=== PATIENT | male | born 1955 | race Caucasian/White ===

== ENCOUNTER 2024-02-22 09:54 | Outpatient (CLI) | payer OTHER, SELFPAY ==
--- OUTSIDE RECORDS SUMMARY | 2024-02-22 09:59 | XMS_ITS | Clinical Summary ---
Author Organization [facility] Address [place], [place] [address] Care Team Providers Care Tester [employer] Name Role Phone Jr Capellan MD Primary Care Provider [phone] Allergies No known active allergies Medications Medication Sig Dispensed Refills Start Date End Date Status apixaban (ELIQUIS) 5 mg tablet Take 5 mg by mouth two times daily. 01/05/2023 Active aspirin (ECOTRIN) 81 mg enteric coated tablet Take 81 mg by mouth once daily with a meal. Active gabapentin (NEURONTIN) 300 mg capsule Take 300 mg by mouth 4 times daily if needed. Active levothyroxine (SYNTHROID) 150 mcg tablet Take 150 mcg by mouth before breakfast. Active metoprolol succinate (TOPROL XL) 50 mg sustained-release tablet Take 75 mg by mouth once daily. 02/03/2023 Active omeprazole (PRILOSEC) 20 mg Delayed-Release capsule Take 20 mg by mouth once daily before a meal. Active metFORMIN (GLUCOPHAGE XR) 500 mg Extended-Release tablet Take 500 mg by mouth two times daily with meals. Active minocycline (MINOCIN) 100 mg capsule Take 100 mg by mouth once daily. Active QUEtiapine 150 mg tab Take 1 Tablet by mouth at bedtime. Active sertraline (ZOLOFT) 100 mg tablet Take 200 mg by mouth once daily. Active axitinib 5 mg tab Take 1 Tablet by mouth once daily. Active tamsulosin (FLOMAX) 0.4 mg capsule Take 0.4 mg by mouth two times daily. Active Active Problems Problem Noted Date Diagnosed Date HFrEF (heart failure with reduced ejection fract ion) 02/16/2023 COVID-19 02/16/2023 Encephalopathy 02/16/2023 Autoimmune disorder 10/29/2022 Stage 3 chronic kidney disease 09/13/2019 Malignant neoplasm of kidney excluding renal pel vis, right 06/30/2018 Social History Tobacco Use Types Packs/Day Years Used Date Smoking Tobacco: Never Assessed Social Connections Answer Date Recorded Frequency of Communication with Friends and Fami ly Not on file 02/17/2023 Sex and Gender Information Value Date Recorded Sex Assigned at Not on file Gender Identity Not on file Sexual Orientation Not on file Obstetrics History Last Filed Vital Signs Vital Sign Reading Time Taken Comments Blood Pressure 167/101 02/19/2023 6:29 AM CDT Pulse 64 02/19/2023 6:29 AM CDT Temperature 36.9 ??C (98.4 ??F) 02/19/2023 6:29 AM CD T Respiratory Rate 16 02/19/2023 6:29 AM CDT Oxygen Saturation 96% 02/19/2023 6:29 AM CDT Inhaled Oxygen Concentration - - Weight 128.9 kg (284 lb 2.8 oz) 02/19/2023 7:00 AM CDT Height 177.8 cm (5' 10) 02/16/2023 11: 19 AM CDT Body Mass Index 40.77 02/16/2023 11:19 AM CDT Plan of Treatment Upcoming Encounters Date Type Department Care Team (Late st Contact Info) Description 02/22/2024 10:00 AM CDT Ancillary Procedure [facility] & [address] [address] Health Maintenance Due Date Last Done Comments Tdap 1965 Depression screening for age 12+ 1966 BMI (ht and wt on same day) for age 18+ 1972 Hepatitis C screening for age 18-79 1972 Tetanus booster 1974 Colonoscopy through age 75 1999 Lipids for age 45-75 1999 Zoster (shingles) series for age 50+ (1 of 2) 2004 Medicare Wellness for age 65+ 2019 Pneumococcal series for age 65+ (1 of 1 - PCV) 2019 COVID-19 vaccine series ( season) 2024 04/01/2021, 08/04/2020, 07/06/2020 Influenza for age 65+ 01/01/2024 Advance Directives * Full Code (Latest Code Status on File) Date Activated Date Inactivated Comments 02/16/2023 7:34 PM 02/19/2023 1:50 PM Question Answer Comments Code Status Discussion: Reviewed Preferences Care Teams T[employer] Relationship Specialty Start Date End Date Jr Capellan MD [address] [place] [address] PCP - General Oncology 02/15/23
--- OUTSIDE RECORDS SUMMARY | 2024-02-22 10:00 | XMS_ITS | Clinical Summary ---
Author Organization [facility] Address [address] [place] [address]. [place] [address] Care Team Providers Care Direct Support Professional Caregiver Name Role Phone Pollo Medrano MD Unavailable [phone] GadielJulio C muhammad MD Unavailable [phone] Acosta Cristobal MD Primary Care Provider + Acosta Cristobal MD Unavailable [phone] Hanna Simental MD Unavailable [phone] Simona Bolden [facility] Unavailable Allergies Active Allergy Reactions Criticality Noted Date Comments Bupropion Rash Low 03/05/2019 Medications sildenafil (VIAGRA) 100 MG tabletIndication s:Erectile dysfunction due to diseases classified elsewhere Take 1 tablet (100 mg) by mouth daily as needed at least 30 minutes before intercourse. 100 tablet 08/08/19 21 Active hydrOXYzine (VISTARIL) 25 MG capsuleIndicatio ns:Moderate episode of recurrent major depressive disorder (H) Take 1-2 capsules (25-50 mg) by mouth nightly as needed (sleep) 180 capsule 1 02/06/20 22 Active Additional Information Patient not taking.Informant: Self, Spouse/Significant Other, Reported on 12/19/2023 INLYTA 5 MG tablet 5 mg daily 07/08/19 23 Active triamcinolone (KENALOG) 0.1 % external cream 1 APPLICATION TOPICALLY 2 TIMES PER DAY. APPLY TO POSTERIOR NECK/SCALP TWICE DAILY 12/09/19 22 Active urea (GORMEL) 20 % external creamIndications :Type 2 diabetes mellitus with stage 3b chronic kidney disease, without long-term current use of insulin (H) Apply topically as needed 480 g 1 08/10/19 23 Active Additional Information Patient not taking.Informant: Self, Spouse/Significant Other, Reported on 12/19/2023 minocycline (MINOCIN) 100 MG capsule Take 100 mg by mouth daily Active tamsulosin (FLOMAX) 0.4 MG capsuleIndicatio ns:Urinary hesitancy Take 1 capsule (0.4 mg) by mouth 2 times daily 180 capsule 3 10/30/19 23 Active aspirin 81 MG EC tablet Take 81 mg by mouth daily Active ENTRESTO 24-26 MG per tablet TAKE 1 TABLET BY MOUTH 2 (TWO) TIMES A DAY. THIS REPLACES LOSARTAN Active zolpidem (AMBIEN) 10 MG tabletIndication s:Insomnia, unspecified TAKE 1 TABLET (10 MG) BY MOUTH NIGHTLY NEEDED FOR SLEEP 30 tablet 01/18/20 23 Active sertraline (ZOLOFT) 100 MG tabletIndication s:Moderate episode of recurrent major depressive disorder (H) TAKE 2 TABLETS BY MOUTH EVERY DAY 180 tablet 3 04/01/20 23 Active docusate sodium (COLACE) 100 MG capsule Take 1 capsule (100 mg) by mouth 2 times daily 20 capsule 04/12/20 23 Active Additional Information Patient not taking.Reported on 12/19/2023 oxyCODONE (ROXICODONE) 5 MG tabletIndication s:Closed unstable burst fracture of thoracic vertebra with routine healing, unspecified thoracic vertebral level, subsequent encounter Take 1 tablet (5 mg) by mouth 3 times daily as needed for severe pain 30 tablet 05/03/19 24 Active Additional Information Patient not taking.Reported on 12/19/2023 tadalafil (CIALIS) 20 MG tabletIndication s:Vasculogenic erectile dysfunction, unspecified vasculogenic erectile dysfunction type Take 1 tablet (20 mg) by mouth once as needed 12 tablet 12 07/21/19 24 Active metFORMIN (GLUCOPHAGE XR) 500 MG 24 hr tabletIndication s:Type 2 diabetes mellitus with stage 3b chronic kidney disease, without long-term current use of insulin (H) Take 2 tablets (1,000 mg) by mouth 2 times daily (with meals) 360 tablet 1 09/15/19 24 Active gabapentin (NEURONTIN) 300 MG capsuleIndicatio ns:Chronic bilateral low back pain without sciatica TAKE 1 CAPSULE BY MOUTH FOUR TIMES A DAY 360 capsule 3 10/04/19 24 Active hydrochlorothiaz mary (HYDRODIURIL) 25 MG tabletIndication s:Essential hypertension, benign TAKE 1 TABLET BY MOUTH EVERY DAY 90 tablet 10/19/19 24 Active Additional Information Patient not taking.Reported on 12/19/2023 LORazepam (ATIVAN) 0.5 MG tabletIndication s:Agitation TAKE 1 TABLET BY MOUTH EVERY 6 HOURS NEEDED FOR ANXIETY. 20 tablet 11/01/19 24 Active Additional Information Patient not taking.Reported on 12/19/2023 apixaban ANTICOAGULANT (ELIQUIS) 5 MG tablet Take 5 mg by mouth 01/06/20 23 Active empagliflozin (JARDIANCE) 10 MG TABS tablet Take 10 mg by mouth 06/22/19 24 025 Active metoprolol succinate ER (TOPROL XL) 200 MG 24 hr tablet TAKE 1 TABLET (200 MG TOTAL) BY MOUTH DAILY. DO NOT CRUSH OR CHEW. Active mycophenolate (GENERIC EQUIVALENT) 500 MG tablet 500mg twice daily x 2 week; 1000mg in AM & 500mg in PM x 2 weeks; then 1000mg twice daily 03/02/20 23 Active zolpidem (AMBIEN) 10 MG tabletIndication s:Persistent insomnia Take 1 tablet (10 mg) by mouth nightly as needed for sleep 30 tablet 2 12/19/19 24 Active Semaglutide, 1 MG/DOSE, (OZEMPIC) 4 MG/3ML penIndications:T ype 2 diabetes mellitus with stage 3b chronic kidney disease, without long-term current use of insulin (H),Morbid obesity (H) Inject 1 mg subcutaneously every 7 days 9 mL 1 12/19/19 24 Active LORazepam (ATIVAN) 1 MG tabletIndication s:Autoimmune encephalitis TAKE 1 TABLET (1 MG) BY MOUTH 2 TIMES DAILY NEEDED FOR ANXIETY OR SLEEP 20 tablet 3 12/22/19 24 Active levothyroxine (SYNTHROID/LEVOT HROID) 150 MCG tabletIndication s:Hypothyroidism due to medication TAKE 1 TABLET BY MOUTH EVERY DAY 90 tablet 01/10/20 24 Active QUEtiapine Fumarate 150 MG TABSIndications: 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 Paroxysmal atrial fibrillation 09/30/2022 Peripheral edema 09/30/2022 Pain of right lower extremity 09/30/2022 Pain of left lower extremity 09/30/2022 Hypothyroidism due to medication 02/05/2022 Nodule of upper lobe of left lung 06/26/2021 Type 2 diabetes mellitus wit h stage 3b chronic kidney disease, without long-term current use of insulin 09/13/2019 Rectus diastasis 09/13/2019 Stage 3b chronic kidney disease 09/13/2019 Abnormal LFTs 07/23/2019 Moderate episode of recurrent major depressive d isorder 01/23/2019 Dysthymia 01/05/2019 NSVT (nonsustained ventricular tachycardia) 10/31 Malignant neoplasm of kidney excluding renal pel vis, right 06/30/2018 S/P total knee arthroplasty 05/29/2018 Primary osteoarthritis of left knee 05/22/2018 Morbid obesity 04/19/2018 Hyperlipidemia LDL goal <100 04/20/2017 Vitamin D deficiency 10/19/2016 Shift work sleep disorder 06/14/2016 Sinus bradycardia 06/14/2016 Essential hypertension, benign 11/27/2015 Persistent insomnia 03/13/2015 Skull lesion 02/10/2015 Polyp of colon 01/16/2009 Erectile dysfunction 06/26/2008 Dyspnea and respiratory abnormality 08/06/2002 Overview (01/30/2015): Problem list name updated by automated process. Provider to review Resolved Problems Problem Noted Date Diagnosed Date Resolved Date Personal history of renal cancer 04/19/2018 04/19/2018 CRF (chronic renal failure), stage 3 (moderate) 04/20/2017 08/09/2022 Prediabetes 10/19/2016 04/01/2020 Renal mass 02/11/2015 04/20/2017 History of renal cell cancer 01/24/2015 11/16/2022 Cancer Staging:Clinical: T3a - Unsigned Pathologic:Stage III(T3a, N0, cM0) - Signed by Julio C Ramesh MD on 03/04/2015 Overview (12/22/2015): Status post right nephrectomy for clear cell renal carcinoma January 2015. CARDIOVASCULAR SCREENING; LD L GOAL LESS THAN 130 03/01/2010 04/20/2017 Encounters Date Type Department Care Team Description 02/21/2024 Telephone [facility] [address] [place] [address] Acosta Cristobal MD Call Back 02/20/2024 [facility] [address] [place] [address] Acosta Cristobal MD 02/20/2024 [facility] Refill [facility] [address] [place] [address] Acosta Cristobal MD Refill Request 02/17/2024 [facility] Medical [facility] [address] [place] [address] Willie Lawson MA 02/17/2024 Telephone [facility] [address] [facility] [place] [phone] Acosta Cristobal MD Panel Management 02/15/2024 Telephone [facility] [address] [place] [phone] Acosta Cristobal MD Medication Question 01/28/2024 Refill [facility] [address] [place] [phone] Acosta Cristobal MD Medication Refill 01/10/2024 Refill [facility] [address] [place] [address] Acosta Cristobal MD Medication Refill 12/20/2023 Refill [facility] [address] [place] [address] Acosta Cristobal MD Medication Refill 12/19/2023 3:30 PM CDT Virtual Visit [facility] [address] [place] [address] Acosta Cristobal MD Type 2 diabetes mellitus with stage 3b chronic kidney disease, without long-term current use of insulin (H) (Primary Dx); Agitation; Persistent insomnia; Morbid obesity (H) 12/03/2023 Refill [facility] [address] [place] [phone] Acosta Cristobal MD Medication Refill 12/01/2023 Telephone [facility] [address] [place] [phone] Acosta Cristobal MD Forms 11/29/2023 Refill [facility] [address] [place] [phone] Acosta Cristobal MD Medication Refill from Last 3 Months Immunizations Name Administration Dates Next Due Flu, Unspecified 01/17/2020 Pneumococcal 20 valent Conjugate (Prevnar 20) Pneumococcal 23 valent 12/11/2020 TDAP Vaccine (Adacel) 01/05/2019,06/25/2008 Yellow Fever 05/30/2009 Zoster recombinant adjuvanted (SHINGRIX) 023,09/05/2022 Family History Medical History Relation Comments Alcohol/Drug Brother 3 Cancer Brother 4 Cancer Father lung- smoking Heart Disease Father Cancer - colorectal Maternal Grandfather Alzheimer Disease Maternal Grandmother Arthritis Maternal Grandmother Hypertension Mother Lipids Mother Thyroid Disease Mother Cerebrovascular Disease Paternal Grandfather Relation Status Comments Brother 1 (Age 40) Brother 2 Alive Brother 3 Brother 4 Father Maternal Grandfather Maternal Grandmother (Age 86) Mother Paternal Grandfather Social History Tobacco Use Types Packs/Day Years Used Date Smoking Tobacco: Never Smokeless Tobacco: Never Alcohol Use Standard Drinks/Week Comments Yes 3 (1 standard drink = 0.6 oz pur e alcohol) 2 weekly Social Connection and Isolation Panel [NHANES] A nswer Date Recorded Frequency of Communication with Friends and Fami ly Not on file 09/15/2023 How often do you get together with friends or re latives? Once a week 09/15/2023 Attends Tenriism Services Not on file 09/14 Active Member of Clubs or Organizations Not on f ile 09/15/2023 Attends Club or Organization Meetings Not on mary ann e 09/15/2023 Marital Status Not on file 09/15/2023 AUDIT-C Answer Date Recorded Q1: How often do you have a drink containing alc ohol? 2-3 times a week 05/27/2021 Q2: How many drinks containi ng alcohol do you have on a typical day when you are drinking? 3 or 4 05/27/2021 Q3: How often do you have si x or more drinks on one occasion? Never 05/27/2021 PHQ-2 Answer Date Recorded PHQ-2 Score 1 04/27/2023 [facility] [place] [facility] Occup[facility] ional [facility] - Occupational Stress Questionnaire Answer Date Recorded Do you feel stress - tense, restless, nervous, or anxious, or unable to sleep at night because your mind is troubled all the time - these days? To some extent 09/15/2023 Exercise Vital Sign Answer Date Recorde d On average, how many days pe r week do you engage in moderate to strenuous exercise (like a brisk walk)? 0 days 09/15/2023 On average, how many minutes do you engage in exercise at this level? 0 min 09/15/2023 Adolescent Education Answer Date Record ed Getting School Help Needed Not on file 01/28 Food Insecurity Answer Date Recorded Within the past 12 months, d id you worry that your food would run out before you got money to buy more? No 09/15/2023 Within the past 12 months, d id the food you bought just not last and you didn? t have money to get more? No 09/15/2023 Housing Stability Answer Date Recorded Do you have housing? (Cristhian g is defined as stable permanent housing and does not include staying ouside in a car, in a tent, in an abandoned building, in an overnight halfway, or couch-surfing.) Yes 09/15/2023 Are you worried about losing your housing? No 09/15/2023 Financial Resource Strain Answer Date R ecorded Within the past 12 months, h ave you or your family members you live with been unable to get utilities (heat, electricity) when it was really needed? No 09/15/2023 Transportation Needs Answer Date Record ed Within the past 12 months, h as lack of transportation kept you from medical appointments, getting your medicines, non-medical meetings or appointments, work, or from getting things that you need? No 09/15/2023 Interpersonal Safety Answer Date Record ed Do you feel physically and e motionally safe where you currently live? Yes 04/27/2023 Within the past 12 months, h ave you been hit, slapped, kicked or otherwise physically hurt by someone? No 04/27/2023 Within the past 12 months, h ave you been humiliated or emotionally abused in other ways by your partner or ex-partner? No 04/27/2023 Sex and Gender Information Value Date Recorded Sex Assigned at Male 02/06/2021 10:36 AM CDT Legal Sex Male 3:26 AM POULTRY SEXER Gender Identity Male 02/06/2021 10:36 AM CDT Sexual Orientation Straight 02/06/2021 10 :36 AM CDT Last Filed Vital Signs Vital Sign Reading Time Taken Comments Blood Pressure 109/73 09/15/2023 2:56 PM CDT Pulse 98 09/15/2023 2:56 PM CDT Temperature 36.8 ??C (98.3 ??F) 09/15/2023 2:56 PM CD T Respiratory Rate 16 09/15/2023 2:56 PM CDT Oxygen Saturation 97% 09/15/2023 2:56 PM CDT Inhaled Oxygen Concentration - - Weight 133.4 kg (294 lb) 09/15/2023 2:56 PM CDT Height 177.8 cm (5' 10) 09/15/2023 2:56 PM CDT Body Mass Index 42.18 09/15/2023 2:56 PM CDT Plan of Treatment Upcoming Encounters Date Type Department Care Team (Late st Contact Info) Description 03/23/2024 1:00 PM P[employer]LTRY S[employer]ER Office Visit [facility] [address] [place] [address] [place] [address] [place] [address] Health Maintenance Due Date Last Done Comments CT COLONOGRAPHY 1954 FIT 1954 FLEX SIG 1954 sDNA (Cologuard) 1954 RSV VACCINE (1 - Risk 60-74 years 1-dose series) 2014 DIABETIC FOOT EXAM 08/10/2023 08/09/2022, 12/11/2020 MEDICARE ANNUAL WELLNESS VISIT 08/10/2023 08/09/2022, 08/09/2022, 12/11/2020, Additional history exists PHQ-9 10/27/2023 04/27/2023, 03/02, 12/29/2022, Additional history exists A1C 12/16/2023 09/15/2023, 03/02, 11/16/2022, Additional history exists COVID-19 Vaccine ( season) 2024 04/01/2021, 08/04/2020, 07/06/2020 INFLUENZA VACCINE (#1) 2024 , 01/05/2019 (Declined), 01/06/2018 (Declined) ANNUAL REVIEW OF HM ORDERS 02/23/202402/22, 02/05/2022, 08/04/2020 EYE EXAM 03/07/2024 03/07/2023, 040 05/2021, 12/09/2019 LIPID 03/17/2024 03/17/2023, 100 10/2021, 12/02/2020, Additional history exists MICROALBUMIN 03/18/2024 09/16/2023, 03/02, 08/09/2022, Additional history exists BMP 04/27/2024 04/27/2023, 04/01, 10/01/2022, Additional history exists HEMOGLOBIN 04/27/2024 04/27/2023, 04/01, 10/01/2022, Additional history exists FALL RISK ASSESSMENT 09/14/2024 09/15/2023, 08/09/2022, 02/05/2022, Additional history exists TSH W/FREE T4 REFLEX 09/14/2024 09/15/2023, 03/03/2022, 02/05/2022, Additional history exists COLONOSCOPY 02/19/2026 02/19/2021, 01/31, 04/02/2020, Additional history exists COLORECTAL CANCER SCREENING 02/19/2026 ADVANCE CARE PLANNING 08/11/2027 08/10/2022 , 12/11/2019, 06/01/2018, Additional history exists DTAP/TDAP/TD IMMUNIZATION (3 - Td or Tdap) 01/05/2029 01/05/2019, 06/25/2008 HEPATITIS C SCREENING Addressed 04/20/2017 (Decline d) Overridden with the intention of not completing the topic PARATHYROID Completed 08/02/2018, 04/08/2016 DEPRESSION ACTION PLAN Completed 01/23/2019 PHOSPHORUS Completed 10/28/2021, 0 06/2018, 04/08/2016, Additional history exists Pneumococcal Vaccine: 65+ Years Completed 02/05/2022, 12/11/2020 URINALYSIS Completed 07/05/2022, 10/01, 08/02/2018, Additional history exists ZOSTER IMMUNIZATION Completed 12/11/2022, 3 ALK PHOS Completed 04/12/2023, 0606/2022, 09/30/2022, Additional history exists HPV IMMUNIZATION Aged Out No longer e ligible based on patient's age to complete this topic MENINGITIS IMMUNIZATION Aged Out No l onger eligible based on patient's age to complete this topic RSV MONOCLONAL ANTIBODY Aged Out No l onger eligible based on patient's age to complete this topic Goals Goal Patient Goal Type Associated Problems Recent Progress Patient-Stated? Author Explore cancer support resources Care Plan Mental Health Symptoms Need Improvement 100%(10/07/19 9:29 AM CDT) No Paula Humphrey, DAIRY NUTRITION CONSULTANT Note: Barriers: Not sure what is available Strengths: Family support Patient expressed understanding of goal: Yes Action steps to achieve this goal: 1. I will consider participating in a cancer support group. [employer] will send me cancer support resources. 2. I will continue to work with a therapist. 3. I will let [employer] know if I need additional resources. Medical Devices Implanted Type Area License And Permit Specialist Device Identifier Shelf Expiration Date Model / Serial / Lot Bone Cement Simplex W/Tobramycin [id number] Implanted:Qty: 1 on 05/29/2018 by Fabrizio Parr MD at [facility] Cement, Bone Left: Knee [employer] 10/30/2019 [id number] 1 / / [id number] Comp Tka Ibalance Mod Tibial Tray Sz 7 Ar-513-T7 Implanted:Qty: 1 on 05/29/2018 by Fabrizio Parr MD at [facility] Total Joint Component /Insert Left: Knee [employer] 06/29/2022 AR-513-T7 / / [id number] Ibalance Patelle Implant, Dome, Vit E, 40 X 10mm Implanted:Qty: 1 on 05/29/2018 by Fabrizio Parr MD at [facility] Total Joint Component /Insert Left: Knee [employer] 06/01/2022 AR-524-PS E0 / / [id number] Imp Comp Tka Ibalance Fem Ps Bladimir Sz 8 Lt Ar-516-8l Implanted:Qty: 1 on 05/29/2018 by Fabrizio Parr MD at [facility] Total Joint Component /Insert Left: Knee ARTHREX 01/29/2019 AR-516-8L / / [id number] Ibalance Tka, Tibial Bearing Implant, Ps, Vit E, Size 7 (8mm Thickness) Implanted:Qty: 1 on 05/29/2018 by Fabrizio Parr MD at [facility] Total Joint Component /Insert Left: Knee ARTHREX 03/31/2020 AR-523-B7 08 / / [id number] Imp Mesh Syn Malleable [id number] Low Blast Furnace Keeper Ti Implanted:Qty: 1 on 02/13/2015 by Niraj Smith MD at [facility] Right: Skull SYNTHES-STRATEC 421.531 / / Imp Scr Syn Matrix Low Pro 1.5x04mm Self Drill [id number] Implanted:Qty: 7 on 02/13/2015 by Niraj Smith MD at [facility] Right: Skull SYNTHES-STRATEC [id number] 4.01 / / Procedures Procedure Name Priority Date/Time Associated Diagnosis Comments ALBUMIN RANDOM URINE QUANTITATIVE Routine 09/16/2023 3:22 PM CDT Type 2 diabetes mellitus with stage 3b chronic kidney disease, without long-term current use of insulin (H) TSH WITH FREE T4 REFLEX Routine 09/15/2023 3:28 PM CDT Type 2 diabetes mellitus with stage 3b chronic kidney disease, without long-term current use of insulin (H) HEMOGLOBIN A1C Routine 09/15/2023 3:28 PM CDT Type 2 diabetes mellitus with stage 3b chronic kidney disease, without long-term current use of insulin (H) CBC WITH PLATELETS Routine 04/27/2023 11 :10 AM P[employer]LTRY SEXER Type 2 diabetes mellitus with stage 3b chronic kidney disease, without long-term current use of insulin (H) BASIC METABOLIC PANEL Routine 04/27/2023 11:10 AM P[employer]LTRY S[employer]ER Type 2 diabetes mellitus with stage 3b chronic kidney disease, without long-term current use of insulin (H) COMPREHENSIVE METABOLIC PANEL STAT 04/12/2023 3:58 PM [employer]LTRY S[employer]ER LIPID REFLEX TO DIRECT LDL PANEL Routine 03/17/2023 11:42 AM P[employer]LTRY S[employer]ER Type 2 diabetes mellitus with stage 3b chronic kidney disease, without long-term current use of insulin (H) EYE EXAM - HIM SCAN Routine 03/07/2023 URINALYSIS MACROSCOPIC Routine 3:51 PM P[employer]LTRY S[employer]ER Urinary hesitancy PHOSPHORUS STAT 10/28/2021 10:26 AM CDT COLONOSCOPY Routine 02/19/2021 8:44 AM CDT PARATHYROID HORMONE INTACT Routine 08/02/2018 12:18 PM CDT CRF (chronic renal failure), stage 3 (moderate) (H) from Last 3 Months or Most Recently Relevant to Health Maintenance Results * Albumin Random Urine Quantitative with Creat Ratio (09/16/2023 3:22 PM CDT) Creatinine Urine mg/dL 100.0 mg/dL 09/17/2023 9:59 PM CDT [facility] Comment:The reference ranges have not been established in urine creatinine. The results should be integrated into the clinical context for interpretation. Albumin Urine mg/L 15.8 mg/L 2023 9:59 PM CDT [facility] Comment:The reference ranges have not been established in urine albumin. The results should be integrated into the clinical context for interpretation. Albumin Urine mg/g Cr 15.80 0.00 - 17.00 mg/g Cr 09/17/2023 9:59 PM CDT [facility] Comment: Microalbuminuria is defined as an albumin:creatinine ratio of 17 to 299 for males and 25 to 299 for females. A ratio of albumin:creatinine of 300 or higher is indicative of overt proteinuria. Due to biologic variability, positive results should be confirmed by a second, first-morning random or 24-hour timed urine specimen. If there is discrepancy, a third specimen is recommended. When 2 out of 3 results are in the microalbuminuria range, this is evidence for incipient nephropathy and warrants increased efforts at glucose control, blood pressure control, and institution of therapy with an iwuwiknalnl-ossxxlbmly-rykeqs (PONCHO) inhibitor (if the patient can tolerate it). ?? Urine URINE SPECIMEN / Unknown Non-blood Collection / Unknown 09/16/2023 3:22 PM CDT 09/16/2023 3:22 PM CDT Acosta Cristobal MD LAB - URINE ORDERABLES F inal Result Performing Organization Address City/[facility]/ZIP Co de Phone Number [facility] [address] [facility], [address] * TSH with free T4 reflex (09/15/2023 3:28 PM CDT) TSH 2.99 0.30 - 4.20 uIU/mL 09/16/2023 5:12 PM CDT [facility] Blood BLOOD SPECIMEN / Unknown Venipuncture / Unknown 09/15/2023 3:28 PM CDT 09/15/2023 3:28 PM CDT Acosta Cristobal MD LAB - BLOOD ORDERABLES F inal Result Performing Organization Address City/[facility] Co de Phone Number LABORATORY [facility] [address] [facility], [address] * (ABNORMAL) Hemoglobin A1c (09/15/2023 3:28 PM CDT) Hemoglobin A1C 7.2(H) 0.0 - 5.6 % 09/15/2023 3:33 PM CDT LABORATORY Comment: Normal <5.7% Prediabetes 5.7-6.4% ?? Diabetes 6.5% or higher Note: Adopted from ADA consensus guidelines. Blood BLOOD SPECIMEN / Unknown Venipuncture / Unknown 09/15/2023 3:28 PM CDT 09/15/2023 3:28 PM CDT us Acosta Cristobal MD LAB - BLOOD ORDERABLES F inal Result LABORATORY [facility] [address] [facility] (no room number, 1st floor of clinic) [place] [address], [facility] * (ABNORMAL) Basic metabolic panel (Ca, Cl, CO2, Creat, Gluc, K, Na, BUN) (04/27/2023 11:10 AM POULTRY SEXER) Sodium 133(L) 135 - 145 mmol/L 04/27/2023 8:03 PM POULTRY SEXER [facility] Comment:Reference intervals for this test were updated on 01/25/2023 to more accurately reflect our healthy population. There may be differences in the flagging of prior results with similar values performed with this method. Interpretation of those prior results can be made in the context of the updated reference intervals. Potassium 5.1 3.4 - 5.3 mmol/L 04/27/2023 8:03 PM [facility] Chloride 98 98 - 107 mmol/L 04/27/2023 8:03 PM [facility] Carbon Dioxide (CO2) 23 22 - 29 mmol/L 04/27/2023 8:03 PM [facility] Anion Gap 12 7 - 15 mmol/L 04/27/2023 8:03 PM [facility] Urea Nitrogen 29.4(H) 8.0 - 23.0 mg/dL 04/27/2023 8:03 PM [facility] Creatinine 1.59(H) 0.67 - 1.17 mg/dL 04/27/2023 8:03 PM [facility] GFR Estimate 47(L) >60 mL/min/1. 73m2 04/27/2023 8:03 PM [facility] Calcium 9.6 8.8 - 10.2 mg/dL 04/27/2023 8:03 PM [facility] Glucose 271(H) 70 - 99 mg/dL 04/27/2023 8:03 PM [facility] Blood BLOOD SPECIMEN / Unknown Venipuncture / Unknown 04/27/2023 11:10 AM [facility] 04/27/2023 11:10 AM [facility] us Jenn Fishman MD LAB - BLOOD ORDERABLES Final Res ult [facility] [address] [facility], [address] [place] [address], [place] [phone] * CBC with platelets (04/27/2023 11:10 AM [facility]) [facility] WBC Count 9.2 4.0 - 11.0 10e3/uL 04/27/2023 11:13 AM [facility] RBC Count 4.82 4.40 - 5.90 10e6/uL 04/27/2023 11:13 AM [facility] Hemoglobin 13.7 13.3 - 17.7 g/dL 04/27/2023 11:13 AM [facility] Hematocrit 41.2 40.0 - 53.0 % 04/27/2023 11:13 AM [facility] MCV 86 78 - 100 fL 04/27/2023 11:13 AM [facility] MCH 28.4 26.5 - 33.0 pg 04/27/2023 11:13 AM [facility] MCHC 33.3 31.5 - 36.5 g/dL 04/27/2023 11:13 AM [facility] RDW 14.9 10.0 - 15.0 % 04/27/2023 11:13 AM [facility] Platelet Count 202 150 - 450 10e3/uL 04/27/2023 11:13 AM [facility] Blood BLOOD SPECIMEN / Unknown Venipuncture / Unknown 04/27/2023 11:10 AM [facility] 04/27/2023 11:10 AM [facility] us Jenn Fishman MD LAB - BLOOD ORDERABLES Final Res ult [facility] [place] [facility] [address] [facility] Lab (no room number, 1st floor of clinic) [place] [address], [place] [phone] * (ABNORMAL) Comprehensive metabolic panel (04/12/2023 3:58 PM [facility]) [facility] Sodium 137 135 - 145 mmol/L 04/12/2023 7:05 PM [facility] Comment:Reference intervals for this test were updated on 01/25/2023 to more accurately reflect our healthy population. There may be differences in the flagging of prior results with similar values performed with this method. Interpretation of those prior results can be made in the context of the updated reference intervals. Potassium 5.1 3.4 - 5.3 mmol/L 04/12/2023 7:05 PM [facility] Carbon Dioxide (CO2) 24 22 - 29 mmol/L 04/12/2023 7:05 PM [facility] Anion Gap 13 7 - 15 mmol/L 04/12/2023 7:05 PM [facility] Urea Nitrogen 27.7(H) 8.0 - 23.0 mg/dL 04/12/2023 7:05 PM [facility] Creatinine 1.62(H) 0.67 - 1.17 mg/dL 04/12/2023 7:05 PM [facility] GFR Estimate 46(L) >60 mL/min/1. 73m2 04/12/2023 7:05 PM [facility] Calcium 9.4 8.8 - 10.2 mg/dL 04/12/2023 7:05 PM [facility] Chloride 100 98 - 107 mmol/L 04/12/2023 7:05 PM [facility] Glucose 103(H) 70 - 99 mg/dL 04/12/2023 7:05 PM [facility] Alkaline Phosphatase 53 40 - 150 U/L 04/12/2023 7:05 PM [facility] Comment:Reference intervals for this test were updated on 03/15/2023 to more accurately reflect our healthy population. There may be differences in the flagging of prior results with similar values performed with this method. Interpretation of those prior results can be made in the context of the updated reference intervals. AST 28 0 - 45 U/L 04/12/2023 7:05 PM [facility] Comment:Reference intervals for this test were updated on 10/11/2022 to more accurately reflect our healthy population. There may be differences in the flagging of prior results with similar values performed with this method. Interpretation of those prior results can be made in the context of the updated reference intervals. ALT 26 0 - 70 U/L 04/12/2023 7:05 PM [facility] Comment:Reference intervals for this test were updated on 10/11/2022 to more accurately reflect our healthy population. There may be differences in the flagging of prior results with similar values performed with this method. Interpretation of those prior results can be made in the context of the updated reference intervals. Protein Total 6.9 6.4 - 8.3 g/dL 04/12/2023 7:05 PM [facility] Albumin 4.6 3.5 - 5.2 g/dL 04/12/2023 7:05 PM [facility] Bilirubin Total 0.6 <=1.2 mg/dL 04/12/2023 7:05 PM [facility] Blood VENOUS LINE / Unknown Venipuncture / Unknown 04/12/2023 3:58 PM [facility] 04/12/2023 4:06 PM [facility] us Benny Albrecht MD LAB - BLOOD ORDERABLES Final Result [facility] [address] Lab (1st floor, no room number) [place] [address], [facility] [phone] * (ABNORMAL) Lipid panel reflex to direct LDL Non-fasting (03/17/2023 11:42 AM [facility]) Cholesterol 237(H) <200 mg/dL 03/17/2023 10:42 PM [facility] Triglycerides 306(H) <150 mg/dL 03/17/2023 10:42 PM [facility] Direct Measure HDL 41 >=40 mg/dL 03/17/2023 10:42 PM [facility] LDL Cholesterol Calculated 135(H) <=100 mg/dL 03/17/2023 10:42 PM [facility] Non HDL Cholesterol 196(H) <130 mg/dL 03/17/2023 10:42 PM [facility] Blood BLOOD SPECIMEN / Unknown Venipuncture / Unknown 03/17/2023 11:42 AM [facility] 03/17/2023 11:42 AM [facility] Narrative [facility] - 03/17/2023 10:42 PM [facility] Cholesterol Desirable: ??<200 mg/dL Triglycerides Normal: ??Less than 150 mg/dL Borderline High: ??150-199 mg/dL High: ??200-499 mg/dL Very High: ??Greater than or equal to 500 mg/dL Direct Measure HDL Female: ??Greater than or equal to 50 mg/dL Male: ??Greater than or equal to 40 mg/dL LDL Cholesterol Desirable: ??<100mg/dL Above Desirable: ??100-129 mg/dL Borderline High: ??130-159 mg/dL High: ??160-189 mg/dL Very High: ??>= 190 mg/dL Non HDL Cholesterol Desirable: ??130 mg/dL Above Desirable: ??130-159 mg/dL Borderline High: ??160-189 mg/dL High: ??190-219 mg/dL Very High: ??Greater than or equal to 220 mg/dL Acosta Cristobal MD LAB - BLOOD ORDERABLES F inal Result [facility] [address], [address] [address], [facility] [phone] * Eye Exam - HIM Scan (03/07/2023) RETINOPATHY UNKNOWN Narrative Maile Villafana - 03/07/2023 SEE ENCOUNTER DATED 05/26/23 us Patient Reported OTHER Final Result * UA without Microscopic [[id number]] (07/05/2022 3:51 PM [facility]) Color Urine Yellow Colorless, Straw, Light Yellow, Yellow 07/05/2022 3:58 PM [facility] Appearance Urine Clear Clear 07/06/19 3:58 PM [facility] Glucose Urine Negative Negative mg/dL 07/05/2022 3:58 PM [facility] Bilirubin Urine Negative Negative 3:58 PM [facility] Ketones Urine Negative Negative mg/dL 07/05/2022 3:58 PM [facility] Specific Mathis Urine 1.015 1.003 - 1.035 07/05/2022 3:58 PM [facility] Blood Urine Negative Negative 07/05/2022 3:58 PM [facility] pH Urine 7.0 5.0 - 7.0 07/05/2022 3:58 PM [facility] Protein Albumin Urine Negative Negative mg/dL 07/05/2022 3:58 PM [facility] Urobilinogen Urine 0.2 0.2, 1.0 E.U./dL 07/05/2022 3:58 PM [facility] Nitrite Urine Negative Negative 07/05/2022 3:58 PM [facility] Leukocyte Esterase Urine Negative Negative 07/05/2022 3:58 PM [facility] Urine MID-STREAM URINE SPECIMEN / Unknown Non-blood Collection / Unknown 07/05/2022 3:51 PM [facility] 07/05/2022 3:51 PM [facility] Ramsey Loza MD LAB - URINE ORDERABLES Final Result [facility] [address] , [address] [place] [address], [facility] [phone] * Phosphorus (10/28/2021 10:26 AM CDT) Pathologist [facility] Phosphorus 2.9 2.5 - 4.5 mg/dL 10/28/2021 12:08 PM CDT LABORATORY Blood STRUCTURE OF RIGHT UPPER LIMB / Unknown Venipuncture / Unknown 10/28/2021 10:26 AM CDT 10/28/2021 10:41 AM CDT Thanh Johnson MD LAB - BLOOD ORDERABLES F inal Result LABORATORY [facility] [address] Lab (1st floor, no room number) [place] [address], [facility] [phone] * COLONOSCOPY (02/19/2021 8:44 AM CDT) COLONOSCOPY [facility] Patient Name: Hans Gu ? Procedure Date: 02/19/2021 8:44 AM ? Date of : 1955 ? Admit Type: Outpatient Age: 65 ? Gender: Male Attending MD: Pollo Beasley MD ?? Total Sedation Time: 14_minutes continuous bedside 1:1 Instrument Name: 221 - Adult Colonoscope Procedure: ?Colonoscopy Indications: ?High risk colon cancer surveillance: Personal ?history of colonic polyps Providers: ?Pollo Beasley MD (Doctor) Referring MD: ? Medicines: ?Midazolam 2 mg IV, Fentanyl 100 micrograms IV Complications: ?No immediate complications. Procedure: ?Pre-Anesthesia Assessment: ?- Prior to the procedure, a History and Physical ?was performed, and patient medications and ?allergies were reviewed. The patient is competent. ?The risks and benefits of the procedure and the ?sedation options and risks were discussed with the ?patient. All questions were answered and informed ?consent was obtained. Patient identification and ?proposed procedure were verified by the physician ?in the procedure room. Mental Status Examination: ?alert and oriented. Airway Examination: normal ?oropharyngeal airway and neck mobility. Respiratory ?Examination: clear to auscultation. CV Examination: ?normal. Prophylactic Antibiotics: The patient does ?not require prophylactic antibiotics. Prior ?Anticoagulants: The patient has taken no previous ?anticoagulant or antiplatelet agents. ASA Grade ?Assessment: II - A patient with mild systemic ?disease. After reviewing the risks and benefits, ?the patient was deemed in satisfactory condition to ?undergo the procedure. The anesthesia plan was to ?use moderate sedation / analgesia (conscious ?sedation). Immediately prior to administration of ?medications, the patient was re-assessed for ?adequacy to receive sedatives. The heart rate, ?respiratory rate, oxygen saturations, blood ?pressure, adequacy of pulmonary ventilation, and ?response to care were monitored throughout the ?procedure. The physical status of the patient was ?re-assessed after the procedure. ?After obtaining informed consent, the colonoscope ?was passed under direct vision. Throughout the ?procedure, the patient's blood pressure, pulse, and ?oxygen saturations were monitored continuously. The ?Olympus Adult Colonoscope, Model # CF-H190L, [place] ?# 221, SN # [id number] was introduced through the anus ?and advanced to the cecum, identified by ?appendiceal orifice and ileocecal valve. The ?colonoscopy was performed without difficulty. The ?patient tolerated the procedure well. The quality ?of the bowel preparation was good. ? Findings: ? The perianal and digital rectal examinations were normal. ? A 3 mm polyp was found in the distal transverse colon. The polyp was ? sessile. The polyp was removed with a cold snare. Resection and ? retrieval were complete. Verification of patient identification for the ? specimen was done. Estimated blood loss was minimal. ? Multiple small and large-mouthed diverticula were found in the entire ? colon. ? The exam was otherwise without abnormality on direct and retroflexion ? views. ? Impression: ? - One 3 mm polyp in the distal transverse colon, ?removed with a cold snare. Resected and retrieved. ?- Diverticulosis in the entire examined colon. ?- The examination was otherwise normal on direct ?and retroflexion views. Recommendation: ? - Await pathology results. ?- Repeat colonoscopy in 5 years for surveillance. ? Procedure Code(s): ? --- Professional --- ? 44153, Colonoscopy, flexible; with removal of tumor(s), polyp(s), or ? other lesion(s) by snare technique Diagnosis Code(s): ? --- Professional --- ? K63.5, Polyp of colon CPT copyright 2019 [employer]. All rights reserved. The codes documented in this report are preliminary and upon warehouse order picker review may be revised to meet current compliance requirements. Electronically signed by Pollo Beasley MD __ Pollo Beasley MD 02/19/2021 9:40:17 AM I was physically present for the entire viewing portion of the exam. Pollo Beasley MD Number of Addenda: 0 Note Initiated On: 02/19/2021 8:44 AM MRN: ?[id number] Procedure Date: ? 02/19/2021 8:44:57 AM Scope Withdrawal Time: 0 hours 8 minutes 16 seconds Total Procedure Duration: 0 hours 12 minutes 55 seconds Estimated Blood Loss: ? Scope In: 9:16:44 AM Scope Out: 9:29:39 AM RADIOLOGY RESULTS 02/19/2021 8:44 AM CDT us Pollo Beasley MD PROCEDURES Final Result RADIOLOGY RESULTS * Parathyroid Hormone Intact (08/02/2018 12:18 PM CDT) Parathyroid Hormone Intact 62 18 - 80 pg/mL 08/02/2018 6:01 PM CDT [facility] Blood specimen (specimen) 08/02/2018 12:18 PM CDT 08/02/2018 12:20 PM CDT Ramakrishna Jurado MD LAB - BLOOD ORDERABLES Malia fuentes Result [facility] [address] [place] [address] from Last 3 Months or Most Recently Relevant to Health Maintenance Additional Health Concerns Active Problems Noted Date Diagnosed Date Mental Health Symptoms Need Improvement 08/24/19 Insurance [place]ICARE [place]IC MEDICARE SUPPLEMENT PLAN MEDICARE [facility] MEDICARE SUPPLEMENT PLAN MEDICARE Advance Directives For more information, please contact: [phone] Documents on File Type Date Recorded Patient Fashion Intern Expl anation Advance Directives and Living Will 06/01/2018 12:11 PM Health Care Directiv e 05/22/2018 * No CPR- Do NOT Intubate (Latest Code Status on File) Date Activated Date Inactivated Comments 09/30/2022 6:53 PM 10/01/2022 7:05 PM NO basic or ad vanced life-sustaining interventions are performed Question Answer Comments Code status determined by: Discussion with patie nt/ legal decision maker * Full Code Date Activated Date Inactivated Comments 06/26/2021 5:58 PM 06/27/2021 4:11 PM All basic an d advanced life-sustaining interventions are performed as appropriate Question Answer Comments Code status determined by: Discussion with patie nt/ legal decision maker * Full Code Date Activated Date Inactivated Comments 05/29/2018 11:53 AM 05/30/2018 6:08 PM Question Answer Comments Code status determined by: Discussion with patie nt/legal decision maker * Full Code Date Activated Date Inactivated Comments 02/11/2015 3:53 PM 02/15/2015 10:30 AM Healthcare Agents on File Name Relationship Healthcare Agent Relationship Communication Maribeth Gu Spouse Health Care Agent [email or web address] Rylee (sister in law) Oni Relative First Alternate Health Care Agent Care Teams Direct Support Professional Caregiver Relationship Specialty [place] [address] [place] [address] PCP - General Family Practice 09/03/16 Pollo Medrano MD [address] [place] [address] Urology 01/24/15 Julio C Ramesh MD [address] [id number] Hematology 01/31/15 [place] [address] [place] [address] Assigned PCP 06/15/20 [place] [address] Endocrinology, Diabetes, and Metabolism 12/10/21 Simona Bolden MSW [address] [address] Assigned Behavioral Health Provider 08/21/22
--- OUTSIDE RECORDS SUMMARY | 2024-02-22 10:01 | XMS_ITS | Referral Summary ---
Author Organization [facility] Address [address] [place] [address]. [place] [address] Care Team Providers Care Handle Attacher Name Role Phone Pollo Medrano MD Unavailable [phone] GadielJulio C muhammad MD Unavailable [phone] Acosta Cristobal MD Primary Care Provider + Acosta Cristobal MD Unavailable [phone] Hanna Simental MD Unavailable [phone] Simona Bolden [facility] Unavailable Encounters Date Type Department Care Team Description 02/21/2024 Telephone [facility] [address] [place] [address] Acosta Cristobal MD Call Back 02/20/2024 MyC Medical Advice [facility] [address] [place] [address] Acosta Cristobal MD 02/20/2024 MyC Refill [facility] [address] [place] [address] Acosta Cristobal MD Refill Request 02/17/2024 [facility] [address] [place] [phone] Willie Lawson MA 02/17/2024 [facility]phone [facility] [address] [place] [phone] Acosta Cristobal MD Panel Management 02/15/[address] [facility] [address] [place] [phone] Acosta Cristobal MD Medication Question 01/28/[address] [facility] [address] [place] [phone] Acosta Cristobal MD Medication Refill 01/10/[address] [facility] [address] [place] [phone] Acosta Cristobal MD Medication Refill 12/20/[address] [facility] [address] [place] [address] Acosta Cristobal MD Medication Refill 12/19/2023 3:[address] [facility] [address] [place] [address] Acosta Cristobal MD Type 2 diabetes mellitus with stage 3b chronic kidney disease, without long-term current use of insulin (H) (Primary Dx); Agitation; Persistent insomnia; Morbid obesity (H) 12/03/2023 [facility] [address] [place] [address] Acosta Cristobal MD Medication Refill 12/01/[address] [facility] [address] [place] [address] Acosta Cristobal MD Forms 11/29/[address] [facility] [address] [place] [phone] Acosta Cristobal MD Medication Refill from Last 3 Months Allergies Active Allergy Reactions Criticality Noted Date [...] L GOAL LESS THAN 130 03/01/2010 04/20/2017 Immunizations Name Administration Dates Next Due Flu, Unspecified 01/17/2020 Pneumococcal 20 valent Conjugate (Prevnar 20) Pneumococcal 23 valent 12/11/2020 TDAP Vaccine (Adacel) 01/05/2019,06/25/2008 Yellow Fever 05/30/2009 Zoster recombinant adjuvanted (SHINGRIX) 023,09/05/2022 Social History Tobacco Use Types Packs/Day Years [...] re latives? Once a week 09/15/2023 Attends Judaism Services Not on file 09/14 Active Member [...] Answer Date Recorded PHQ-2 Score 1 04/27/2023 [facility] - Occupational Stress Questionnaire Answer Date Recorded [...] Date Recorded Do you have housing? (Cristhian grayson is defined as stable permanent housing and does not include staying ouside in a car, in a tent, in an abandoned building, in an overnight senior living, or couch-surfing.) Yes 09/15/2023 Are you worried [...] AM CDT Legal Sex Male 3:26 AM LIFE SKILLS CONSULTANT Gender Identity Male 02/06/2021 10:36 AM CDT [...] st Contact Info) Description 03/23/2024 1:00 PM LIFE SKILLS CONSULTANT Office [facility] [address] [place] [address] [place] [address] [place], [place] [phone] Goals Goal Patient Goal Type Associated Problems Recent Progress Patient-Stated? Author Explore cancer support resources Care Plan Mental Health Symptoms Need Improvement 100%(10/07/19 9:29 AM CDT) No Paula Humphrey, SERVICE AGENT Note: Barriers: Not sure what is available Strengths: Family support Patient expressed understanding of goal: Yes Action steps to achieve this goal: 1. I will consider participating in a cancer support group. Marine Geologist will send me cancer support resources. 2. I will continue to work with a therapist. 3. I will let Marine Geologist know if I need additional resources. Medical Devices Implanted Type Area Flexible Nanny Device Identifier Shelf Expiration Date Model / Serial / Lot Bone Cement Simplex W/Tobramycin [id number] Implanted:Qty: 1 on 05/29/2018 by Fabrizio Parr MD at [facility] Cement, Bone Left: Knee [employer] 10/30/2019 [id number] 1 / / [id number] Imp Comp Tka Ibalance Mod Tibial Tray Sz 7 Ar-513-T7 Implanted:Qty: 1 on 05/29/2018 by Fabrizio Parr MD at [facility] Total Joint Component /Insert Left: Knee [employer] 06/29/2022 AR-513-T7 / / [id number] Ibalance Patelle Implant, Dome, Vit E, 40 X 10mm Implanted:Qty: 1 on 05/29/2018 by Fabrizio Parr MD at [facility] Total Joint Component /Insert Left: Knee [employer] 06/01/2022 AR-524-PS E0 / / [id number] Imp Comp Tka Ibalance Fem Ps Bladimir Sz 8 Lt Ar-516-8l Implanted:Qty: 1 on 05/29/2018 by Fabrizio Parr MD at [facility] Total Joint Component /Insert Left: Knee ARTHREX 01/29/2019 AR-516-8L / / [id number] Ibalance Tka, Tibial Bearing Implant, Ps, Vit E, Size 7 (8mm Thickness) Implanted:Qty: 1 on 05/29/2018 by Fabrizio Parr MD at [facility] Total Joint Component /Insert Left: Knee AR[employer]REX 03/31/2020 AR-523-B7 08 / / [id number] Imp Mesh Syn Malleable [id number] Low Marine Electrician Ti Implanted:Qty: 1 on 02/13/2015 by Niraj Smith MD at [facility] Right: Skull SYNTHES-STRATEC 421.531 / / Imp Scr Syn Matrix Low Pro 1.5x04mm Self Drill [id number] Implanted:Qty: 7 on 02/13/2015 by Niraj Smith MD at [facility] Right: Skull [employer] [id number] 4.01 / [...] WITH PLATELETS Routine 04/27/2023 11 :10 AM LIFE SKILLS CONSULTANT Type 2 diabetes mellitus with stage 3b chronic kidney disease, without long-term current use of insulin (H) BASIC METABOLIC PANEL Routine 04/27/2023 11:10 AM LIFE SKILLS CONSULTANT Type 2 diabetes mellitus with stage 3b chronic kidney disease, without long-term current use of insulin (H) COMPREHENSIVE METABOLIC PANEL STAT 04/12/2023 3:58 PM LIFE SKILLS CONSULTANT LIPID REFLEX TO DIRECT LDL PANEL Routine 03/17/2023 11:42 AM LIFE SKILLS CONSULTANT Type 2 diabetes mellitus with stage 3b chronic kidney disease, without long-term current use of insulin (H) EYE EXAM - HIM SCAN Routine 03/07/2023 URINALYSIS MACROSCOPIC Routine 3:51 PM LIFE SKILLS CONSULTANT Urinary hesitancy PHOSPHORUS STAT 10/28/2021 10:26 AM CDT COLONOSCOPY Routine 02/19/2021 8:44 AM CDT PARATHYROID HORMONE INTACT Routine 08/02/2018 12:18 PM CDT CRF (chronic renal failure), stage 3 (moderate) (H) from Last 3 Months or Most Recently Relevant to Health Maintenance Results * Albumin Random Urine Quantitative with Creat Ratio (09/16/2023 3:22 PM CDT) Pathologist [facility] Creatinine Urine mg/dL 100.0 mg/dL 09/17/2023 9:59 [...] control, and institution of therapy with an yaaaavuicas-nfxkgqwpok-isoqeo (PONCHO) inhibitor (if the patient can tolerate it). ?? Urine URINE SPECIMEN / Unknown Non-blood Collection / Unknown 09/16/2023 3:22 PM CDT 09/16/2023 3:22 PM CDT Acosta Cristobal MD LAB - URINE ORDERABLES F inal Result Performing Organization Address City/[facility]/ZIP Co de Phone Number LABORATORY [facility] [place] [facility] [address] [facility], [address] * TSH with free T4 reflex (09/15/2023 3:28 PM CDT) Pathologist [facility] TSH 2.99 0.30 - 4.20 uIU/mL 09/16/2023 5:12 PM CDT LABORATORY Blood BLOOD SPECIMEN / Unknown Venipuncture / Unknown 09/15/2023 3:28 PM CDT 09/15/2023 3:28 PM CDT Acosta Cristobal MD LAB - BLOOD ORDERABLES F inal Result Performing Organization Address City/[facility]/ZIP Co de Phone Number LABORATORY [facility] [place] [facility] [address] [facility], [address] * (ABNORMAL) Hemoglobin A1c (09/15/2023 3:28 [...] - BLOOD ORDERABLES F inal Result LABORATORY [facility] [place] [facility] [address] [facility] (no room number, 1st floor of clinic) [place] [address], [facility] * (ABNORMAL) Basic metabolic panel (Ca, Cl, CO2, Creat, Gluc, K, Na, BUN) (04/27/2023 11:10 AM LIFE SKILLS CONSULTANT) Sodium 133(L) 135 - 145 mmol/L 04/27/2023 8:03 PM LIFE SKILLS CONSULTANT [facility] Comment:Reference intervals for this test were updated on 01/25/2023 to more accurately reflect our healthy population. There may be differences in the flagging of prior results with similar values performed with this method. Interpretation of those prior results can be made in the context of the updated reference intervals. Potassium 5.1 3.4 - 5.3 mmol/L 04/27/2023 8:03 PM LIFE SKILLS CONSULTANT [facility] Chloride 98 98 - 107 mmol/L 04/27/2023 8:03 PM LIFE SKILLS CONSULTANT [facility] Carbon Dioxide (CO2) 23 22 - 29 mmol/L 04/27/2023 8:03 PM LIFE SKILLS CONSULTANT [facility] Anion Gap 12 7 - 15 mmol/L 04/27/2023 8:03 PM LIFE SKILLS CONSULTANT [facility] Urea Nitrogen 29.4(H) 8.0 - 23.0 mg/dL 04/27/2023 8:03 PM LIFE SKILLS CONSULTANT [facility] Creatinine 1.59(H) 0.67 - 1.17 mg/dL 04/27/2023 8:03 PM LIFE SKILLS CONSULTANT [facility] GFR Estimate 47(L) >60 mL/min/1. 73m2 04/27/2023 8:03 PM LIFE SKILLS CONSULTANT [facility] Calcium 9.6 8.8 - 10.2 mg/dL 04/27/2023 8:03 PM LIFE SKILLS CONSULTANT [facility] Glucose 271(H) 70 - 99 mg/dL 04/27/2023 8:03 PM LIFE SKILLS CONSULTANT [facility] Blood BLOOD SPECIMEN / Unknown Venipuncture / Unknown 04/27/2023 11:10 AM LIFE SKILLS CONSULTANT 04/27/2023 11:10 AM LIFE SKILLS CONSULTANT us Jenn Fishman MD LAB - BLOOD ORDERABLES Final Res ult [facility]AT[facility] [place] [facility] [address] [facility], [address] [place] [address], [facility] [phone] * CBC with platelets (04/27/2023 11:10 AM LIFE SKILLS CONSULTANT) WBC Count 9.2 4.0 - 11.0 10e3/uL 04/27/2023 11:13 AM LIFE SKILLS CONSULTANT LABORATORY RBC Count 4.82 4.40 - 5.90 10e6/uL 04/27/2023 11:13 AM LIFE SKILLS CONSULTANT LABORATORY Hemoglobin 13.7 13.3 - 17.7 g/dL 04/27/2023 11:13 AM LIFE SKILLS CONSULTANT LABORATORY Hematocrit 41.2 40.0 - 53.0 % 04/27/2023 11:13 AM LIFE SKILLS CONSULTANT LABORATORY MCV 86 78 - 100 fL 04/27/2023 11:13 AM LIFE SKILLS CONSULTANT LABORATORY MCH 28.4 26.5 - 33.0 pg 04/27/2023 11:13 AM LIFE SKILLS CONSULTANT LABORATORY MCHC 33.3 31.5 - 36.5 g/dL 04/27/2023 11:13 AM [facility] LABORATORY RDW 14.9 10.0 - 15.0 % 04/27/2023 11:13 AM LIFE SKILLS CONSULTANT LABORATORY Platelet Count 202 150 - 450 10e3/uL 04/27/2023 11:13 AM LIFE SKILLS CONSULTANT LABORATORY Blood BLOOD SPECIMEN / Unknown Venipuncture / Unknown 04/27/2023 11:10 AM LIFE SKILLS CONSULTANT 04/27/2023 11:10 AM LIFE SKILLS CONSULTANT us Jenn Fishman MD LAB - BLOOD ORDERABLES Final Res ult LABORATORY [facility] [place] [facility] [address] [facility] (no room number, 1st floor of clinic) [place], [place] [address], [facility] [phone] * (ABNORMAL) Comprehensive metabolic panel (04/12/2023 3:58 PM LIFE SKILLS CONSULTANT) [facility] Sodium 137 135 - 145 mmol/L 04/12/2023 7:05 PM LIFE SKILLS CONSULTANT LABORATORY Comment:Reference intervals for this test were updated on 01/25/2023 to more accurately reflect our healthy population. There may be differences in the flagging of prior results with similar values performed with this method. Interpretation of those prior results can be made in the context of the updated reference intervals. Potassium 5.1 3.4 - 5.3 mmol/L 04/12/2023 7:05 PM [facility] LABORATORY Carbon Dioxide (CO2) 24 22 - 29 mmol/L 04/12/2023 7:05 PM [facility] Anion Gap 13 7 - 15 mmol/L 04/12/2023 7:05 PM [facility] Urea Nitrogen 27.7(H) 8.0 - 23.0 mg/dL 04/12/2023 7:05 PM [facility] Creatinine 1.62(H) 0.67 - 1.17 mg/dL 04/12/2023 7:05 PM [facility] GFR Estimate 46(L) >60 mL/min/1. 73m2 04/12/2023 7:05 PM [facility] Calcium 9.4 8.8 - 10.2 mg/dL 04/12/2023 7:05 PM [facility] Chloride 100 98 - 107 mmol/L 04/12/2023 7:05 PM [facility] Glucose 103(H) 70 - 99 mg/dL 04/12/2023 7:05 PM [facility] Alkaline Phosphatase 53 40 - 150 U/L 04/12/2023 7:05 PM [facility] Comment:Reference intervals for this test were updated on 03/15/2023 to more accurately reflect our healthy population. There may be differences in the flagging of prior results with similar values performed with this method. Interpretation of those prior results can be made in the context of the updated reference intervals. AST 28 0 - 45 U/L 04/12/2023 7:05 PM LIFE SKILLS CONSULTANT [facility] Comment:Reference intervals for this test were updated on 10/11/2022 to more accurately reflect our healthy population. There may be differences in the flagging of prior results with similar values performed with this method. Interpretation of those prior results can be made in the context of the updated reference intervals. ALT 26 0 - 70 U/L 04/12/2023 7:05 PM LIFE SKILLS CONSULTANT [facility] Comment:Reference intervals for this test were updated on 10/11/2022 to more accurately reflect our healthy population. There may be differences in the flagging of prior results with similar values performed with this method. Interpretation of those prior results can be made in the context of the updated reference intervals. Protein Total 6.9 6.4 - 8.3 g/dL 04/12/2023 7:05 PM LIFE SKILLS CONSULTANT [facility] Albumin 4.6 3.5 - 5.2 g/dL 04/12/2023 7:05 PM LIFE SKILLS CONSULTANT [facility] Bilirubin Total 0.6 <=1.2 mg/dL 04/12/2023 7:05 PM LIFE SKILLS CONSULTANT [facility] Blood VENOUS LINE / Unknown Venipuncture / Unknown 04/12/2023 3:58 PM LIFE SKILLS CONSULTANT 04/12/2023 4:06 PM LIFE SKILLS CONSULTANT us Benny Albrecht MD LAB - BLOOD ORDERABLES Final Result [facility] LABORATORY [facility] [address] [facility] Lab (1st floor, no room number) [place] [address], [facility] [phone] * (ABNORMAL) Lipid panel reflex to direct LDL Non-fasting (03/17/2023 11:42 AM LIFE SKILLS CONSULTANT) Cholesterol 237(H) <200 mg/dL 03/17/2023 10:42 PM LIFE SKILLS CONSULTANT [facility] Triglycerides 306(H) <150 mg/dL 03/17/2023 10:42 PM LIFE SKILLS CONSULTANT [facility] Direct Measure HDL 41 >=40 mg/dL 03/17/2023 10:42 PM LIFE SKILLS CONSULTANT [facility] LDL Cholesterol Calculated 135(H) <=100 mg/dL 03/17/2023 10:42 PM LIFE SKILLS CONSULTANT [facility] Non HDL Cholesterol 196(H) <130 mg/dL 03/17/2023 10:42 PM LIFE SKILLS CONSULTANT [facility] Blood BLOOD SPECIMEN / Unknown Venipuncture / Unknown 03/17/2023 11:42 AM LIFE SKILLS CONSULTANT 03/17/2023 11:42 AM LIFE SKILLS CONSULTANT Narrative [facility] - 03/17/2023 10:42 PM LIFE SKILLS CONSULTANT Cholesterol Desirable: ??<200 mg/dL Triglycerides Normal: ??Less [...] ORDERABLES F inal Result Performing Organization Address City/State/[facility] Co de Phone Number [facility] LABORAT[facility] [place] [facility] [address] [facility], [address] [place], [place] [phone], [facility] [phone] * Eye Exam - HIM Scan (03/07/2023) RETINOPATHY UNKNOWN Maile Mcclendon - 03/07/2023 SEE ENCOUNTER DATED 05/26/23 us Patient Reported OTHER Final Result * UA without Microscopic [[id number]] (07/05/2022 3:51 PM LIFE SKILLS CONSULTANT) Color Urine Yellow Colorless, Straw, Light Yellow, Yellow 07/05/2022 3:58 PM LIFE SKILLS CONSULTANT [facility] Appearance Urine Clear Clear 07/06/19 3:58 PM LIFE SKILLS CONSULTANT [facility] Glucose Urine Negative Negative mg/dL 07/05/2022 3:58 PM LIFE SKILLS CONSULTANT [facility] Bilirubin Urine Negative Negative 3:58 PM LIFE SKILLS CONSULTANT [facility] Ketones Urine Negative Negative mg/dL 07/05/2022 3:58 PM LIFE SKILLS CONSULTANT [facility] Specific [place] Urine 1.015 1.003 - 1.035 07/05/2022 3:58 PM LIFE SKILLS CONSULTANT [facility] Blood Urine Negative Negative 07/05/2022 3:58 PM LIFE SKILLS CONSULTANT [facility] pH Urine 7.0 5.0 - 7.0 07/05/2022 3:58 PM LIFE SKILLS CONSULTANT [facility] Protein Albumin Urine Negative Negative mg/dL 07/05/2022 3:58 PM LIFE SKILLS CONSULTANT [facility] Urobilinogen Urine 0.2 0.2, 1.0 E.U./dL 07/05/2022 3:58 PM LIFE SKILLS CONSULTANT [facility] Nitrite Urine Negative Negative 07/05/2022 3:58 PM LIFE SKILLS CONSULTANT [facility] Leukocyte Esterase Urine Negative Negative 07/05/2022 3:58 PM LIFE SKILLS CONSULTANT [facility] Urine MID-STREAM URINE SPECIMEN / Unknown Non-blood Collection / Unknown 07/05/2022 3:51 PM LIFE SKILLS CONSULTANT 07/05/2022 3:51 PM LIFE SKILLS CONSULTANT us Ramsey Loza MD LAB - URINE ORDERABLES Final Result [facility] [address], [address] [place] [address], [facility] [phone] * Phosphorus (10/28/2021 10:26 AM CDT) Phosphorus 2.9 2.5 - 4.5 mg/dL 10/28/2021 12:08 PM CDT LABORATORY Blood STRUCTURE OF RIGHT UPPER LIMB / Unknown Venipuncture / Unknown 10/28/2021 10:26 AM CDT 10/28/2021 10:41 AM CDT us Thanh Johnson MD LAB - BLOOD ORDERABLES F inal Result [facility] LABORATORY [facility] [address] [facility] (1st floor, no room number) [place] [address], [facility] [phone] * COLONOSCOPY (02/19/2021 8:44 AM CDT) [facility] COLONOSCOPY [facility] Patient Name: Hans MahnazSammy Gu ? Procedure Date: 02/19/2021 8:44 AM [...] # [id number], [place] ?# 221, SN # [id number] was introduced through the anus ?and advanced [...] Procedure Code(s): ? --- Professional --- ? 14361, Colonoscopy, flexible; with removal of tumor(s), polyp(s), or ? other lesion(s) by snare technique Diagnosis Code(s): ? --- Professional --- ? K63.5, Polyp of colon CPT copyright 2019 [employer]. All rights reserved. The codes documented in this report are preliminary and upon lineworker review may be revised to meet current compliance requirements. Electronically signed by Pollo Beasley MD __ Pollo Beasley MD 02/19/2021 9:40:17 AM I was physically present for the entire viewing portion of the exam. Pollo Beasley MD Number of Addenda: 0 Note Initiated On: 02/19/2021 8:44 AM MRN: ?[id number] Procedure Date: ? 02/19/2021 8:44:57 AM Scope [...] - 80 pg/mL 08/02/2018 6:01 PM CDT [facility] Blood specimen (specimen) 08/02/2018 12:18 PM CDT 08/02/2018 12:20 PM CDT Ramakrishna Jurado MD LAB - BLOOD ORDERABLES Malia fuentes Result [facility] [address] [place] [address] from Last 3 Months or Most Recently Relevant to Health Maintenance Additional Health Concerns Active Problems Noted Date Diagnosed Date Mental Health Symptoms Need Improvement 08/24/19 Insurance [place]ARE [place] MED[place] SUPPLEMENT PLAN MEDICARE [facility] MEDICARE SUPPLEMENT PLAN MEDICARE Advance Directives For more information, please contact: [phone] Documents on File Type Date Recorded Patient Control Area Operator Expl anation Advance Directives and Living Will [...] Communication Maribeth Gu Spouse Health Care Agent [email or web address] Rylee (sister in law) Oni Relative First Alternate Health Care Agent Care Teams Handle Attacher Relationship Specialty [place] [address] [place] [address] PCP - General Family Practice 09/03/16 Pollo Medrano MD [address] [place] [address] Urology 01/24/15 Julio C Ramesh MD [address] [facility] [address] [place] [address] Hematology 01/31/15 [place] [address] [place] [address] Assigned PCP 06/15/20 [place] [address] Endocrinology, Diabetes, and Metabolism 12/10/21 Simona Bolden, SUPERVISOR MACHINE WORKERS [address] [address] Assigned Behavioral Health Provider 08/21/22
--- OUTSIDE RECORDS SUMMARY | 2024-02-22 10:01 | XMS_ITS | Encounter Summary ---
Author Organization [place] Address [address] [facility] [place] [address] Care Team Providers Care Contracting Executive Name Role Phone Pollo Medrano MD Unavailable [phone] GadielJulio C muhammad MD Unavailable [phone] Acosta Cristobal MD Primary Care Provider + Acosta Cristobal MD Unavailable [phone] Hanna Simental MD Unavailable [phone] Ramsey Loza MD Unavailable [phone] [facility] Unavailable [phone] Reason for Visit * Reason Comments Medication Refill Encounter Details Date Type Department Care Team (Late st Contact Info) Description 12/20/2023 Refill [facility] [address] [place] [address] [place] [address] [place] [address] Medication Refill Social History Tobacco Use Types Packs/Day Years [...] re latives? Once a week 09/15/2023 Attends Confucianism Services Not on file 09/14 Active Member [...] Answer Date Recorded PHQ-2 Score 1 04/27/2023 [facility] - Occupational Stress Questionnaire Answer Date [...] Answer Date Recorded Do you have housing? (Housin g is defined as stable permanent housing and does not include staying ouside in a car, in a tent, in an abandoned building, in an overnight usp, or couch-surfing.) Yes 09/15/2023 Are you worried [...] AM CDT Legal Sex Male 3:26 AM FINANCE CONTROLLER Gender Identity Male 02/06/2021 10:36 AM CDT Sexual Orientation Straight 02/06/2021 10 :36 AM CDT documented as of this encounter Plan of Treatment Upcoming Encounters Date Type Department Care Team (Late st Contact Info) Description 03/23/2024 1:00 PM FINANCE CONTROLLER Office Visit [facility] [address] [place] [address] [place] [address] [place] [address] documented as of this encounter Goals Goal Patient Goal Type Associated Problems Recent Progress Patient-Stated? Author Explore cancer support resources Care Plan Mental Health Symptoms Need Improvement 100%(10/07/19 23 9:29 AM CDT) No Paula Humphrey LSW Note: Barriers: Not sure what is available Strengths: Family support Patient expressed understanding of goal: Yes Action steps to achieve this goal: 1. I will consider participating in a cancer support group. Specimen Technician will send me cancer support resources. 2. I will continue to work with a therapist. 3. I will let Specimen Technician know if I need additional resources. 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 Additional Health Concerns Active Problems Noted Date Diagnosed Date Mental Health Symptoms Need Improvement 08/24/19 Assessment Noted Time PHQ-9 Depression Total Score: 3 04/27/20 10:07 AM FINANCE CONTROLLER documented as of this encounter Care Teams Contracting Executive Relationship Specialty [place] [address] [place] [address] PCP - General Family Practice 09/03/16 Pollo Medrano MD [address] [place] [address] Urology 01/24/15 Julio C Ramesh MD [address] [place] [address] Hematology 01/31/15 [place] [address] [place] [address] Assigned PCP 06/15/20 Hanna Simental MD [facility] [place] [address] Endocrinology, Diabetes, and Metabolism 12/10/21 Ramsey Loza MD [address] [place] [address] Assigned Surgical Provider 07/17/22 01/22/24 Simona Bolden MSW [address] [address] Assigned Behavioral Health Provider 08/21/22 documented as of this encounter
--- OUTSIDE RECORDS SUMMARY | 2024-02-22 10:01 | XMS_ITS | Encounter Summary ---
Author Organization [facility] Address [address] [facility] [place] [address] Care Team Providers Care Offal Worker Name Role Phone Pollo Medrano MD Unavailable [phone] GadielJulio C muhammad MD Unavailable [phone] Acosta Cristobal MD Primary Care Provider + Acosta Cristobal MD Unavailable [phone] Hanna Simental MD Unavailable [phone] [facility] Unavailable + [phone] Encounter Details Date Type Department Care Team (Late st Contact Info) Description 02/20/2024 [facility] Medical Advice [facility] [address] [place] [address] [place] [address] [place] [address] Social History Tobacco Use Types Packs/Day Years [...] re latives? Once a week 09/15/2023 Attends Yarsanism Services Not on file 09/14 Active Member [...] Answer Date Recorded PHQ-2 Score 1 04/27/2023 [facility] of Occupat ional Health - Occupational Stress [...] in an abandoned building, in an overnight chcf, or couch-surfing.) Yes 09/15/2023 Are you worried [...] AM CDT Legal Sex Male 3:26 AM ART TEACHER Gender Identity Male 02/06/2021 10:36 AM CDT Sexual Orientation Straight 02/06/2021 10 :36 AM CDT documented as of this encounter Miscellaneous Notes * Telephone Encounter - Dianne Kline RN - 02/20/2024 2:16 PM CDT Please see MC and advise. Dianne Kline RN, BSN [facility] documented in this encounter Plan of Treatment Upcoming Encounters Date Type Department Care Team (Late st Contact Info) Description 03/23/2024 1:00 PM ART TEACHER Office Visit [facility] [address] [place] [phone] [place] [address] [place] [address] documented as of this encounter Goals Goal Patient Goal Type Associated Problems Recent Progress Patient-Stated? Author Explore cancer support resources Care Plan Mental Health Symptoms Need Improvement 100%(10/07/19 9:29 AM CDT) No Paula Humphrey LSW Note: Barriers: Not sure what is available Strengths: Family support Patient expressed understanding of goal: Yes Action steps to achieve this goal: 1. I will consider participating in a cancer support group. Integration Architect will send me cancer support resources. 2. I will continue to work with a therapist. 3. I will let Integration Architect know if I need additional resources. documented as of this encounter Visit Diagnoses Not on filedocumented in this encounter Additional Health Concerns Active Problems Noted Date Diagnosed Date Mental Health Symptoms Need Improvement 08/24/19 Assessment Noted Time PHQ-9 Depression Total Score: 3 04/27/20 10:07 AM ART TEACHER documented as of this encounter Care Teams Offal Worker Relationship Specialty [place] [address] [place] [address] PCP - General Family Practice 09/03/16 Pollo Medrano MD [address] [place] [address] Urology 01/24/15 Julio C Ramesh MD [address] [place] [address] [address] [place], [place] [address] Hematology 01/31/15 [place] [address] [place] [address] Assigned PCP 06/15/20 [place] [address] Endocrinology, Diabetes, and Metabolism 12/10/21 Simona Bolden, ELLY [address] [address] Assigned Behavioral Health Provider 08/21/22 documented as of this encounter
--- OUTSIDE RECORDS SUMMARY | 2024-02-22 10:01 | XMS_ITS | Encounter Summary ---
Author Organization [place] Address [address] [place] [address]. [place] [address] Care Team Providers Care Interventional Nurse Name Role Phone Pollo Medrano MD Unavailable [phone] GadielJulio C muhammad MD Unavailable [phone] Acosta Cristobal MD Primary Care Provider + Acosta Cristobal MD Unavailable [phone] Hanna Simental MD Unavailable [phone] Ramsey Loza MD Unavailable [phone] Simona Bolden Jo [facility] Unavailable + [phone] Reason for Referral * Medication Prior Authorization - Closed Specialty Diagnoses / Procedures Referred By Yasmin jo Referred To Contact Diagnoses Type 2 diabetes mellitus with stage 3b chronic kidney disease, without long-term current use of insulin (H) Morbid obesity (H) [place] [address] [place] [address] Phone: tel: fax: Referral ID Status Reason Start Date Expiration Date Visits Re quested Visits Authorized [id number] Closed 1 1 * Medication Prior Authorization - Closed Specialty Diagnoses / Procedures Referred By Yasmin jo Referred To Contact Diagnoses Type 2 diabetes mellitus with stage 3b chronic kidney disease, without long-term current use of insulin (H) Morbid obesity ([place] [address] [place] [address] Phone: tel: fax: Referral ID Status Reason Start Date Expiration Date Visits Re quested Visits Authorized [id number] Closed 1 1 * Medication Prior Authorization - Closed Specialty Diagnoses / Procedures Referred By Yasmin jo Referred To Contact Diagnoses [place] [address] [place] [address] Phone: tel: fax: Referral ID Status Reason Start Date Expiration Date Visits Re quested Visits Authorized [id number] Closed 1 1 Reason for Visit * Reason Comments Recheck Medication Encounter Details Date Type Department Care Team (Late st Contact Info) Description 12/19/2023 3:30 PM CDT Virtual Visit [facility] [address] [place] [address] [place] [address] [address] [facility] [place], [place] [address] Type 2 diabetes mellitus with stage 3b chronic kidney disease, without long-term current use of insulin (H) (Primary Dx); Agitation; Persistent insomnia; Morbid obesity (H) Social History Tobacco Use Types Packs/Day Years [...] re latives? Once a week 09/15/2023 Attends [employer] Not on file 09/14 Active Member [...] Answer Date Recorded PHQ-2 Score 1 04/27/2023 [facility] of Occupat ional Health - Occupational Stress [...] in an abandoned building, in an overnight fdc, or couch-surfing.) Yes 09/15/2023 Are you worried [...] AM CDT Legal Sex Male 3:26 AM FREEDOM OF INFORMATION OFFICER Gender Identity Male 02/06/2021 10:36 AM CDT Sexual Orientation Straight 02/06/2021 10 :36 AM CDT documented as of this encounter Progress Notes * Acosta Cristobal MD - 12/19/2023 3:30 PM CDT Shin is a 68 year old who is being evaluated via a billable video visit. How would you like to obtain your AVS? MyChart If the video visit is dropped, the invitation should be resent by: Text to cell phone: [phone] Will anyone else be joining your video visit? No Assessment and Plan (E11.22, N18.32) Type 2 diabetes mellitus with stage 3b chronic kidney disease, without long-term current use of insulin (H) (primary encounter diagnosis) Comment: weight is significant health factor, so despite cancer prognosis, I think there's benefit to treatment Plan: semaglutide (OZEMPIC) 2 MG/3ML pen, Semaglutide, 1 MG/DOSE, (OZEMPIC) 4 MG/3ML pen (R45.1) Agitation Comment: no longer using PRN seroquel Plan: (G47.00) Persistent insomnia Comment: Maribeth not certain that 150mg seroquel nightly is beneficial, may try without, but Shin haslong used ambien for sleep. Discussed polypharmacy and risk of sedation, Maribeth is aware and watching out for it Plan: zolpidem (AMBIEN) 10 MG tablet (E66.01) Morbid obesity (H) Comment: Plan: semaglutide (OZEMPIC) 2 MG/3ML pen, Semaglutide, 1 MG/DOSE, (OZEMPIC) 4 MG/3ML pen RTC in Acosta Cristobal MD Jerome Melissa is a 68 year old, presenting for the following health issues: Recheck Medication 12/19/2023 3:11 PM Additional Questions Roomed by KATHIA GONZALEZ Accompanied by SELF 12/19/2023 3:11 PM Patient Reported Additional Medications Patient reports taking the following new medications NA Video Start Time: 3:37 PM HPI Talking about ambient, ativan and seroquel. Maribeth feels that things have really been going well over all, but hasn't been getting Ambien and not sleeping well. Uses 1/2 of 1 mg ativan twice daily, typically. Also uses 150mg serquel nightly. Has been seen by psych and Maribeth wasn't super happy with the last visit, although they did recommend stopping daily am dose of seroquel. No recent falls, no recent pain medication. Wondering about ozempic for weight and some of the health issues related to it. Back pain. Objective Vitals: No vitals were obtained today due to virtual visit. Physical Exam GENERAL: alert and no distress EYES: Eyes grossly normal to inspection. No discharge or erythema, or obvious scleral/conjunctival abnormalities. RESP: No audible wheeze, cough, or visible cyanosis. SKIN: Visible skin clear. No significant rash, abnormal pigmentation or lesions. NEURO: Cranial nerves grossly intact. Mentation and speech appropriate for age. PSYCH: Appropriate affect, tone, and pace of words Video-Visit Details Type of service: Video Visit Video End Time:3:53 PM Originating Location (pt. Location): Home Distant Location (provider location): Off-site Platform used for Video Visit: Zeina Signed Electronically by: Acosta Cristobal MD documented in this encounter Plan of Treatment Upcoming Encounters Date Type Department Care Team (Late st Contact Info) Description 03/23/2024 1:00 PM FREEDOM OF INFORMATION OFFICER Office Visit [place] [phone] [place] [address] [address] [place] [address] documented as of this encounter Goals Goal [...] consider participating in a cancer support group. Closing Machine Operator will send me cancer support resources. 2. I will continue to work with a therapist. 3. I will let Closing Machine Operator know if I need additional resources. documented as of this encounter Visit Diagnoses Diagnosis Type 2 diabetes mellitus with stage 3b chronic kidney disease, without long-term current use of insulin (H)- Primary Agitation Other and unspecified special symptom or syndrome, not elsewhere classified Persistent insomnia Persistent disorder of initiating or maintaining sleep Morbid obesity (H) Morbid obesity documented in this encounter Additional Health Concerns Active Problems Noted Date Diagnosed Date Mental Health Symptoms Need Improvement 08/24/19 23 Assessment Noted Time PHQ-9 Depression Total Score: 3 04/27/20 23 10:07 AM FREEDOM OF INFORMATION OFFICER documented as of this encounter Care Teams Interventional Nurse Relationship Specialty [place] [address] [place] [address] PCP - General Family Practice 09/03/16 Pollo Medrano MD [address] [place], [place] [address] Urology 01/24/15 Julio C Ramesh MD [address] [facility] [address] [place], [place] [address] Hematology 01/31/15 [place] [address] [place] [address] Assigned PCP 06/15/20 [place] [address] Endocrinology, Diabetes, and Metabolism 12/10/21 Ramsey Loza MD [address] [place] [address] Assigned Surgical Provider 07/17/22 01/22/24 Simona Bolden MSW [address] [place] [address] Assigned Behavioral Health Provider 08/21/22 documented as of this encounter
--- OUTSIDE RECORDS SUMMARY | 2024-02-22 10:01 | XMS_ITS | Encounter Summary ---
Author Organization [place] Address [address] [facility] [place] [address] Care Team Providers Care Rabbler Name Role Phone Pollo Medrano MD Unavailable [phone] GadielJulio C muhammad MD Unavailable [phone] Acosta Cristobal MD Primary Care Provider + Acosta Cristobal MD Unavailable [phone] Hanna Simental MD Unavailable [phone] Ramsey Loza MD Unavailable [phone] Simona Bolden Jo [facility] Unavailable [phone] Reason for Visit * Reason Comments Medication Refill Encounter Details Date Type Department Care Team (Late st Contact Info) Description 01/10/2024 Refill [facility] [address] [place] [address] [place] [address] [place] [address] Medication Refill Social History Tobacco [...] re latives? Once a week 09/15/2023 Attends [employer]oroast[employer] Services Not on file 09/14 Active Member [...] Answer Date Recorded PHQ-2 Score 1 04/27/2023 [facility] - Occupational Stress Questionnaire Answer Date Recorded [...] in an abandoned building, in an overnight detention, or couch-surfing.) Yes 09/15/2023 Are you worried [...] AM CDT Legal Sex Male 3:26 AM RADIAGRAPH OPERATOR Gender Identity Male 02/06/2021 10:36 AM CDT Sexual Orientation Straight 02/06/2021 10 :36 AM CDT documented as of this encounter Plan of Treatment Upcoming Encounters Date Type Department Care Team (Late st Contact Info) Description 03/23/2024 1:00 PM RADIAGRAPH OPERATOR Office Visit [facility] [address] [place] [address] [place] [address] [place] [address] documented as of this encounter [...] consider participating in a cancer support group. Hand Nailer will send me cancer support resources. 2. I will continue to work with a therapist. 3. I will let Hand Nailer know if I need additional resources. documented as of this encounter Visit Diagnoses Diagnosis Hypothyroidism due to medication documented in this encounter Additional Health Concerns Active Problems Noted Date Diagnosed Date Mental Health Symptoms Need Improvement 08/24/19 Assessment Noted Time PHQ-9 Depression Total Score: 3 04/27/20 10:07 AM RADIAGRAPH OPERATOR documented as of this encounter Care Teams Rabbler Relationship Specialty [place] [address] [address] [address] PCP - General Family Practice 09/03/16 Pollo Medrano MD [address] [place] [address] Urology 01/24/15 Julio C Ramesh MD [address] [place] [address] Hematology 01/31/15 [place] [address] [address] [address] Assigned PCP 06/15/20 Hanna [place] [address] Endocrinology, Diabetes, and Metabolism 12/10/21 Ramsey Loza MD [address] [place] [address] Assigned Surgical Provider 07/17/22 01/22/24 Simona Bolden MSW [address] [address] Assigned Behavioral Health Provider 08/21/22 documented as of this encounter
--- OUTSIDE RECORDS SUMMARY | 2024-02-22 10:01 | XMS_ITS | Encounter Summary ---
Author Organization [facility] Address [address] [facility] [place] [address] Care Team Providers Care Software Engineer Web Services Name Role Phone Pollo Medrano MD Unavailable [phone] GadielJulio C muhammad MD Unavailable [phone] Acosta Cristobal MD Primary Care Provider + Acosta Cristobal MD Unavailable [phone] Hanna Simental MD Unavailable [phone] Ramsey Loza MD Unavailable [phone] [facility] Unavailable [phone] Reason for Visit * Reason Comments Medication Refill Encounter Details Date Type Department Care Team (Late st Contact Info) Description 11/29/[address] [facility] [address] [place] [address] [place] [address] [place] [address] Medication Refill Social History Tobacco [...] re latives? Once a week 09/15/2023 Attends [employer] Services Not on file 09/14 Active Member [...] Answer Date Recorded PHQ-2 Score 1 04/27/2023 [facility] - Occupational Stress Questionnaire Answer Date [...] AM CDT Legal Sex Male 3:26 AM HOUSEKEEPING AIDE Gender Identity Male 02/06/2021 10:36 AM CDT Sexual Orientation Straight 02/06/2021 10 :36 AM CDT documented as of this encounter Plan of Treatment Upcoming Encounters Date Type Department Care Team (Late st Contact Info) Description 03/23/2024 1:00 PM HOUSEKEEPING AIDE Office Visit [facility] [address] [place] [address] [place] [address] [place] [address] documented as of this encounter [...] consider participating in a cancer support group. Supplier Quality will send me cancer support resources. 2. I will continue to work with a therapist. 3. I will let Supplier Quality know if I need additional resources. 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 Additional Health Concerns Active Problems Noted Date Diagnosed Date Mental Health Symptoms Need Improvement 08/24/19 Assessment Noted Time PHQ-9 Depression Total Score: 3 04/27/20 10:07 AM HOUSEKEEPING AIDE documented as of this encounter Care Teams Software Engineer Web Services Relationship Specialty [place] [address] [address] [address] PCP - General Family Practice 09/03/16 Pollo Medrano MD [address] [place] [address] Urology 01/24/15 Julio C Ramesh MD [address] [place] [address] Hematology 01/31/15 [place] [address] [address] [address] Assigned PCP 06/15/20 Hanna Simental MD [place] [address] Endocrinology, Diabetes, and Metabolism 12/10/21 Ramsey Loza MD [address] [place] [address] Assigned Surgical Provider 07/17/22 01/22/24 Simona Bolden MSW [address] [address] Assigned Behavioral Health Provider 08/21/22 documented as of this encounter
--- OUTSIDE RECORDS SUMMARY | 2024-02-22 10:01 | XMS_ITS | Encounter Summary ---
Author Organization [facility] Address [address] [place] [address]. [place] [address] Care Team Providers Care Double Cutter Name Role Phone Pollo Medrano MD Unavailable [phone] GadielJulio C muhammad MD Unavailable [phone] Acosta Cristobal MD Primary Care Provider + Acosta Cristobal MD Unavailable [phone] Hanna Simental MD Unavailable [phone] Simona Bloden [facility] Unavailable + [phone] Encounter Details Date Type Department Care Team (Late st Contact Info) Description 02/17/2024 [facility] Medical Advice [address] [address] Willie Lawson MA Social History Tobacco Use Types Packs/Day Years [...] re latives? Once a week 09/15/2023 Attends [employer] Not on file 09/14 Active Member [...] Date Recorded PHQ-2 Score 1 04/27/2023 [facility] of Occupat ional Health - Occupational Stress [...] in an abandoned building, in an overnight custodial, or couch-surfing.) Yes 09/15/2023 Are you worried [...] AM CDT Legal Sex Male 3:26 AM DIRECTOR OF MANAGED SERVICES Gender Identity Male 02/06/2021 10:36 AM CDT Sexual Orientation Straight 02/06/2021 10 :36 AM CDT documented as of this encounter Plan of Treatment Upcoming Encounters Date Type Department Care Team (Late st Contact Info) Description 03/23/2024 1:00 PM DIRECTOR OF MANAGED SERVICES Office Visit [facility] [address] [place] [address] [place] [address] [place] [address] documented as of this encounter [...] consider participating in a cancer support group. Motor Builder Assembler will send me cancer support resources. 2. I will continue to work with a therapist. 3. I will let Motor Builder Assembler know if I need additional resources. documented as of this encounter Visit Diagnoses Not on filedocumented in this encounter Additional Health Concerns Active Problems Noted Date Diagnosed Date Mental Health Symptoms Need Improvement 08/24/19 Assessment Noted Time PHQ-9 Depression Total Score: 3 04/27/20 10:07 AM DIRECTOR OF MANAGED SERVICES documented as of this encounter Care Teams Double Cutter Relationship Specialty Start [place] [address] [address] [address] PCP - General Family Practice 09/03/16 Pollo Medrano MD [address] [place] [address] Urology 01/24/15 Julio C Ramesh MD [address] [facility] [address] [place], [place] [address] Hematology 01/31/15 [place] [address] [place] [address] Assigned PCP 06/15/20 [place] [address] Endocrinology, Diabetes, and Metabolism 12/10/21 Simona Bolden, ELLY [address] [address] Assigned Behavioral Health Provider 08/21/22 documented as of this encounter
--- OUTSIDE RECORDS SUMMARY | 2024-02-22 10:01 | XMS_ITS | Encounter Summary ---
Author Organization [place] Address [address] [place] [address]. [place] [address] Care Team Providers Care Board Saw Runner Name Role Phone Pollo Medrano MD Unavailable [phone] GadielJulio C muhammad MD Unavailable [phone] Acosta Cristobal MD Primary Care Provider + Acosta Cristobal MD Unavailable [phone] Hanna Simental MD Unavailable [phone] Simona Bolden [facility] [place] [place] Unavailable [phone] Reason for Visit * Reason Onset Date Comments Call Back 02/21/2024 Encounter Details Date Type Department Care Team (Late st Contact Info) Description 02/21/2024 Telephone [facility] [address] [place] [address] [place] [address] [place] [address] Call Back Social History Tobacco Use Types Packs/Day Years [...] re latives? Once a week 09/15/2023 Attends Anabaptist Services Not on file 09/14 Active Member [...] Answer Date Recorded PHQ-2 Score 1 04/27/2023 [facility] of Occupat ional Health - Occupational [...] in an abandoned building, in an overnight prison, or couch-surfing.) Yes 09/15/2023 Are you worried [...] AM CDT Legal Sex Male 3:26 AM ONCOLOGY NURSE Gender Identity Male 02/06/2021 10:36 AM CDT Sexual Orientation Straight 02/06/2021 10 :36 AM CDT documented as of this encounter Miscellaneous Notes * Telephone Encounter - Lor Hobson RN - 02/21/2024 1:34 PM CDT Looks like the pt is seeing sleep medicine in [place]. See ov of 06/15/23. Pt was to follow up with sleep in 6 months. Will advise they contact sleep provider. Called , Maribeth to advise. Advised to let us know if any problems. * Telephone Encounter - Rani Calderón - 02/21/2024 10:31 AM CDT Order/Referral Request Who is requesting: [facility] Orders being requested: CPAP Reason service is needed/diagnosis: Patient needs a new CPAP mask. She tried to get a new mask at [facility] and was told she needs a doctors order. When are orders needed by: CIERRA Has this been discussed with Provider: No Does patient have a preference on a Group/Provider/Facility? Provider Does patient have an appointment scheduled?: No Where to send orders: Supercharge Repair Supervisor [facility] or would you prefer to receive a phone call?: Patient would prefer a phone call Okay to leave a detailed message?: Yes at Cell number on file: Telephone Information: documented in this encounter Plan of Treatment Upcoming Encounters Date Type Department Care Team (Late st Contact Info) Description 03/23/2024 1:00 PM ONCOLOGY NURSE Office Visit [facility] [address] [place] [address] [place] [address] [place], [place] [address] documented as of this encounter Goals Goal [...] consider participating in a cancer support group. Engineer Soils will send me cancer support resources. 2. I will continue to work with a therapist. 3. I will let Engineer Soils know if I need additional resources. documented as of this encounter Visit Diagnoses Not on filedocumented in this encounter Additional Health Concerns Active Problems Noted Date Diagnosed Date Mental Health Symptoms Need Improvement 08/24/19 Assessment Noted Time PHQ-9 Depression Total Score: 3 04/27/20 23 10:07 AM ONCOLOGY NURSE documented as of this encounter Care Teams Board Saw Runner Relationship Specialty [place] [address] [place], [place] [address] PCP - General Family Practice 09/03/16 Pollo Medrano MD [address] [place] [address] Urology 01/24/15 Julio C Ramesh MD [address] [facility] [address] [place] [address] Hematology 01/31/15 [place] [address] [place] [address] Assigned PCP 06/15/20 Hanna Simental MD [place], [place] [address] Endocrinology, Diabetes, and Metabolism 12/10/21 Simona Bolden, FAX MACHINE OPERATOR [address] [address] Assigned Behavioral Health Provider 08/21/22 documented as of this encounter
--- OUTSIDE RECORDS SUMMARY | 2024-02-22 10:01 | XMS_ITS | Encounter Summary ---
Author Organization [facility] Address [address] [place] [address]. [place] [address] Care Team Providers Care National Secretary Name Role Phone Pollo Medrano MD Unavailable [phone] GadielJulio C muhammad MD Unavailable [phone] Acosta Cristobal MD Primary Care Provider + Acosta Cristobal MD Unavailable [phone] Hanna Simental MD Unavailable [phone] Simona Bolden [facility] Unavailable [phone] Reason for Visit * Reason Onset Date Comments Refill Request 02/20/2024 Encounter Details Date Type Department Care Team (Late st Contact Info) Description 02/20/2024 MyC Refill [facility] [address] [place] [address] [place] [address] [place] [address] Refill Request Social History Tobacco Use Types Packs/Day Years [...] re latives? Once a week 09/15/2023 Attends Sikh Services Not on file 09/14 Active Member [...] Answer Date Recorded PHQ-2 Score 1 04/27/2023 [facility] of Occupat ional Health - Occupational Stress [...] Answer Date Recorded Do you have housing? (Rayrayin g is defined as stable permanent housing and does not include staying ouside in a car, in a tent, in an abandoned building, in an overnight assisted, or couch-surfing.) Yes 09/15/2023 Are you worried [...] AM CDT Legal Sex Male 3:26 AM LUMPIA WRAPPER MAKER Gender Identity Male 02/06/2021 10:36 AM CDT Sexual Orientation Straight 02/06/2021 10 :36 AM CDT documented as of this encounter Miscellaneous Notes * Telephone Encounter - Hali Worrell RN - 02/20/2024 3:38 PM CDT Routing to PCP. Hali Worrell RN on 02/20/2024 at 3:38 PM * Telephone Encounter - Ivy Quintanilla RN - 02/20/2024 12:19 PM CDT Clinic RN: Please investigate patient's chart or contact patient if the information cannot be foundregarding reported symptoms. Document findings and route to provider to either approve or deny refill. Ivy Cadena RN [facility] documented in this encounter Plan of Treatment Upcoming Encounters Date Type Department Care Team (Late st Contact Info) Description 03/23/2024 1:00 PM LUMPIA WRAPPER MAKER Office Visit [facility] [address] [place] [address] [place] [address] [place] [address] documented as of this encounter Goals Goal [...] consider participating in a cancer support group. Angiography Nurse will send me cancer support resources. 2. I will continue to work with a therapist. 3. I will let Angiography Nurse know if I need additional resources. 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) documented in this encounter Additional Health Concerns Active Problems Noted Date Diagnosed Date Mental Health Symptoms Need Improvement 08/24/19 23 Assessment Noted Time PHQ-9 Depression Total Score: 3 04/27/20 23 10:07 AM LUMPIA WRAPPER MAKER documented as of this encounter Care Teams National Secretary Relationship Specialty [place] [address] [place] [address] PCP - General Family Practice 09/03/16 Pollo Medrano MD [address] [place] [address] Urology 01/24/15 Julio C Ramesh MD [address] [place] [address] [address] [place] [address] Hematology 01/31/15 [place] [address] [facility] [place] [address] Assigned PCP 06/15/20 [place] [address] Endocrinology, Diabetes, and Metabolism 12/10/21 Simona Bolden MSW [address] [address] Assigned Behavioral Health Provider 08/21/22 documented as of this encounter
--- OUTSIDE RECORDS SUMMARY | 2024-02-22 10:01 | XMS_ITS | Encounter Summary ---
Author Organization [facility] Address [address] [place] [address]. [place] [address] Care Team Providers Care Top Stop Attacher Name Role Phone Pollo Medrano MD Unavailable [phone] GadielJulio C muhammad MD Unavailable [phone] Acosta Cristobal MD Primary Care Provider + Acosta Cristobal MD Unavailable [phone] Hanna Simental MD Unavailable [phone] Simona Bolden [facility] Unavailable [phone] Reason for Visit * Reason Onset Date Comments Medication Question 02/15/2024 Encounter Details Date Type Department Care Team (Late st Contact Info) Description 02/15/2024 Telephone [facility] [address] [place] [address] [place] [address] [place] [address] Medication Question Social History Tobacco Use Types Packs/Day Years [...] re latives? Once a week 09/15/2023 Attends Gnosticist Services Not on file 09/14 Active Member [...] Answer Date Recorded PHQ-2 Score 1 04/27/2023 [facility] of Occupat ional Health - Occupational Stress [...] in an abandoned building, in an overnight long-term, or couch-surfing.) Yes 09/15/2023 Are you worried [...] AM CDT Legal Sex Male 3:26 AM GLASS BREAKER Gender Identity Male 02/06/2021 10:36 AM CDT Sexual Orientation Straight 02/06/2021 10 :36 AM CDT documented as of this encounter Miscellaneous Notes * Telephone Encounter - Aide Harvey RN - 02/15/2024 10:32 AM CDT calling, CTC on file. States quetiapine keeps getting refused. Discussed we have not denied. Discussed RX sent for #90 12/05/23. Feels the pharmacy may be contacting [place]. Advised to check bottle and see if Dr. Cristobal's name on the bottle and if filled 12/05/23 or after. Discussed speaking to pharmacist to clarify as she is just going on pharmacy shraddha and showing as denied. agrees with plan.Aide Harvey RN documented in this encounter Plan of Treatment Upcoming Encounters Date Type Department Care Team (Late st Contact Info) Description 03/23/2024 1:00 PM GLASS BREAKER Office Visit [facility] [address] [place] [address] [place] [address] [place] [address] documented as of this encounter Goals Goal Patient Goal Type Associated Problems Recent Progress Patient-Stated? Author Explore cancer support resources Care Plan Mental Health Symptoms Need Improvement 100%(10/07/19 9:29 AM CDT) Paula Hurt, GUN FERTILIZER Note: Barriers: Not sure what is available Strengths: Family support Patient expressed understanding of goal: Yes Action steps to achieve this goal: 1. I will consider participating in a cancer support group. Sheet Rocker will send me cancer support resources. 2. I will continue to work with a therapist. 3. I will let Sheet Rocker know if I need additional resources. documented as of this encounter Visit Diagnoses Not on filedocumented in this encounter Additional Health Concerns Active Problems Noted Date Diagnosed Date Mental Health Symptoms Need Improvement 08/24/19 Assessment Noted Time PHQ-9 Depression Total Score: 3 04/27/20 10:07 AM GLASS BREAKER documented as of this encounter Care Teams Top Stop Attacher Relationship Specialty [place] [address] [place] [address] PCP - General Family Practice 09/03/16 Pollo Medrano MD [address] [place] [address] Urology 01/24/15 Julio C Ramesh MD [address] [place] [address] [address] [place] [address] Hematology 01/31/15 [place] [address] [place] [address] Assigned PCP 06/15/20 [place] [address] Endocrinology, Diabetes, and Metabolism 12/10/21 Simona Bolden MSW [address] [address] Assigned Behavioral Health Provider 08/21/22 documented as of this encounter
--- OUTSIDE RECORDS SUMMARY | 2024-02-22 10:01 | XMS_ITS | Encounter Summary ---
Author Organization [facility] Address [address] [place] [address]. [place] [address] Care Team Providers Care Storeroom Supervisor Name Role Phone Pollo Medrano MD Unavailable [phone] GadielJulio C muhammad MD Unavailable [phone] Acosta Cristobal MD Primary Care Provider + Acosta Cristobal MD Unavailable [phone] Hanna Simental MD Unavailable [phone] Simona Bolden [facility] Unavailable [phone] Reason for Visit * Reason Onset Date Comments Panel Management 02/17/2024 Encounter Details Date Type Department Care Team (Late st Contact Info) Description 02/17/2024 Telephone [facility] [address] [place] [address] [place] [address] [place] [address] Panel Management Social History Tobacco Use Types Packs/Day Years [...] re latives? Once a week 09/15/2023 Attends Scientologist Services Not on file 09/14 Active Member [...] Answer Date Recorded PHQ-2 Score 1 04/27/2023 [facility] Occupat ional Health - Occupational Stress [...] AM CDT Legal Sex Male 3:26 AM RN PATIENT CARE Gender Identity Male 02/06/2021 10:36 AM CDT Sexual Orientation Straight 02/06/2021 10 :36 AM CDT documented as of this encounter Plan of Treatment Upcoming Encounters Date Type Department Care Team (Late st Contact Info) Description 03/23/2024 1:00 PM RN PATIENT CARE Office Visit [facility] [address] [place] [address] [place] [address] [place] [address] documented as of this encounter [...] consider participating in a cancer support group. Crm Coordinator will send me cancer support resources. 2. I will continue to work with a therapist. 3. I will let Crm Coordinator know if I need additional resources. documented as of this encounter Visit Diagnoses Not on filedocumented in this encounter Additional Health Concerns Active Problems Noted Date Diagnosed Date Mental Health Symptoms Need Improvement 08/24/19 Assessment Noted Time PHQ-9 Depression Total Score: 3 04/27/20 10:07 AM RN PATIENT CARE documented as of this encounter Care Teams Storeroom Supervisor Relationship Specialty [place] [address] [address] [address] PCP - General Family Practice 09/03/16 Pollo Medrano MD [address] [place] [address] Urology 01/24/15 Julio C Ramesh MD [address] [facility] [address] [place] [address] MD Hematology 01/31/15 [place] [address] [address] [address] Assigned PCP 06/15/20 [place] [address] Endocrinology, Diabetes, and Metabolism 12/10/21 Simona Bolden, ELLY [address] [place] [address] Assigned Behavioral Health Provider 08/21/22 documented as of this encounter
--- OUTSIDE RECORDS SUMMARY | 2024-02-22 10:01 | XMS_ITS | Encounter Summary ---
Author Organization [facility] Address [address] [place] [address]. [place] [address] Care Team Providers Care Ball Holder Name Role Phone Pollo Medrano MD Unavailable [phone] GadielJulio C muhammad MD Unavailable [phone] Acosta Cristobal MD Primary Care Provider + Acosta Cristobal MD Unavailable [phone] Hanna Simental MD Unavailable [phone] Ramsey Loza MD Unavailable [phone] Simona Bolden [facility] Unavailable [phone] Reason for Visit * Reason Onset Date Comments Forms 12/01/2023 Encounter Details Date Type Department Care Team (Late st Contact Info) Description 12/01/2023 Telephone [facility] [address] [place] [address] [place] [address] [place] [address] Forms Social History Tobacco Use Types Packs/Day Years [...] re latives? 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 Shared that letter was faxed to . Amy Quinn Lead Transplanter [facility] * Telephone Encounter - Acosta Cristobal MD - 01/03/2024 11:22 AM CDT Letter printed and signed. Please also send delivery route driver gallo [facility] my [facility]. Acosta Cristoabl MD * Telephone Encounter - Amy Quinn - 12/30/2023 10:29 AM CDT Placed forms in provider's basket for review and completion. Amy Quinn Lead Transplanter [facility] * Telephone Encounter - Hiwot Coburn LPN - 12/29/2023 11:21 AM CDT I was unable to find the information from Sister Johnathon in the patients chart. Contacted Sister Johnathon and spoke with the Drivers Assessment division. They are going to send a copy of the assessment to the clinic. This assessment was done on 06/20/2023. We need to complete a drivers form that needs to be sent to the [facility] [place] Drivers divisionbased on the information in that assessment. The provider needs to complete and sign the form and fax it to the state. I contacted Pt's Maribeth and advised her of what I have found out and what needs to be done. Sheis aware that Dr. Cristobal is out of the office until Tuesday. * Telephone Encounter - Dianne Kline RN - 12/29/2023 9:40 AM CDT Pt's , Maribeth requesting update on status of driving assessment. Maribeth reports the form from Brooke Mendoza needs to be sent to the Dept of Public Safety and the [facility] can then revoke pt's driving license and notify pt. Huddled with nurse Hiwot Coburn, she will look into this and call Maribeth with update. Dianne Kline RN, BSN [facility] * Telephone Encounter - Acosta Cristobal MD - 12/15/2023 9:59 AM CDT There was not form to be completed, per se. It was a copy of the driving assessment, which I reviewed and then sent in to be scanned into his chart. I do agree with the assessment that he should not be driving. Acosta Cristobal MD * Telephone Encounter - Yesica Andrew - 12/14/2023 10:25 AM CDT Pt's has called in, in regards to the form that was submitted to the provider around 11/30-.Pt's would like the provider to do what is needed on the form and send it in. Pt has recently got his driving licence renewed and his and the [place] provider both agree that he need to not have the licence. [facility] has wrote a letter saying he support pt not driving and needs the provider to agree w/ the pt not driving. Sending to the provider to re-review the form and address the concerns as it applies based on the form. Yesica Jay Transplanter [facility] * Telephone Encounter - Acosta Cristobal MD - 12/02/2023 10:54 AM CDT Reviewed. Please forward to abstracting. Acosta Cristobal MD * Telephone Encounter - Amy Quinn - 12/01/2023 4:31 PM CDT Placed form in provider's basket for review. Paperwork is asking if provider agrees with driving determination. Amy Quinn Lead Transplanter [facility] * Telephone Encounter - Camelia Liriano - 12/01/2023 3:25 PM CDT Forms/Letter Request Type of form/letter: OTHER: [place] DPS Do we have the form/letter: Yes: Who is the form from? Patient Where did/will the form come from? Patient or family brought in When is form/letter needed by: [facility]ER[facility] How would you like the form/letter returned: Patient Notified form requests are processed in 5-7 business days:Yes Could we send this information to you in MyChart or would you prefer to receive a phone call?: Patient would prefer a phone call Okay to leave a detailed message?: Yes at Cell number on file: Telephone Information: Camelia Liriano Patient Prototype Machinist documented in this encounter Plan of Treatment Upcoming Encounters Date Type Department Care Team (Late st Contact Info) Description 03/23/2024 1:00 PM ENVIRONMENTAL ENGINEERING PROFESSOR Office Visit [facility] [address] [place] [address] [place] [address] [place] [address] documented as of this encounter [...] consider participating in a cancer support group. Manager Multicultural will send me cancer support resources. 2. I will continue to work with a therapist. 3. I will let Manager Multicultural know if I need additional resources. documented as of this encounter Visit Diagnoses Not on filedocumented in this encounter Additional Health Concerns Active Problems Noted Date Diagnosed Date Mental Health Symptoms Need Improvement 08/24/19 Assessment Noted Time PHQ-9 Depression Total Score: 3 04/27/20 10:07 AM ENVIRONMENTAL ENGINEERING PROFESSOR documented as of this encounter Care Teams Ball Holder Relationship Specialty [place] [address] [place] [address] PCP - General Family Practice 09/03/16 Pollo Medrano MD [address] [place] [address] Urology 01/24/15 Julio C Ramesh MD [address] [facility] [address] [place] [address] Hematology 01/31/15 [place] [address] [place] [address] Assigned PCP 06/15/20 [place] [address] Endocrinology, Diabetes, and Metabolism 12/10/21 Ramsey Loza MD [address] [place] [address] Assigned Surgical Provider 07/17/22 01/22/24 Simona Bolden MSW [address] [address] Assigned Behavioral Health Provider 08/21/22 documented as of this encounter
--- OUTSIDE RECORDS SUMMARY | 2024-02-22 10:01 | XMS_ITS | Encounter Summary ---
Author Organization Lane Address [address] [facility] [place] [address] Care Team Providers Care Turkey Picker Name Role Phone Pollo Medrano MD Unavailable [phone] GadielJulio C muhammad MD Unavailable [phone] Acosta Cristobal MD Primary Care Provider + Acosta Cristobal MD Unavailable [phone] Hanna Simental MD Unavailable [phone] Ramsey Loza MD Unavailable [phone] [facility] Unavailable [phone] Reason for Visit * Reason Comments Medication Refill Encounter Details Date Type Department Care Team (Late st Contact Info) Description 12/03/2023 Refill [facility] [address] [place] [address] [place] [address] [place] [address] Medication Refill Social History Tobacco [...] Answer Date Recorded PHQ-2 Score 1 04/27/2023 [facility] Questionnaire Answer [...] in an abandoned building, in an overnight jail, or couch-surfing.) Yes 09/15/2023 Are you worried [...] AM CDT Legal Sex Male 3:26 AM WORK ADJUSTMENT INSTRUCTOR Gender Identity Male 02/06/2021 10:36 AM CDT Sexual Orientation Straight 02/06/2021 10 :36 AM CDT documented as of this encounter Miscellaneous Notes * Telephone Encounter - Yesica Andrew - 12/14/2023 10:23 AM CDT Pt has been scheduled for a VV to discuss medication. Yesica Jay Credentialing Assistant [facility] * Telephone Encounter - Acosta Cristobal MD - 12/13/2023 5:44 PM CDT I think we need to touch base on medications patient is using. He is on a lot of arias sedating medications. We can arrange for a video appt to review plan. Acosta Cristobal MD * Telephone Encounter - Tory Alexander RN - 12/12/2023 10:15 AM CDT Incoming call from patient's Maribeth, CTC on file. Looking for clarification on why the zolpidemwas not able to be refilled? Was it switched to ativan? I can't tell per chart review. Tory Alexander, RN documented in this encounter Plan of Treatment Upcoming Encounters Date Type Department Care Team (Late st Contact Info) Description 03/23/2024 1:00 PM WORK ADJUSTMENT INSTRUCTOR Office Visit [facility] [address] [place] [address] [place] [address] [place], [place] [address] documented as of this encounter Goals Goal Patient Goal Type Associated Problems Recent Progress Patient-Stated? Author Explore cancer support resources Care Plan Mental Health Symptoms Need Improvement 100%(10/07/19 9:29 AM CDT) No Paula Humphrey, LAMBERTO Note: Barriers: Not sure what is available Strengths: Family support Patient expressed understanding of goal: Yes Action steps to achieve this goal: 1. I will consider participating in a cancer support group. Consumer Advocate will send me cancer support resources. 2. I will continue to work with a therapist. 3. I will let Consumer Advocate know if I need additional resources. 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) documented in this encounter Additional Health Concerns Active Problems Noted Date Diagnosed Date Mental Health Symptoms Need Improvement 08/24/19 Assessment Noted Time PHQ-9 Depression Total Score: 3 04/27/20 10:07 AM WORK ADJUSTMENT INSTRUCTOR documented as of this encounter Care Teams Turkey Picker Relationship Specialty [place] [address] [facility] [place] [address] PCP - General Family Practice 09/03/16 Pollo Medrano MD [address] [place] [address] Urology 01/24/15 Julio C Ramesh MD [address] [place] [address] [address] [place], [place] [address] Hematology 01/31/15 [place] [address] [place] [address] Assigned PCP 06/15/20 [place] [address] Endocrinology, Diabetes, and Metabolism 12/10/21 Ramsey Loza MD [address] [place], [place] [address] Assigned Surgical Provider 07/17/22 01/22/24 Simona Bolden MSW [address] [address] Assigned Behavioral Health Provider 08/21/22 documented as of this encounter
--- OUTSIDE RECORDS SUMMARY | 2024-02-22 10:01 | XMS_ITS | Encounter Summary ---
Author Organization [place] Address [address] [facility] [place] [address] Care Team Providers Care Lead Press Operator Name Role Phone Pollo Medrano MD Unavailable [phone] GadielJulio C muhammad MD Unavailable [phone] Acosta Cristobal MD Primary Care Provider + Acosta Cristobal MD Unavailable [phone] Hanna Simental MD Unavailable [phone] Simona Bolden [facility] Unavailable [phone] Reason for Visit * Reason Comments Medication Refill Encounter Details Date Type Department Care Team (Late st Contact Info) Description 01/28/2024 Refill [facility] [address] [place] [address] [place] [address] [place] [address] Medication Refill Social History Tobacco [...] re latives? Once a week 09/15/2023 Attends [employer] Services Not on file 09/14 Active Member [...] Answer Date Recorded PHQ-2 Score 1 04/27/2023 [facility] of Occupat ional Health - Occupational [...] AM CDT Legal Sex Male 3:26 AM ACID SPLICER Gender Identity Male 02/06/2021 10:36 AM CDT Sexual Orientation Straight 02/06/2021 10 :36 AM CDT documented as of this encounter Miscellaneous Notes * Telephone Encounter - Rylee Membreno RN - 01/30/2024 9:52 AM CDT Pharmacy requested refills that are already active on file. Refused request to pharmacy. documented in this encounter Plan of Treatment Upcoming Encounters Date Type Department Care Team (Late st Contact Info) Description 03/23/2024 1:00 PM ACID SPLICER Office Visit [facility] [address] [place] [address] [place] [address] [place] [address] documented as of this encounter [...] consider participating in a cancer support group. District Manager Major Accounts Sales will send me cancer support resources. 2. I will continue to work with a therapist. 3. I will let District Manager Major Accounts Sales know if I need additional resources. documented as of this encounter Visit Diagnoses Diagnosis Type 2 diabetes mellitus with stage 3b chronic kidney disease, without long-term current use of insulin (H) Morbid obesity (H) Morbid obesity documented in this encounter Additional Health Concerns Active Problems Noted Date Diagnosed Date Mental Health Symptoms Need Improvement 08/24/19 Assessment Noted Time PHQ-9 Depression Total Score: 3 04/27/20 10:07 AM ACID SPLICER documented as of this encounter Care Teams Lead Press Operator Relationship Specialty [place] [address] [address] [address] PCP - General Family Practice 09/03/16 Pollo Medrano MD [address] [place] [address] Urology 01/24/15 Julio C Ramesh MD [address] [facility] [address] [place] [address] Hematology 01/31/15 [place] [address] [address] [address] Assigned PCP 06/15/20 [place] [address] Endocrinology, Diabetes, and Metabolism 12/10/21 Simona Bolden, ELLY [address] [address] Assigned Behavioral Health Provider 08/21/22 documented as of this encounter
--- OUTSIDE RECORDS SUMMARY | 2024-02-22 10:02 | XMS_ITS | Encounter Summary ---
Author Organization [place] Address [address] [place] [address]. [place] [address] Care Team Providers Care Lath Hand Name Role Phone Pollo Medrano MD Unavailable [phone] Dafne Henriquez RN Unavailable [phone] Julio C Ramesh MD Unavailable [phone] Acosta Cristobal MD Primary Care Provider + Acosta Cristobal MD Unavailable [phone] Hanna Simental MD Unavailable [phone] Ramsey Loza MD Unavailable [phone] Paula Humphrey MEDIA DEVELOPER Unavailable [phone] Simona Bolden CLASSIFICATION ANALYST Unavailable Acosta Cristobal MD Unavailable [phone] Yesica Rodriguez RN Unavailable [phone] Reason for Visit * Reason Comments Medication Refill Encounter Details Date Type Department Care Team (Late st Contact Info) Description 11/28/2020 Refill [facility] [address] [place] [address] [place] [address] [place] [address] Medication Refill Social History Tobacco Use Types Packs/Day Years Used Date Smoking Tobacco: Never Smokeless Tobacco: Never Alcohol Use Standard Drinks/Week Comments Yes 3 (1 standard drink = 0.6 oz pur e alcohol) 4 beers per week PHQ-2 Answer Date Recorded PHQ-2 Score 1 08/04/2020 Sex and Gender Information Value Date Recorded Sex Assigned at Male 02/06/2021 10:36 AM CDT Legal Sex Male 3:26 AM EMPLOYMENT AND CLAIMS AIDE Gender Identity Male 02/06/2021 10:36 AM CDT Sexual Orientation Straight 02/06/2021 10 :36 AM CDT documented as of this encounter Plan of Treatment Upcoming Encounters Date Type Department Care Team (Late st Contact Info) Description 03/23/2024 1:00 PM EMPLOYMENT AND CLAIMS AIDE Office Visit [facility] [address] [place] [address] [place] [address] [place] [address] documented as of this encounter Visit Diagnoses Diagnosis Moderate episode of recurrent major depressive disorder (H) documented in this encounter Additional Health Concerns Assessment Noted Time PHQ-9 Depression Total Score: 1 08/05/19 21 8:27 AM CDT documented as of this encounter Care Teams Lath Hand Relationship Specialty [place] [address] [place] [address] PCP - General Family Practice 09/03/16 Pollo Medrano MD [address] [place] [address] Urology 01/24/15 Dafne Henriquez, MAGDALENO Registered Nurse Urology 01/24/15 11/16/22 Julio C Ramesh MD [address] [place] [address] [address] [place] [address] Hematology 01/31/15 [place] [address] [place] [address] Assigned PCP 06/15/20 [place] [address] Endocrinology, Diabetes, and Metabolism 12/10/21 Ramsey Loza MD [address] [place] [address] Assigned Surgical Provider 07/17/22 01/22/24 Paula Humphrey LSW Lead Fitness Supervisor Primary Care - CC 08/16/22 Simona Bolden, CLASSIFICATION ANALYST [address] [address] Assigned Behavioral Health Provider 08/21/22 [place] [address] [place] [address] Assigned Pain Medication Provider 04/23/23 11/21/23 Yesica Rodriguez, RN Clinic Fitness Supervisor 05/23/2305/26 documented as of this encounter
--- OUTSIDE RECORDS SUMMARY | 2024-02-22 10:02 | XMS_ITS | Encounter Summary ---
Author Organization [place] Address [address] [place] [address]. [place] [address] Care Team Providers Care Machine Sweeper Brush Maker Name Role Phone Pollo Medrano MD Unavailable [phone] GadielJulio C muhammad MD Unavailable [phone] Acosta Cristobal MD Primary Care Provider + Acosta Cristobal MD Unavailable [phone] Hanna Simental MD Unavailable [phone] Ramsey Loza MD Unavailable [phone] Simona Bolden [facility] Unavailable + [phone] Acosta Cristobal MD Unavailable [phone] Encounter Details Date Type Department Care Team (Late st Contact Info) Description 09/27/2023 [facility] Medical Advice [address] [place] [address] Rod Hutchins Social History Tobacco Use Types Packs/Day Years [...] re latives? Once a week 09/15/2023 Attends [employer] Services Not on file 09/14 Active Member [...] Answer Date Recorded PHQ-2 Score 1 04/27/2023 [facility] [place] of Occupat ional Health - Occupational Stress [...] AM CDT Legal Sex Male 3:26 AM INKER AND OPAQUER Gender Identity Male 02/06/2021 10:36 AM CDT Sexual Orientation Straight 02/06/2021 10 :36 AM CDT documented as of this encounter Plan of Treatment Upcoming Encounters Date Type Department Care Team (Late st Contact Info) Description 03/23/2024 1:00 PM INKER AND OPAQUER Office Visit [facility] [address] [place] [address] [place] [address] [place] [address] documented as of this encounter [...] consider participating in a cancer support group. Machine Splitter will send me cancer support resources. 2. I will continue to work with a therapist. 3. I will let Machine Splitter know if I need additional resources. documented as of this encounter Visit Diagnoses Not on filedocumented in this encounter Additional Health Concerns Active Problems Noted Date Diagnosed Date Mental Health Symptoms Need Improvement 08/24/19 Assessment Noted Time PHQ-9 Depression Total Score: 3 04/27/20 10:07 AM INKER AND OPAQUER documented as of this encounter Care Teams Machine Sweeper Brush Maker Relationship Specialty [place] [address] [place] [address] PCP - General Family Practice 09/03/16 Pollo Medrano MD [address] [place] [address] Urology 01/24/15 Julio C Ramesh MD [address] [place] [address] 480 [place] [address] MD Hematology 01/31/15 [place] [address] [place] [address] Assigned PCP 06/15/20 Hanna Simental MD [place] [address] Endocrinology, Diabetes, and Metabolism 12/10/21 Ramsey Loza MD [address] [place] [address] Assigned Surgical Provider 07/17/22 01/22/24 Simona Bolden, ELLY [address] [place] [address] Assigned Behavioral Health Provider 08/21/22 [place] [address] [place] [address] Assigned Pain Medication Provider 04/23/23 11/21/23 documented as of this encounter
--- OUTSIDE RECORDS SUMMARY | 2024-02-22 10:02 | XMS_ITS | Encounter Summary ---
Author Organization [place] Address [address] [place] [address]. [place] [address] Care Team Providers Care Plate Keeper Name Role Phone Pollo Medrano MD Unavailable [phone] Dafne Henriquez RN Unavailable [phone] Julio C Ramesh MD Unavailable [phone] Acosta Cristobal MD Primary Care Provider + Acosta Cristobal MD Unavailable [phone] Hanna Simental MD Unavailable [phone] Ramsey Loza MD Unavailable [phone] Paula Humphrey STATIONARY STEAM ENGINEER Unavailable [phone] Simona Bloden DIVING SUPERVISOR Unavailable Acosta Cristobal MD Unavailable [phone] Yesica Rodriguez RN Unavailable [phone] Reason for Visit * Reason Comments Medication Refill Encounter Details Date Type Department Care Team (Late st Contact Info) Description 12/23/2021 Refill [facility] [address] [place] [address] [place] [address] [place] [address] Medication Refill Social History Tobacco Use Types Packs/Day Years Used Date Smoking Tobacco: Never Smokeless Tobacco: Never Alcohol Use Standard Drinks/Week Comments Yes 3 (1 standard drink = 0.6 oz pur e alcohol) 2 weekly Social Connection and Isolat ion Panel [NHANES] Answer Date Recorded In a typical week, how many times do you talk on the phone with family, friends, or neighbors? Patient declined 05/27/2021 How often do you get togethe r with friends or relatives? Patient declined 05/27/2021 How often do you attend [facility] or gnosticism services? More than 4 times per year 05/27/2021 Do you belong to any clubs o r organizations such as jewish groups, unions, fraternal or athletic groups, or school groups? No 05/27/2021 Attends Club or Organization Meetings Not on mary ann e 05/27/2021 Are you , , di vorced, , never , or living with a partner? 05/27/2021 AUDIT-C Answer Date Recorded Q1: How often do you have a drink containing alc ohol? 2-3 times a week 05/27/2021 Q2: How many drinks containi ng alcohol do you have on a typical day when you are drinking? 3 or 4 05/27/2021 Q3: How often do you have si x or more drinks on one occasion? Never 05/27/2021 Overall Financial Resource Strain (CARDIA) Answe r Date Recorded How hard is it for you to pa y for the very basics like food, housing, medical care, and heating? Not hard at all 05/27/2021 PHQ-2 Answer Date Recorded PHQ-2 Score 0 06/23/2021 [facility] of Occupat ional Health - Occupational Stress Questionnaire Answer Date Recorded Do you feel stress - tense, restless, nervous, or anxious, or unable to sleep at night because your mind is troubled all the time - these days? Not at all 05/27/2021 Exercise Vital Sign Answer Date Recorde d On average, how many days pe r week do you engage in moderate to strenuous exercise (like a brisk walk)? 3 days 05/27/2021 On average, how many minutes do you engage in exercise at this level? 40 min 05/27/2021 Hunger Vital Sign Answer Date Recorded Within the past 12 months, y ou worried that your food would run out before you got the money to buy more. Never true 05/27/19 22 Within the past 12 months, t he food you bought just didn't last and you didn't have money to get more. Never true 05/27/2021 PRAPARE - Transportation Answer Date Re corded In the past 12 months, has l ack of transportation kept you from medical appointments or from getting medications? No 05/03 In the past 12 months, has l ack of transportation kept you from meetings, work, or from getting things needed for daily living? No 05/27/2021 Housing Stability Vital Sign Answer Ajay e Recorded In the last 12 months, was t here a time when you were not able to pay the mortgage or rent on time? No 05/27/2021 In the last 12 months, how many places have you lived? 1 05/27/2021 In the last 12 months, was t here a time when you did not have a steady place to sleep or slept in a mcc (including now)? No 05/27/2021 Sex and Gender Information Value Date Recorded Sex Assigned at Male 02/06/2021 10:36 AM CDT Legal Sex Male 3:26 AM DIRECTOR OF GRADUATE ADMISSIONS Gender Identity Male 02/06/2021 10:36 AM CDT Sexual Orientation Straight 02/06/2021 10 :36 AM CDT COVID-19 Exposure Response Date Recorded In the last 10 days, have yo u been in contact with someone who was confirmed or suspected to have Coronavirus/COVID-19? No / Unsure 12/23/2021 3:17 PM CDT documented as of this encounter Plan of Treatment Upcoming Encounters Date Type Department Care Team (Late st Contact Info) Description 03/23/2024 1:00 PM DIRECTOR OF GRADUATE ADMISSIONS Office Visit [facility] [address] [place] [address] [place] [address] [place] [address] documented as of this encounter Visit Diagnoses Diagnosis Persistent insomnia Persistent disorder of initiating or maintaining sleep documented in this encounter Additional Health Concerns Assessment Noted Time PHQ-9 Depression Total Score: 4 06/23/19 22 11:52 AM DIRECTOR OF GRADUATE ADMISSIONS documented as of this encounter Care Teams Plate Keeper Relationship Specialty [place] [address] [place] [address] PCP - General Family Practice 09/03/16 Pollo Medrano MD [address] [place] [address] Urology 01/24/15 Dafne Henriquez, RN Registered Nurse Urology 01/24/15 11/16/22 Julio C Ramesh MD [address] [place] [address] [address] [place] [address] MD Hematology 01/31/15 [place] [address] [place] [address] Assigned PCP 06/15/20 Hanna Simental MD [facility] [place] [address] Endocrinology, Diabetes, and Metabolism 12/10/21 Ramsey Loza MD [address] [place] [address] Assigned Surgical Provider 07/17/22 01/22/24 Paula Humphrey, STATIONARY STEAM ENGINEER Lead Controller Operations And Hr Manager Primary Care - CC 08/16/22 Simona Bolden, ELLY [address] [place] [address] Assigned Behavioral Health Provider 08/21/22 [place] [address] [place] [address] Assigned Pain Medication Provider 04/23/23 11/21/23 Yesica Rodriguez, RN Clinic Controller Operations And Hr Manager 05/23/2305/26 documented as of this encounter
--- OUTSIDE RECORDS SUMMARY | 2024-02-22 10:02 | XMS_ITS | Encounter Summary ---
Author Organization [place] Address [address] [place] [address]. [place] [address] Care Team Providers Care Pricing Analyst Name Role Phone Pollo Medrano MD Unavailable [phone] GadielJulio C muhammad MD Unavailable [phone] Acosta Cristobal MD Primary Care Provider + Acosta Cristobal MD Unavailable [phone] Hanna Simental MD Unavailable [phone] Ramsey Loza MD Unavailable [phone] Simona Bolden Jo [facility] Unavailable [phone] Acosta Cristobal MD Unavailable [phone] Reason for Visit * Reason Onset Date Comments Forms 11/09/2023 [facility] - Cancer Genomic Test Encounter Details Date Type Department Care Team (Late st Contact Info) Description 11/09/2023 [facility] [address] [place] [address] [place] [address] [place] [address] Forms ([facility] - Cancer Genomic Test) Social History Tobacco Use Types Packs/Day Years [...] re latives? Once a week 09/15/2023 Attends [employer]astaf[employer] Services Not on file 09/14 Active Member [...] Answer Date Recorded PHQ-2 Score 1 04/27/2023 [facility] Occupational Stress Questionnaire Answer Date [...] CDT Legal Sex Male 3:26 AM RN CLINICAL TRIALS Gender Identity Male 02/06/2021 10:36 AM CDT Sexual Orientation Straight 02/06/2021 10 :36 AM CDT documented as of this encounter Miscellaneous Notes * Telephone Encounter - Pamela Johnson RN - 11/15/2023 4:33 PM CDT [facility] asking if form was received. Advised that it will not be completed per info received from - scam. * Telephone Encounter - Acosta Cristobal MD - 11/10/2023 8:33 AM CDT Per this is a scam, discarded. Acosta Cristobal MD * Telephone Encounter - Yesica Andrew - 11/09/2023 5:22 PM CDT Forms Type of form/letter: OTHER: Do we have the form/letter: Yes: Cancer Genomic Test Who is the form from? [facility] Where did/will the form come from? form was faxed in When is form/letter needed by: corwin How would you like the form/letter returned: Patient Notified form requests are processed in 5-7 business days:Yes Could we send this information to you in [employer] or would you prefer to receive a phone call?: No preference Okay to leave a detailed message?: Yes at Other phone number: [phone] documented in this encounter Plan of Treatment Upcoming Encounters Date Type Department Care Team (Late st Contact Info) Description 03/23/2024 1:00 PM RN CLINICAL TRIALS Office Visit [facility] [address] [place] [address] [place] [address] [place], [place] [address] documented as of this encounter Goals Goal [...] consider participating in a cancer support group. Truck Supervisor will send me cancer support resources. 2. I will continue to work with a therapist. 3. I will let Truck Supervisor know if I need additional resources. documented as of this encounter Visit Diagnoses Not on filedocumented in this encounter Additional Health Concerns Active Problems Noted Date Diagnosed Date Mental Health Symptoms Need Improvement 08/24/19 Assessment Noted Time PHQ-9 Depression Total Score: 3 04/27/20 10:07 AM RN CLINICAL TRIALS documented as of this encounter Care Teams Pricing Analyst Relationship Specialty [place] [address] [address] [address] PCP - General Family Practice 09/03/16 Pollo Medrano MD [address] [place] [address] Urology 01/24/15 Julio C Ramesh MD [address] [place] [address] [address] [place] [address] Hematology 01/31/15 [place] [address] [address] [address] Assigned PCP 06/15/20 [place] [address] Endocrinology, Diabetes, and Metabolism 12/10/21 Ramsey Loza MD [address] [place] [address] Assigned Surgical Provider 07/17/22 01/22/24 Simona Bolden MSW [address] [address] Assigned Behavioral Health Provider 08/21/22 [place] [address] [place] [address] Assigned Pain Medication Provider 04/23/23 11/21/23 documented as of this encounter
--- OUTSIDE RECORDS SUMMARY | 2024-02-22 10:02 | XMS_ITS | Encounter Summary ---
Author Organization [place] Address [address] [place] [address]. [place] [address] Care Team Providers Care Tank Filler Name Role Phone Pollo Medrano MD Unavailable [phone] GadielJulio C muhammad MD Unavailable [phone] Acosta Cristobal MD Primary Care Provider + Acosta Cristobal MD Unavailable [phone] Hanna Simental MD Unavailable [phone] Ramsey Loza MD Unavailable [phone] Simona Bolden [facility] Unavailable + [phone] Acosta Cristobal MD Unavailable [phone] Encounter Details Date Type Department Care Team (Late st Contact Info) Description 10/20/2023 MyC Medical Advice [facility] [address] [place] [address] Yas Barnes Social History Tobacco Use Types Packs/Day Years [...] re latives? Once a week 09/15/2023 Attends [employer] Services Not on file 09/14 Active Member [...] Answer Date Recorded PHQ-2 Score 1 04/27/2023 [facility] of Occupat ional Health - Occupational Stress [...] in an abandoned building, in an overnight nursing home, or couch-surfing.) Yes 09/15/2023 Are you worried [...] Legal Sex Male 3:26 AM DIRECTOR OF SURGERY Gender Identity Male 02/06/2021 10:36 AM CDT Sexual Orientation Straight 02/06/2021 10 :36 AM CDT documented as of this encounter Plan of Treatment Upcoming Encounters Date Type Department Care Team (Late st Contact Info) Description 03/23/2024 1:00 PM DIRECTOR OF SURGERY Office Visit [facility] [address] [place] [address] [place] [address] [place] [address] documented as of this encounter [...] consider participating in a cancer support group. Plater Helper will send me cancer support resources. 2. I will continue to work with a therapist. 3. I will let Plater Helper know if I need additional resources. documented as of this encounter Visit Diagnoses Not on filedocumented in this encounter Additional Health Concerns Active Problems Noted Date Diagnosed Date Mental Health Symptoms Need Improvement 08/24/19 Assessment Noted Time PHQ-9 Depression Total Score: 3 04/27/20 10:07 AM DIRECTOR OF SURGERY documented as of this encounter Care Teams Tank Filler Relationship Specialty Start [place] [address] [place] [address] PCP - General Family Practice 09/03/16 Pollo Medrano MD [address] [place] [address] Urology 01/24/15 Julio C Ramesh MD [address] [facility] [address] [place], [place] [address] Hematology 01/31/15 [place] [address] [place] [address] Assigned PCP 06/15/20 [place] [address] Endocrinology, Diabetes, and Metabolism 12/10/21 Ramsey Loza MD [address] [place] [address] Assigned Surgical Provider 07/17/22 01/22/24 Simona Bolden MSW [address] [address] Assigned Behavioral Health Provider 08/21/22 [place] [address] [place] [address] Assigned Pain Medication Provider 04/23/23 11/21/23 documented as of this encounter
--- OUTSIDE RECORDS SUMMARY | 2024-02-22 10:02 | XMS_ITS | Encounter Summary ---
Author Organization [facility] Address [address] [place] [address]. [place] [address] Care Team Providers Care Exceptional Student Education Teacher Name Role Phone Pollo Medrano MD Unavailable [phone] GadielJulio C muhammad MD Unavailable [phone] Acosta Cristobal MD Primary Care Provider + Acosta Cristobal MD Unavailable [phone] Hanna Simental MD Unavailable [phone] Ramsey Loza MD Unavailable [phone] Simona Bolden Jo [facility] [place]available [phone] Acosta Cristobal MD Unavailable [phone] Reason for Visit * Reason Comments Medication Refill Encounter Details Date Type Department Care Team (Late st Contact Info) Description 05/29/2023 Refill [facility] [address] [place] [address] [place] [address] [place] [address] Medication Refill Social History Tobacco [...] declined 05/27/2021 How often do you attend chur or hoahaoism services? More than 4 times per year 05/27/2021 Do you belong to any clubs o r organizations such as advent groups, unions, fraternal or athletic groups, or [...] Answer Date Recorded PHQ-2 Score 1 04/27/2023 [facility] Occupational Stress Questionnaire Answer [...] exercise at this level? 40 min 05/27/2021 Adolescent Education Answer Date Record ed Getting School Help Needed Not on file 01/28 Food Insecurity Answer Date Recorded Within the past 12 months, d id you worry that your food would run out before you got money to buy more? No 04/27/2023 Within the past 12 months, d id the food you bought just not last and you didn? t have money to get more? No 04/27/2023 Housing Stability Answer Date Recorded Do you have housing? (Cristhian g is defined as stable permanent housing and does not include staying ouside in a car, in a tent, in an abandoned building, in an overnight care home, or couch-surfing.) Yes 04/27/2023 Are you worried about losing your housing? No 04/27/2023 Financial Resource Strain Answer Date R ecorded Within the past 12 months, h ave you or your family members you live with been unable to get utilities (heat, electricity) when it was really needed? No 04/27/2023 Transportation Needs Answer Date Record ed Within the past 12 months, h as lack of transportation kept you from medical appointments, getting your medicines, non-medical meetings or appointments, work, or from getting things that you need? No 04/27/2023 Interpersonal Safety Answer Date Record ed Do [...] AM CDT Legal Sex Male 3:26 AM RADIO MACHINIST Gender Identity Male 02/06/2021 10:36 AM CDT Sexual Orientation Straight 02/06/2021 10 :36 AM CDT documented as of this encounter Miscellaneous Notes * Telephone Encounter - John Truong PA-C - 05/31/2023 3:08 PM RADIO MACHINIST Ok will send in 3 months. FYI to pcp O MACHINIST * Telephone Encounter - Lor Hobson RN - 05/31/2023 1:36 PM RADIO MACHINIST Called and spoke to pts , Maribeth. Maribeth advised - he has been getting seroquel (quetiapine) 150 mg at bedtime. Because of his agitation, Dr. Cristobal said to give him 25-50 mg when he gets agitated during the day. 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 She says he gets very agitated. She says he is getting very confused. Her kids told her he needs to get out more. She took him to [facility] yesterday and then she needed help with him in the hot tub. She said there were about 8 [facility] staff trying tohelp. She said it is getting too hard to take him out. She took him [place] in April and broke his back. She said they can't travel anymore. Will forward to Hilario Truong for the refill. O MACHINIST * Telephone Encounter - John Truong PA-C - 05/31/2023 12:19 PM RADIO MACHINIST Please call patient/patient's spouse to confirm dosing - are they taking both 150mg and additional 25-50 at bedtime? O MACHINIST documented in this encounter Plan of Treatment Upcoming Encounters Date Type Department Care Team (Late st Contact Info) Description 03/23/2024 1:00 PM RADIO MACHINIST Office Visit [facility] [address] [place] [address] [place] [address] [place] [address] documented as of this encounter [...] consider participating in a cancer support group. Certified Surgical Tech/First Assistant will send me cancer support resources. 2. I will continue to work with a therapist. 3. I will let Certified Surgical Tech/First Assistant know if I need additional resources. 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) documented in this encounter Additional Health Concerns Active Problems Noted Date Diagnosed Date Mental Health Symptoms Need Improvement 08/24/19 Assessment Noted Time PHQ-9 Depression Total Score: 3 04/27/20 10:07 AM RADIO MACHINIST documented as of this encounter Care Teams Exceptional Student Education Teacher Relationship Specialty [place] [address] [address] [address] PCP - General Family Practice 09/03/16 Pollo Medrano MD [address] [place] [address] Urology 01/24/15 Julio C Ramesh MD [address] [place] [address] MD Hematology 01/31/15 [place] [address] [place] [address] Assigned PCP 06/15/20 Hanna Simental MD [place] [address] Endocrinology, Diabetes, and Metabolism 12/10/21 Ramsey Loza MD [address] [place] [address] Assigned Surgical Provider 07/17/22 01/22/24 Simona Bolden MSW [address] [address] Assigned Behavioral Health Provider 08/21/22 [place] [address] [place] [address] Assigned Pain Medication Provider 04/23/23 11/21/23 documented as of this encounter
--- OUTSIDE RECORDS SUMMARY | 2024-02-22 10:02 | XMS_ITS | Encounter Summary ---
Author Organization [facility] Address [address] [place] [address]. [place] [address] Care Team Providers Care Reworker Name Role Phone Pollo Medrano MD Unavailable [phone] GadielJulio C muhammad MD Unavailable [phone] Acosta Cristobal MD Primary Care Provider + Acosta Cristobal MD Unavailable [phone] Hanna Simental MD Unavailable [phone] Ramsey Loza MD Unavailable [phone] LalobessieSimona Jo DIGITAL AD TRAFFICKER Unavailable + [phone] Acosta Cristobal MD Unavailable [phone] Reason for Visit * Reason Onset Date Comments Same Day Appointment 09/16/2023 Pt's spouse calling back in regards to TE from 09/16/2023 around 10am. She is going to bring pt to get labs pulled and will not leave until blood is drawn. Encounter Details Date Type Department Care Team (Late st Contact Info) Description 09/16/2023 Telephone [facility] [address] [place] [address] [place] [address] [place] [address] Same Day Appointment (Pt's spouse calling back in regards to TE from 09/16/2023 around 10am. She is going to bring pt to get labs pulled and will not leave until blood is drawn.) Social History Tobacco Use Types Packs/Day Years [...] Answer Date Recorded PHQ-2 Score 1 04/27/2023 [facility] - Occupational [...] in an abandoned building, in an overnight mcfp, or couch-surfing.) Yes 09/15/2023 Are you worried [...] AM CDT Legal Sex Male 3:26 AM HOISTMAN Gender Identity Male 02/06/2021 10:36 AM CDT Sexual Orientation Straight 02/06/2021 10 :36 AM CDT documented as of this encounter Miscellaneous Notes * Telephone Encounter - Stephanie Mendenhall Y - 09/16/2023 2:55 PM CDT General Call Contacts Type Contact Phone/Fax 09/16/2023 02:55 PM CDT Phone (Incoming) Maribeth Gu (Emergency Contact) [phone] (M) Pt's spouse calling back in regards to TE from 09/16/2023 around 10am. She is going to bring pt to get labs pulled and will not leave until blood is drawn. Reason for Call: Pt's spouse called to inform that they are going to come into labs to have blood drawn. They have been waiting for blood results for the GFR & other kidney function labs until 3pm. Since they do not see results, they are going to come in and get them re-drawn and tested. Pt's spouse is frustrated and states the lab technicians had forgotten to draw for it when it should've been done. They know it only take 15mins for the lab test to run Pt's spouse was informed that it looks like those orders are showing status of pending, but pt's states they will not trust that since there has been no changes since their conversation from themorning. What are your questions or concerns: N/A - not open to suggestions or other resolution Could we send this information to you in [employer] or would you prefer to receive a phone call?: No documented in this encounter Plan of Treatment Upcoming Encounters Date Type Department Care Team (Late st Contact Info) Description 03/23/2024 1:00 PM HOISTMAN Office Visit [facility] [address] [place] [address] [place] [address] [place] [address] documented as of this encounter [...] consider participating in a cancer support group. [employer] will send me cancer support resources. 2. I will continue to work with a therapist. 3. I will let Engineering [employer] know if I need additional resources. documented as of this encounter Visit Diagnoses Not on filedocumented in this encounter Additional Health Concerns Active Problems Noted Date Diagnosed Date Mental Health Symptoms Need Improvement 08/24/19 23 Assessment Noted Time PHQ-9 Depression Total Score: 3 04/27/20 10:07 AM HOISTMAN documented as of this encounter Care Teams Reworker Relationship Specialty Start [place] [address] [place] [address] PCP - General Family Practice 09/03/16 Pollo Medrano MD [address] [place] [address] Urology 01/24/15 Julio C Ramesh MD [address] [place] [address] [address] [place] [address] [facility] 01/31/15 [place] [address] [place] [address] Assigned PCP 06/15/20 [place] [address] Endocrinology, Diabetes, and Metabolism 12/10/21 Ramsey Loza MD [address] [place] [address] Assigned Surgical Provider 07/17/22 01/22/24 Simona Bolden MSW [address] [place] [address] Assigned Behavioral Health Provider 08/21/22 [place] [address] [place] [address] Assigned Pain Medication Provider 04/23/23 11/21/23 documented as of this encounter
--- OUTSIDE RECORDS SUMMARY | 2024-02-22 10:02 | XMS_ITS | Encounter Summary ---
Author Organization [facility] Address [address] [place] [address]. [place] [address] Care Team Providers Care Rip Saw Operator Name Role Phone Pollo Medrano MD Unavailable [phone] Dafne Henriquez RN Unavailable [phone] Julio C Ramesh MD Unavailable [phone] Acosta Cristobal MD Primary Care Provider + Acosta Cristobal MD Unavailable [phone] Hanna Simental MD Unavailable [phone] Ramsey Loza MD Unavailable [phone] Paula Humphrey CLOTH OPENER HAND Unavailable [phone] Simona Bolden [employer] Unavailable Acosta Cristobal MD Unavailable [phone] Yesica Rodriguez RN Unavailable [phone] Reason for Visit * Reason Comments Medication Refill Encounter Details Date Type Department Care Team (Late st Contact Info) Description 12/24/[address] [facility] [address] [place] [address] [place] [address] [place] [address] Medication Refill Social History Tobacco Use Types Packs/Day Years Used Date Smoking Tobacco: Never Smokeless Tobacco: Never Alcohol Use Standard Drinks/Week Comments Yes 3 (1 standard drink = 0.6 oz pur e alcohol) 4 beers per week PHQ-2 Answer Date Recorded PHQ-2 Score 3 12/11/2020 Sex and Gender Information Value Date Recorded Sex Assigned at Male 02/06/2021 10:36 AM CDT Legal Sex Male 3:26 AM CAISSON WORKER Gender Identity Male 02/06/2021 10:36 AM CDT Sexual Orientation Straight 02/06/2021 10 :36 AM CDT COVID-19 Exposure Response Date Recorded In the last month, have you been in contact with someone who was confirmed or suspected to have Coronavirus / COVID-19? No / Unsure 12/11/2020 8:40 AM CDT documented as of this encounter Miscellaneous Notes * Telephone Encounter - Denise Benson RN - 12/25/2020 10:59 AM CDT Prescription approved per [facility] protocol. Denise Benson RN on 12/25/2020 at 10:59 AM documented in this encounter Plan of Treatment Upcoming Encounters Date Type Department Care Team (Late st Contact Info) Description 03/23/2024 1:00 PM CAISSON WORKER Office Visit [facility] [address] [place] [address] [place] [address] [address] [place] [address] documented as of this encounter Visit Diagnoses Diagnosis Moderate episode of recurrent major depressive disorder (H) documented in this encounter Additional Health Concerns Assessment Noted Time PHQ-9 Depression Total Score: 3 12/13/19 21 7:03 AM CDT documented as of this encounter Care Teams Rip Saw Operator Relationship Specialty [place] [address] [place] [address] PCP - General Family Practice 09/03/16 Pollo Medrano MD [address] [place] [address] Urology 01/24/15 Dafne Henriquez, RN Registered Nurse Urology 01/24/15 11/16/22 Julio C Ramesh MD [address] [facility] [address] [place] [address] Hematology 01/31/15 [place] [address] [place] [address] Assigned PCP 06/15/20 Hanna Simental MD [place] [address] Endocrinology, Diabetes, and Metabolism 12/10/21 Ramsey Loza MD [address] [place] [address] Assigned Surgical Provider 07/17/22 01/22/24 Paula Humphrey, CLOTH OPENER HAND Lead Capital Campaign Fundraiser Primary Care - CC 08/16/22 Simona Bolden, ELLY [address] [facility] [address] Assigned Behavioral Health Provider 08/21/22 [place] [address] [place] [address] Assigned Pain Medication Provider 04/23/23 11/21/23 Yesica Rodriguez, RN Clinic Capital Campaign Fundraiser 05/23/2305/26 documented as of this encounter
--- OUTSIDE RECORDS SUMMARY | 2024-02-22 10:02 | XMS_ITS | Encounter Summary ---
Author Organization [facility] Address [address] [place] [address]. [place] [address] Care Team Providers Care Belt Buckle Maker Name Role Phone Pollo Medrano MD Unavailable [phone] GadielJulio C muhammad MD Unavailable [phone] Acosta Cristobal MD Primary Care Provider + Acosta Cristobal MD Unavailable [phone] Hanna Simental MD Unavailable [phone] Ramsey Loza MD Unavailable [phone] Simona Bolden [facility] [place]available [phone] Acosta Cristobal MD Unavailable [phone] Yesica Rodriguez RN Unavailable [phone] Encounter Details Date Type Department Care Team (Late st Contact Info) Description 03/08/2023 [facility] [address] [address] Amy Quinn Social History Tobacco Use Types Packs/Day Years [...] How often do you attend chur or worship services? More than 4 times per year 05/27/2021 Do you belong to any clubs o r organizations such as uatsdin groups, unions, fraternal or athletic groups, or [...] care, and heating? Not hard at all 08/23/2022 PHQ-2 Answer Date Recorded PHQ-2 Score 2 12/29/2022 [facility] - [...] the money to buy more. Never true 08/24/19 23 Within the past 12 months, t he food you bought just didn't last and you didn't have money to get more. Never true 08/23/2022 PRAPARE - Transportation Answer Date Re corded In the past 12 months, has l ack of transportation kept you from medical appointments or from getting medications? No 08/01 In the past 12 months, has l ack of transportation kept you from meetings, work, or from getting things needed for daily living? No 08/23/2022 Housing Stability Vital Sign Answer Ajay e Recorded In the last 12 months, was t here a time when you were not able to pay the mortgage or rent on time? No 08/23/2022 In the last 12 months, how many places have you lived? 1 08/23/2022 In the last 12 months, was t here a time when you did not have a steady place to sleep or slept in a alf (including now)? No 08/23/2022 Adolescent Education Answer Date Record ed Getting School Help Needed Not on file 01/28 Sex and Gender Information Value Date Recorded Sex Assigned at Male 02/06/2021 10:36 AM CDT Legal Sex Male 3:26 AM FOOT MITER OPERATOR Gender Identity Male 02/06/2021 10:36 AM CDT Sexual Orientation Straight 02/06/2021 10 :36 AM CDT documented as of this encounter Plan of Treatment Upcoming Encounters Date Type Department Care Team (Late st Contact Info) Description 03/23/2024 1:00 PM FOOT MITER OPERATOR Office Visit [facility] [id number] [place] [id number] [place] [address] [place] [address] documented as of this encounter [...] consider participating in a cancer support group. Thread [employer]aster will send me cancer support resources. 2. I will continue to work with a therapist. 3. I will let Thread Laster know if I need additional resources. documented as of this encounter Visit Diagnoses Not on filedocumented in this encounter Additional Health Concerns Active Problems Noted Date Diagnosed Date Mental Health Symptoms Need Improvement 08/24/19 Assessment Noted Time PHQ-9 Depression Total Score: 9 12/30/19 9:59 AM CDT documented as of this encounter Care Teams Belt Buckle Maker Relationship Specialty [place] [address] [address] [address] PCP - General Family Practice 09/03/16 Pollo Medrano MD [address] [place] [address] Urology 01/24/15 Julio C Ramesh MD [address] [place] [address] MD Hematology 01/31/15 [place] [address] [address] [address] Assigned PCP 06/15/20 Hanna Simental MD [place] [address] Endocrinology, Diabetes, and Metabolism 12/10/21 Ramsey Loza MD [address] [place] [address] Assigned Surgical Provider 07/17/22 01/22/24 Simona Bolden MSW [address] [address] Assigned Behavioral Health Provider 08/21/22 [place] [address] [address] [place] [address] Assigned Pain Medication Provider 04/23/23 11/21/23 Yesica Rodriguez, RN Clinic Thread Laster 05/23/2305/26 documented as of this encounter
--- OUTSIDE RECORDS SUMMARY | 2024-02-22 10:02 | XMS_ITS | Encounter Summary ---
Author Organization [facility] Address [address] [place] [address]. [place] [address] Care Team Providers Care Clinic Office Assistant Name Role Phone Pollo Medrano MD Unavailable [phone] Dafne Henriquez RN Unavailable [phone] Julio C Ramesh MD Unavailable [phone] Acosta Cristobal MD Primary Care Provider + Acosta Cristobal MD Unavailable [phone] Hanna Simental MD Unavailable [phone] Ramsey Loza MD Unavailable [phone] Paula Humphrey ASPHALT WORKER Unavailable [phone] Simona Bolden MIXED CROP AND LIVESTOCK FARM WORKER Unavailable [phone] Acosta Cristobal MD Unavailable [phone] Yesica Rodriguez RN Unavailable [phone] Reason for Visit * Reason Comments Medication Refill Encounter Details Date Type Department Care Team (Late st Contact Info) Description 11/10/2021 Refill [facility] [address] [place] [address] [place] [address] [place] [address] Medication Refill Social History Tobacco Use Types [...] declined 05/27/2021 How often do you attend [facility] or christian services? More than 4 times per year 05/27/2021 Do you belong to any clubs o r organizations such as oriental orthodox groups, unions, fraternal or athletic groups, or [...] Answer Date Recorded PHQ-2 Score 0 06/23/2021 [facility] - [...] place to sleep or slept in a fci (including now)? No 05/27/2021 Sex and Gender Information Value Date Recorded Sex Assigned at Male 02/06/2021 10:36 AM CDT Legal Sex Male 3:26 AM CARTON FORMING MACHINE HELPER Gender Identity Male 02/06/2021 10:36 AM CDT Sexual Orientation Straight 02/06/2021 10 :36 AM CDT COVID-19 Exposure Response Date Recorded In the last 10 days, have yo u been in contact with someone who was confirmed or suspected to have Coronavirus/COVID-19? No / Unsure 10/28/2021 9:41 AM CDT documented as of this encounter Miscellaneous Notes * Telephone Encounter - Isabel Roper RN - 11/12/2021 10:51 AM CDT Routing refill request to provider for review/approval because: Labs out of range: creatinine Creatinine Date Value Ref Range Status 10/28/2021 1.79 (H) 0.66 - 1.25 mg/dL Final 10/28/2021 1.79 (H) 0.66 - 1.25 mg/dL Final 07/18/2019 1.50 (H) 0.66 - 1.25 mg/dL Final Isabel Roper RN documented in this encounter Plan of Treatment Upcoming Encounters Date Type Department Care Team (Late st Contact Info) Description 03/23/2024 1:00 PM CARTON FORMING MACHINE HELPER Office Visit [facility] [address] [place] [address] [place] [address] [place] [id number] documented as of this encounter Visit Diagnoses Diagnosis Essential hypertension, benign documented in this encounter Additional Health Concerns Assessment Noted Time PHQ-9 Depression Total Score: 4 06/23/19 22 11:52 AM CARTON FORMING MACHINE HELPER documented as of this encounter Care Teams Clinic Office Assistant Relationship Specialty [place] [address] [address] [place] [address] PCP - General Family Practice 09/03/16 Pollo Medrano MD [address] [place] [address] Urology 01/24/15 Dafne Henriquez, RN Registered Nurse Urology 01/24/15 11/16/22 Julio C Ramesh MD [address] [place] [address] [address] [place], [place] [address] Hematology 01/31/15 [place] [address] [place] [address] Assigned PCP 06/15/20 [place] [address] Endocrinology, Diabetes, and Metabolism 12/10/21 Ramsey Loza MD [address] [place] [address] Assigned Surgical Provider 07/17/22 01/22/24 Paula Humphrey, ASPHALT WORKER Lead Search Analyst Primary Care - CC 08/16/22 Simona Bolden MSW [address] [address] Assigned Behavioral Health Provider 08/21/22 [place] [address] [place] [address] Assigned Pain Medication Provider 04/23/23 11/21/23 Yesica Rodriguez, RN Clinic Search Analyst 05/23/2305/26 documented as of this encounter
--- OUTSIDE RECORDS SUMMARY | 2024-02-22 10:02 | XMS_ITS | Encounter Summary ---
Author Organization [facility] Address [address] [place] [address]. [place] [address] Care Team Providers Care Funeral Workers Name Role Phone Pollo Medrano MD Unavailable [phone] Dafne Henriquez RN Unavailable [phone] Julio C Ramesh MD Unavailable [phone] Acosta Cristobal MD Primary Care Provider + Acosta Cristobal MD Unavailable [phone] Hanna Simental MD Unavailable [phone] Ramsey Loza MD Unavailable [phone] Paula Humphrey PRODUCT MANAGER E [employer] Unavailable [phone] Simona Bolden MAKE UP ARRANGER Unavailable Acosta Cristobal MD Unavailable [phone] Yesica Rodriguez RN Unavailable [phone] Reason for Visit * Reason Comments Medication Refill Encounter Details Date Type Department Care Team (Late st Contact Info) Description 12/25/2020 Refill [facility] [address] [place] [address] [place] [address] [place] [address] Medication Refill Social History Tobacco Use Types [...] AM CDT Legal Sex Male 3:26 AM DYED YARN OPERATOR Gender Identity Male 02/06/2021 10:36 AM [...] st Contact Info) Description 03/23/2024 1:00 PM DYED YARN OPERATOR Office Visit [facility] [address] [place] [address] [place] [address] [place], [place] [address] documented as of this encounter Visit Diagnoses Diagnosis Moderate episode of recurrent major depressive disorder (H) documented in this encounter Additional Health Concerns Assessment Noted Time PHQ-9 Depression Total Score: 3 12/13/19 21 7:03 AM CDT documented as of this encounter Care Teams Funeral Workers Relationship Specialty [place] [address] [place] [address] PCP - General Family Practice 09/03/16 Pollo Medrano MD [address] [place] [address] Urology 01/24/15 Dafne Henriquez, RN Registered Nurse Urology 01/24/15 11/16/22 Julio C Ramesh MD 420 [facility] 480 [place] [address] Hematology 01/31/15 [place] [address] [place] [address] Assigned PCP 06/15/20 [place] [address] Endocrinology, Diabetes, and Metabolism 12/10/21 Ramsey Loza MD [address] [place] [address] Assigned Surgical Provider 07/17/22 01/22/24 Paula Humphrey, PRODUCT MANAGER E [employer] Lead Per Diem Registered Nurse Primary Care - CC 08/16/22 Simona Bolden, ELLY [address] [address] Assigned Behavioral Health Provider 08/21/22 [place] [address] [address] [address] Assigned Pain Medication Provider 04/23/23 11/21/23 Yesica Rodriguez, RN Clinic Per Diem Registered Nurse 05/23/2305/26 documented as of this encounter
--- OUTSIDE RECORDS SUMMARY | 2024-02-22 10:02 | XMS_ITS | Encounter Summary ---
Author Organization [facility] Address [address] [place] [address]. [place] [address] Care Team Providers Care Cut Off Tender Glass Name Role Phone Pollo Medrano MD Unavailable [phone] Dafne Henriquez RN Unavailable [phone] Julio C Ramesh MD Unavailable [phone] Acosta Cristobal MD Primary Care Provider + Acosta Cristobal MD Unavailable [phone] Hanna Simental MD Unavailable [phone] Ramsey Loza MD Unavailable [phone] Paula Humphrey INFORMATION TECHNOLOGY SPECIALIST Unavailable [phone] Simona Bolden INSTRUCTOR PHYSICAL EDUCATION Unavailable Acosta Cristobal MD Unavailable [phone] Yesica Rodriguez RN Unavailable [phone] Encounter Details Date Type Department Care Team (Late st Contact Info) Description 08/17/2022 MyC Medical Advice [address] [address] Simona Bolden, ELLY [address] [place] [address] Social History Tobacco Use Types Packs/Day Years [...] How often do you attend chur or zoroastrian services? More than 4 times per year 05/27/2021 Do you belong to any clubs o r organizations such as worship groups, unions, fraUSA Discounters or athletic groups, or school groups? No [...] 05/27/2021 PHQ-2 Answer Date Recorded PHQ-2 Score 2 08/12/2022 [facility] - Occupational [...] money to buy more. Never true 05/27/19 Within the past 12 months, t he [...] place to sleep or slept in a long term (including now)? No 05/27/2021 Sex and Gender Information Value Date Recorded Sex Assigned at Male 02/06/2021 10:36 AM CDT Legal Sex Male 3:26 AM SANITATION WORKER HOSING MACHINERY Gender Identity Male 02/06/2021 10:36 AM CDT Sexual Orientation Straight 02/06/2021 10 :36 AM CDT COVID-19 Exposure Response Date Recorded In the last 10 days, have yo u been in contact with someone who was confirmed or suspected to have Coronavirus/COVID-19? No / Unsure 08/09/2022 10:17 AM CDT documented as of this encounter Plan of Treatment Upcoming Encounters Date Type Department Care Team (Late st Contact Info) Description 03/23/2024 1:00 PM SANITATION WORKER HOSING MACHINERY Office Visit [facility] [address] [facility] [place] [address] [place] [address] [facility] [place] [address] documented as of this encounter Visit Diagnoses Not on filedocumented in this encounter Additional Health Concerns Assessment Noted Time PHQ-9 Depression Total Score: 13 023 12:04 PM CDT documented as of this encounter Care Teams Cut Off Tender Glass Relationship Specialty [place] [address] [place] [address] PCP - General Family Practice 09/03/16 Pollo Medrano MD [address] [place] [address] Urology 01/24/15 Dafne Henriquez, MAGDALENO Registered Nurse Urology 01/24/15 11/16/22 Julio C Ramesh MD 420 [facility] 480 [place], [place] [address] MD Hematology 01/31/15 [place] [address] [place] [address] Assigned PCP 06/15/20 Hanna [place] [address] Endocrinology, Diabetes, and Metabolism 12/10/21 Ramsey Loza MD [address] [place] [address] Assigned Surgical Provider 07/17/22 01/22/24 Paula Humphrey, INFORMATION TECHNOLOGY SPECIALIST Lead Computer Mechanic Primary Care - CC 08/16/22 Simona Bolden, ELLY [address] [address] Assigned Behavioral Health Provider 08/21/22 [place] [address] [place] [address] Assigned Pain Medication Provider 04/23/23 11/21/23 Yesica Rodriguez RN Clinic Computer Mechanic 05/23/2305/26 documented as of this encounter
--- OUTSIDE RECORDS SUMMARY | 2024-02-22 10:02 | XMS_ITS | Encounter Summary ---
Author Organization [facility] Address [address] [place] [address]. [place] [address] Care Team Providers Care Production Supply Equipment Tender Name Role Phone Pollo Medrano MD Unavailable [phone] GadielJulio C muhammad MD Unavailable [phone] Acosta Cristobal MD Primary Care Provider + Acosta Cristobal MD Unavailable [phone] Hanna Simental MD Unavailable [phone] Ramsey Loza MD Unavailable [phone] Simona Bolden Jo [facility] Unavailable [phone] Acosta Cristobal MD Unavailable [phone] Reason for Visit * Reason Comments Medication Refill Encounter Details Date Type Department Care Team (Late st Contact Info) Description 10/19/2023 Refill [facility] [address] [place] [address] [place] [address] [place] [address] Medication Refill Social History Tobacco [...] re latives? Once a week 09/15/2023 Attends [employer] Not on file 09/14 Active Member [...] Answer Date Recorded PHQ-2 Score 1 04/27/2023 [facility] - Occupational [...] AM CDT Legal Sex Male 3:26 AM HOSPITAL AIDES AND ASSISTANTS TEACHER Gender Identity Male 02/06/2021 10:36 AM CDT Sexual Orientation Straight 02/06/2021 10 :36 AM CDT documented as of this encounter Miscellaneous Notes * Telephone Encounter - John Turong PA-C - 10/20/2023 5:28 PM CDT Definite increase compared with PCP note in August. Will fill small amount in PCP's stead; then can work with him to decide on going management. Leaving for PCP review. * Telephone Encounter - Aide Harvey RN - 10/20/2023 9:09 AM CDT calling back, CTC on file. states he takes lorazepam 1 mg in am and 1 mg in pm every day.States has enough til tomorrow pm. Aide Harvey RN * Telephone Encounter - Dianne Kline RN - 10/20/2023 8:47 AM CDT Called pt's , ANALIA. Called pt. Pt unsure of how many he using per day and how many left. See tele encounter 10/20/23, pt complaining of pain from broken ribs. Pt has history of falls. POD, [facility] not refilling lorazepam. Dianne Kline RN, BSN [facility] * Telephone Encounter - Chandler Koch MD - 10/19/2023 6:16 PM CDT Brief chart review. Reviewed recent BMP trend. Looks like per outside records, did have bump in creatinine 2/2 addition of MRA and slowly improving since cessation. Will refill hydrochlorothiazide suly has been stable on this for many years. Looks like lorazepam usage is increasing per PDMP. Last filled 30 tabs of 1mg dose on 10/04/23. Last note on 09/15/23 is unclear, just states PRN use. Please ask patient's how much she is using daily of this medication and how much she has left. Thanks, Chandler Koch MD [facility] 10/19/2023 documented in this encounter Plan of Treatment Upcoming Encounters Date Type Department Care Team (Late st Contact Info) Description 03/23/2024 1:00 PM HOSPITAL AIDES AND ASSISTANTS TEACHER [facility] [address] [place] [address] [place] [address] [place] [address] documented as of this encounter Goals Goal Patient Goal Type Associated Problems Recent Progress Patient-Stated? Author Explore cancer support resources Care Plan Mental Health Symptoms Need Improvement 100%(10/07/19 9:29 AM CDT) No Paula Humphrey, DENTAL OFFICE RECEPTIONIST Note: Barriers: Not sure what is available Strengths: Family support Patient expressed understanding of goal: Yes Action steps to achieve this goal: 1. I will consider participating in a cancer support group. Athlete Marketing Agent will send me cancer support resources. 2. I will continue to work with a therapist. 3. I will let Athlete Marketing Agent know if I need additional resources. documented as of this encounter Visit Diagnoses Diagnosis Autoimmune encephalitis Essential hypertension, benign documented in this encounter Additional Health Concerns Active Problems Noted Date Diagnosed Date Mental Health Symptoms Need Improvement 08/24/19 Assessment Noted Time PHQ-9 Depression Total Score: 3 04/27/20 10:07 AM HOSPITAL AIDES AND ASSISTANTS TEACHER documented as of this encounter Care Teams Production Supply Equipment Tender Relationship Specialty [place] [address] [address] [address] PCP - General Family Practice 09/03/16 Pollo Medrano MD [address] [place] [address] Urology 01/24/15 Julio C Ramesh MD [address] [place] [address] 480 [place] [address] Hematology 01/31/15 [place] [address] [address] [address] Assigned PCP 06/15/20 [place] [address] Endocrinology, Diabetes, and Metabolism 12/10/21 Ramsey Loza MD [address] [place] [address] Assigned Surgical Provider 07/17/22 01/22/24 Simona Bolden MSW [address] [place] [address] Assigned Behavioral Health Provider 08/21/22 [place] [address] [place] [address] Assigned Pain Medication Provider 04/23/23 11/21/23 documented as of this encounter
--- OUTSIDE RECORDS SUMMARY | 2024-02-22 10:02 | XMS_ITS | Encounter Summary ---
Author Organization [facility] Address [address] [place] [address]. [place] [address] Care Team Providers Care Floor Assembler Name Role Phone Pollo Medrano MD Unavailable [phone] Dafne Henriquez RN Unavailable [phone] Julio C Ramesh MD Unavailable [phone] Acosta Cristobal MD Primary Care Provider + Acosta Cristobal MD Unavailable [phone] Hanna Simental MD Unavailable [phone] Ramsey Loza MD Unavailable [phone] Paula Humphrey INSTRUMENT TECHNICIAN HELPER Unavailable [phone] Simona Bolden TRAINING DEVELOPMENT SPECIALIST Unavailable Acosta Cristobal MD Unavailable [phone] Yesica Rodriguez RN Unavailable [phone] Encounter Details Date Type Department Care Team (Late st Contact Info) Description 02/13/2021 [facility] [address] [place] [address] [place] [address] [place] [address] Social History Tobacco Use Types [...] AM CDT 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 No / Unsure 02/16/2021 1:59 PM CDT documented as of this encounter Plan of Treatment Upcoming Encounters Date Type Department Care Team (Late st Contact Info) Description 03/23/2024 1:00 PM MOTOR TEACHER Office Visit [facility] [address] [place] [address] [place] [address] [place], [place] [address] documented as of this encounter Visit Diagnoses Not on filedocumented in this encounter Additional Health Concerns Assessment Noted Time PHQ-9 Depression Total Score: 3 12/13/19 21 7:03 AM CDT documented as of this encounter Care Teams Floor Assembler Relationship Specialty Start [place] [address] [place] [address] PCP - General Family Practice 09/03/16 Pollo Medrano MD [address] [place] [address] Urology 01/24/15 Dafne Henriquez, RN Registered Nurse Urology 01/24/15 11/16/22 Julio C Ramesh MD [address] [facility] [address] [facility] [address] [place] [address] MD Killian 01/31/15 [place] [address] [place] [address] Assigned PCP 06/15/20 [place] [address] Endocrinology, Diabetes, and Metabolism 12/10/21 Ramsey Loza MD [address] [place] [address] Assigned Surgical Provider 07/17/22 01/22/24 Paula Humphrey, INSTRUMENT TECHNICIAN HELPER Lead Telephone Cleaner Primary Care - CC 08/16/22 Simona Bolden, TRAINING DEVELOPMENT SPECIALIST [address] [address] Assigned Behavioral Health Provider 08/21/22 [place] [address] [address] [address] Assigned Pain Medication Provider 04/23/23 11/21/23 Yesica Rodriguez, RN Clinic Telephone Cleaner 05/23/2305/26 documented as of this encounter
--- OUTSIDE RECORDS SUMMARY | 2024-02-22 10:02 | XMS_ITS | Encounter Summary ---
Author Organization [facility] Address [address] [place] [address]. [place] [address] Care Team Providers Care House Wirer Name Role Phone Pollo Medrano MD Unavailable [phone] GadielJulio C muhammad MD Unavailable [phone] Acosta Cristobal MD Primary Care Provider + Acosta Cristobal MD Unavailable [phone] Hanna Simental MD Unavailable [phone] Ramsey Loza MD Unavailable [phone] Simona Bolden YARD OPERATOR Unavailable + [phone] Acosta Cristobal MD Unavailable [phone] Yesica Rodriguez RN Unavailable [phone] Encounter Details Date Type Department Care Team (Late st Contact Info) Description 12/07/2022 [facility] [address] [address] Willie Lawson MA Social History [...] How often do you attend chur or cheondoism services? More than 4 times per year 05/27/2021 Do you belong to any clubs o r organizations such as taoism groups, unions, fraternal or athletic groups, or [...] Answer Date Recorded PHQ-2 Score 2 08/12/2022 [facility] - Occupational Stress Questionnaire Answer Date [...] in a long term (including now)? No 08/23/2022 Sex and Gender Information Value Date Recorded Sex Assigned at Male 02/06/2021 10:36 AM CDT Legal Sex Male 3:26 AM PRIVACY DIRECTOR Gender Identity Male 02/06/2021 10:36 AM CDT Sexual Orientation Straight 02/06/2021 10 :36 AM CDT COVID-19 Exposure Response Date Recorded In the last 10 days, have yo u been in contact with someone who was confirmed or suspected to have Coronavirus/COVID-19? No / Unsure 11/16/2022 3:29 PM CDT documented as of this encounter Plan of Treatment Upcoming Encounters Date Type Department Care Team (Late st Contact Info) Description 03/23/2024 1:00 PM PRIVACY DIRECTOR Office Visit [facility] [address] [place] [address] [place] [address] [place] [address] documented as of this encounter [...] consider participating in a cancer support group. Oxygen Tank Filler will send me cancer support resources. 2. I will continue to work with a therapist. 3. I will let Oxygen Tank Filler know if I need additional resources. documented as of this encounter Visit Diagnoses Not on filedocumented in this encounter Additional Health Concerns Active Problems Noted Date Diagnosed Date Mental Health Symptoms Need Improvement 08/24/19 Assessment Noted Time PHQ-9 Depression Total Score: 13 023 12:04 PM CDT documented as of this encounter Care Teams House Wirer Relationship Specialty Start [place] [address] [place] [address] PCP - General Family Practice 09/03/16 Pollo Medrano MD [address] [place], [place] [address] Urology 01/24/15 Julio C Ramesh MD [address] [place] [address] 480 [place], [place] [address] Hematology 01/31/15 [place] [address] [place] [address] Assigned PCP 06/15/20 [place] [address] Endocrinology, Diabetes, and Metabolism 12/10/21 Ramsey Loza MD [address] [place] [address] Assigned Surgical Provider 07/17/22 01/22/24 Simona Bolden MSW [address] [place] [address] Assigned Behavioral Health Provider 08/21/22 [place] [address] [place] [address] Assigned Pain Medication Provider 04/23/23 11/21/23 Yesica Rodriguez, RN Clinic Oxygen Tank Filler 05/23/2305/26 documented as of this encounter
--- OUTSIDE RECORDS SUMMARY | 2024-02-22 10:02 | XMS_ITS | Encounter Summary ---
Author Organization [facility] Address [address] [place] [address]. [place] [address] Care Team Providers Care Oil Well Fishing Tool Technician Name Role Phone Pollo Medrano MD Unavailable [phone] GadielJuloi C muhammad MD Unavailable [phone] Acosta Cristobal MD Primary Care Provider + Acosta Cristobal MD Unavailable [phone] Hanna Simental MD Unavailable [phone] Ramsey Loza MD Unavailable [phone] Simona Bolden [facility] Unavailable [phone] Acosta Cristobal MD Unavailable [phone] Yesica Rodriguez RN Unavailable [phone] Encounter Details Date Type Department Care Team (Late st Contact Info) Description 05/17/2023 My[facility] Medical Advice [address] [address] Priti Gould Social History Tobacco Use Types Packs/Day Years [...] How often do you attend chur or christian services? More than 4 times per year 05/27/2021 Do you belong to any clubs o r organizations such as nondenominational groups, unions, fraternal or athletic groups, or [...] Answer Date Recorded PHQ-2 Score 1 04/27/2023 [facility] - Occupational [...] in an abandoned building, in an overnight mcc, or couch-surfing.) Yes 04/27/2023 Are you worried [...] AM CDT Legal Sex Male 3:26 AM HOMICIDE SQUAD LIEUTENANT Gender Identity Male 02/06/2021 10:36 AM CDT Sexual Orientation Straight 02/06/2021 10 :36 AM CDT documented as of this encounter Plan of Treatment Upcoming Encounters Date Type Department Care Team (Late st Contact Info) Description 03/23/2024 1:00 PM HOMICIDE SQUAD LIEUTENANT Office Visit [facility] [address] [place] [address] [place] [address] [place] [address] documented as of this encounter [...] consider participating in a cancer support group. Associate Product Manager will send me cancer support resources. 2. I will continue to work with a therapist. 3. I will let Associate Product Manager know if I need additional resources. documented as of this encounter Visit Diagnoses Not on filedocumented in this encounter Additional Health Concerns Active Problems Noted Date Diagnosed Date Mental Health Symptoms Need Improvement 08/24/19 Assessment Noted Time PHQ-9 Depression Total Score: 3 04/27/20 10:07 AM HOMICIDE SQUAD LIEUTENANT documented as of this encounter Care Teams Oil Well Fishing Tool Technician Relationship Specialty [place] [address] [address] [address] PCP - General Family Practice 09/03/16 Pollo Medrano MD 909 [place] [address] Urology 01/24/15 Julio C Ramesh MD [address] [facility] 480 [place], [place] [address] Hematology 01/31/15 [place] [address] [address] [address] Assigned PCP 06/15/20 Hanna Simental MD [facility] [place] [address] Endocrinology, Diabetes, and Metabolism 12/10/21 Ramsey Loza MD [address] [place] [address] Assigned Surgical Provider 07/17/22 01/22/24 Simona Bolden, DOCTORATE OF CHIROPRACTIC [address] [address] Assigned Behavioral Health Provider 08/21/22 [place] [address] [place] [address] Assigned Pain Medication Provider 04/23/23 11/21/23 Yesica Rodriguez, RN Clinic Associate Product Manager 05/23/2305/26 documented as of this encounter
--- OUTSIDE RECORDS SUMMARY | 2024-02-22 10:02 | XMS_ITS | Encounter Summary ---
Author Organization [facility] Address [address] [place] [address]. [place] [address] Care Team Providers Care Stitch Bonder Machine Operator Helper Name Role Phone Pollo Medrano MD Unavailable [phone] GadielJulio C muhammad MD Unavailable [phone] Acosta Cristobal MD Primary Care Provider + Acosta Cristobal MD Unavailable [phone] Hanna Simental MD Unavailable [phone] Ramsey Loza MD Unavailable [phone] Simona Bolden [facility] Unavailable [phone] Aocsta Cristobal MD Unavailable [phone] Reason for Visit * Reason Comments Medication Refill Encounter Details Date Type Department Care Team (Late st Contact Info) Description 11/21/[address] [facility] [address] [place] [address] [place] [address] [place] [address] Medication Refill Social History Tobacco [...] re latives? Once a week 09/15/2023 Attends [employer] Services Not on file 09/14 Active Member [...] Answer Date Recorded PHQ-2 Score 1 04/27/2023 [facility]at ional [facility] - [...] AM CDT Legal Sex Male 3:26 AM BULK PLANT OPERATOR Gender Identity Male 02/06/2021 10:36 AM CDT Sexual Orientation Straight 02/06/2021 10 :36 AM CDT documented as of this encounter Plan of Treatment Upcoming Encounters Date Type Department Care Team (Late st Contact Info) Description 03/23/2024 1:00 PM BULK PLANT OPERATOR Office Visit [facility] [address] [place] [address] [place] [address] [place] [address] documented as of this encounter Goals Goal [...] consider participating in a cancer support group. Wall Attendant will send me cancer support resources. 2. I will continue to work with a therapist. 3. I will let Wall Attendant know if I need additional resources. documented as of this encounter Visit Diagnoses Diagnosis Autoimmune encephalitis Persistent insomnia Persistent disorder of initiating or maintaining sleep documented in this encounter Additional Health Concerns Active Problems Noted Date Diagnosed Date Mental Health Symptoms Need Improvement 08/24/19 Assessment Noted Time PHQ-9 Depression Total Score: 3 04/27/20 10:07 AM BULK PLANT OPERATOR documented as of this encounter Care Teams Stitch Bonder Machine Operator Helper Relationship Specialty Start [place] [address] [place] [address] PCP - General Family Practice 09/03/16 Pollo Medrano MD [address] [place] [address] Urology 01/24/15 Julio C Ramesh MD [address] [place] [address] [address] [place] [address] Hematology 01/31/15 [place] [address] [place] [address] Assigned PCP 06/15/20 Hanna Simental [place] [address] Endocrinology, Diabetes, and Metabolism 12/10/21 Ramsey Loza MD [address] [place] [address] Assigned Surgical Provider 07/17/22 01/22/24 Simona Bolden MSW [address] [address] Assigned Behavioral Health Provider 08/21/22 [place] [address] [place] [address] Assigned Pain Medication Provider 04/23/23 11/21/23 documented as of this encounter
--- OUTSIDE RECORDS SUMMARY | 2024-02-22 10:02 | XMS_ITS | Encounter Summary ---
Author Organization [facility] Address [address] [place] [address]. [place] [address] Care Team Providers Care Event Planner Name Role Phone Pollo Medrano MD Unavailable [phone] Dafne Henriquez RN Unavailable [phone] Julio C Ramesh MD Unavailable [phone] Acosta Cristobal MD Primary Care Provider + Acosta Cristobal MD Unavailable [phone] Hanna Simental MD Unavailable [phone] Ramsey Loza MD Unavailable [phone] Paula Humphrey GLASS BEVELER Unavailable [phone] Simona Bolden DISASTER RECOVERY COORDINATOR Unavailable Acosta Cristobal MD Unavailable [phone] Yesica Rodriguez RN Unavailable [phone] Reason for Visit * Reason Comments Medication Refill Encounter Details Date Type Department Care Team (Late st Contact Info) Description 08/01/2021 Refill [facility] [address] [place] [address] [place] [address] [place] [address] Medication Refill Social History Tobacco Use Types [...] declined 05/27/2021 How often do you attend [facility] or alevism services? More than 4 times per year 05/27/2021 Do you belong to any clubs o r organizations such as yarsani groups, unions, fraternal or athletic groups, or [...] Answer Date Recorded PHQ-2 Score 0 06/23/2021 [facility] of Occupat ional Health - Occupational [...] place to sleep or slept in a penitentiary (including now)? No 05/27/2021 Sex and Gender Information Value Date Recorded Sex Assigned at Male 02/06/2021 10:36 AM CDT Legal Sex Male 3:26 AM PIPE STEM REPAIRER Gender Identity Male 02/06/2021 10:36 AM CDT Sexual Orientation Straight 02/06/2021 10 :36 AM CDT documented as of this encounter Miscellaneous Notes * Telephone Encounter - Tj Keith RN - 08/03/2021 12:17 PM CDT Routing refill request to provider for review/approval because: Labs out of range: creatinine Creatinine Date Value Ref Range Status 06/27/2021 1.39 (H) 0.66 - 1.25 mg/dL Final 07/18/2019 1.50 (H) 0.66 - 1.25 mg/dL Final Tj Couch RN documented in this encounter Plan of Treatment Upcoming Encounters Date Type Department Care Team (Late st Contact Info) Description 03/23/2024 1:00 PM PIPE STEM REPAIRER [facility] [address] [place] [phone] [place] [address] [place] [address] documented as of this encounter Visit Diagnoses Diagnosis Secondary hypertension Other secondary hypertension, unspecified documented in this encounter Additional Health Concerns Assessment Noted Time PHQ-9 Depression Total Score: 4 06/23/19 11:52 AM PIPE STEM REPAIRER documented as of this encounter Care Teams Event Planner Relationship Specialty [place] [address] [place] [address] PCP - General Family Practice 09/03/16 Pollo Medrano MD [address] [place] [address] Urology 01/24/15 Dafne Henriquez, RN Registered Nurse Urology 01/24/15 11/16/22 Julio C Ramesh MD [address] [place] [address] [address] [place] [address] Hematology 01/31/15 [place] [address] [address] [place] [address] Assigned PCP 06/15/20 Hanna Simental MD [facility] [place] [address] Endocrinology, Diabetes, and Metabolism 12/10/21 Ramsey Loza MD [address] [place] [address] Assigned Surgical Provider 07/17/22 01/22/24 Paula Humphrey LSW Lead Senior Technical Writer Primary Care - CC 08/16/22 Simona Bolden, DISASTER RECOVERY COORDINATOR [address] [facility] [place] [address] Assigned Behavioral Health Provider 08/21/22 [place] [address] [place] [address] Assigned Pain Medication Provider 04/23/23 11/21/23 Yesica Rodriguez RN Clinic Senior Technical Writer 05/23/2305/26 documented as of this encounter
--- OUTSIDE RECORDS SUMMARY | 2024-02-22 10:02 | XMS_ITS | Encounter Summary ---
Author Organization [facility] Address [address] [place] [address]. [place] [address] Care Team Providers Care Tablet Technician Name Role Phone Pollo Medrano MD Unavailable [phone] Dafne Henriquez RN Unavailable [phone] Julio C Ramesh MD Unavailable [phone] Acosta Cristobal MD Primary Care Provider + Acosta Cristobal MD Unavailable [phone] Hanna Simental MD Unavailable [phone] Ramsey Loza MD Unavailable [phone] Paula Humphrey LAMP SHADE SEWER Unavailable [phone] Simona Bolden LIVESTOCK AUCTIONEER Unavailable Acosta Cristobal MD Unavailable [phone] Yesica Rodriguez RN Unavailable [phone] Encounter Details Date Type Department Care Team (Late st Contact Info) Description 02/11/2021 [facility] [address] [place] [address] [place] [address] [place] [address] Social History Tobacco Use Types [...] AM CDT Legal Sex Male 3:26 AM INVESTIGATION MANAGER Gender Identity Male 02/06/2021 10:36 AM CDT Sexual Orientation Straight 02/06/2021 10 :36 AM CDT documented as of this encounter Plan of Treatment Upcoming Encounters Date Type Department Care Team (Late st Contact Info) Description 03/23/2024 1:00 PM INVESTIGATION MANAGER Office Visit [facility] [address] [place] [address] [place] [address] [place], [place] [address] documented as of this encounter Visit Diagnoses Not on filedocumented in this encounter Additional Health Concerns Assessment Noted Time PHQ-9 Depression Total Score: 3 12/13/19 21 7:03 AM CDT documented as of this encounter Care Teams Tablet Technician Relationship Specialty Start [place] [address] [place], [place] [id number] PCP - General Family Practice 09/03/16 Pollo Medrano MD [address] [place] [address] 952225 Urology 01/24/15 Dafne Henriquez, RN Registered Nurse Urology 01/24/15 11/16/22 Julio C Ramesh MD [address] [place] [address] Hematology 01/31/15 [place] [address] [place] [address] Assigned PCP 06/15/20 [place] [address] Endocrinology, Diabetes, and Metabolism 12/10/21 Ramsey Loza MD [address] [place] [address] Assigned Surgical Provider 07/17/22 01/22/24 Paula Humphrey LSW Lead Mycologist Primary Care - CC 08/16/22 Simona Bolden, ELLY [address] [place] [place] [address] Assigned Behavioral Health Provider 08/21/22 [place] [address] [place] [address] Assigned Pain Medication Provider 04/23/23 11/21/23 Yesica Rodriguez, RN Clinic Mycologist 05/23/2305/26 documented as of this encounter
--- OUTSIDE RECORDS SUMMARY | 2024-02-22 10:02 | XMS_ITS | Encounter Summary ---
Author Organization [facility] Address [address] [place] [address]. [place] [address] Care Team Providers Care Vb Net Programmer Name Role Phone Pollo Medrano MD Unavailable [phone] Dafne Henriquez RN Unavailable [phone] Julio C Ramesh MD Unavailable [phone] Acosta Cristobal MD Primary Care Provider + Acosta Cristobal MD Unavailable [phone] Hanna Simental MD Unavailable [phone] Ramsey Loza MD Unavailable [phone] Paula Humphrey SUPERVISOR BLEACH PLANT Unavailable [phone] Simona Bolden FLOW COORDINATOR Unavailable Acosta Cristobal MD Unavailable [phone] Yesica Rodriguez RN Unavailable [phone] Reason for Visit * Reason Onset Date Comments Appoinment/Retention 06/30/2022 Encounter Details Date Type Department Care Team (Late st Contact Info) Description 06/30/2022 Telephone [facility] [address] [place] [address] Xena Valentine PA-C [address] [facility] [address] [place] [address] Appoinment/Retention Social History Tobacco Use Types Packs/Day Years [...] declined 05/27/2021 How often do you attend [facility] or pentecostal services? More than 4 times per year 05/27/2021 Do you belong to any clubs o r organizations such as scientology groups, unions, fraternal or athletic groups, or [...] PHQ-2 Answer Date Recorded PHQ-2 Score 2 02/05/2022 [facility] of Occupat ional Health - Occupational Stress [...] place to sleep or slept in a halfway (including now)? No 05/27/2021 Sex and Gender Information Value Date Recorded Sex Assigned at Male 02/06/2021 10:36 AM CDT Legal Sex Male 3:26 AM LARRY CAR OPERATOR Gender Identity Male 02/06/2021 10:36 AM CDT Sexual Orientation Straight 02/06/2021 10 :36 AM CDT COVID-19 Exposure Response Date Recorded In the last 10 days, have yo u been in contact with someone who was confirmed or suspected to have Coronavirus/COVID-19? No / Unsure 07/01/2022 1:50 PM LARRY CAR OPERATOR documented as of this encounter Miscellaneous Notes * Telephone Encounter - Mark Nguyen - 06/30/2022 9:59 AM CST [facility] Phone Message May a detailed message be left on voicemail: yes Reason for Call: Other: Patient's spouse Maribeth calling stating that patient has had some Retention for about 3 weeks. Patient is a past patient of Dr. Medrano. States she doesn't know what else to do and Oncology referred her to schedule with Urology. Please contact patient's spouse Maribeth in regards to this message. Thank you Action Taken: Other: Urology Travel Screening: Not Applicable Y CAR OPERATOR documented in this encounter Plan of Treatment Upcoming Encounters Date Type Department Care Team (Late st Contact Info) Description 03/23/2024 1:00 PM LARRY CAR OPERATOR Office Visit [facility] [address] [place] [address] [place] [address] [place], [place] [address] documented as of this encounter Visit Diagnoses Not on filedocumented in this encounter Additional Health Concerns Assessment Noted Time PHQ-9 Depression Total Score: 7 02/06/20 22 9:52 AM CDT documented as of this encounter Care Teams Vb Net Programmer Relationship Specialty [place] [address] [place] [id number] PCP - General Family Practice 09/03/16 Pollo Medrano MD [address] [place] [address] Urology 01/24/15 Dafne Henriquez, RN Registered Nurse Urology 01/24/15 11/16/22 Julio C Ramesh MD [address] [place] [address] Hematology 01/31/15 [place] [address] [facility] [address] Assigned PCP 06/15/20 Hanna Simental MD [place] [address] Endocrinology, Diabetes, and Metabolism 12/10/21 Ramsey Loza MD [address] [place] [address] Assigned Surgical Provider 07/17/22 01/22/24 Paula Humphrey, SUPERVISOR BLEACH PLANT Lead Monument Carver Primary Care - CC 08/16/22 Simona Bolden, FLOW COORDINATOR [address] [address] Assigned Behavioral Health Provider 08/21/22 [place] [address] [place] [address] Assigned Pain Medication Provider 04/23/23 11/21/23 Yesica Rodriguez, RN Clinic Monument Carver 05/23/2305/26 documented as of this encounter
--- OUTSIDE RECORDS SUMMARY | 2024-02-22 10:03 | XMS_ITS | Encounter Summary ---
Author Organization [facility] Address [address] [place] [address]. [place] [address] Care Team Providers Care Bag Loader Name Role Phone Pollo Medrano MD Unavailable [phone] Dafne Henriquez RN Unavailable [phone] Julio C Ramesh MD Unavailable [phone] Acosta Cristobal MD Primary Care Provider + Acosta Cristobal MD Unavailable [phone] Herb Colvin MD Unavailable + Acosta Cristobal MD Unavailable [phone] Hanna Simental MD Unavailable [phone] Ramsey Loza MD Unavailable [phone] Paula Humphrey MINGLE OPERATOR Unavailable [phone] Simona Bolden WOODWORKING BELT SANDER Unavailable + [phone] Acosta Cristobal MD Unavailable [phone] Yesica Rodriguez RN Unavailable [phone] Encounter Details Date Type Department Care Team (Late st Contact Info) Description 01/19/2020 [facility] [address] [address] [place] [address] [place] [address] Social History Tobacco Use Types Packs/Day Years Used Date Smoking Tobacco: Never Smokeless Tobacco: Never Alcohol Use Standard Drinks/Week Comments Yes 3 (1 standard drink = 0.6 oz pur e alcohol) 4 beers per week PHQ-2 Answer Date Recorded PHQ-2 Score 0 12/10/2019 Sex and Gender Information Value Date Recorded Sex Assigned at Male 02/06/2021 10:36 AM CDT Legal Sex Male 3:26 AM DINKING MACHINE OPERATOR Gender Identity Male 02/06/2021 10:36 AM CDT Sexual Orientation Straight 02/06/2021 10 :36 AM CDT COVID-19 Exposure Response Date Recorded In the last month, have you been in contact with someone who was confirmed or suspected to have Coronavirus / COVID-19? No / Unsure 01/16/2020 2:29 PM CDT documented as of this encounter Plan of Treatment Upcoming Encounters Date Type Department Care Team (Late st Contact Info) Description 03/23/2024 1:00 PM DINKING MACHINE OPERATOR Office [facility] [address] [place] [address] [place] [address] [address] [place] [address] documented as of this encounter Visit Diagnoses Not on filedocumented in this encounter Additional Health Concerns Assessment Noted Time PHQ-9 Depression Total Score: 0 12/28/19 20 7:16 AM CDT documented as of this encounter Care Teams Bag Loader Relationship Specialty Start [place] [address] [address] [place] [id number] PCP - General Family Practice 09/03/16 Pollo Medrano MD [address] [place] [address] Urology 01/24/15 Dafne Henriquez, RN Registered Nurse Urology 01/24/15 11/16/22 Julio C Ramesh MD [address] [facility] [address] [place] [address] MD Hematology 01/31/15 [place] [address] [place] [address] Assigned PCP 06/15/20 Herb Colvin MD [address] [place] [address] Assigned Heart and Vascular Provider 02/22/20 04/05/20 [place] [address] [place] [address] Assigned PCP 06/27/16 06/14/20 Hanna Simental MD [place] [address] Endocrinology, Diabetes, and Metabolism 12/10/21 Ramsey Loza MD [address] [place] [address] Assigned Surgical Provider 07/17/22 01/22/24 Paula Humphrey, MINGLE OPERATOR Lead Mgmt Analyst Primary Care - CC 08/16/22 Simona Bolden, WOODWORKING BELT SANDER [address] [place] [address] Assigned Behavioral Health Provider 08/21/22 [place] [address] [address] [place] [address] Assigned Pain Medication Provider 04/23/23 11/21/23 Yesica Rodriguez, RN Clinic Mgmt Analyst 05/23/2305/26 documented as of this encounter
--- OUTSIDE RECORDS SUMMARY | 2024-02-22 10:03 | XMS_ITS | Encounter Summary ---
Author Organization [facility] Address [address] [place] [address]. [place] [address] Care Team Providers Care Collar Setter Overlock Name Role Phone Pollo Medrano MD Unavailable [phone] Dafne Henriquez RN Unavailable [phone] Julio C Ramesh MD Unavailable [phone] Acosta Cristobal MD Primary Care Provider + Acosta Cristobal MD Unavailable +[phone] Herb Colvin MD Unavailable + Acosta Cristobal MD Unavailable [phone] Hanna Simental MD Unavailable [phone] Ramsey Loza MD Unavailable [phone] Paula Humphrey BOBBIN PRESSER Unavailable [phone] Simona Bolden OVERCOIL STEPPER Unavailable + [phone] Acosta Cristobal MD Unavailable [phone] Yesica Rodriguez RN Unavailable [phone] Encounter Details Date Type Department Care Team (Late st Contact Info) Description 09/13/2019 [facility] [address] [address] Larissa Gupta RN Social History Tobacco Use Types Packs/Day Years Used Date Smoking Tobacco: Never Smokeless Tobacco: Never Alcohol Use Standard Drinks/Week Comments Yes 3 (1 standard drink = 0.6 oz pur e alcohol) 4 beers per week PHQ-2 Answer Date Recorded PHQ-2 Score 0 09/17/2019 Sex and Gender Information Value Date Recorded Sex Assigned at Male 02/06/2021 10:36 AM CDT Legal Sex Male 3:26 AM DERRICK WORKER WELL SERVICE Gender Identity Male 02/06/2021 10:36 AM CDT Sexual Orientation Straight 02/06/2021 10 :36 AM CDT documented as of this encounter Plan of Treatment Upcoming Encounters Date Type Department Care Team (Late st Contact Info) Description 03/23/2024 1:00 PM DERRICK WORKER WELL SERVICE Office Visit [facility] [address] [place] [address] [place] [address] [place], [place] [address] documented as of this encounter Visit Diagnoses Not on filedocumented in this encounter Additional Health Concerns Assessment Noted Time PHQ-9 Depression Total Score: 3 06/13/19 20 7:03 AM DERRICK WORKER WELL SERVICE documented as of this encounter Care Teams Collar Setter Overlock Relationship Specialty Start [place] [address] [place], [place] 1548[address] PCP - General Family Practice 09/03/16 Pollo Medrano MD [address] [place] [address] Urology 01/24/15 Dafne Henriquez, MAGDALENO Registered Nurse Urology 01/24/15 11/16/22 Julio C Ramesh MD [address] [place] [id number] Hematology 01/31/15 [place] [address] [address] [place] [address] Assigned PCP 06/15/20 Herb Colvin MD [address] [place] [address] Assigned Heart and Vascular Provider 02/22/20 04/05/20 [place] [address] [address] [place] [address] Assigned PCP 06/27/16 06/14/20 [place] [address] Endocrinology, Diabetes, and Metabolism 12/10/21 Ramsey Loza MD [address] [place] [address] Assigned Surgical Provider 07/17/22 01/22/24 Paula Humphrey, [facility] Lead Healthcare Risk Control Consultant Primary Care - CC 08/16/22 Simona Bolden, OVERCOIL STEPPER [address] [place] [address] Assigned Behavioral Health Provider 08/21/22 [place] [address] [place] [address] Assigned Pain Medication Provider 04/23/23 11/21/23 Yesica Rodriguez, RN Clinic Healthcare Risk Control Consultant 05/23/2305/26 documented as of this encounter
--- OUTSIDE RECORDS SUMMARY | 2024-02-22 10:03 | XMS_ITS | Encounter Summary ---
Author Organization [facility] Address [address] [place] [address]. [place] [address] Care Team Providers Care Inner Tube Cutter Name Role Phone Pollo Medrano MD Unavailable [phone] Dafne Henriquez RN Unavailable [phone] Julio C Ramesh MD Unavailable [phone] Acosta Cristobal MD Primary Care Provider + Acosta Cristobal MD Unavailable +[phone] Hanna Simental MD Unavailable [phone] Ramsey Loza MD Unavailable [phone] Paula Humphrey TRAVEL CLERK Unavailable +[phone] Simona Bolden MULTI OPERATION MACHINE OPERATOR Unavailable Acosta Cristobal MD Unavailable +[phone] Yesica Rodriguez RN Unavailable +[phone] Reason for Visit * Reason Comments Medication Refill Encounter Details Date Type Department Care Team (Late st Contact Info) Description 08/16/[address] [facility] [address] [facility], [address] [place] [address] [place] [address] [place] [address] Medication Refill Social History Tobacco Use Types [...] AM CDT Legal Sex Male 3:26 AM CRUSHER AND BLENDER OPERATOR Gender Identity Male 02/06/2021 10:36 AM CDT Sexual Orientation Straight 02/06/2021 10 :36 AM CDT documented as of this encounter Plan of Treatment Upcoming Encounters Date Type Department Care Team (Late st Contact Info) Description 03/23/2024 1:00 PM CRUSHER AND BLENDER OPERATOR Office Visit [facility] [address] [place] [address] [place] [address] [place] [address] documented as of this encounter Visit Diagnoses Diagnosis Type 2 diabetes mellitus without complication, without long-term current use of insulin (H) documented in this encounter Additional Health Concerns Assessment Noted Time PHQ-9 Depression Total Score: 1 08/05/19 21 8:27 AM CDT documented as of this encounter Care Teams Inner Tube Cutter Relationship Specialty [place] [address] [place] [address] PCP - General Family Practice 09/03/16 Pollo Medrano MD [address] [place] [address] Urology 01/24/15 Dafne Henriquez, MAGDALENO Registered Nurse Urology 01/24/15 11/16/22 Julio C Ramesh MD [address] [facility] [address] [place] [address] [facility] 01/31/15 [place] [address] [place] [address] Assigned PCP 06/15/20 [place] [address] Endocrinology, Diabetes, and Metabolism 12/10/21 Ramsey Loza MD [address] [place] [address] Assigned Surgical Provider 07/17/22 01/22/24 Paula Humphrey, TRAVEL CLERK Lead Brush And Broom Clipper Primary Care - CC 08/16/22 Simona Bolden, MULTI OPERATION MACHINE OPERATOR [address] [address] Assigned Behavioral Health Provider 08/21/22 [place] [address] [place] [address] Assigned Pain Medication Provider 04/23/23 11/21/23 Yesica Rodriguez, RN Clinic Brush And Broom Clipper 05/23/2305/26 documented as of this encounter
--- OUTSIDE RECORDS SUMMARY | 2024-02-22 10:03 | XMS_ITS | Encounter Summary ---
Author Organization [facility] Address [address] [place] [address]. [place] [address] Care Team Providers Care Medical Program Specialist Name Role Phone Pollo Medrano MD Unavailable +[phone] Dafne Henriquez RN Unavailable [phone] Julio C Ramesh MD Unavailable [phone] Acosta Cristobal MD Primary Care Provider + Acosta Cristobal MD Unavailable +[phone] Hanna Simental MD Unavailable [phone] Ramsey Loza MD Unavailable [phone] Paula Humphrey X RAY ELECTRONICS WIRING TECHNICIAN Unavailable [phone] Simona Bolden PROP MAKER Unavailable Acosta Cristobal MD Unavailable +[phone] Yesica Rodriguez RN Unavailable +[phone] Reason for Visit * Reason Comments Medication Refill Encounter Details Date Type Department Care Team (Late st Contact Info) Description 09/14/2020 Refill [facility] [address] [facility], [address] [place] [address] [place] [address] [place] [address] Medication Refill Social History Tobacco Use Types [...] AM CDT Legal Sex Male 3:26 AM UNIVERSAL GRINDER SET UP OPERATOR Gender Identity Male 02/06/2021 10:36 AM CDT Sexual Orientation Straight 02/06/2021 10 :36 AM CDT documented as of this encounter Miscellaneous Notes * Telephone Encounter - Denise Benson RN - 09/15/2020 3:07 PM CDT metFORMIN (GLUCOPHAGE-XR) 500 MG 24 hr tablet Last Written Prescription Date: 07/25/20 Last Fill Quantity: 360, # refills: 0 Last Office Visit: 08/04/20 Future Office visit: Next 5 appointments (look out 90 days) Dec 11, 2020 8:40 AM Office Visit with Acosta Cristobal MD [facility] ([facility] [address] [place] [address] Routing refill request to provider for review/approval because: Patient's CR is NOT>1.4 OR Patient's EGFR is NOT<45 within past 12 mos. Denise Benson RN on 09/15/2020 at 3:08 PM documented in this encounter Plan of Treatment Upcoming Encounters Date Type Department Care Team (Late st Contact Info) Description 03/23/2024 1:00 PM UNIVERSAL GRINDER SET UP OPERATOR Office Visit [facility] [address] [place] [address] [place] [address] [place] [id number] documented as of this encounter Visit Diagnoses Diagnosis Type 2 diabetes mellitus without complication, without long-term current use of insulin (H) documented in this encounter Additional Health Concerns Assessment Noted Time PHQ-9 Depression Total Score: 1 08/05/19 21 8:27 AM CDT documented as of this encounter Care Teams Medical Program Specialist Relationship Specialty Start [place] [address] [place] [address] PCP - General Family Practice 09/03/16 Pollo Medrano MD [address] [place] [address] Urology 01/24/15 Dafne Henriquez, RN Registered Nurse Urology 01/24/15 11/16/22 Julio C Ramesh MD [address] [place] [address] [address] [place] [address] Hematology 01/31/15 [place] [address] [address] [address] Assigned PCP 06/15/20 Hanna Simental MD [facility] [address] Endocrinology, Diabetes, and Metabolism 12/10/21 Ramsey Loza MD [address] [place] [address] Assigned Surgical Provider 07/17/22 01/22/24 Paula Humphrey, X RAY ELECTRONICS WIRING TECHNICIAN Lead Nurse Receptionist Primary Care - CC 08/16/22 Simona Bolden, ELLY [address] [place] [address] Assigned Behavioral Health Provider 08/21/22 [place] [address] [place] [address] Assigned Pain Medication Provider 04/23/23 11/21/23 Yesica Rodriguez, RN Clinic Nurse Receptionist 05/23/2305/26 documented as of this encounter
--- OUTSIDE RECORDS SUMMARY | 2024-02-22 10:03 | XMS_ITS | Encounter Summary ---
Author Organization [facility] Address [address] [place] [address] Care Team Providers Care Clerical Dentist Assistant Name Role Phone Danny Perales MD Unavailable Pollo Medrano MD Unavailable [phone] Danny Perales MD Unavailable Dafne Henriquez RN Unavailable [phone] Julio C Ramesh MD Unavailable +[phone] Ashley Anthony RN Unavailable [phone] Acosta Cristobal MD Primary Care Provider + Acosta Cristobal MD Unavailable [phone] Acosta Cristobal MD Unavailable [phone] Herb Colvin MD Unavailable + Acosta Cristobal MD Unavailable [phone] Hanna Simental MD Unavailable [phone] Ramsey Loza MD Unavailable [phone] Paula Humphrey FAMILY AND CONSUMER EDUCATION TEACHER Unavailable [phone] Simona Bolden STEVEDORE HOLD Unavailable Acosta Cristobal MD Unavailable [phone] Yesica Rodriguez RN Unavailable Encounter Details Date Type Department Care Team (Late st Contact Info) Description 10/20/2016 MyC Medical Advice [facility] [address] [place] [address] Izzy Gant, MAGDALENO Social History Tobacco Use Types Packs/Day Years Used Date Smoking Tobacco: Never Smokeless Tobacco: Never Alcohol Use Standard Drinks/Week Comments Yes 3 (1 standard drink = 0.6 oz pur e alcohol) 4 beers per week Sex and Gender Information Value Date Recorded Sex Assigned at Male 02/06/2021 10:36 AM CDT Legal Sex Male 3:26 AM FLAME ANNEALING MACHINE SETTER Gender Identity Male 02/06/2021 10:36 AM CDT Sexual Orientation Straight 02/06/2021 10 :36 AM CDT documented as of this encounter Plan of Treatment Upcoming Encounters Date Type Department Care Team (Late st Contact Info) Description 03/23/2024 1:00 PM FLAME ANNEALING MACHINE SETTER Office Visit [facility] [address] [place] [address] [place] [address] [place], [place] [address] documented as of this encounter Visit Diagnoses Not on filedocumented in this encounter Additional Health Concerns Assessment Noted Time PHQ-9 Depression Total Score: 6 05/13/19 16 8:05 AM FLAME ANNEALING MACHINE SETTER documented as of this encounter Care Teams Clerical Dentist Assistant Relationship Specialty [place] [address] [place] [address] PCP - General Family Practice 09/03/16 [place] [address] [facility] [place], [place] [address] PCP - Assigned PCP 06/27/16 07/04/18 Danny Perales MD Referring Physician Internal Medicine 01/24/15 06/09/17 Pollo Mderano MD [address] [place], [place] [address] MD Urology 01/24/15 Danny Perales MD PCP Internal Medicine 01/24/15 06/09/17 Dafne Henriquez, RN Registered Nurse Urology 01/24/15 11/16/22 Julio C Ramesh MD [address] [place] [address] [address] [place], [place] 48[address] MD Hematology 01/31/15 Ashley Anthony, RN Registered Nurse 12/03/15 05/29/18 [place] [address] [place] [address] Assigned PCP 06/15/20 Herb Colvin MD [address] [facility] [address] [place], [place] [address] Assigned Heart and Vascular Provider 02/22/20 04/05/20 [place] [address] [place] [address] Assigned PCP 06/27/16 06/14/20 Hanna Simental MD [place], [place] [address] Endocrinology, Diabetes, and Metabolism 12/10/21 Ramsey Loza MD [address] [address] Assigned Surgical Provider 07/17/22 01/22/24 Paula Humphrey, FAMILY AND CONSUMER EDUCATION TEACHER Lead Manager Of Data Primary Care - CC 08/16/22 Simona Bolden, STEVEDORE HOLD [address] [place] [address] Assigned Behavioral Health Provider 08/21/22 [place] [address] [place] [address] Assigned Pain Medication Provider 04/23/23 11/21/23 Yesica Rodriguez, RN Clinic Manager Of Data 05/23/2305/26 documented as of this encounter
--- OUTSIDE RECORDS SUMMARY | 2024-02-22 10:03 | XMS_ITS | Encounter Summary ---
Author Organization [facility] Address [address] [place] [address] Care Team Providers Care Magnetic Tape Typewriter Operator Name Role Phone Pollo Medrano MD Unavailable [phone] Dafne Henriquez RN Unavailable [phone] Julio C Ramesh MD Unavailable [phone] Ashley Anthony RN Unavailable [phone] Acosta Cristobal MD Primary Care Provider + Acosta Cristobal MD Unavailable [phone] Acosta Cristobal MD Unavailable [phone] Herb Colvin MD Unavailable + Acosta Cristobal MD Unavailable [phone] Hanna Simental MD Unavailable [phone] Ramsey Loza MD Unavailable [phone] Paula Humphrey OYSTER PICKER Unavailable [phone] Simona Bolden BELT BUILDER Unavailable [phone] Acosta Cristobal MD Unavailable [phone] Yesica Rodriguez RN Unavailable [phone] Reason for Visit * Reason Onset Date Comments Medication Refill 11/25/2017 losartan-hydro chlorothiazide (HYZAAR) 100-12.5 MG per tablet Encounter Details Date Type Department Care Team (Late st Contact Info) Description 11/25/[address], [address] [place] [address] [place] [address] [place] [address] Medication Refill (losartan-hydrochloroth iazide (HYZAAR) 100-12.5 MG per tablet) Social History Tobacco Use Types Packs/Day Years Used Date Smoking Tobacco: Never Smokeless Tobacco: Never Alcohol Use Standard Drinks/Week Comments Yes 3 (1 standard drink = 0.6 oz pur e alcohol) 4 beers per week Sex and Gender Information Value Date Recorded Sex Assigned at Male 02/06/2021 10:36 AM CDT Legal Sex Male 3:26 AM FOUNDRY OPERATOR Gender Identity Male 02/06/2021 10:36 AM CDT Sexual Orientation Straight 02/06/2021 10 :36 AM CDT documented as of this encounter Miscellaneous Notes * Telephone Encounter - Jina Pearce RN - 11/25/2017 4:46 PM CDT Routing refill request to provider for review/approval because: Labs not current: [facility] Jina Pearce RN, BSN * Telephone Encounter - Alyssa Reveles - 11/25/2017 8:58 AM CDT Requested Prescriptions Pending Prescriptions Disp Refills ??? losartan-hydrochlorothiazide (HYZAAR) 100-12.5 MG per tablet [Pharmacy Med Name: LOSARTAN POT-HCTZ 100-12.5 TABS] 90 tablet 1 Last Written Prescription Date: 06/04/17 Last Fill Quantity: 90, # refills: 1 Last Office Visit: 04/20/2017 Future Office Visit: Sig: TAKE ONE TABLET BY MOUTH EVERY DAY Angiotensin-II Receptors Failed 11/25/2017 8:40 AM Failed - Normal serum creatinine on file in past 12 months Recent Labs Lab Test 10/18/16 1056 CR 1.49* Failed - Normal serum potassium on file in past 12 months Recent Labs Lab Test 10/18/16 1056 POTASSIUM 4.4 Passed - Blood pressure under 140/90 in past 12 months BP Readings from Last 3 Encounters: 04/20/17 122/64 10/18/16 112/76 06/14/16 130/70 Passed - Recent (12 mo) or future (30 days) visit within the authorizing provider's specialty Patient had office visit in the last 12 months or has a visit in the next 30 days with authorizing provider or within the authorizing provider's specialty. See Patient Info tab in inbasket, or Choose Columns in Meds & Orders section of the refill encounter. Passed - Patient is age 18 or older documented in this encounter Plan of Treatment Upcoming Encounters Date Type Department Care Team (Late st Contact Info) Description 03/23/2024 1:00 PM FOUNDRY OPERATOR Office Visit [facility] [address] [place] [address] [place] [address] [place] [address] documented as of this encounter Visit Diagnoses Diagnosis Essential hypertension, benign documented in this encounter Additional Health Concerns Assessment Noted Time PHQ-9 Depression Total Score: 6 05/13/19 16 8:05 AM FOUNDRY OPERATOR documented as of this encounter Care Teams Magnetic Tape Typewriter Operator Relationship Specialty Start [place] [address] [address] [address] PCP - General Family Practice 09/03/16 [place] [address] [address] [address] PCP - Assigned PCP 06/27/16 07/04/18 Pollo Medrano MD [address] [facility] [place] [address] Urology 01/24/15 Dafne Henriquez, RN Registered Nurse Urology 01/24/15 11/16/22 Julio C Ramesh MD [address] [facility] [address] [place] [address] MD Hematology 01/31/15 Ashley Anthony, RN Registered Nurse 12/03/15 05/29/18 [place] [address] [place] [address] Assigned PCP 06/15/20 Herb Colvin MD [address] [place] [address] Assigned Heart and Vascular Provider 02/22/20 04/05/20 [place] [address] [address] [place] [address] Assigned PCP 06/27/16 06/14/20 Hanna Simental MD [facility] [address] Endocrinology, Diabetes, and Metabolism 12/10/21 Ramsey Loza MD [address] [place] [address] Assigned Surgical Provider 07/17/22 01/22/24 Paula Humphrey, OYSTER PICKER Lead Forestry Worker Primary Care - CC 08/16/22 Simona Bolden MSW [address] [place] [address] Assigned Behavioral Health Provider 08/21/22 [place] [address] [place] [address] Assigned Pain Medication Provider 04/23/23 11/21/23 Yesica Rodriguez, RN Clinic Forestry Worker 05/23/2305/26 documented as of this encounter
--- OUTSIDE RECORDS SUMMARY | 2024-02-22 10:03 | XMS_ITS | Encounter Summary ---
Author Organization [facility] Address [address] [place] [address]. [place] [address] Care Team Providers Care Crab Catcher Name Role Phone Pollo Medrano MD Unavailable [phone] Dafne Henriquez RN Unavailable [phone] Julio C Ramesh MD Unavailable [phone] Acosta Cristobal MD Primary Care Provider + Acosta Cristobal MD Unavailable [phone] Herb Colvin MD Unavailable + Acosta Cristobal MD Unavailable [phone] Hanna Simental MD Unavailable [phone] Ramsey Loza MD Unavailable [phone] Paula Humphrey JOINT CLEANING MACHINE OPERATOR Unavailable [phone] Simona Bolden BIOFUELS PRODUCTION ASSOCIATE Unavailable + [phone] Acosta Cristobal MD Unavailable [phone] Yesica Rodriguez RN Unavailable [phone] Encounter Details Date Type Department Care Team (Late st Contact Info) Description 12/28/2019 [facility] [address] [address] Marlena Love, INSIDE UPHOLSTERER Social History Tobacco Use Types Packs/Day Years Used Date Smoking Tobacco: Never Smokeless Tobacco: Never Alcohol Use Standard Drinks/Week Comments Yes 3 (1 standard drink = 0.6 oz pur e alcohol) 4 beers per week PHQ-2 Answer Date Recorded PHQ-2 Score 0 12/10/2019 Sex and Gender Information Value Date Recorded Sex Assigned at Male 02/06/2021 10:36 AM CDT Legal Sex Male 3:26 AM DIE DEVELOPER Gender Identity Male 02/06/2021 10:36 AM CDT Sexual Orientation Straight 02/06/2021 10 :36 AM CDT COVID-19 Exposure Response Date Recorded In the last month, have you been in contact with someone who was confirmed or suspected to have Coronavirus / COVID-19? No / Unsure 12/27/2019 10:22 AM CDT documented as of this encounter Plan of Treatment Upcoming Encounters Date Type Department Care Team (Late st Contact Info) Description 03/23/2024 1:00 PM DIE DEVELOPER Office Visit [facility] [address] [place] [address] [place] [address] [place], [place] [address] documented as of this encounter Visit Diagnoses Not on filedocumented in this encounter Additional Health Concerns Assessment Noted Time PHQ-9 Depression Total Score: 0 12/28/19 20 7:16 AM CDT documented as of this encounter Care Teams Crab Catcher Relationship Specialty Start [place] [address] [place] [address] PCP - General Family Practice 09/03/16 Pollo Medrano MD [address] [place] [address] Urology 01/24/15 Dafne Henriquez, MAGDALENO Registered Nurse Urology 01/24/15 11/16/22 Julio C Ramesh MD [address] [facility] [address] [place] [address] MD Killian 01/31/15 [place] [address] [place] [address] Assigned PCP 06/15/20 Herb Colvin MD [address] [place] [address] Assigned Heart and Vascular Provider 02/22/20 04/05/20 [place] [address] [place] [address] Assigned PCP 06/27/16 06/14/20 Hanna Simental MD [facility] [place] [address] Endocrinology, Diabetes, and Metabolism 12/10/21 Ramsey Loza MD [address] [place] [address] Assigned Surgical Provider 07/17/22 01/22/24 Paula Humphrey, JOINT CLEANING MACHINE OPERATOR Lead Gluing Machine Operator Primary Care - CC 08/16/22 Simona Bolden, BIOFUELS PRODUCTION ASSOCIATE [address] [place] [address] Assigned Behavioral Health Provider 08/21/22 [place] [address] [address] [address] Assigned Pain Medication Provider 04/23/23 11/21/23 Yesica Rodriguez, RN Clinic Gluing Machine Operator 05/23/2305/26 documented as of this encounter
--- OUTSIDE RECORDS SUMMARY | 2024-02-22 10:03 | XMS_ITS | Encounter Summary ---
Author Organization [facility] Address [address] [place] [address]. [place] [address] Care Team Providers Care Fitness Director Name Role Phone Pollo Medrano MD Unavailable [phone] Dafne Henriquez RN Unavailable [phone] Julio C Ramesh MD Unavailable +[phone] Acosta Cristobal MD Primary Care Provider + Acosta Cristobal MD Unavailable +[phone] Herb Colvin MD Unavailable + Acosta Cristobal MD Unavailable [phone] Hanna Simental MD Unavailable [phone] Ramsey Loza MD Unavailable [phone] Paula Humphrey BUYER LIAISON Unavailable [phone] Simona Bolden FORENSIC AUDIT EXPERT Unavailable + [phone] Acosta Cristobal MD Unavailable [phone] Yesica Rodriguez RN Unavailable [phone] Encounter Details Date Type Department Care Team (Late st Contact Info) Description 05/14/2019 [facility], [address] [place] [address] Janay Zavalain Social History Tobacco Use Types Packs/Day Years Used Date Smoking Tobacco: Never Smokeless Tobacco: Never Alcohol Use Standard Drinks/Week Comments Yes 3 (1 standard drink = 0.6 oz pur e alcohol) 4 beers per week PHQ-2 Answer Date Recorded PHQ-2 Score 0 04/24/2019 Sex and Gender Information Value Date Recorded Sex Assigned at Male 02/06/2021 10:36 AM CDT Legal Sex Male 3:26 AM TRACK REPAIRER HELPER Gender Identity Male 02/06/2021 10:36 AM CDT Sexual Orientation Straight 02/06/2021 10 :36 AM CDT documented as of this encounter Plan of Treatment Upcoming Encounters Date Type Department Care Team (Late st Contact Info) Description 03/23/2024 1:00 PM TRACK REPAIRER HELPER Office Visit [facility] [address] [place] [address] [place] [address] [place] [address] documented as of this encounter Visit Diagnoses Not on filedocumented in this encounter Additional Health Concerns Assessment Noted Time PHQ-9 Depression Total Score: 19 019 7:03 AM TRACK REPAIRER HELPER documented as of this encounter Care Teams Fitness Director Relationship Specialty Start [place] [address] [place] [address] PCP - General Family Practice 09/03/16 Pollo Medrano MD [address] [place] [address]32[address] Urology 01/24/15 Dafne Henriquez, RN Registered Nurse Urology 01/24/15 11/16/22 Julio C Ramesh MD [address] [place] [address] MD Killian 01/31/15 [place] [address] [address] [address] Assigned PCP 06/15/20 Herb Colvin MD [address] [place] [address] Assigned Heart and Vascular Provider 02/22/20 04/05/20 [place] [address] [address] [address] Assigned PCP 06/27/16 06/14/20 Hanna [place]imental [place] [address] Endocrinology, Diabetes, and Metabolism 12/10/21 Ramsey Loza MD [address] [place] [place] [address] Assigned Surgical Provider 07/17/22 01/22/24 Paula Humphrey, [facility] Lead Document Image Technician Primary Care - CC 08/16/22 Simona Bolden, FORENSIC AUDIT EXPERT [address] [place] [address] Assigned Behavioral Health Provider 08/21/22 [place] [address] [address] [address] Assigned Pain Medication Provider 04/23/23 11/21/23 Yesica Rodriguez, RN Clinic Document Image Technician 05/23/2305/26 documented as of this encounter
--- OUTSIDE RECORDS SUMMARY | 2024-02-22 10:03 | XMS_ITS | Encounter Summary ---
Author Organization [facility] Address [address] [place] [address]. [place] [address] Care Team Providers Care Medical Sales Name Role Phone Pollo Medrano MD Unavailable [phone] Dafne Henriquez RN Unavailable [phone] Julio C Ramesh MD Unavailable [phone] Acosta Cristobal MD Primary Care Provider + Acosta Cristobal MD Unavailable +[phone] Hanna Simental MD Unavailable [phone] Ramsey Loza MD Unavailable +[phone] Paula Humphrey PRODUCT MANAGEMENT CONSULTANT Unavailable +[phone] Simona Bolden SCIENCE CONSULTANT Unavailable Acosta Cristobal MD Unavailable +[phone] Yesica Rodriguez RN Unavailable +[phone] Reason for Visit * Reason Onset Date Comments Refill Request 08/07/2020 Encounter Details Date Type Department Care Team (Late st Contact Info) Description 08/07/2020 Nataly Fishman [facility] [address] [facility], [address] [place] [address] [place] [address] [place] [address] Refill Request Social History Tobacco Use Types [...] AM CDT Legal Sex Male 3:26 AM TECHNICAL PUBLICATIONS WRITER Gender Identity Male 02/06/2021 10:36 AM CDT Sexual Orientation Straight 02/06/2021 10 :36 AM CDT documented as of this encounter Plan of Treatment Upcoming Encounters Date Type Department Care Team (Late st Contact Info) Description 03/23/2024 1:00 PM TECHNICAL PUBLICATIONS WRITER Office Visit [facility] [address] [facility] [place] [address] [place] [address] [address] [place] [address] documented as of this encounter Visit Diagnoses Diagnosis Moderate episode of recurrent major depressive disorder (H) documented in this encounter Additional Health Concerns Assessment Noted Time PHQ-9 Depression Total Score: 1 08/05/19 21 8:27 AM CDT documented as of this encounter Care Teams Medical Sales Relationship Specialty [place] [address] [place] [address] PCP - General Family Practice 09/03/16 Pollo Medrano MD [address] [place] [address] Urology 01/24/15 Dafne Henriquez, RN Registered Nurse Urology 01/24/15 11/16/22 Julio C Ramesh MD [address] [facility] [address] MD Killian 01/31/15 [place] [address] [place] [address] Assigned PCP 06/15/20 [place] [address] Endocrinology, Diabetes, and Metabolism 12/10/21 Ramsey Loza MD [address] [place] [address] Assigned Surgical Provider 07/17/22 01/22/24 Paula Humphrey, PRODUCT MANAGEMENT CONSULTANT Lead Wad Compressor Operator Adjuster Primary Care - CC 08/16/22 Simona Bolden, SCIENCE CONSULTANT [address] [address] Assigned Behavioral Health Provider 08/21/22 [place] [address] [place] [address] Assigned Pain Medication Provider 04/23/23 11/21/23 Yesica Rodriguez, RN Clinic Wad Compressor Operator Adjuster 05/23/2305/26 documented as of this encounter
--- OUTSIDE RECORDS SUMMARY | 2024-02-22 10:03 | XMS_ITS | Encounter Summary ---
Author Organization [place] Address [address] [place] [address]. [place] [address] Care Team Providers Care Automotive Technician Name Role Phone Pollo Medrano MD Unavailable [phone] Dafne Henriquez RN Unavailable [phone] Julio C Ramesh MD Unavailable +[phone] Acosta Cristobal MD Primary Care Provider + Acosta Cristobal MD Unavailable +[phone] Herb Colvin MD Unavailable + Acosta Cristobal MD Unavailable +[phone] Hanna Simental MD Unavailable [phone] Ramsey Loza MD Unavailable +[phone] Paula Humphrey TRAFFIC OPERATIONS ENGINEER Unavailable +[phone] Simona Bolden DIRECTOR CARDIOVASCULAR Unavailable + [phone] Acosta Cristobal MD Unavailable +[phone] Yesica Rodriguez RN Unavailable [phone] Reason for Visit * Reason Comments Medication Refill Encounter Details Date Type Department Care Team (Late st Contact Info) Description [facility] [address] [facility], [address] [place] [address] [place] [address] [place] [address] Medication Refill Social History Tobacco [...] AM CDT Legal Sex Male 3:26 AM MANAGEMENT ENGINEER Gender Identity Male 02/06/2021 10:36 AM CDT Sexual Orientation Straight 02/06/2021 10 :36 AM CDT COVID-19 Exposure Response Date Recorded In the last month, have you been in contact with someone who was confirmed or suspected to have Coronavirus / COVID-19? No / Unsure 12/05/2019 10:16 AM CDT documented as of this encounter Miscellaneous Notes * Telephone Encounter - Alecia Suárez RN - 12/06/2019 8:51 AM CDT 3 month bi refill approved. Alecia Suárez RN on 12/06/2019 at 8:51 AM documented in this encounter Plan of Treatment Upcoming Encounters Date Type Department Care Team (Late st Contact Info) Description 03/23/2024 1:00 PM MANAGEMENT ENGINEER Office Visit [facility] [address] [place] [address] [place] [address] [facility] [place] [address] documented as of this encounter Visit Diagnoses Diagnosis Moderate episode of recurrent major depressive disorder (H) documented in this encounter Additional Health Concerns Assessment Noted Time PHQ-9 Depression Total Score: 3 06/13/19 20 7:03 AM MANAGEMENT ENGINEER documented as of this encounter Care Teams Automotive Technician Relationship Specialty [place] [address] [place] [address] PCP - General Family Practice 09/03/16 Pollo Medrano MD [address]09 [place] [address] Urology 01/24/15 Dafne Henriquez, RN Registered Nurse Urology 01/24/15 11/16/22 Julio C Ramesh MD [address] [facility] [address] [place] [address] MD Hematology 01/31/15 [place] [address] [place] [address] Assigned PCP 06/15/20 Herb Colvin MD [address] [place] 867645 Assigned Heart and Vascular Provider 02/22/20 04/05/20 [place] [address] [place] [address] Assigned PCP 06/27/16 06/14/20 Hanna [place]imental [place] [address] Endocrinology, Diabetes, and Metabolism 12/10/21 Ramsey Loza MD [address] [address] Assigned Surgical Provider 07/17/22 01/22/24 Paula Humphrey LSW Lead Electrotyper Apprentice Primary Care - CC 08/16/22 Simona Bolden, DIRECTOR CARDIOVASCULAR [address] [address] Assigned Behavioral Health Provider 08/21/22 [place] [address] [place] [address] Assigned Pain Medication Provider 04/23/23 11/21/23 Yesica Rodriguez, RN Clinic Electrotyper Apprentice 05/23/2305/26 documented as of this encounter
--- OUTSIDE RECORDS SUMMARY | 2024-02-22 10:03 | XMS_ITS | Encounter Summary ---
Author Organization [facility] Address [address] [place] [address] Care Team Providers Care Landscape Manager Name Role Phone Danny Perales MD Primary Care Provider [phone] Danny Perales MD Unavailable Pollo Medrano MD Unavailable [phone] Danny Perales MD Unavailable Dafne Henriquez RN Unavailable [phone] Julio C Ramesh MD Unavailable +[phone] Nandini Hall RN Unavailable Unavailable Ashley Anthony RN Unavailable +[phone] Acosta Cristobal MD Primary Care Provider + Acosta Cristobal MD Unavailable + [address] Acosta Cristobal MD Unavailable [phone] Herb Colvin MD Unavailable + Acosta Cristobal MD Unavailable [phone] Hanna Simental MD Unavailable [phone] Ramsey Loza MD Unavailable [phone] Paula Humphrey LINER CHECKER Unavailable [phone] Simona Bolden MACHINIST MATE Unavailable [phone] Acosta Cristobal MD Unavailable Yesica Rodriguez RN Unavailable [phone] Encounter Details Date Type Department Care Team (Late st Contact Info) Description 05/12/2015 MyC Medical Advice [facility] [address] [place] [address] Larissa Rutledge MD [address] [place], [place] [address] Social History Tobacco Use Types Packs/Day Years Used Date Smoking Tobacco: Never Smokeless Tobacco: Never Alcohol Use Standard Drinks/Week Comments Yes 3 (1 standard drink = 0.6 oz pur e alcohol) 4 beers per week Sex and Gender Information Value Date Recorded Sex Assigned at Male 02/06/2021 10:36 AM CDT Legal Sex Male 3:26 AM LIME PLANT OPERATOR Gender Identity Male 02/06/2021 10:36 AM CDT Sexual Orientation Straight 02/06/2021 10 :36 AM CDT documented as of this encounter Plan of Treatment Upcoming Encounters Date Type Department Care Team (Late st Contact Info) Description 03/23/2024 1:00 PM LIME PLANT OPERATOR Office Visit [facility] [id number] [place] [address] [place] [address] [place] [address] documented as of this encounter Visit Diagnoses Not on filedocumented in this encounter Additional Health Concerns Assessment Noted Time PHQ-9 Depression Total Score: 6 05/13/19 16 8:05 AM LIME PLANT OPERATOR documented as of this encounter Care Teams Landscape Manager Relationship Specialty Start Date End Date Danny Perales MD XXX RESIGNED XXX [address] [place] [phone] PCP - General 06/16/01 09/02/16 [place] [address] [place] [address] PCP - General Family Practice 09/03/16 [place] [address] [address] [address] PCP - Assigned PCP 06/27/16 07/04/18 Danny Perales MD XXX RESIGNED XXX [address] [place] [phone] Referring Physician Internal Medicine 01/24/15 06/09/17 Pollo Medrano MD [address] [place] [address] MD Urology 01/24/15 Danny Perales MD XXX RESIGNED XXX [address] [place] [phone] PCP Internal Medicine 01/24/15 06/09/17 Dafne Henriquez, MAGDALENO Registered Nurse Urology 01/24/15 11/16/22 Julio C Ramesh MD [address] [place] [address] 3901[address] Hematology 01/31/15 Nandini Hall, RN Continuity Mass Communications Professor 01/31/15 12/02/15 Ashley Anthony, MAGDALENO Registered Nurse 12/03/15 05/29/18 [place] [address] [address] [address] Assigned PCP 06/15/20 Herb Colvin MD [address] [place] [address] Assigned Heart and Vascular Provider 02/22/20 04/05/20 [place] [address] [place] [address] Assigned PCP 06/27/16 06/14/20 Hanna Simental MD [place] [address] Endocrinology, Diabetes, and Metabolism 12/10/21 Ramsey Loza MD [address] [place] [address] Assigned Surgical Provider 07/17/22 01/22/24 Paula Humphrey, LINER CHECKER Lead Mass Communications Professor Primary Care - CC 08/16/22 Simona Bolden, MACHINIST MATE [address] [place] [address] Assigned Behavioral Health Provider 08/21/22 [place] [address] [address] [address] Assigned Pain Medication Provider 04/23/23 11/21/23 Yesica Rodriguez, RN Clinic Mass Communications Professor 05/23/2305/26 documented as of this encounter
--- OUTSIDE RECORDS SUMMARY | 2024-02-22 10:03 | XMS_ITS | Encounter Summary ---
Author Organization [facility] Address [address] [place] [address] Care Team Providers Care Purse Seiner Name Role Phone Pollo Medrano MD Unavailable [phone] Dafne Henriquez RN Unavailable [phone] Julio C Ramesh MD Unavailable +[phone] Ashley Anthony RN Unavailable [phone] Acosta Cristobal MD Primary Care Provider + Acosta Cristobal MD Unavailable [phone] Acosta Cristobal MD Unavailable [phone] Herb Colvin MD Unavailable + Acosta Cristobal MD Unavailable [phone] Hanna Simental MD Unavailable [phone] Ramsey Loza MD Unavailable [phone] Paula Humphrey INDUSTRIAL ELECTRICAL TECHNICIAN Unavailable +[phone] Simona Bolden PUBLIC HEALTH DIETITIAN Unavailable [phone] Acosta Cristobal MD Unavailable [phone] Yesica Rodriguez RN Unavailable +[phone] Encounter Details Date Type Department Care Team (Late st Contact Info) Description 05/10/2018 Orders Only [facility] [address] [place] [address] Fabrizio Parr MD [facility] [address] [place] [address] Pre-operative laboratory examination (Primary Dx) Social History Tobacco Use Types Packs/Day Years Used Date Smoking Tobacco: Never Smokeless Tobacco: Never Alcohol Use Standard Drinks/Week Comments Yes 3 (1 standard drink = 0.6 oz pur e alcohol) 4 beers per week PHQ-2 Answer Date Recorded PHQ-2 Score 0 05/09/2018 Sex and Gender Information Value Date Recorded Sex Assigned at Male 02/06/2021 10:36 AM CDT Legal Sex Male 3:26 AM STOCK WORKER Gender Identity Male 02/06/2021 10:36 AM CDT Sexual Orientation Straight 02/06/2021 10 :36 AM CDT documented as of this encounter Plan of Treatment Upcoming Encounters Date Type Department Care Team (Late Contact Info) Description 03/23/2024 1:00 PM STOCK WORKER Office Visit [facility] [address] [place] [address] [place] [address] [address], [place] [address] documented as of this encounter Results * Methicillin Resistant Staph Aureus PCR (05/22/2018 3:49 PM STOCK WORKER) Specimen Description Nares 05/22/2018 3:50 PM STOCK WORKER [facility] Methicillin Resist/Sens S. aureus PCR Negative NEG^Negat bakari 05/23/2018 8:11 PM STOCK WORKER [facility] Comment: MRSA Negative: SA Negative ??MRSA and Staphylococcus aureus target DNA not detected, presumed negative for MRSA and SA colonization or the number of bacteria present may be below the limit of detection for the assay. FDA approved assay performed using [employer] GeneXpert(R) real-time PCR. Nasal structure (body structure) 05/22/2018 3:49 PM STOCK WORKER 05/22/2018 3:50 PM STOCK WORKER us Fabrizio Parr MD LAB - MICRO GENERAL O RDERABLES Final Result [address] [address] documented in this encounter Visit Diagnoses Diagnosis Pre-operative laboratory examination- Primary Pre-procedural laboratory examination documented in this encounter Additional Health Concerns Assessment Noted Time PHQ-9 Depression Total Score: 6 05/13/19 16 8:05 AM STOCK WORKER documented as of this encounter Care Teams Purse Seiner Relationship Specialty [place] [address] [address] [place] [address] PCP - General Family Practice 09/03/16 [place] [address] [place] [address] PCP - Assigned PCP 06/27/16 07/04/18 Pollo Medrano MD [address] [place] [address] 786535 Urology 01/24/15 Dafne Henriquez, RN Registered Nurse Urology 01/24/15 11/16/22 Julio C Ramesh MD [address] [place] [address] [id number] Hematology 01/31/15 Ashley Anthony, RN Registered Nurse 12/03/15 05/29/18 [place] [address] [place] [address] Assigned PCP 06/15/20 Herb Colvin MD [address] [place] [address] Assigned Heart and Vascular Provider 02/22/20 04/05/20 [place] [address] [place] [address] Assigned PCP 06/27/16 06/14/20 [place] [address] Endocrinology, Diabetes, and Metabolism 12/10/21 Ramsey Loza MD [address] [place] [address] Assigned Surgical Provider 07/17/22 01/22/24 Paula Humphrey, INDUSTRIAL ELECTRICAL TECHNICIAN Lead Collection Officer Primary Care - CC 08/16/22 Simona Bolden, ELLY [address] [place] [address] Assigned Behavioral Health Provider 08/21/22 [place] [address] [address] [place] [address] Assigned Pain Medication Provider 04/23/23 11/21/23 Yesica Rodriguez, RN Clinic Collection Officer 05/23/2305/26 documented as of this encounter
--- OUTSIDE RECORDS SUMMARY | 2024-02-22 10:03 | XMS_ITS | Encounter Summary ---
Author Organization [place] [facility] Address [address] [place] [address]. [place] [address] Care Team Providers Care Clerical Aide Name Role Phone Pollo Medrano MD Unavailable [phone] Dafne Henriquez RN Unavailable [phone] Julio C Ramesh MD Unavailable +[phone] Acosta Cristobal MD Primary Care Provider + Acosta Cristobal MD Unavailable +[phone] Herb Colvin MD Unavailable + Acosta Cristobal MD Unavailable +[phone] Hanna Simental MD Unavailable [phone] Ramsey Loza MD Unavailable [phone] Paula Humphrey PHOTOGRAPHER MOTION PICTURE Unavailable +[phone] Simona Bolden SALESPERSON MEN'S FURNISHINGS Unavailable + [phone] Acosta Cristobal MD Unavailable +[phone] Yesica Rodriguez RN Unavailable [phone] Reason for Visit * Reason Onset Date Comments Call Back 08/11/2018 results Encounter Details Date Type Department Care Team (Late st Contact Info) Description 08/11/2018 Telephone [facility] Nephrology [facility] [address] [facility] [place] [phone] Ramakrishna Jurado MD [address] [facility] [address] [place] [address] Call Back (results) Social History Tobacco Use Types Packs/Day Years Used Date Smoking Tobacco: Never Smokeless Tobacco: Never Alcohol Use Standard Drinks/Week Comments Yes 3 (1 standard drink = 0.6 oz pur e alcohol) 4 beers per week PHQ-2 Answer Date Recorded PHQ-2 Score 0 05/09/2018 Sex and Gender Information Value Date Recorded Sex Assigned at Male 02/06/2021 10:36 AM CDT Legal Sex Male 3:26 AM REAGENT TENDER HELPER Gender Identity Male 02/06/2021 10:36 AM CDT Sexual Orientation Straight 02/06/2021 10 :36 AM CDT documented as of this encounter Miscellaneous Notes * Telephone Encounter - Ramakrishna Jurado MD - 08/15/2018 8:47 AM CDT Spoke with patient. Discussed results! Thanks! Ramakrishna * Telephone Encounter - Karly Goodrich - 08/11/2018 1:32 PM CDT [facility] Center Phone Message May a detailed message be left on voicemail: yes Reason for Call: Other: pt would like a call to go over pt recent Kidney Ultrasound . Please call . Action Taken: Message routed to: [facility] Neph documented in this encounter Plan of Treatment Upcoming Encounters Date Type Department Care Team (Late st Contact Info) Description 03/23/2024 1:00 PM REAGENT TENDER HELPER Office Visit [facility] [address] [place] [address] [place] [address] [place] [address] documented as of this encounter Visit Diagnoses Not on filedocumented in this encounter Additional Health Concerns Assessment Noted Time PHQ-9 Depression Total Score: 6 05/13/19 16 8:05 AM REAGENT TENDER HELPER documented as of this encounter Care Teams Clerical Aide Relationship Specialty [place] [address] [address] [address] PCP - General Family Practice 09/03/16 Pollo Medrano MD [address]09 [place] [address] Urology 01/24/15 Dafne Henriquez, RN Registered Nurse Urology 01/24/15 11/16/22 Julio C Ramesh MD [address] [facility] [address] [place] [address] MD Hematology 01/31/15 [place] [address] [address] [address] Assigned PCP 06/15/20 Herb Colvin MD [address] [facility] [address] [place] [address] Assigned Heart and Vascular Provider 02/22/20 04/05/20 [place] [address] [address] [address] Assigned PCP 06/27/16 06/14/20 Hanna Simental [place] [address] Endocrinology, Diabetes, and Metabolism 12/10/21 Ramsey Loza MD [address] [address] Assigned Surgical Provider 07/17/22 01/22/24 Paula Humphrey, PHOTOGRAPHER MOTION PICTURE Lead Head Scorer Primary Care - CC 08/16/22 Simona Bolden MSW [address] [address] Assigned Behavioral Health Provider 08/21/22 [place] [address] [address] [address] Assigned Pain Medication Provider 04/23/23 11/21/23 Yesica Rodriguez, RN Clinic Head Scorer 05/23/2305/26 documented as of this encounter
--- OUTSIDE RECORDS SUMMARY | 2024-02-22 10:03 | XMS_ITS | Encounter Summary ---
Author Organization [facility] Address [address] [place] [address]. [place] [address] Care Team Providers Care Network Operations Manager Name Role Phone Pollo Medrano MD Unavailable [phone] Dafne Henriquez RN Unavailable [phone] Julio C Ramesh MD Unavailable +[phone] Acosta Cristobal MD Primary Care Provider + Acosta Cristobal MD Unavailable +[phone] Herb Colvin MD Unavailable + Acosta Cristobal MD Unavailable +[phone] Hanna Simental MD Unavailable [phone] Ramsey Loza MD Unavailable [phone] Paula Humphrey CRISIS INTERVENTION COUNSELOR Unavailable +[phone] Simona Bolden UROLOGIST PHYSICIAN Unavailable + [phone] Acosta Cristobal MD Unavailable +[phone] Yesica Rodriguez RN Unavailable +[phone] Encounter Details Date Type Department Care Team (Late st Contact Info) Description 05/15/2019 [facility], [address] [place] [address] Dafne Lan CMA Social History Tobacco Use Types Packs/Day Years Used Date Smoking Tobacco: Never Smokeless Tobacco: Never Alcohol Use Standard Drinks/Week Comments Yes 3 (1 standard drink = 0.6 oz pur e alcohol) 4 beers per week PHQ-2 Answer Date Recorded PHQ-2 Score 0 04/24/2019 Sex and Gender Information Value Date Recorded Sex Assigned at Male 02/06/2021 10:36 AM CDT Legal Sex Male 3:26 AM GREY ROLL WORKER Gender Identity Male 02/06/2021 10:36 AM CDT Sexual Orientation Straight 02/06/2021 10 :36 AM CDT documented as of this encounter Plan of Treatment Upcoming Encounters Date Type Department Care Team (Late st Contact Info) Description 03/23/2024 1:00 PM GREY ROLL WORKER Office Visit [facility] [address] [place] [address] [place] [address] [place] [address] documented as of this encounter Visit Diagnoses Not on filedocumented in this encounter Additional Health Concerns Assessment Noted Time PHQ-9 Depression Total Score: 19 019 7:03 AM GREY ROLL WORKER documented as of this encounter Care Teams Network Operations Manager Relationship Specialty Start [place] [address] [place] [address] PCP - General Family Practice 09/03/16 Pollo Medrano MD [address] [place] [address]38[address] Urology 01/24/15 Dafne Henriquez, RN Registered Nurse Urology 01/24/15 11/16/22 Julio C Ramesh MD [address] [place] [address] MD Killian 01/31/15 [place] [address] [address] [address] Assigned PCP 06/15/20 Herb Colvin MD [address] [place] [address] Assigned Heart and Vascular Provider 02/22/20 04/05/20 [place] [address] [address] [address] Assigned PCP 06/27/16 06/14/20 Hanna Simental MD [facility] [address] Endocrinology, Diabetes, and Metabolism 12/10/21 Ramsey Loza MD [address] [place] [address] Assigned Surgical Provider 07/17/22 01/22/24 Paula Humphrey, CRISIS INTERVENTION COUNSELOR Lead Primary Montessori Teacher Primary Care - CC 08/16/22 Simona Bolden, UROLOGIST PHYSICIAN [address] [place] [address] Assigned Behavioral Health Provider 08/21/22 [place] [address] [address] [address] Assigned Pain Medication Provider 04/23/23 11/21/23 Yesica Rodriguez, RN Clinic Primary Montessori Teacher 05/23/2305/26 documented as of this encounter
--- OUTSIDE RECORDS SUMMARY | 2024-02-22 10:03 | XMS_ITS | Encounter Summary ---
Author Organization [facility] Address [address] [place] [address]. [place] [address] Care Team Providers Care Mask Inspector Name Role Phone Pollo Medrano MD Unavailable [phone] Dafne Henriquez RN Unavailable [phone] Julio C Ramesh MD Unavailable [phone] Acosta Cristobal MD Primary Care Provider + Acosta Cristobal MD Unavailable [phone] Hanna Simental MD Unavailable [phone] Ramsey Loza MD Unavailable [phone] Paula Humphrey CHILI PEPPER GRINDER Unavailable [phone] Simona Bolden YOUTH SUPPORT WORKER Unavailable Acosta Cristobal MD Unavailable [phone] Yesica Rodriguez RN Unavailable [phone] Encounter Details Date Type Department Care Team (Late st Contact Info) Description 07/30/2020 [facility] [address] [place] [address] [place] [address] [place] [address] Social History Tobacco Use Types [...] AM CDT Legal Sex Male 3:26 AM REELING OPERATOR Gender Identity Male 02/06/2021 10:36 AM CDT Sexual Orientation Straight 02/06/2021 10 :36 AM CDT COVID-19 Exposure Response Date Recorded In the last month, have you been in contact with someone who was confirmed or suspected to have Coronavirus / COVID-19? No / Unsure 07/07/2020 2:00 PM REELING OPERATOR documented as of this encounter Plan of Treatment Upcoming Encounters Date Type Department Care Team (Late st Contact Info) Description 03/23/2024 1:00 PM REELING OPERATOR Office Visit [facility] [address] [place] [address] [place] [address] [place], [place] [phone] documented as of this encounter Visit Diagnoses Not on filedocumented in this encounter Additional Health Concerns Assessment Noted Time PHQ-9 Depression Total Score: 0 12/28/19 20 7:16 AM CDT documented as of this encounter Care Teams Mask Inspector Relationship Specialty Start [place] [address] [place], [place] [id number] PCP - General Family Practice 09/03/16 Pollo Medrano MD [address] [place] [address] Urology 01/24/15 Dafne Henriquez, RN Registered Nurse Urology 01/24/15 11/16/22 Julio C Ramesh MD [address] [facility] [address] [place] [address] MD Killian 01/31/15 [place] [address] [place] [address] Assigned PCP 06/15/20 [place] [address] Endocrinology, Diabetes, and Metabolism 12/10/21 Ramsey Loza MD [address] [place] [address] Assigned Surgical Provider 07/17/22 01/22/24 Paula Humphrey, CHILI PEPPER GRINDER Lead Senior It Recruiter Primary Care - CC 08/16/22 Simona Bolden, YOUTH SUPPORT WORKER [address] [address] Assigned Behavioral Health Provider 08/21/22 [place] [address] [place] [address] Assigned Pain Medication Provider 04/23/23 11/21/23 Yesica Rodriguez, RN Clinic Senior It Recruiter 05/23/2305/26 documented as of this encounter
--- OUTSIDE RECORDS SUMMARY | 2024-02-22 10:03 | XMS_ITS | Encounter Summary ---
Author Organization [facility] Address [address] [place] [address]. [place] [address] Care Team Providers Care Supervisor Lens Generating Name Role Phone Pollo Medrano MD Unavailable [phone] Dafne Henriquez RN Unavailable [phone] Julio C Ramesh MD Unavailable [phone] Acosta Cristobal MD Primary Care Provider + Acosta Cristobal MD Unavailable [phone] Hanna Simental MD Unavailable [phone] Ramsey Loza MD Unavailable [phone] Paula Humphrey FIRE EQUIPMENT INSPECTOR Unavailable [phone] Simona Bolden CORPORATE EXECUTIVE CHEF Unavailable [phone] Acosta Cristobal MD Unavailable [phone] Yesica Rodriguez RN Unavailable [phone] Encounter Details Date Type Department Care Team (Late st Contact Info) Description 06/20/2020 [facility] [address] [place] [address] [place] [address] [place] [address] Social History Tobacco Use Types [...] AM CDT Legal Sex Male 3:26 AM CHICKEN BONER Gender Identity Male 02/06/2021 10:36 AM CDT Sexual Orientation Straight 02/06/2021 10 :36 AM CDT documented as of this encounter Plan of Treatment Upcoming Encounters Date Type Department Care Team (Late st Contact Info) Description 03/23/2024 1:00 PM CHICKEN BONER Office Visit [facility] [address] [place] [address] [place] [address] [place], [place] [id number] documented as of this encounter Visit Diagnoses Not on filedocumented in this encounter Additional Health Concerns Assessment Noted Time PHQ-9 Depression Total Score: 0 12/28/19 20 7:16 AM CDT documented as of this encounter Care Teams Supervisor Lens Generating Relationship Specialty Start [place] [address] [place], [place] [phone] PCP - General Family Practice 09/03/16 Pollo Medrano MD [address] [place] [address] Urology 01/24/15 Dafne Henriquez, RN Registered Nurse Urology 01/24/15 11/16/22 Julio C Ramesh MD [address] [place] [address] Hematology 01/31/15 [place] [address] [place] [address] Assigned PCP 06/15/20 [place] [address] Endocrinology, Diabetes, and Metabolism 12/10/21 Ramsey Loza MD [address] [place] [address] Assigned Surgical Provider 07/17/22 01/22/24 Paula Humphrey FIRE EQUIPMENT INSPECTOR Lead Yarn Handler Primary Care - CC 08/16/22 Simona Bolden, ELLY [address] [address] Assigned Behavioral Health Provider 08/21/22 [place] [address] [place] [address] Assigned Pain Medication Provider 04/23/23 11/21/23 Yesica Rodriguez, RN Clinic Yarn Handler 05/23/2305/26 documented as of this encounter
--- OUTSIDE RECORDS SUMMARY | 2024-02-22 10:03 | XMS_ITS | Encounter Summary ---
Author Organization [facility] Address [address] [place] [address] Care Team Providers Care Security Systems Specialist Name Role Phone Danny Perales MD Unavailable Pollo Medrano MD Unavailable [phone] Danny Perales MD Unavailable Dafne Henriquez RN Unavailable [phone] Julio C Ramesh MD Unavailable [phone] Ashley Anthony RN Unavailable [phone] Acosta Cristobal MD Primary Care Provider + Acosta Cristobal MD Unavailable [phone] Acosta Cristobal MD Unavailable [phone] Herb Colvin MD Unavailable + Acosta Cristobal MD Unavailable [phone] Hanna Simental MD Unavailable [phone] Ramsey Loza MD Unavailable [phone] Paula Humphrey GUT PULLER Unavailable [phone] Simona Bolden CLEAN ROOM ASSEMBLER Unavailable [phone] Acosta Cristobal MD Unavailable [phone] Yesica Rodriguez RN Unavailable Reason for Visit * Reason Onset Date Comments Diabetes Education 10/22/2016 Encounter Details Date Type Department Care Team (Late st Contact Info) Description 10/22/[address], [address] [place] [phone] Tone Tipton PA-C [address] [place] [address] Diabetes Education Social History Tobacco Use Types Packs/Day Years Used Date Smoking Tobacco: Never Smokeless Tobacco: Never Alcohol Use Standard Drinks/Week Comments Yes 3 (1 standard drink = 0.6 oz pur e alcohol) 4 beers per week Sex and Gender Information Value Date Recorded Sex Assigned at Male 02/06/2021 10:36 AM CDT Legal Sex Male 3:26 AM MANAGER BUSINESS BANKING Gender Identity Male 02/06/2021 10:36 AM CDT Sexual Orientation Straight 02/06/2021 10 :36 AM CDT documented as of this encounter Miscellaneous Notes * Telephone Encounter - Olga [place] - 11/01/2016 1:25 PM CDT Diabetes Education Scheduling Outreach #2: Call to patient to schedule. Left message with phone number to call to schedule. [facility] Diabetes and Nutrition Scheduling * Telephone Encounter - Olga [place] - 10/22/2016 9:10 AM CDT Diabetes Education Scheduling Outreach #1: Call to patient to schedule. Left message with phone number to call to schedule. Plan for 2nd outreach attempt within 1 week. Olga Velasco [facility] Diabetes and Nutrition Scheduling documented in this encounter Plan of Treatment Upcoming Encounters Date Type Department Care Team (Late st Contact Info) Description 03/23/2024 1:00 PM MANAGER BUSINESS BANKING Office Visit [facility] [address] [place] [address] [place] [address] [place] [address] documented as of this encounter Visit Diagnoses Not on filedocumented in this encounter Additional Health Concerns Assessment Noted Time PHQ-9 Depression Total Score: 6 05/13/19 16 8:05 AM MANAGER BUSINESS BANKING documented as of this encounter Care Teams Security Systems Specialist Relationship Specialty Start [place] [address] [place] [address] PCP - General Family Practice 09/03/16 [place] [address] [place] [address] PCP - Assigned PCP 06/27/16 07/04/18 Danny Perales MD Referring Physician Internal Medicine 01/24/15 06/09/17 Pollo Medrano MD [address] [place] [address] 017725 Urology 01/24/15 Danny Perales MD PCP Internal Medicine 01/24/15 06/09/17 Dafne Henriquez RN Registered Nurse Urology 01/24/15 11/16/22 Julio C Ramesh MD [address] [place] [address] 734835 Hematology 01/31/15 Ashley Anthony, RN Registered Nurse 12/03/15 05/29/18 [place] [address] [address] [place] [address] Assigned PCP 06/15/20 Herb Colvin MD [address] [place] [address] Assigned Heart and Vascular Provider 02/22/20 04/05/20 [place] [address] [address] [place] [address] Assigned PCP 06/27/16 06/14/20 [place] [address] Endocrinology, Diabetes, and Metabolism 12/10/21 Ramsey Loza MD [address] [place] [address] Assigned Surgical Provider 07/17/22 01/22/24 Paula Humphrey, GUT PULLER Lead Constitutional Law Professor Primary Care - CC 08/16/22 Simona Bolden, CLEAN ROOM ASSEMBLER [address] [place] [address] Assigned Behavioral Health Provider 08/21/22 [place] [address] [address] [place] [address] Assigned Pain Medication Provider 04/23/23 11/21/23 Yesica Rodriguez, RN Clinic Constitutional Law Professor 05/23/2305/26 documented as of this encounter
--- OUTSIDE RECORDS SUMMARY | 2024-02-22 10:03 | XMS_ITS | Encounter Summary ---
Author Organization [facility] Address [address] [place] [address]. [place] [address] Care Team Providers Care County Engineer Name Role Phone Pollo Medrano MD Unavailable [phone] Dafne Henriquez RN Unavailable [phone] Julio C Ramesh MD Unavailable [phone] Acosta Cristobal MD Primary Care Provider + Acosta Cristobal MD Unavailable [phone] Herb Colvin MD Unavailable + Acosta Cristobal MD Unavailable [phone] Hanna Simental MD Unavailable [phone] Ramsey Loza MD Unavailable [phone] Paula Humphrey DIE PRESSER Unavailable [phone] Simona Bolden EDITOR HOUSE ORGAN Unavailable + [phone] Acosta Cristobal MD Unavailable [phone] Yesica Rodriguez RN Unavailable [phone] Reason for Visit * Reason Comments Medication Refill Encounter Details Date Type Department Care Team (Late st Contact Info) Description 11/14/2019 Refill [facility] [address] [facility], [address] [place] [phone] [place] [address] [place] [address] Medication Refill Social History Tobacco Use Types Packs/Day Years Used Date Smoking Tobacco: Never Smokeless Tobacco: Never Alcohol Use Standard Drinks/Week Comments Yes 3 (1 standard drink = 0.6 oz pur e alcohol) 4 beers per week PHQ-2 Answer Date Recorded PHQ-2 Score 0 11/18/2019 Sex and Gender Information Value Date Recorded Sex Assigned at Male 02/06/2021 10:36 AM CDT Legal Sex Male 3:26 AM SMOKE CONTROL SUPERVISOR Gender Identity Male 02/06/2021 10:36 AM CDT Sexual Orientation Straight 02/06/2021 10 :36 AM CDT documented as of this encounter Miscellaneous Notes * Telephone Encounter - Lori Noel RN - 11/14/2019 11:39 AM CDT Prescription approved per [facility], [facility] or [facility] refill protocol. Lori Rogers - Registered Nurse [facility] documented in this encounter Plan of Treatment Upcoming Encounters Date Type Department Care Team (Late st Contact Info) Description 03/23/2024 1:00 PM SMOKE CONTROL SUPERVISOR Office Visit [facility] [address] [place] [phone] [place] [address] [place] [address] documented as of this encounter Visit Diagnoses Diagnosis Moderate episode of recurrent major depressive disorder (H) documented in this encounter Additional Health Concerns Assessment Noted Time PHQ-9 Depression Total Score: 3 06/13/19 20 7:03 AM SMOKE CONTROL SUPERVISOR documented as of this encounter Care Teams County Engineer Relationship Specialty Start [place] [address] [place] [address] PCP - General Family Practice 09/03/16 Pollo Medrano MD [address] [place] [address] Urology 01/24/15 Dafne Henriquez, RN Registered Nurse Urology 01/24/15 11/16/22 Julio C Ramesh MD [address] [facility] [address] [place] [address] Hematology 01/31/15 [place] [address] [place] [address] Assigned PCP 06/15/20 Herb Colvin MD [address] [place] [address] Assigned Heart and Vascular Provider 02/22/20 04/05/20 [place] [address] [place] [address] Assigned PCP 06/27/16 06/14/20 Hanna Simental MD [place] [address] Endocrinology, Diabetes, and Metabolism 12/10/21 Ramsey Loza MD [address] [place] [address] Assigned Surgical Provider 07/17/22 01/22/24 Paula Humphrey LSW Lead Cash Grain Farmer Primary Care - CC 08/16/22 Simona Bolden MSW [address] [address] Assigned Behavioral Health Provider 08/21/22 [place] [address] [place] [address] Assigned Pain Medication Provider 04/23/23 11/21/23 Yesica Rodriguez, RN Clinic Cash Grain Farmer 05/23/2305/26 documented as of this encounter
--- OUTSIDE RECORDS SUMMARY | 2024-02-22 10:04 | XMS_ITS | Encounter Summary ---
Author Organization [facility] Address [address] [place] [address] Care Team Providers Care Title Examiner Name Role Phone Elsewhere, Pcp Primary Care Provider Unavailabl e Encounter Details Date Type Department Care Team (Latest Contact Info) Description 02/07/2024 3:12 PM CDT - 02/07/2024 11:59 PM CDT Hospital Encounter Department of Laboratory Medicine in [address] [phone] Maryan Merritt, BAYLEE, C.N.P., D.N.P. [address] [place] [phone] Medication Therapy Alf Not Anticoagulant Discharge Disposition: Home or Self Care Social History Tobacco Use Types Packs/Day Years Used Date Smoking Tobacco: Never Passive Smoke Exposure: Past Smokeless Tobacco: Never Alcohol Use Standard Drinks/Week Comments Yes 14 (1 standard drink = 0.6 oz pu re alcohol) [facility] Utilities Answer Date Recorded In the past 12 months has e electric, gas, oil, or water company threatened to shut off services in your home? No 04/26/2023 Humiliation, Afraid, Rape, and Kick questionnair e Answer Date Recorded Within the last year, have y ou been afraid of your partner or ex-partner? No 09/29/2022 Within the last year, have y ou been humiliated or emotionally abused in other ways by your partner or ex-partner? No Within the last year, have y ou been kicked, hit, slapped, or otherwise physically hurt by your partner or ex-partner? No 09/29/2022 Within the last year, have y ou been raped or forced to have any kind of sexual activity by your partner or ex-partner? No 09/29/2022 Social Connection and Isolat ion Panel [NHANES] Answer Date Recorded In a typical week, how many times do you talk on the phone with family, friends, or neighbors? More than three times a week 04/13/2022 Frequency of Social Gatherin gs with Friends and Family Not on file 04/13/2022 How often do you attend chur or latter day services? More than 4 times per year 04/13/2022 Do you belong to any clubs o r organizations such as baptism groups, unions, fraternal or athletic groups, or school groups? No 04/13/2022 Attends Club or Organization Meetings Not on mary ann e 04/13/2022 Marital Status Not on file 04/13/2022 AUDIT-C Answer Date Recorded Q1: How often do you have a drink containing alc ohol? Patient declined 04/13/2022 Average Number of Drinks Not on file 022 Frequency of Binge Drinking Not on file 04/01 Overall Financial Resource Strain (CARDIA) Answe r Date Recorded How hard is it for you to pa y for the very basics like food, housing, medical care, and heating? Not hard at all 09/29/2022 PHQ-2 Answer Date Recorded PHQ-2 Score 6 10/28/2023 [facility] - Occupational Stress Questionnaire Answer Date Recorded Do you feel stress - tense, restless, nervous, or anxious, or unable to sleep at night because your mind is troubled all the time - these days? To some extent 04/13/2022 Exercise Vital Sign Answer Date Recorde d On average, how many days pe r week do you engage in moderate to strenuous exercise (like a brisk walk)? 0 days 04/26/2023 On average, how many minutes do you engage in exercise at this level? 0 min 04/26/2023 Hunger Vital Sign Answer Date Recorded Within the past 12 months, y ou worried that your food would run out before you got the money to buy more. Never true 04/26/20 Within the past 12 months, t he food you bought just didn't last and you didn't have money to get more. Never true 04/26/2023 PRAPARE - Transportation Answer Date Re corded In the past 12 months, has l ack of transportation kept you from medical appointments or from getting medications? No 04/02 In the past 12 months, has l ack of transportation kept you from meetings, work, or from getting things needed for daily living? No 04/26/2023 Depression Answer Date Recor ded PHQ-9 Total Score (max 27) 22 10/27 Nutrition Answer Date Recorded On average, how many serving s of fruits and vegetables do you eat per day (serving size is equal to 1 cup or approximately the size of a tennis ball)? 0-2 04/26/2023 Dental Answer Date Recorded Dental: Regular Dentist Yes 04/26/20 Employment Answer Date Recorded Employment status Retired 04/26/2023 Housing Stability Answer Date Recorded What is your living situation today? I have a [facility] place to live 04/26/2023 Education Answer Date Recorded What is the highest level of school you have completed or the highest degree you have received? Bachelor's degree (e.g., BA, AB, BS) 11/19/2018 Sex and Gender Information Value Date Recorded Sex Assigned at Male 04/13/2022 12:32 PM CORE MANAGER Legal Sex Male 9:12 PM CORE MANAGER Gender Identity Male 04/13/2022 12:32 PM CORE MANAGER Sexual Orientation Straight 04/13/2022 12 :32 PM CORE MANAGER documented as of this encounter Medications at Time of Discharge apixaban (ELIQUIS) 5 mg tablet Take 1 tablet (5 mg total) by mouth 2 (two) times a day. 60 tablet 11 07/06/2023 cyanocobalamin (vitamin B-12) 1,000 mcg tablet Take 2 tablets daily for 2 weeks followed by 1 tablet daily 60 tablet 02/09/2024 empagliflozin (JARDIANCE) 10 mg tablet Take 1 tablet (10 mg total) by mouth every morning before breakfast. 30 tablet 11 06/22/2023 5 EPINEPHrine (EPIPEN) 0.3 mg/0.3 mL injection syringe INJECT 0.3ML INTO THE MUSCLE NEEDED FOR ANAPHYLAXIS 0 03/05/2019 gabapentin (NEURONTIN) 300 mg capsule Take 300 mg by mouth as needed. 12/11/2020 levothyroxine (SYNTHROID, LEVOTHROID) 150 mcg tablet 1 TABLET ORALLY EVERY DAY. TAKE IN THE MORNING 30 MINUTES PRIOR TO FOOD AND OTHER MEDICATIONS 02/03/2022 lidocaine (LIDODERM) 5 % adhesive patch,medicated Place 1 patch on the skin See Admin Instructions. See attached for detailed directions. 02/07/2023 LORazepam (Ativan) 1 mg tablet daily. Varies from 1/2 tablet to 2 tablets 12/01/2023 metFORMIN XR (GLUCOPHAGE-XR) 500 mg 24 hr tablet Take 500 mg by mouth 2 (two) times a day with meals. metoprolol succinate (TOPROL-XL) 200 mg 24 hr tablet Take 1 tablet (200 mg total) by mouth daily. Do not crush or chew. 90 tablet 3 06/09/2023 minocycline (MINOCIN,DYNACIN) 100 mg capsule TAKE 1 CAPSULE BY MOUTH DAILY FOR NECK RASH 09/21/2022 mycophenolate (CELLCEPT) 500 mg tabletIndications :Sarcoid Myocarditis (HCC) 500mg twice daily x 2 week; 1000mg in AM & 500mg in PM x 2 weeks; then 1000mg twice daily 360 tablet 3 03/02/2023 QUEtiapine 150 mg tablet Take 150 mg by mouth at bedtime. 09/16/2022 sacubitriL-valsar major (ENTRESTO) 49-51 mg per tablet Take 1 tablet by mouth 2 (two) times a day. 60 tablet 11 07/06/2023 sertraline (ZOLOFT) 100 mg tablet Take 200 mg by mouth daily. 05/07/2019 sildenafiL (VIAGRA) 100 mg tablet Take 100 mg by mouth as needed. 04/19/2018 tadalafiL (CIALIS) 20 mg tablet Take 20 mg by mouth. 07/21/2023 tamsulosin (FLOMAX) 0.4 mg 24 hr capsule Take 0.4 mg by mouth 2 (two) times a day. 07/04/2022 zolpidem (AMBIEN) 10 mg tablet Take 10 mg by mouth at bedtime as needed for sleep. 08/17/2018 documented as of this encounter Plan of Treatment Upcoming Encounters Date Type Department Care Team (Late st Contact Info) Description 04/09/2024 1:30 PM CORE MANAGER Appointment Department of Laboratory Medicine and Pathology, [facility], in [place], [place] [address] [place] [phone] Maryan Merritt APRN, C.N.P., D.N.P. [address] [place] [phone] 04/09/2024 2:00 PM CORE MANAGER Office Visit Division of Rheumatology in [place], [place] [address] [place] [phone] Maryan Merritt APRN, Kari.N.P., D.N.P. [address] [place] [phone] documented as of this encounter Procedures Procedure Name Priority Date/Time Associated Diagnosis Comments CBC WITH DIFFERENTIAL, B Routine 02/07/2024 3:20 PM CDT Medication Therapy Alf Not Anticoagulant documented in this encounter Results * (ABNORMAL) CBC with Differential, Blood (02/07/2024 3:20 PM CDT) Hemoglobin 14.5 13.2 - 16.6 g/dL 02/07/2024 3:31 PM CDT CNFL Hematocrit 44.7 38.3 - 48.6 % 02/07/2024 3:31 PM CDT CNFL Erythrocytes 5.43 4.35 - 5.65 x10(12)/L 02/07/2024 3:31 PM CDT CNFL MCV 82.3 78.2 - 97.9 fL 02/07/2024 3:31 PM CDT CNFL RBC Distrib Width 15.8(H) 11.8 - 14.5 % 02/07/2024 3:31 PM CDT CNFL Platelet Count 171 135 - 317 x10(9)/L 02/07/2024 3:31 PM CDT CNFL Leukocytes 10.3(H) 3.4 - 9.6 x10(9)/L 02/07/2024 3:31 PM CDT CNFL Neutrophils 7.70(H) 1.56 - 6.45 x10(9)/L 02/07/2024 3:31 PM CDT CNFL Lymphocytes 1.52 0.95 - 3.07 x10(9)/L 02/07/2024 3:31 PM CDT CNFL Monocytes 0.90(H) 0.26 - 0.81 x10(9)/L 02/07/2024 3:31 PM CDT CNFL Eosinophils 0.10 0.03 - 0.48 x10(9)/L 02/07/2024 3:31 PM CDT CNFL Basophils <0.04 0.01 - 0.08 x10(9)/L 02/07/2024 3:31 PM CDT CNFL Blood (Blood, Venous) 02/07/2024 3:20 PM CDT 02/07/2024 3:21 PM CDT us Maryan Merritt APRN, C.N.P., D.N.P. LAB BLOOD ADD -ON Final Result Performing Organization Address City/State/[facility] Co de Phone Number [facility] [address] [place] [address], [facility] [place] [address] documented in this encounter Visit Diagnoses Diagnosis Medication Therapy Food Tray Assembler Not Anticoagulant documented in this encounter Additional Health Concerns Assessment Noted Time PHQ-9 Depression Total Score: 22 10/27/ 024 7:46 AM CDT documented as of this encounter Care Teams Title Examiner Relationship Specialty Start Date End Date Elsewhere, Pcp PCP - General Internal Medicine 09/08/22 documented as of this encounter
--- OUTSIDE RECORDS SUMMARY | 2024-02-22 10:04 | XMS_ITS ---
Author Organization [facility] Address [address] [place] [address] Care Team Providers Care Software Packaging Engineer Name Role Phone Unavailable Unavailable Unavailable Surgery Details Not on file Complications Check Surgery Details section. Procedure Estimated Blood Loss Check Surgery Details section. Procedure Findings Check Surgery Details section. Procedure Specimens Taken Check Surgery Details section.
--- OUTSIDE RECORDS SUMMARY | 2024-02-22 10:04 | XMS_ITS | Referral Summary ---
Author Organization [facility] Address [address] [place] [address] Care Team Providers Care Professor Of Engineering Name Role Phone Elsewhere, Pcp Primary Care Provider Unavailabl e Source Comments Patient records contain information from all sites at [facility]. For routine questions regarding patient records, call [phone] during business hours, M-F 8:00 AM - 5:00 PM Central Time. Record requests for emergency care only can be directed to [phone] at any time.[facility] Encounters * This document contains information received from the source organization and may not represent a complete record from that organization. Date Type Department Care Team Description 02/15/2024 1:13 PM CDT - 02/15/2024 11:59 PM CDT Hospital Encounter Department of Neurology in [place], [place] [address] [place] [address] Nataliia Roche M.B.B.S. Sarcoidosis; Neuropathy; Diabetes Mellitus Type 2 (HCC) Discharge Disposition: Home or Self Care 02/08/2024 Clinical Communication Division of Rheumatology in [place], [place] [address] [place] [phone] Renee Angulo R.N. Lab Monitoring 02/07/2024 3:12 PM CDT - 02/07/2024 11:59 PM CDT Hospital Encounter Department of Laboratory Medicine in [address] [phone] Maryan Merritt APRN, C.N.P., D.N.P. Medication Therapy Retirement Not Anticoagulant Discharge Disposition: Home or Self Care 01/27/2024 3:06 PM CDT - 01/27/2024 11:59 PM CDT Hospital Encounter Department of Laboratory Medicine and Pathology, [facility], in [place], [place] [address] [place] [phone] Nataliia Roche M.B.B.S. Sarcoidosis; Neuropathy; Diabetes Mellitus Type 2 (HCC) Discharge Disposition: Home or Self Care 01/27/2024 2:00 PM CDT Office Visit Department of Neurology in [place], [place] [address] [place] [address] Nataliia Roche M.B.B.S. Diabetes Mellitus Type 2 (HCC) (Primary Dx); Sarcoidosis; Neuropathy 01/11/2024 11:45 AM CDT - 01/11/2024 2:27 PM CDT Emergency [facility] [address] [place] [phone] Hans Platt APRN, C.N.P., D.N.P. Pain Chest Wall (Primary Dx) Discharge Disposition: Home or Self Care 12/09/2023 Clinical Communication Division of Rheumatology in [place], [place] [address] [place] [phone] Hali Huerta R.N. Lab Monitoring (MMF) 12/08/2023 Clinical Communication Department of Oncology in [place], [place] [address] [place] [phone] Provider, Unknown OSM - Outside Materials (New Reg); OSM (ONC) 12/08/2023 Clinical Communication Department of Oncology in [place], [place] [address] [place] [phone] Prescheduling, Provider 12/08/2023 9:00 AM CDT - 12/08/2023 11:59 PM CDT Hospital Encounter Department of Laboratory Medicine and Pathology, [facility] in [place], [place] [address] [place] [address] Ramsey Kelly M.D. Sarcoidosis; Atrial Fibrillation Paroxysmal (HCC); Myocarditis (HCC); Sleep Apnea Hypopnea; Autoimmune Disorder (HCC); Acute Systolic (Congestive) Heart Failure (HCC); Sarcoid Myocarditis (HCC) Discharge Disposition: Home or Self Care 12/08/2023 11:00 AM CDT Office Visit Department of Cardiovascular Medicine in [address] [phone] Ramsey Kelly M.D. Myocarditis (HCC) (Primary Dx); Atrial Fibrillation Paroxysmal (HCC); Autoimmune Disorder (HCC); Sleep Apnea Hypopnea; Acute Systolic (Congestive) Heart Failure (HCC); Insufficiency Pituitary (HCC); Encephalopathy; Cancer Renal Cell Carcinoma Personal History; Chronic Kidney Disease (CKD), Stage 3 Unspecified (HCC); Failure Heart (HCC) 12/07/2023 11:48 AM CDT - 12/07/2023 1:50 PM CDT Hospital Encounter Department of Cardiovascular Diseases in [address] [phone] Ramsey Kelly M.D. Sarcoidosis; Atrial Fibrillation Paroxysmal (HCC); Myocarditis (HCC); Sleep Apnea Hypopnea; Autoimmune Disorder (HCC); Acute Systolic (Congestive) Heart Failure (HCC); Sarcoid Myocarditis (HCC) Discharge Disposition: Home or Self Care 12/07/2023 7:45 AM CDT - 12/07/2023 11:47 AM CDT Hospital Encounter Department of Cardiovascular Diseases in [address] [phone] Ramsey Kelly M.D. Sarcoidosis; Atrial Fibrillation Paroxysmal (HCC); Myocarditis (HCC); Sleep Apnea Hypopnea; Autoimmune Disorder (HCC); Acute Systolic (Congestive) Heart Failure (HCC); Sarcoid Myocarditis (HCC) Discharge Disposition: Home or Self Care 12/07/2023 1:51 PM CDT - 12/07/2023 11:59 PM CDT Hospital Encounter Department of Radiology, [facility] in [address] [phone] Ramsey Kelly M.D. Sarcoidosis; Atrial Fibrillation Paroxysmal (HCC); Myocarditis (HCC); Sleep Apnea Hypopnea; Autoimmune Disorder (HCC); Acute Systolic (Congestive) Heart Failure (HCC); Sarcoid Myocarditis (HCC) Discharge Disposition: Home or Self Care 12/01/2023 Clinical Communication Department of Cardiovascular Diseases in [place], [place] [address] [place] [address] Nirali Payton R.N. 12/01/2023 12:00 PM CDT Clinical Communication Virtual Review in [place], [place] [address] [place] [address] Pre-visit Intake from Last 3 Months Allergies Active Allergy Reactions Criticality Noted Date Comments Bupropion Rash,Shortness of br eath with other systemic symptoms especially skin reaction High 03/05/2019 Medications * This document contains information received from the source organization and may not represent a complete record from that organization. sildenafiL (VIAGRA) 100 mg tablet Take 100 mg by mouth as needed. 8 Active zolpidem (AMBIEN) 10 mg tablet Take 10 mg by mouth at bedtime as needed for sleep. 9 Active EPINEPHrine (EPIPEN) 0.3 mg/0.3 mL injection syringe INJECT 0.3ML INTO THE MUSCLE NEEDED FOR ANAPHYLAXIS 0 9 Active gabapentin (NEURONTIN) 300 mg capsule Take 300 mg by mouth as needed. 1 Active sertraline (ZOLOFT) 100 mg tablet Take 200 mg by mouth daily. 0 Active levothyroxine (SYNTHROID, LEVOTHROID) 150 mcg tablet 1 TABLET ORALLY EVERY DAY. TAKE IN THE MORNING 30 MINUTES PRIOR TO FOOD AND OTHER MEDICATIONS 2 Active tamsulosin (FLOMAX) 0.4 mg 24 hr capsule Take 0.4 mg by mouth 2 (two) times a day. 3 Active minocycline (MINOCIN,DYNACIN ) 100 mg capsule TAKE 1 CAPSULE BY MOUTH DAILY FOR NECK RASH 3 Active QUEtiapine 150 mg tablet Take 150 mg by mouth at bedtime. 3 Active lidocaine (LIDODERM) 5 % adhesive patch,medicated Place 1 patch on the skin See Admin Instructions. See attached for detailed directions. 3 Active mycophenolate (CELLCEPT) 500 mg tabletIndication s:Sarcoid Myocarditis (HCC) 500mg twice daily x 2 week; 1000mg in AM & 500mg in PM x 2 weeks; then 1000mg twice daily 360 tablet 3 3 Active metoprolol succinate (TOPROL-XL) 200 mg 24 hr tablet Take 1 tablet (200 mg total) by mouth daily. Do not crush or chew. 90 tablet 3 4 Active metFORMIN XR (GLUCOPHAGE-XR) 500 mg 24 hr tablet Take 500 mg by mouth 2 (two) times a day with meals. Active empagliflozin (JARDIANCE) 10 mg tablet Take 1 tablet (10 mg total) by mouth every morning before breakfast. 30 tablet 11 4 06/21/19 25 Active sacubitriL-valsa rtan (ENTRESTO) 49-51 mg per tablet Take 1 tablet by mouth 2 (two) times a day. 60 tablet 11 4 Active apixaban (ELIQUIS) 5 mg tablet Take 1 tablet (5 mg total) by mouth 2 (two) times a day. 60 tablet 11 4 Active tadalafiL (CIALIS) 20 mg tablet Take 20 mg by mouth. 4 Active LORazepam (Ativan) 1 mg tablet daily. Varies from 1/2 tablet to 2 tablets 4 Active cyanocobalamin (vitamin B-12) 1,000 mcg tablet Take 2 tablets daily for 2 weeks followed by 1 tablet daily 60 tablet 4 Active Active Problems Problem Noted Date Diagnosed Date Delirium 09/08/2023 Hyperglycemia 04/23/2023 Presence Of Automatic (Impla ntable) Cardiac Defibrillator With Synchronous Cardiac Pacemaker (ICD And AICD) 11/01/2022 Overview (11/04/2022): Status post dual chamber ICD by Dr. Rangel on 11/04/2022. Cancer Renal Cell Carcinoma Personal History 06/2022 Hyperlipidemia 11/01/2022 Autoimmune Disorder 10/29/2022 Chronic Systolic (Congestive) Heart Failure 10/02 Preoperative Examination Cardiovascular 10/21/19 Myocarditis 10/20/2022 Encephalopathy 07/21/2022 Hypothyroidism Due To Medica ments And Other Exogenous Substances 02/05/2022 Chronic Kidney Disease (CKD), Stage 3 Unspecifie d 09/13/2019 Diabetes Mellitus Type 2 Without Complication Depression Major Recurrent Moderate 01/23/2019 Morbid Obesity 04/19/2018 Hypertension Essential Primary 11/27/2015 Immunizations Name Administration Dates Next Due Influenza, Unspecified 01/17/2020 PCV20 02/05/2022 PPSV23 12/11/2020 RZV (SHINGRIX) 12/11/2022,09/05/2022 Tdap 01/05/2019,06/25/2008 YF 05/30/2009 Social History Tobacco Use Types Packs/Day Years Used Date Smoking Tobacco: Never Passive Smoke Exposure: Past Smokeless Tobacco: Never Tobacco Cessation:Counseling Given: Not Answered Alcohol Use Standard Drinks/Week Comments Yes 14 (1 standard drink = 0.6 oz pu re alcohol) [facility] Utilities Answer Date Recorded In the past 12 months has e [employer], gas, oil, or water [place] [employer] threatened to shut off services in your [...] 04/13/2022 How often do you attend chur ch or yarsani services? More than 4 times per year 04/13/2022 Do you belong to any clubs o r organizations such as synagogue groups, unions, fraternal or athletic groups, or [...] Answer Date Recorded PHQ-2 Score 6 10/28/2023 [facility] of Occupat ional Health - Occupational Stress [...] your living situation today? I have a [facility] place to live 04/26/2023 Education Answer Date Recorded What is the highest level of school you have completed or the highest degree you have received? Bachelor's degree (e.g., BA, AB, BS) 11/19/2018 Sex and Gender Information Value Date Recorded Sex Assigned at Male 04/13/2022 12:32 PM BOTTLE CAPPING MACHINE OPERATOR Legal Sex Male 9:12 PM BOTTLE CAPPING MACHINE OPERATOR Gender Identity Male 04/13/2022 12:32 PM BOTTLE CAPPING MACHINE OPERATOR Sexual Orientation Straight 04/13/2022 12 :32 PM BOTTLE CAPPING MACHINE OPERATOR Last Filed Vital Signs Vital Sign Reading Time Taken Comments Blood Pressure 146/86 01/11/2024 1:46 PM CDT Pulse 82 01/11/2024 2:14 PM CDT Temperature 36 ??C (96.8 ??F) 01/11/2024 11:53 AM CDT Respiratory Rate 16 01/11/2024 12:47 PM CDT Oxygen Saturation 97% 01/11/2024 2:14 PM CDT Inhaled Oxygen Concentration - - Weight 135 kg (297 lb 9.9 oz) 01/11/2024 12:01 P M CDT Height 174.9 cm (5' 8.86) 12/08/2023 10:57 AM C DT Body Mass Index 44.13 12/08/2023 10:57 AM CDT Plan of Treatment Upcoming Encounters Date Type Department Care Team (Late st Contact Info) Description 04/09/2024 1:30 PM BOTTLE CAPPING MACHINE OPERATOR Appointment Department of Laboratory Medicine and Pathology, [facility], in [place], [place] [address] [place] [phone] Maryan Merritt APRN, C.N.P., D.N.P. [address] [place] [phone] 04/09/2024 2:00 PM BOTTLE CAPPING MACHINE OPERATOR Office Visit Division of Rheumatology in [place], [place] [address] [place] [phone] Maryan Merritt APRN, C.N.P., D.N.P. [address] [place] [phone] Medical Devices Implanted Type Area Community Services Coordinator Device Identifier Shelf Expiration Date Model / Serial / Lot Lead [place]ator Artificial Breast Biplr 64 - [id number] - [id number] Implanted:Qt y: 1 on 11/04/2022 by Kriss Rangel M.D. at [facility] Cardiac Lead [employer] 08/30/2024 [id number] / [id number] / Lead Ppm Ingevity+ Biplr 52 - [id number] - [id number] Implanted:Qt y: 1 on 11/04/2022 by Kriss Rangel M.D. at [facility] Cardiac Lead [employer] 10/22/2024 [id number] / [id number] / Envelope Lg Tyrx - [id number] Implanted:Qt y: 1 on 11/04/2022 by Kriss Rangel M.D. at [facility] Hardware e.g. pins/screws/rods Medtronic 07/09/2023 [id number] / / [id number] Icd Dyn Ronen Espinoza Df4 - [id number] - [id number] Implanted:Qt y: 1 on 11/04/2022 by Kriss Rangel M.D. at [facility] Implant Cardiac Defibrillator [employer] 04/14/2024 [id number] / [id number] / Knee Implant Knee Implant Left: Knee Procedures Procedure Name Priority Date/Time Associated Diagnosis Comments EMG Routine 02/15/2024 1:13 PM CDT Sarcoidosis Neuropathy Diabetes Mellitus Type 2 (HCC) CBC WITH DIFFERENTIAL, B Routine 02/07/2024 3:20 PM CDT Medication Therapy French Edge Operator Not Anticoagulant HEMOGLOBIN A1C, B Routine 01/27/2024 3:1 8 PM CDT Sarcoidosis Neuropathy Diabetes Mellitus Type 2 (HCC) GASTRIN, S Routine 01/27/2024 3:17 PM CDT HI INTRINSIC FACTOR AB Routine 01/27/2024 3:17 PM CDT CERULOPLASMIN, S Routine 01/27/2024 3:17 PM CDT Sarcoidosis Neuropathy Diabetes Mellitus Type 2 (HCC) PERNICIOUS ANEMIA CASCADE, S Routine 01/27/2024 3:17 PM CDT Sarcoidosis Neuropathy Diabetes Mellitus Type 2 (HCC) HC URINALYSIS AUTO W MICRO STAT 01/11/2024 1:44 PM CDT URINALYSIS WITH MICROSCOPIC IF INDICATED, U STAT 01/11/2024 1:[address] ABDOMEN PELVIS WITH IV CONTRAST RAD - Semiurgent (Fast; most ED patients; some inpatients) 01/11/2024 1:[address] CHEST ANGIOGRAM AND PULMONARY ARTERIES WITH IV CONTRAST RAD - Semiurgent (Fast; most ED patients; some inpatients) 01/11/2024 1:20 PM CDT C-REACTIVE PROTEIN (CRP), S/P STAT 01/11/2024 12:13 PM CDT LIPASE, S/P STAT 01/11/2024 12:13 PM CDT COMPREHENSIVE METABOLIC PANEL, S/P STAT 01/11/2024 12:13 PM CDT CBC WITH DIFFERENTIAL, B STAT 01/11/2024 12:13 PM CDT C-REACTIVE PROTEIN, HIGH SENSITIVITY, S/P Routine 12/08/2023 9:49 AM CDT Sarcoidosis Atrial Fibrillation Paroxysmal (HCC) Myocarditis (HCC) Sleep Apnea Hypopnea Autoimmune Disorder (HCC) Acute Systolic (Congestive) Heart Failure (HCC) Sarcoid Myocarditis (HCC) TROPONIN T, 5TH GEN, P Routine 12/08/2023 9:49 AM CDT Sarcoidosis Atrial Fibrillation Paroxysmal (HCC) Myocarditis (HCC) Sleep Apnea Hypopnea Autoimmune Disorder (HCC) Acute Systolic (Congestive) Heart Failure (HCC) Sarcoid Myocarditis (HCC) CBC WITH DIFFERENTIAL, B Routine 12/08/2023 9:49 AM CDT Sarcoidosis Atrial Fibrillation Paroxysmal (HCC) Myocarditis (HCC) Sleep Apnea Hypopnea Autoimmune Disorder (HCC) Acute Systolic (Congestive) Heart Failure (HCC) Sarcoid Myocarditis (HCC) COMPREHENSIVE METABOLIC PANEL, S/P Routine 12/08/2023 9:49 AM CDT Sarcoidosis Atrial Fibrillation Paroxysmal (HCC) Myocarditis (HCC) Sleep Apnea Hypopnea Autoimmune Disorder (HCC) Acute Systolic (Congestive) Heart Failure (HCC) Sarcoid Myocarditis (HCC) NT-PRO B-TYPE NATRIURETIC PEPTIDE (BNP), S Routine 12/08/2023 9:49 AM CDT Sarcoidosis Atrial Fibrillation Paroxysmal (HCC) Myocarditis (HCC) Sleep Apnea Hypopnea Autoimmune Disorder (HCC) Acute Systolic (Congestive) Heart Failure (HCC) Sarcoid Myocarditis (HCC) PET CT CARDIAC SARCOID RAD - Routine (most inpatients and all outpatients) 12/07/2023 3:58 PM CDT Sarcoidosis Atrial Fibrillation Paroxysmal (HCC) Myocarditis (HCC) Sleep Apnea Hypopnea Autoimmune Disorder (HCC) Acute Systolic (Congestive) Heart Failure (HCC) Sarcoid Myocarditis (HCC) (TTE) 2D ECHO DOPPLER COLOR Routine 12/07/2023 1:37 PM CDT Sarcoidosis Atrial Fibrillation Paroxysmal (HCC) Myocarditis (HCC) Sleep Apnea Hypopnea Autoimmune Disorder (HCC) Acute Systolic (Congestive) Heart Failure (HCC) Sarcoid Myocarditis (HCC) ECG Routine 12/07/2023 8:47 AM CDT Sarcoidosis Atrial Fibrillation Paroxysmal (HCC) Myocarditis (HCC) Sleep Apnea Hypopnea Autoimmune Disorder (HCC) Acute Systolic (Congestive) Heart Failure (HCC) Sarcoid Myocarditis (HCC) ICD DUAL CHAMBER INTERROGATION WITH PROGRAMMING Routine 12/07/2023 8:22 AM CDT Sarcoidosis Atrial Fibrillation Paroxysmal (HCC) Myocarditis (HCC) Sleep Apnea Hypopnea Autoimmune Disorder (HCC) Acute Systolic (Congestive) Heart Failure (HCC) Sarcoid Myocarditis (HCC) THYROID-STIMULATING HORMONE-SENSITIVE (S-TSH) STAT 04/23/2023 12:47 PM BOTTLE CAPPING MACHINE OPERATOR LIPID PANEL, S Routine 11/21/2018 8:40 AM CDT Beat Premature Ventricular from Last 3 Months or Most Recently Relevant to Health Maintenance Results * EMG (02/15/2024 1:13 PM CDT) 02/15/2024 1:15 PM CDT Narrative EMG - 02/15/2024 3:04 PM CDT Table formatting from the original result was not included. 15-Feb-2024 ? Electromyography ? Final Report Study Number: 1 EMG [employer] Lead: Cherise Rios [phone] or [phone] Referred by: NATALIIA ROCHE (127 or [phone]) Referred for: Sarcoidosis, Neuropathy Referral Code: ?200 RX: 200 SUMMARY: Prior to starting the procedure, the patient's identity was verified, pertinent available records were reviewed, the nature of the procedure was explained, the appropriate sites of the exam were confirmed directly with the patient, and a pre-procedure pause was performed for final verification of all of the above. ?? Nerve conduction studies demonstrated reduced fibular and tibial motor amplitudes with slowed conduction velocities. ??Sural distal latencies was mildly prolonged. ??Ulnar motor conduction velocity was slowed. ??Median sensory amplitude was reduced with slowed conduction velocity. ??There is no evidence of conduction block or temporal dispersion. ??Ulnar F-wave was within estimate. ??Needle electromyography demonstrated long duration motor unit potentials in distal lower limb muscles. ??There were no fibrillation potentials seen. CLINICAL INTERPRETATION: Abnormal EMG. 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 Khoa Rios (127 or [phone])/[facility] NERVE CONDUCTIONS ??Record Rep ?? Normal ??Normal Distal Normal F-Wave F-Wave Temp Nerve Type Site Stim Side Amp Amp CV CV Lat Lat Lat Est (??C) Fibular Motor EDB ??R 0.5 (> 2.0) 37 (> 41) 5.1 (< 6.6) ?? 29.0 Tibial Motor AH ??R 0.3 (> 4.0) 29 (> 40) 6.0 (< 6.1) ?? 29.1 Sural Sensory Ankle ??R 3 (> 0.0) ??(> 40) 4.7 (< 4.5) ?? 29.1 Ulnar Motor ADM ??R 8.4 (> 6.0) 48 (> 51) 3.2 (< 3.6) 33.2 32.2 32.7 Median Sensory Dig II ??R 10 (> 15.0) 45 (> 56) 3.2 (< 3.6) ?? 31.8 NEEDLE EMG ??Ins Spont ??MUP ??Recruitment ??Duration ??Amplitude ??Phases ?? Muscle Side Act Fib Fasc Normal Activ Reduced Rapid Long Short High Low % Turns First dorsal interosseous R NL 0 0 NL ? Tensor fasciae latae R NL 0 0 NL ? Vastus medialis R NL 0 0 NL ? Gastrocnemius (medial head) R NL 0 0 ? + ??+ ? Tibialis anterior R NL 0 0 ?? + ??+ ??+ ? Peroneus tertius R NL 0 0 ?? + ??++ ??++ ? This interpretation has been electronically signed: Cherise Rios M.D. at 02/15/2024 3:04:19 PM CDT Procedure Note Cherise Rios M.D. - 02/15/2024 15-Feb-2024 Electromyography Final Report Study Number: 1 EMG [employer] Lead: Cherise Rios [phone] or [phone] Referred by: NATALIIA ROCHE (127 or [phone]) Referred for: Sarcoidosis, Neuropathy Referral Code: 200 RX: 200 SUMMARY: Prior to starting the procedure, the patient's identity wasverified, pertinent available records were reviewed, the nature of theprocedure was explained, the appropriate sites of the exam were confirmeddirectly with the patient, and a pre-procedure pause was performed forfinal verification of all of the above. Nerve conduction studies demonstrated reduced fibular and tibial motoramplitudes with slowed conduction velocities. Sural distal latencies wasmildly prolonged. Ulnar motor conduction velocity was slowed. Mediansensory amplitude was reduced with slowed conduction velocity. There isno evidence of conduction block or temporal dispersion. Ulnar F-wave waswithin estimate. Needle electromyography demonstrated long duration motorunit potentials in distal lower limb muscles. There were no fibrillationpotentials seen. CLINICAL INTERPRETATION: Abnormal EMG. There is electrodiagnosticevidence of a length-dependent sensorimotor axonal peripheralneuropathy. Khoa Rios (127 or [phone])/[facility] NERVE CONDUCTIONS Record Rep Normal Normal Distal Normal F-Wave F-Wave Temp Nerve Type Site Stim Side Amp Amp CV CV Lat Lat Lat Est (??C) Fibular Motor EDB R 0.5 (> 2.0) 37 (> 41) 5.1 (< 6.6) 29.0 Tibial Motor AH R 0.3 (> 4.0) 29 (> 40) 6.0 (< 6.1) 29.1 Sural Sensory Ankle R 3 (> 0.0) (> 40) 4.7 (< 4.5) 29.1 Ulnar Motor ADM R 8.4 (> 6.0) 48 (> 51) 3.2 (< 3.6) 33.2 32.2 32.7 Median Sensory Dig II R 10 (> 15.0) 45 (> 56) 3.2 (< 3.6) 31.8 NEEDLE EMG Ins Spont MUP Recruitment Duration Amplitude Phases Muscle Side Act Fib Fasc Normal Activ Reduced Rapid Long Short High Low %Turns First dorsal interosseous R NL 0 0 NL Tensor fasciae latae R NL 0 0 NL Vastus medialis R NL 0 0 NL Gastrocnemius (medial head) R NL 0 0 + + Tibialis anterior R NL 0 0 + + + Peroneus tertius R NL 0 0 + ++ ++ This interpretation has been electronically signed: MichelleL. Rios M.D. at 02/15/2024 3:04:19 PM CDT Nataliia Araya NEUROLOGY ORDERABLES Ed ited Result - Final [facility] EMG * (ABNORMAL) CBC with Differential, Blood (02/07/2024 3:20 PM CDT) Only the most recent of3 resultswithin the time period is included. Hemoglobin 14.5 13.2 - 16.6 g/dL 02/07/2024 [...] PM CDT us Maryan Merritt APRN, C.N.P., Gabriel.N.P. LAB BLOOD ADD -ON Final Result [facility] [address] [place] [id number], [facility] CNFL [facility] in [address] [address] * (ABNORMAL) Hemoglobin A1c (01/27/2024 3:18 PM CDT) Hemoglobin A1c, B 7.1(H) 4.0 - 5.6 % 01/27/2024 3:54 PM CDT DT Comment: Hemoglobin A1c values greater than or equal to 6.5 percent are diagnostic for diabetes mellitus. ??Diagnosis should be confirmed by repeat testing. ??In diabetic patients, HbA1c goals should be discussed with healthcare provider. Blood (Blood, Venous) 01/27/2024 3:18 PM CDT 01/27/2024 3:40 PM CDT Nataliia Araya LAB BLOOD ADD-ON Final Result [facility] [address] [place] [address], [facility] [address] [place] [address] * Intrinsic Factor Blocking Antibody, Serum (01/27/2024 3:17 PM CDT) Intrinsic Factor Blocking Ab, S Negative Negative 01/28/2024 9:30 AM CDT [facility] Comment:Gastrin test was per formed. Comment SEE COMMENT 01/28/2024 9:30 AM CDT [facility] Comment: Intrinsic Factor Blocking Antibody (IFBA) antibodies are absent in approximately 50% of individuals with pernicious anemia (PA). The absence of elevated IFBA antibodies does not rule out the presence of PA; further studies such as gastrin testing may be indicated. Blood 01/27/2024 3:17 PM CDT 01/28/2024 7:38 AM CDT Nataliia NelsonS. LAB BLOOD NON ADD-ON Fi nal Result Performing Organization Address City/[facility]/ZIP Co de Phone Number [facility] [address] [place] [address] [facility] [address] [place] [address] * (ABNORMAL) Pernicious Anemia [place] (01/27/2024 3:17 PM CDT) Vitamin B12 Assay, S 128(L) 180 - 914 ng/L 01/28/2024 8:36 AM CDT [facility] Comment: Low B12; Intrinsic Factor Blocking Antibody test was performed. Blood (Blood, Venous) 01/27/2024 3:17 PM CDT 01/27/2024 4:12 PM CDT Narrative [facility] - 01/28/2024 8:36 AM CDT Specimen Information: Specimen ID: [id number] Specimen Type: Blood Specimen Collection Start Date: 01/27/2024 ??3:17 PM Specimen Received Date: 01/27/2024 ??4:12 PM Specimen ID: [id number] Specimen Type: Blood Specimen Collection Start Date: 01/27/2024 ??3:17 PM Specimen Received Date: 01/28/2024 ??7:38 AM Nataliia NelsonS. LAB BLOOD NON ADD-ON Fi nal Result Performing Organization Address City/[facility]/ZIP Co de Phone Number [facility] [address] [place] [address] [facility] [address] [place] [address] * Ceruloplasmin (01/27/2024 3:17 PM CDT) Ceruloplasmin, S 28.1 19.0 - 31.0 mg/dL 01/29/2024 9:41 AM CDT DTL Blood (Blood, Venous) 01/27/2024 3:17 PM CDT 01/27/2024 4:10 PM CDT Nataliia HoB.S. LAB BLOOD ADD-ON Final Result Performing Organization Address [facility]/ZIP Co de Phone Number [facility] [address] [place] [address], [place] DTL [facility] [address] [place] [address] * Gastrin (01/27/2024 3:17 PM CDT) Pathologist [facility] Gastrin, S 55 pg/mL 01/28/2024 12:16 PM CDT [facility] Comment: Not consistent with pernicious anemia. ----REFERENCE VALUE---- <100 Reference ranges valid for >= 8 hour fast. Blood 01/27/2024 3:17 PM CDT 01/28/2024 9:40 AM CDT Nataliia Bobby.S. LAB BLOOD NON ADD-ON Fi nal Result Performing Organization Address [facility]/ZIP Co de Phone Number [facility] [address] [place] [address] [facility] [address] [place] [address] * (ABNORMAL) Urinalysis with Microscopic if Indicated (01/11/2024 1:44 PM CDT) Pathologist [facility] Source Urine, Urine, Midstream 01/11/2024 1:49 PM CDT CNFL Clarity Clear Clear 01/11/2024 2:00 PM CDT CNFL Color Yellow 01/11/2024 2:00 PM CDT CNFL Comment: ----REFERENCE VALUE---- Colorless Yellow Kylie Blood Trace(A) Negative 01/11/2024 2:00 PM CDT CNFL Nitrite Negative Negative 01/11/2024 2:00 PM CDT CNFL Leukocyte Esterase Negative Negative 01/11/2024 2:00 PM CDT CNFL Protein Negative mg/dL 01/11/2024 2:00 PM CDT CNFL Comment: ----REFERENCE VALUE---- Negative Trace Glucose 250(A) Negative mg/dL 01/11/2024 2:00 PM CDT CNFL Ketones, QI(U) Negative Negative mg/dL 01/11/2024 2:00 PM CDT CNFL Bilirubin Negative Negative 01/11/2024 2:00 PM CDT CNFL pH 5.5 5.0 - 8.0 01/11/2024 2:00 PM CDT CNFL Specific [place] 1.010 1.001 - 1.035 01/11/2024 2:00 PM CDT CNFL Urobilinogen 0.2 0.2 - 1.0 mg/dL 01/11/2024 2:00 PM CDT CNFL Urine (Urine, Midstream) 01/11/2024 1:44 PM CDT 01/11/2024 1:49 PM CDT Hans Platt APRN, C.N.P., D.N.P. LAB URINE OR DERABLES Final Result [facility] [address] [place] [address], [facility] CNFL [facility] [address] * (ABNORMAL) Microscopic Manual (01/11/2024 1:44 PM CDT) White Blood Cells Occ-3 /hpf 01/11/2024 2:28 PM CDT CNFL Comment: ----REFERENCE VALUE---- Males: 0-3 Females: 0-10 Unknown: 0-10 Red Blood Cells Occ-2 0 - 2 /hpf 01/11/2024 2:28 PM CDT CNFL Crystals Calcium Oxalate(A) None Seen /lpf 01/11/2024 2:28 PM CDT CNFL Squamous Cells Occ-3 /hpf 01/11/2024 2:28 PM CDT CNFL Bacteria None Seen None Seen 01/11/2024 2:28 PM CDT CNFL Urine 01/11/2024 1:44 PM CDT 01/11/2024 1:49 PM CDT us Hans Platt APRN, C.N.P., D.N.P. LAB URINE OR DERABLES Final Result [facility] [address] [place] [id number], [facility] CNFL [facility] in [address] [address] * CT Abdomen Pelvis with IV Contrast (01/11/2024 1:23 PM CDT) Anatomical Region Laterality Modality Abdomen, Pelvis, Abdominal R ST LOS, Abdominal ARZ LOS, Abdominal FLA LOS N/A Computed Tomography 01/11/2024 1:21 PM CDT Impressions 01/11/2024 1:48 PM CDT CHEST: -No acute or chronic pulmonary embolism. -Similar appearance of 1.2 cm medial left upper lobe pulmonary nodule. Neoplasm remains a concern. -Healing left fourth through seventh rib fractures. Abdomen and pelvis: -No acute finding in the abdomen or pelvis. -4 mm nonobstructing left renal calculus. Narrative 01/11/2024 1:48 PM CDT EXAM: CT CHEST ANGIOGRAM AND PULMONARY ARTERIES WITH IV CONTRAST, CT ABDOMEN PELVIS WITH IV CONTRAST Including 3D image postprocessing with or without AI assistance. COMPARISON: Chest CT 08/26/2023, CT chest abdomen pelvis 04/12/2023 FINDINGS: Chest: Pulmonary Arteries: Satisfactory quality study. Pulmonary embolism: No endoluminal filling defects in the opacified pulmonary arteries. Other: Thyroid is unremarkable. Normal branch pattern of the great vessels off of the thoracic aorta. Aorta and pulmonary artery are normal in caliber. Heart is grossly normal in size. Cardiac pacing device with leads in the right atrium and right ventricle. Lungs and Airways: The central tracheobronchial tree is clear. No focal consolidation. No pleural effusion or pneumothorax. Similar appearance of 1.2 x 1.2 cm pulmonary nodule in the medial left upper lobe (series 7 image 164). Pleural Space: No pleural fluid or thickening. Mediastinum and Tamela: No thoracic adenopathy. Osseous Structures and Chest Wall: Healing left fourth through seventh rib fractures. [facility] of the thoracic spine kyphosis. Old T7 fracture. Abdomen and pelvis: Liver: Mild hepatic steatosis. Gallbladder/bile ducts: The gallbladder is nondistended. No cholelithiasis. No intrahepatic or extrahepatic biliary duct dilatation. Pancreas: Moderate pancreatic atrophy. No pancreatic lesion. Spleen: No suspicious lesion. Adrenal glands: Unremarkable. Kidneys, ureters, bladder: Posttreatment changes of right-sided nephrectomy. No nodularity or suspicious findings in the nephrectomy bed to suggest disease recurrence. Several low-density left-sided renal cysts. No suspicious left sided renal lesion. Nonobstructing 4 mm inferior pole left renal calculi. No hydronephrosis. No hydroureter. Bladder is unremarkable. GI tract, mesentery/peritoneum: The large and small bowel is normal in caliber. No abnormal bowel wall thickening. No abnormal bowel wall enhancement. Diverticulosis without evidence for acute diverticulitis. Stomach is unremarkable. Vasculature: The major arterial vessels off of the aorta are patent. The main portal vein is patent. No aortic aneurysmal dilation. Lymph Nodes: No intra-abdominal lymphadenopathy. Reproductive: Unremarkable. Bones/soft tissues: Multilevel degenerative changes of the lumbar spine most prominent at L2-L3. No osseous lesion. No fracture. Procedure Note Montana Vuong M.D. - 01/11/2024 EXAM: CT CHEST ANGIOGRAM AND PULMONARY ARTERIES WITH IV CONTRAST, CTABDOMEN PELVIS WITH IV CONTRAST Including 3D image postprocessing with or without AI assistance. COMPARISON: Chest CT 08/26/2023, CT chest abdomen pelvis 04/12/2023 FINDINGS: Chest: Pulmonary Arteries: Satisfactory quality study. Pulmonary embolism: No endoluminal filling defects in the opacifiedpulmonary arteries. Other: Thyroid is unremarkable. Normal branch pattern of the great vesselsoff of the thoracic aorta. Aorta and pulmonary artery are normal incaliber. Heart is grossly normal in size. Cardiac pacing device with leadsin the right atrium and right ventricle. Lungs and Airways: The central tracheobronchial tree is clear. No focalconsolidation. No pleural effusion or pneumothorax. Similar appearance of1.2 x 1.2 cm pulmonary nodule in the medial left upper lobe (series 7image 164). Pleural Space: No pleural fluid or thickening. Mediastinum and Tamela: No thoracic adenopathy. Osseous Structures and Chest Wall: Healing left fourth through seventh ribfractures. [facility] of the thoracic spine kyphosis. Old T7 fracture. Abdomen and pelvis: Liver: Mild hepatic steatosis. Gallbladder/bile ducts: The gallbladder is nondistended. Nocholelithiasis. No intrahepatic or extrahepatic biliary duct dilatation. Pancreas: Moderate pancreatic atrophy. No pancreatic lesion. Spleen: No suspicious lesion. Adrenal glands: Unremarkable. Kidneys, ureters, bladder: Posttreatment changes of right-sidednephrectomy. No nodularity or suspicious findings in the nephrectomy bedto suggest disease recurrence. Several low-density left-sided renal cysts.No suspicious left sided renal lesion. Nonobstructing 4 mm inferior pole left renal calculi. No hydronephrosis.No hydroureter. Bladder is unremarkable. GI tract, mesentery/peritoneum: The large and small bowel is normal incaliber. No abnormal bowel wall thickening. No abnormal bowel wallenhancement. Diverticulosis without evidence for acute diverticulitis.Stomach is unremarkable. Vasculature: The major arterial vessels off of the aorta are patent. Themain portal vein is patent. No aortic aneurysmal dilation. Lymph Nodes: No intra-abdominal lymphadenopathy. Reproductive: Unremarkable. Bones/soft tissues: Multilevel degenerative changes of the lumbar spinemost prominent at L2-L3. No osseous lesion. No fracture. IMPRESSION: CHEST: -No acute or chronic pulmonary embolism. -Similar appearance of 1.2 cm medial left upper lobe pulmonary nodule.Neoplasm remains a concern. -Healing left fourth through seventh rib fractures. Abdomen and pelvis: -No acute finding in the abdomen or pelvis. -4 mm nonobstructing left renal calculus. Hans Platt APRN, C.N.P., D.N.P. IMG CT PROCE ASHAES Final Result * CT Chest Angiogram and Pulmonary Arteries with IV Contrast (01/11/2024 1:20 PM CDT) Anatomical Region Laterality Modality Chest, Cardiovascular RST LO S, Thoracic ARZ LOS, Thoracic FLA LOS N/A Computed Tomography 01/11/2024 1:19 PM CDT Impressions 01/11/2024 1:48 PM CDT CHEST: -No acute or chronic pulmonary embolism. -Similar appearance of 1.2 cm medial left upper lobe pulmonary nodule. Neoplasm remains a concern. -Healing left fourth through seventh rib fractures. Abdomen and pelvis: -No acute finding in the abdomen or pelvis. -4 mm nonobstructing left renal calculus. Narrative 01/11/2024 1:48 PM CDT EXAM: CT CHEST ANGIOGRAM AND PULMONARY ARTERIES WITH IV CONTRAST, CT ABDOMEN PELVIS WITH IV CONTRAST Including 3D image postprocessing with or without AI assistance. COMPARISON: Chest CT 08/26/2023, CT chest abdomen pelvis 04/12/2023 FINDINGS: Chest: Pulmonary Arteries: Satisfactory quality study. Pulmonary embolism: No endoluminal filling defects in the opacified pulmonary arteries. Other: Thyroid is unremarkable. Normal branch pattern of the great vessels off of the thoracic aorta. Aorta and pulmonary artery are normal in caliber. Heart is grossly normal in size. Cardiac pacing device with leads in the right atrium and right ventricle. Lungs and Airways: The central tracheobronchial tree is clear. No focal consolidation. No pleural effusion or pneumothorax. Similar appearance of 1.2 x 1.2 cm pulmonary nodule in the medial left upper lobe (series 7 image 164). Pleural Space: No pleural fluid or thickening. Mediastinum and Tamela: No thoracic adenopathy. Osseous Structures and Chest Wall: Healing left fourth through seventh rib fractures. [facility] of the thoracic spine kyphosis. Old T7 fracture. Abdomen and pelvis: Liver: Mild hepatic steatosis. Gallbladder/bile ducts: The gallbladder is nondistended. No cholelithiasis. No intrahepatic or extrahepatic biliary duct dilatation. Pancreas: Moderate pancreatic atrophy. No pancreatic lesion. Spleen: No suspicious lesion. Adrenal glands: Unremarkable. Kidneys, ureters, bladder: Posttreatment changes of right-sided nephrectomy. No nodularity or suspicious findings in the nephrectomy bed to suggest disease recurrence. Several low-density left-sided renal cysts. No suspicious left sided renal lesion. Nonobstructing 4 mm inferior pole left renal calculi. No hydronephrosis. No hydroureter. Bladder is unremarkable. GI tract, mesentery/peritoneum: The large and small bowel is normal in caliber. No abnormal bowel wall thickening. No abnormal bowel wall enhancement. Diverticulosis without evidence for acute diverticulitis. Stomach is unremarkable. Vasculature: The major arterial vessels off of the aorta are patent. The main portal vein is patent. No aortic aneurysmal dilation. Lymph Nodes: No intra-abdominal lymphadenopathy. Reproductive: Unremarkable. Bones/soft tissues: Multilevel degenerative changes of the lumbar spine most prominent at L2-L3. No osseous lesion. No fracture. Procedure Note Montana Vuong M.D. - 01/11/2024 EXAM: CT CHEST ANGIOGRAM AND PULMONARY ARTERIES WITH IV CONTRAST, CTABDOMEN PELVIS WITH IV CONTRAST Including 3D image postprocessing with or without AI assistance. COMPARISON: Chest CT 08/26/2023, CT chest abdomen pelvis 04/12/2023 FINDINGS: Chest: Pulmonary Arteries: Satisfactory quality study. Pulmonary embolism: No endoluminal filling defects in the opacifiedpulmonary arteries. Other: Thyroid is unremarkable. Normal branch pattern of the great vesselsoff of the thoracic aorta. Aorta and pulmonary artery are normal incaliber. Heart is grossly normal in size. Cardiac pacing device with leadsin the right atrium and right ventricle. Lungs and Airways: The central tracheobronchial tree is clear. No focalconsolidation. No pleural effusion or pneumothorax. Similar appearance of1.2 x 1.2 cm pulmonary nodule in the medial left upper lobe (series 7image 164). Pleural Space: No pleural fluid or thickening. Mediastinum and Tamela: No thoracic adenopathy. Osseous Structures and Chest Wall: Healing left fourth through seventh ribfractures. [facility] of the thoracic spine kyphosis. Old T7 fracture. Abdomen and pelvis: Liver: Mild hepatic steatosis. Gallbladder/bile ducts: The gallbladder is nondistended. Nocholelithiasis. No intrahepatic or extrahepatic biliary duct dilatation. Pancreas: Moderate pancreatic atrophy. No pancreatic lesion. Spleen: No suspicious lesion. Adrenal glands: Unremarkable. Kidneys, ureters, bladder: Posttreatment changes of right-sidednephrectomy. No nodularity or suspicious findings in the nephrectomy bedto suggest disease recurrence. Several low-density left-sided renal cysts.No suspicious left sided renal lesion. Nonobstructing 4 mm inferior pole left renal calculi. No hydronephrosis.No hydroureter. Bladder is unremarkable. GI tract, mesentery/peritoneum: The large and small bowel is normal incaliber. No abnormal bowel wall thickening. No abnormal bowel wallenhancement. Diverticulosis without evidence for acute diverticulitis.Stomach is unremarkable. Vasculature: The major arterial vessels off of the aorta are patent. Themain portal vein is patent. No aortic aneurysmal dilation. Lymph Nodes: No intra-abdominal lymphadenopathy. Reproductive: Unremarkable. Bones/soft tissues: Multilevel degenerative changes of the lumbar spinemost prominent at L2-L3. No osseous lesion. No fracture. IMPRESSION: CHEST: -No acute or chronic pulmonary embolism. -Similar appearance of 1.2 cm medial left upper lobe pulmonary nodule.Neoplasm remains a concern. -Healing left fourth through seventh rib fractures. Abdomen and pelvis: -No acute finding in the abdomen or pelvis. -4 mm nonobstructing left renal calculus. Hans Platt APRN, Kari.N.P., D.N.P. IMG CT PROCE DURES Final Result * (ABNORMAL) CRP (C-Reactive Protein) (01/11/2024 12:13 PM CDT) C-Reactive Protein (CRP), P 6.6(H) <5.0 mg/L 01/11/2024 12:42 PM CDT CNFL Blood (Blood, Venous) 01/11/2024 12:13 PM CDT 01/11/2024 12:15 PM CDT Hans Platt APRN, C.N.P., D.N.P. LAB BLOOD AD D-ON Final Result [facility] [address] [place] [id number], [facility] in [address] [address] * Lipase (01/11/2024 12:13 PM CDT) Lipase, P 20 13 - 60 U/L 01/11/2024 12:42 PM CDT CNFL Blood (Blood, Venous) 01/11/2024 12:13 PM CDT 01/11/2024 12:15 PM CDT Hans Platt APRN, Kari.N.P., D.NSammyP. LAB BLOOD AD D-ON Final Result [facility] [address] [place] [id number], [facility] CNFL [facility] in [address] [address] * (ABNORMAL) Comprehensive Metabolic Panel (01/11/2024 12:13 PM CDT) Only the most recent of2 resultswithin the time period is included. Pathologist [facility] Potassium, P 4.6 3.6 - 5.2 mmol/L 01/11/2024 12:41 PM CDT CNFL Sodium, P 139 135 - 145 mmol/L 01/11/2024 12:41 PM CDT CNFL Chloride, P 105 98 - 107 mmol/L 01/11/2024 12:41 PM CDT CNFL Bicarbonate, P 22 22 - 29 mmol/L 01/11/2024 12:42 PM CDT CNFL Anion Gap, P 12 7 - 15 01/11/2024 12:41 PM CDT CNFL BUN (Blood Urea Nitrogen), P 22 8 - 24 mg/dL 01/11/2024 12:42 PM CDT CNFL Creatinine 1.70(H) 0.74 - 1.35 mg/dL 01/11/2024 12:42 PM CDT CNFL Estimated GFR (eGFR) 43(L) >=60 mL/min/BS A 01/11/2024 12:42 PM CDT CNFL Comment: Estimated GFR calculated using the 2020 CKD_EPI creatinine equation. Calcium, Total, P 9.4 8.8 - 10.2 mg/dL 01/11/2024 12:42 PM CDT CNFL Glucose, P 224(H) 70 - 140 mg/dL 01/11/2024 12:42 PM CDT CNFL Protein, Total, P 6.7 6.3 - 7.9 g/dL 01/11/2024 12:42 PM CDT CNFL Albumin, P 4.1 3.5 - 5.0 g/dL 01/11/2024 12:42 PM CDT CNFL Aspartate Aminotransferase (AST), P 16 8 - 48 U/L 01/11/2024 12:42 PM CDT CNFL Alkaline Phosphatase, P 82 40 - 129 U/L 01/11/2024 12:42 PM CDT CNFL Alanine Aminotransferase (ALT), P 17 7 - 55 U/L 01/11/2024 12:42 PM CDT CNFL Bilirubin, Total, P 0.4 0.0 - 1.2 mg/dL 01/11/2024 12:42 PM CDT CNFL Blood (Blood, Venous) 01/11/2024 12:13 PM CDT 01/11/2024 12:15 PM CDT us Hans Platt APRN, C.N.P., D.N.P. LAB BLOOD AD D-ON Final Result Performing Organization Address City/[facility] Co de Phone Number [facility] [address] [place] [id number], [facility] [address] [address] * NT-Pro B-Type Natriuretic Peptide (BNP) (12/08/2023 9:49 AM CDT) NT-Pro BNP 246 <=540 pg/mL 12/08/2023 10:43 AM CDT DTL Comment: NT-proBNP values less than 300 pg/mL have a 99% negative predictive value for excluding acute congestive heart failure. A cutoff of 1200 pg/mL for patients with an eGFR<60 yields a diagnostic sensitivity and specificity of 89% and 72% for acute congestive heart failure. A diagnostic NT-proBNP cutoff of 900 pg/mL has been suggested in adults 50-75 years of age in the absence of renal failure. Blood (Blood, Venous) 12/08/2023 9:49 AM CDT 12/08/2023 10:19 AM CDT Ramsey Kelly M.D. LAB BLOOD ADD-ON Final R esult Performing Organization Address City/[facility]/ZIP Co de Phone Number [facility] [address] [place] [address], [facility] DTL [facility] [address] [place] [address] * (ABNORMAL) C-Reactive Protein, High Sensitivity (12/08/2023 9:49 AM CDT) C-Reactive Protein, High Sens, S 8.1(H) <2.0 mg/L 12/08/2023 10:43 AM CDT DTL Comment: Elevated C-reactive protein (>=2.0 mg/L) is a risk factor for cardiovascular disease. Clinician-patient discussion of therapeutic strategy is warranted. Blood (Blood, Venous) 12/08/2023 9:49 AM CDT 12/08/2023 10:19 AM CDT Ramsey Kelly M.D. LAB BLOOD ADD-ON Final R esult [address] [place] [address] * (ABNORMAL) Troponin T, 5th Generation (12/08/2023 9:49 AM CDT) Troponin T, 5th gen 53(H) <=15 ng/L 12/08/2023 10:44 AM CDT DTL Blood (Blood, Venous) 12/08/2023 9:49 AM CDT 12/08/2023 10:19 AM CDT Ramsey Kelly M.D. LAB BLOOD [place] [address] * PET CT Cardiac Sarcoid (12/07/2023 3:58 PM CDT) 12/07/2023 1:51 PM CDT Narrative CV MERGE - 12/07/2023 4:45 PM CDT See PDF For Result Procedure Note Hans Sabillon M.D. - 12/07/2023 See PDF For Result us Ramsey Kelly M.D. IMG NM PROCEDURES Final Result [facility] CV MERGE NA * (TTE) 2D ECHO DOPPLER COLOR (12/07/2023 1:37 PM CDT) Ejection Fraction 58 MC CV EIMS Wall Motion Score Index 1.31 MC CV EIMS LV End-Diastolic Volume 159 MC CV EIMS LV End-Systolic Volume 67 MC CV EIMS Left ventricular stroke volume index 36 MC CV EIMS Cardiac Output 6.1 MC CV EIMS Cardiac Index 2.47 MC CV EIMS LV Global Longitudinal Strain -19 [facility] EIM[facility] TR Vmax 2.59 [facility] EIM[facility] RA Pressure 5 MC CV EIMS RV Systolic Pressure 32 MC CV EIMS Anatomical Region Laterality Modality Echocardiography 12/07/2023 12:0 7 PM CDT Impressions 12/07/2023 2:03 PM CDT Echocardiogram performed per sarcoidosis protocol. LEFT VENTRICLE:Normal left ventricular chamber size. Global averaged left ventricular longitudinal peak systolic strain is normal at -19% (normal = more negative than -18%). Calculated 2-D biplane volumetric left ventricular ejection fraction of 58% without the use of ultrasound enhancing agent. Abnormal ventricular septal motion due to pacing without other regional wall motion abnormalities. RIGHT VENTRICLE:Normal right ventricular chamber size. Right ventricular strain assessment was performed but not reported based on astronomy instructor's judgment. Normal right ventricular systolic function. Estimated right ventricular systolic pressure 32 mmHg. ATRIA:Normal left atrial size by visual estimate. Normal right atrial size by visual estimate. CARDIAC VALVES:Thickened aortic valve. Mild aortic valve regurgitation. Thickened mitral valve. Mild mitral valve regurgitation. Normal tricuspid valve. Trivial tricuspid valve regurgitation. OTHER ECHO FINDINGS:Inferior vena cava not well visualized. No intracardiac mass or thrombus, but the left atrial appendage cannot be visualized adequately with transthoracic echo to exclude thrombus in this location. No ??pericardial effusion. Device lead (s) identified in right atrium and right ventricle. For the complete report, see the Order-Level Documents. Narrative 12/07/2023 2:03 PM CDT For the complete report, see the Order-Level Documents. Hemodynamics Heart Rate: 68 BPM Blood Pressure: 124 / 77 mmHg ECG: Sinus rhythm with ectopics, Dual Chamber Pacemaker Final Impressions 1. Normal left ventricular chamber size, calculated 2-D biplane volumetric ejection fraction of 58%, global averaged longitudinal peak systolic strain is normal at -19% (normal = more negative than -18%). 2. Abnormal ventricular septal motion due to pacing without other regional wall motion abnormalities. 3. Normal right ventricular chamber size, normal systolic function. 4. Estimated right ventricular systolic pressure 32 mmHg. 5. No ??significant valvular heart disease. 6. No ??pericardial effusion. 7. Compared to the report of 03/01/2023 the following changes have occurred: global averaged left ventricular longitudinal peak systolic strain and left ventricular ejection fraction have ??significantly improved. Right ventricular systolic function is also normal. ??Side by side comparison of images performed. Procedure Note Garett Pelaez M.D. - 12/07/2023 For the complete report, see the Order-Level Documents. Hemodynamics Heart Rate: 68 BPM Blood Pressure: 124 / 77 mmHg ECG: Sinus rhythm with ectopics, Dual Chamber Pacemaker Final Impressions 1. Normal left ventricular chamber size, calculated 2-D biplane volumetricejection fraction of 58%, global averaged longitudinal peak systolicstrain is normal at - 19% (normal = more negative than -18%). 2. Abnormal ventricular septal motion due to pacing without other regionalwall motion abnormalities. 3. Normal right ventricular chamber size, normal systolic function. 4. Estimated right ventricular systolic pressure 32 mmHg. 5. No significant valvular heart disease. 6. No pericardial effusion. 7. Compared to the report of 03/01/2023 the following changes haveoccurred: global averaged left ventricular longitudinal peak systolicstrain and left ventricular ejection fraction have significantlyimproved. Right ventricular systolic function is also normal. Side byside comparison of images performed. Findings Echocardiogram performed per sarcoidosis protocol. LEFT VENTRICLE:Normal left ventricular chamber size. Global averaged leftventricular longitudinal peak systolic strain is normal at -19% (normal =more negative than -18%). Calculated 2-D biplane volumetric leftventricular ejection fraction of 58% without the use of ultrasoundenhancing agent. Abnormal ventricular septal motion due to pacing withoutother regional wall motion abnormalities. RIGHT VENTRICLE:Normal right ventricular chamber size. Right ventricularstrain assessment was performed but not reported based on astronomy instructor'sjudgment. Normal right ventricular systolic function. Estimated rightventricular systolic pressure 32 mmHg. ATRIA:Normal left atrial size by visual estimate. Normal right atrial sizeby visual estimate. CARDIAC VALVES:Thickened aortic valve. Mild aortic valve regurgitation.Thickened mitral valve. Mild mitral valve regurgitation. Normal tricuspidvalve. Trivial tricuspid valve regurgitation. OTHER ECHO FINDINGS:Inferior vena cava not well visualized. Nointracardiac mass or thrombus, but the left atrial appendage cannot bevisualized adequately with transthoracic echo to exclude thrombus in thislocation. No pericardial effusion. Device lead (s) identified in rightatrium and right ventricle. For the complete report, see the Order-Level Documents. us Ramsey Kelly M.D. CV ECHO PROCEDURES Final Result * ECG 12 Lead (12/07/2023 8:47 AM CDT) Ventricular Rate ECG/Min 61 BPM MUSE HI Interval 230 ms MUSE QRSD Interval 144 ms MUSE QT Interval 422 ms MUSE QTC Interval 424 ms MUSE P Stringer 26 degrees MUSE R Stringer 14 degrees MUSE T Wave Stringer 34 degrees MUSE 12/07/2023 8:47 AM CDT 12/07/2023 10:21 AM CDT Impressions MUSE - 12/07/2023 9:15 AM CDT Demand atrial and ventricular pacing; Interpretation is based on intrinsic rhythm Sinus rhythm Premature ventricular complexes Right bundle branch block with secondary ST-T abnormalities Cannot rule out Inferior infarct When compared with ECG of 19-May-2023 12:34, Ventricular pacing is now evident Reviewed by CHARLES Dao Narrative Procedure Note Alexis Avery M.D. - 12/07/2023 IMPRESSION: Demand atrial and ventricular pacing; Interpretation is based on intrinsicrhythm Sinus rhythm Premature ventricular complexes Right bundle branch block with secondary ST-T abnormalities Cannot rule out Inferior infarct When compared with ECG of 19-May-2023 12:34, Ventricular pacing is now evident Reviewed by CHARLES Dao us Ramsey Kelly M.D. ECG ORDERABLES Edited R esult - Final MUSE NA * ICD DUAL CHAMBER INTERROGATION WITH PROGRAMMING (12/07/2023 8:22 AM CDT) Date Time Interrogation Session [id number] [facility] Implantable Pulse Generator Community Services Coordinator [employer] [facility] Implantable Pulse Generator Model D152 DYNAGEN [facility] Implantable Pulse Generator Serial Number [id number] [facility] Type Interrogation Session In Clinic [facility] Clinic Name [facility] Implantable Pulse Generator Type Defibrillator [facility] Implantable Pulse Generator Implant Date 20221104 [facility] Implantable Lead Community Services Coordinator [employer] [facility] Implantable Lead Model 0273 Endotak [place] 4-Site S [facility] Implantable Lead Serial Number [id number] [facility] Implantable Lead Implant Date 20221104 [facility] Implantable Lead Polarity Type Bipolar Lead [facility] Implantable Lead Location Detail 1 UNKNOWN [facility] Implantable Lead Special Function Lead length: 64 cm [facility] Implantable Lead Location Right Ventricle [facility] Implantable Lead Community Services Coordinator [employer] [facility] Implantable Lead Model 7841 Ingevity + MRI [facility] Implantable Lead Serial Number [id number] [facility] Implantable Lead Implant Date 20221104 [facility] Implantable Lead Polarity Type Bipolar Lead [facility] Implantable Lead Location Detail 1 UNKNOWN [facility] Implantable Lead Special Function Lead length: 52 cm [facility] Implantable Lead Location Right Atrium [facility] Theron Setting Mode (NBG Code) DDD [facility] Theron Setting Lower Rate Limit 60 {beats}/ min [facility] Theron Setting Maximum Tracking Rate 130 {beats}/ min [facility] Theron Setting Maximum Sensor Rate 130 {beats}/ min [facility] Theron Setting ASUNCION Delay Low 150.0 ms [facility] Theron Setting PAV Delay Low 180.0 ms [facility] Theron Setting PAV Delay High 80.0 ms [facility] Theron Setting ASUNCION Delay High 65.0 ms [facility] Theron Setting AT Mode Switch Rate 170 {beats}/ min [facility] Theron Setting AT Mode Switch Mode DDIR [facility] Lead Channel Setting Sensing Polarity Bipolar [facility] Lead Channel Setting Sensing Sensitivity 0.25 mV [facility] Lead Channel Setting Sensing Adaptation Mode Adaptive [facility] Lead Channel Setting Sensing Polarity Bipolar [facility] Lead Channel Setting Sensing Sensitivity 0.6 mV [facility] Lead Channel Setting Sensing Adaptation Mode Adaptive [facility] Lead Channel Setting Pacing Polarity Bipolar [facility] Lead Channel Setting Pacing Pulse Width 0.4 ms [facility] Lead Channel Setting Pacing Amplitude 3.5 V [facility] Lead Channel Setting Pacing Capture Mode Fixed Pacing [facility] Lead Channel Setting Pacing Polarity Bipolar [facility] Lead Channel Setting Pacing Pulse Width 0.4 ms [facility] Lead Channel Setting Pacing Amplitude 2.0 V [facility] Lead Channel Setting Pacing Capture Mode Fixed Pacing [facility] Zone Setting Type Category VF [facility] Zone Setting Detection Interval 273.0 ms [facility] Zone Setting Type Category [place] [facility] Zone Setting Detection Interval 324.0 ms [facility] Zone Setting Type Category [place] [facility] Lead Channel Impedance Value 654.0 ohm [facility] Lead Channel Sensing Intrinsic Amplitude 4.9 mV [facility] Lead Channel Pacing Threshold Amplitude 1.6 V [facility] Lead Channel Pacing Threshold Pulse Width 0.4 ms [facility] Lead Channel Impedance Value 425.0 ohm [facility] Lead Channel Sensing Intrinsic Amplitude 13.0 mV [facility] Lead Channel Pacing Threshold Amplitude 0.7 V [facility] Lead Channel Pacing Threshold Pulse Width 0.4 ms [facility] Battery Date Time of Measurements [facility] Battery Status Beginning of Service [facility] Battery Remaining Longevity 126 mo [facility] Capacitor Charge Type Reformation [facility] Capacitor Last Charge Date Time [facility] Capacitor Charge Time 10 s [facility] Capacitor Charge Type Shock [facility] Theron Statistic Date Time Start [facility] Theron Statistic Date Time End [facility] Theron Statistic RA Percent Paced 34 % [facility] Theron Statistic RV Percent Paced 12 % [facility] Therapy Statistic Total Shocks Delivered 3 [facility] Therapy Statistic Total Shocks Aborted 1 [facility] Therapy Statistic Total ATP Delivered 4 [facility] Therapy Statistic Total Date Time End [facility] Therapy Statistic Recent Shocks Delivered 0 [facility] Therapy Statistic Recent Shocks Aborted 0 [facility] Therapy Statistic Recent ATP Delivered 0 [facility] Therapy Statistic Recent Date Time End [facility] Episode Statistic Total Count 2,573 [facility] Episode Statistic Type Category [place] [facility] Episode Statistic Vendor Type Category NSVT [facility] Episode Statistic Total Count 175 [facility] Episode Statistic Type Category VF [facility] Episode Statistic Vendor Type Category VF [facility] Episode Statistic Total Count 171 [facility] Episode Statistic Type Category VF_[facility] Episode Statistic Total Date Time End [facility] Episode Statistic Total Date Time End [facility] Episode Statistic Total Date Time End [facility] Episode Statistic Recent Count 0 [facility] Episode Statistic Type Category [place] [facility] Episode Statistic Vendor Type Category NSVT [facility] Episode Statistic Recent Count 0 [facility] Episode Statistic Type Category VF [facility] Episode Statistic Vendor Type Category VF [facility] Episode Statistic Recent Count 0 [facility] Episode Statistic Type Category VF_[facility] Episode Statistic Recent Date Time End [facility] Episode Statistic Recent Date Time End [facility] Episode Statistic Recent Date Time End [facility] Anatomical Region Laterality Modality Echocardiography 12/07/2023 8:17 AM CDT Narrative 12/08/2023 12:54 PM CDT PURPOSE OF VISIT: ??Patient seen for routine device interrogation in conjunction with other appointments. PRESENTING RHYTHM: ??Atrial sensed/ ventricular sensed at 65 bpm. UNDERLYING RHYTHM: ??Sinus Rhythm at 65 bpm. ATRIAL ARRHYTHMIAS: ??Since 10/18/23 none. ? Atrial fibrillation burden: ??0%. VENTRICULAR ARRHYTHMIAS: ??None. ?PVC [place]: Since 05/27/23 device recorded 227.5K BATTERY LONGEVITY: ??Expected battery longevity trends reviewed and are stable and consistent with device settings and use. SUMMARY: ??All device function appears normal. The device incision is well healed. PROGRAMMING CHANGES: ??Based on today threshold measurement RA lead was programmed to 3.5V EDUCATION: Patient is ready to learn with no apparent learning barriers. ?? I explained the interrogation findings and follow-up plan; patient asked appropriate questions and expressed understanding. FOLLOW UP LOCATION STATUS: [facility] (A) NEXT FOLLOW UP: Next routine follow-up will be via [facility]. DEVICE RN: Alhaji Najera. Provider statement: This patient underwent device interrogation. I agree that the device interrogation was medically indicated to provide appropriate care and continue routine device interrogations as indicated. us Ramsey Kelly M.D. CV IMPLANTABLE CARDIAC D EVICE Final Result * S-TSH (Thyroid-Stimulating Hormone - Sensitive) (04/23/2023 12:47 PM BOTTLE CAPPING MACHINE OPERATOR) TSH, Sensitive 3.0 0.3 - 4.2 mIU/L 04/23/2023 2:21 PM BOTTLE CAPPING MACHINE OPERATOR DTL Blood (Blood, Venous) 04/23/2023 12:47 PM BOTTLE CAPPING MACHINE OPERATOR 04/23/2023 1:48 PM BOTTLE CAPPING MACHINE OPERATOR us Pollo Serrato M.D. LAB BLOOD ADD-ON Final Res ult [facility] [address] [place] [address], [facility] [address] [place] [address] * (ABNORMAL) Lipid Panel (11/21/2018 8:40 AM CDT) Pathologist [facility] Cholesterol, Total 187 mg/dL 2018 10:31 AM CDT Comment: ----REFERENCE VALUE---- Desirable: < 200 Borderline high: 200 - 239 High: > or = 240 Triglycerides 159(H) mg/dL 11/21/2018 10:31 AM CDT Comment: ----REFERENCE VALUE---- Normal: <150 Borderline high: 150-199 High: 200-499 Very high: > or =500 Cholesterol, HDL, S 46 >=40 mg/dL 11/21/2018 10:31 AM CDT Calculated LDL 109 mg/dL 11/21/2018 10:31 AM CDT Comment: ----REFERENCE VALUE---- Desirable: <100 Above Desirable: 100-129 Borderline high: 130-159 High: 160-189 Very high: > or =190 Cholesterol, Non-HDL, Calculated 141 mg/dL 11/21/2018 10:31 AM CDT Comment: ----REFERENCE VALUE---- Desirable: <130 Above Desirable: 130-159 Borderline high: 160-189 High: 190-219 Very high: > or =220 Blood (Blood, Venous) 11/21/2018 8:40 AM CDT 11/21/2018 9:03 AM CDT Thanh Ray M.D., Ph.D. LAB BLOOD AD D-ON Final Result [facility] [address] [place] [address], [facility] from Last 3 Months or Most Recently Relevant to Health Maintenance Insurance MEDICARE FORMERLY [facility], [facility] Advance Directives For more information, please contact: [phone] * Full Code (Latest Code Status on File) Date Activated Date Inactivated Comments 11/04/2022 10:33 AM 11/04/2022 2:33 PM Question Answer Comments Full Code: Not Discussed Due to: Patient not available Care Teams Professor Of Engineering Relationship Specialty Start Date End Date Elsewhere, Pcp PCP - General Internal Medicine 09/08/22
--- OUTSIDE RECORDS SUMMARY | 2024-02-22 10:04 | XMS_ITS | Encounter Summary ---
Author Organization [facility] Address [address] [place] [address] Care Team Providers Care Preparation Operator Name Role Phone Elsewhere, Pcp Primary Care Provider Unavailabl e Reason for Referral * Outpatient (Routine) - Closed Specialty Diagnoses / Procedures Referred By Yasmin jo Referred To Contact Diagnoses Sarcoidosis Neuropathy Diabetes Mellitus Type 2 (HCC) Procedures [facility] Star [facility] [address] [place] [address] Phone: tel: fax: [facility] Referral ID Status Reason Start Date Expiration Date Visits Re quested Visits Authorized [id number] Closed 01/27/2024 01/26/2025 1 1 Reason for Visit * Outpatient (Routine) - Closed Specialty Diagnoses / Procedures Referred By Yasmin jo Referred To Contact Diagnoses Sarcoidosis Neuropathy Diabetes Mellitus Type 2 (HCC) Procedures [facility] Star [facility] [address] [place] [address] Phone: tel: fax: [facility] Referral ID Status Reason Start Date Expiration Date Visits Re quested Visits Authorized [id number] Closed 01/27/2024 01/26/2025 1 1 Encounter Details Date Type Department Care Team (Latest Contact Info) Description 02/15/2024 1:13 PM CDT - 02/15/2024 11:59 PM CDT Hospital Encounter Department of Neurology in [place], [place] [address] [place] [address] Star Roche M.B.B.S. [address] [place] [address] Sarcoidosis; Neuropathy; Diabetes Mellitus Type 2 (HCC) Discharge Disposition: Home or Self Care Social History Tobacco Use Types Packs/Day Years Used Date Smoking Tobacco: Never Passive Smoke Exposure: Past Smokeless Tobacco: Never Alcohol Use Standard Drinks/Week Comments Yes 14 (1 standard drink = 0.6 oz pu re alcohol) [facility] Utilities Answer Date Recorded In the past 12 months has e [employer], gas, oil, or water [employer] threatened to shut off services in your [...] often do you attend chur ch or yazdanism services? More than 4 times per year 04/13/2022 Do you belong to any clubs o r organizations such as judaism groups, unions, fraternal or athletic groups, or [...] Answer Date Recorded PHQ-2 Score 6 10/28/2023 [facility] - Occupational Stress [...] your living situation today? I have a [facility] place to live 04/26/2023 Education Answer Date Recorded What is the highest level of school you have completed or the highest degree you have received? Bachelor's degree (e.g., BA, AB, BS) 11/19/2018 Sex and Gender Information Value Date Recorded Sex Assigned at Male 04/13/2022 12:32 PM SENIOR DATA ARCHITECT Legal Sex Male 9:12 PM SENIOR DATA ARCHITECT Gender Identity Male 04/13/2022 12:32 PM SENIOR DATA ARCHITECT Sexual Orientation Straight 04/13/2022 12 :32 PM SENIOR DATA ARCHITECT documented as of this encounter Medications at [...] st Contact Info) Description 04/09/2024 1:30 PM SENIOR DATA ARCHITECT Appointment Department of Laboratory Medicine and Pathology, [facility] in [place], [place] [address] [place] [phone] Maryan Merritt APRN, C.N.P., D.N.P. [address] [place] [phone] 04/09/2024 2:00 PM SENIOR DATA ARCHITECT Office Visit Division of Rheumatology in [place], [place] [address] [place] [phone] Maryan Merritt APRN, C.N.P., D.N.P. [address] [place] [phone] documented as of this encounter Procedures Procedure Name Priority Date/Time Associated Diagnosis Comments EMG Routine 02/15/2024 1:13 PM CDT Sarcoidosis Neuropathy Diabetes Mellitus Type 2 (HCC) documented in this encounter Results * EMG (02/15/2024 1:13 PM CDT) 02/15/2024 1:15 PM CDT Narrative EMG - 02/15/2024 3:04 PM CDT Table formatting from the original result was not included. 15-Feb-2024 ? Electromyography ? Final Report Study Number: 1 EMG Dental Professional: Cherise Rios 127 or [phone] Referred by: STAR ROCHE (127 or [phone]) Referred for: Sarcoidosis, Neuropathy Referral Code: ?200 [...] axonal peripheral neuropathy. Khoa Rios (127 or [phone])/SMB NERVE CONDUCTIONS ??Record Rep ?? Normal ??Normal [...] Electromyography Final Report Study Number: 1 EMG Dental Professional: Cherise Rios 127 or [phone] Referred by: STAR ROCHE (127 or [phone]) Referred for: Sarcoidosis, Neuropathy Referral Code: 200 [...] sensorimotor axonal peripheralneuropathy. Khoa Rios (127 or [phone])/SMB NERVE CONDUCTIONS Record Rep Normal Normal Distal [...] Rios M.D. at 02/15/2024 3:04:19 PM CDT Star Araya NEUROLOGY ORDERABLES Ed ited Result - Final EMG documented in this encounter Visit Diagnoses Diagnosis Sarcoidosis Neuropathy Diabetes Mellitus Type 2 (HCC) documented in this encounter Additional Health Concerns Assessment Noted Time PHQ-9 Depression Total Score: 22 024 7:46 AM CDT documented as of this encounter Care Teams Preparation Operator Relationship Specialty Start Date End Date Elsewhere, Pcp PCP - General Internal Medicine 09/08/22 documented as of this encounter
--- OUTSIDE RECORDS SUMMARY | 2024-02-22 10:04 | XMS_ITS | Encounter Summary ---
Author Organization [facility] Address [address] [place] [address] Care Team Providers Care Atomic Physics Teacher Name Role Phone Elsewhere, Pcp Primary Care Provider Unavailabl e Reason for Referral * Outpatient (Routine) - Authorized Specialty Diagnoses / Procedures Referred By Yasmin jo Referred To Contact Neurology Star Roche M.B.B.S. [address] [place] [address] Phone: tel: fax: [facility] Referral ID Status Reason Start Date Expiration Date V isits Requested Visits Authorized [id number] Authorized 01/27/2024 07/28/2025 1 1 * Outpatient (Routine) - Closed Specialty Diagnoses / Procedures Referred By Yasmin jo Referred To Contact Diagnoses Sarcoidosis Neuropathy Diabetes Mellitus Type 2 (HCC) Procedures EMG Star Roche M.B.B.S. [address] [place] [address] Phone: tel: fax: [facility] Referral ID Status Reason Start Date Expiration Date Visits Re quested Visits Authorized [id number] Closed 01/27/2024 01/26/2025 1 1 Reason for Visit * Outpatient (Routine) - Closed Specialty Diagnoses / Procedures Referred By Yasmin jo Referred To Contact Neurology Star Roche M.B.B.S. [address] [place] [address] Phone: tel: fax: [facility] Referral ID Status Reason Start Date Expiration Date Visits Re quested Visits Authorized [id number] Closed 03/02/2023 03/01/2026 1 1 Encounter Details Date Type Department Care Team (Late st Contact Info) Description 01/27/2024 2:00 PM CDT Office Visit Department of Neurology in [place], [place] [address] [place] [phone] Star Roche M.B.B.S. [address] [place] [phone] Diabetes Mellitus Type 2 (HCC) (Primary Dx); Sarcoidosis; Neuropathy Social History Tobacco Use Types Packs/Day Years Used Date Smoking Tobacco: Never Passive Smoke Exposure: Past Smokeless Tobacco: Never Alcohol Use Standard Drinks/Week Comments Yes 14 (1 standard drink = 0.6 oz pu re alcohol) [facility] Utilities Answer Date Recorded In the past 12 months has [facility] Fire[employer], gas, oil, or water [employer] threatened to shut off services in your [...] often do you attend chur ch or islam services? More than 4 times per year 04/13/2022 Do you belong to any clubs o r organizations such as adventist groups, unions, fraternal or athletic groups, or [...] Answer Date Recorded PHQ-2 Score 6 10/28/2023 [facility] - Occupational Stress Questionnaire Answer Date [...] money to buy more. Never true 04/26/20 23 Within the past 12 months, t [...] Date Recorded Dental: Regular Dentist Yes 04/26/20 23 Employment Answer Date Recorded Employment status Retired 04/26/2023 Housing Stability Answer Date Recorded What is your living situation today? I have a [facility] place to live 04/26/2023 Education Answer Date Recorded What is the highest level of school you have completed or the highest degree you have received? Bachelor's degree (e.g., BA, AB, BS) 11/19/2018 Sex and Gender Information Value Date Recorded Sex Assigned at Male 04/13/2022 12:32 PM CLINICAL CASE MANAGER Legal Sex Male 9:12 PM CLINICAL CASE MANAGER Gender Identity Male 04/13/2022 12:32 PM CLINICAL CASE MANAGER Sexual Orientation Straight 04/13/2022 12 :32 PM CLINICAL CASE MANAGER documented as of this encounter Progress Notes * Star Roche M.B.B.SSammy - 01/27/2024 2:00 PM CDT SUBJECTIVE CHIEF COMPLAINT / REASON FOR VISIT Hans Gu presents today in follow-up of IgLON5 IgG associated autoimmunity. 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 He is here with his Maribeth. He has history of renal clear cell carcinoma 2014 (hematuria, s/p radical right nephrectomy, PET/CTno systemic metastasis), surgical excision of right skull lesion Jan 2015 with benign pathology, lung clear cell metastases Apr 2021 (s/p unsuccessful lung nodule resection Jun 2021, pembrolizumab/axitinib in June 2021-June 2022, maintained on axitinib), immune therapy associated hypothyroidism (Apr 2022), myocarditis and dual chamber ICD placement October 2022 question IgLON5 vs sarcoidosis vs late treatment effect, mixed central and obstructive sleep apnea, type 2 diabetes, hypertension, hyperlipidemia, and depression. Recall symptoms initially started in June 2021 within a month after starting pembrolizumab with myoclonic jerks in sleep and wakefulness, and cognitive changes. In September he had worsening confusion and auditory hallucinations. By fall he had gait imbalance and falls. In May 2022 he had more neurocognitive and behavioral changes including paranoia, skin picking, delusions of foreign objects, impulsive shopping and hypersexuality. EEG showed background slowing, MRI brain had no evidence of intracranial metastases, and CSF was consistent with traumatic tap, with positive IgLON5 antibody. Pembrolizumab was discontinued the beginning of June 2022, due to concerns that it could have contributed to the patient's presentation. InApril 2022 he was treated with prednisone 100 mg daily x5 days, followed by 3 days of IV methylprednisolone and IVIG, without any apparent improvement in his symptoms. Subsequently he received rituximab in November 18, 2022 followed by oral prednisone in December 19, 2022. He continues to have some ongoing dream enactment behavior and some neuropsychiatric dysfunction which is being symptomatically managed. He has had some episodes impulsivity. Lately he has been complaining of more significant gait instability, requiring gait aid for ambulation including wheelchair. Additionally he complains of some numbness in his feet concerning for peripheral neuropathy. Prior tests: Cardiac PET-CT October 15: abnormal FDG uptake consistent with an active inflammatory myocardial process. On the PET-CT, there was comment of uptake within hilar lymph nodes Baseline MRI and Pet-CT brain: MR brain 09/13/22:FINDINGS: Since the prior exam, interval postoperative changes of right occipital calvarial resection or a previously seen calvarial lesion with new bilateral medial cerebellar hemispheric encephalomalacia, right greater than left. No definite abnormal intracranial diffusion restriction or enhancement. No evidence of abnormal intracranial hemosiderin deposition. [id number] cerebral and cerebral volume loss without definite lobar predilection. Cerebellar volume loss may be slightly disproportionate to the degree of cerebral volume loss, though this is somewhat equivocal and confounded by aforementioned encephalomalacia. Interval increase in number of nonenhancing T2 hyperintense foci within the bilateral cerebral white matter. These foci remain nonspecific but are favored to represent moderate to advanced changes of chronic small vessel ischemic disease. Patent intracranial vascular flow voids. Mild scattered paranasal sinus mucosal thickening. IMPRESSION: 1. No abnormal intracranial diffusion restriction or enhancement. 2. Since 02/03/2015, interval postoperative changes of right occipital craniectomy for resection of a and occipital calvarial lesion with development of bilateral medial cerebellar hemispheric encephalomalacia, right greater than left. PET CT Brain 09/10/22: FINDINGS: The examination shows mild bilateral anterior frontal lobe hypometabolism, mild hypometabolism of portions of both parietal lobes, and very slightly diminished uptake by the anterior temporal lobes. Noted on low dose, unenhanced, free breathing, nondiagnostic quality CT images obtained for anatomic co-registration and attenuation correction purposes only: Postop changes right occipital lobe. Vascular calcifications. IMPRESSION: Nonspecific findings. Please see body of the report. CBC Nov 2022: WCC 5.7 QuantiFERON 12/22/22: negative HBsAb indeterminate, Hbsag negative, HBcAb negative NFL August 2022 81.4 (<28) PSG 11/29/22: CLINICAL INTERPRETATION Satisfactory trial of nasal CPAP at 8-9 cm water pressure utilizing a [employer] Quattro large sized full face mask interface, with caveat that effective treatment only occurred as the patient slept on his right or left side in nonsupine positions, where as remaining Abraham-Farley breathing persisted in the supine position. REM sleep without atonia, appearing relatively comparable to what was seen during his initial study in August 2022. Isolated/incidental periodic leg movements of sleep without substantial arousal tendency of doubtful additional clinical significance. ROUTINE EEG (07/30/2022) Recording duration 41 minutes. DESCRIPTION: Background consisting of a mixture of frequencies in to the theta range. No presence of focal slowing. There is a lot of muscle artifact in the first part of the record. A lot of motion is seen. High amplitude theta presence is symmetrically spread from the posterior quadrants to the frontocentral region. There is presence of theta activity throughout the background. EKG shows occasional PACs and possible PVCs. No alterations in the background at the time. Photic stimulation reveals no abnormal photic response activity. No presence of photic driving or any photoparoxysmal events during this activation. IMPRESSION: Essentially unremarkable for age but slow background activity consistent with possible cortical cerebral dysfunction, but no focal abnormalities were present nor any epileptiform discharges. MRI BRAIN WITH AND WITHOUT IV CONTRAST (07/01/2022) Images not currently available for personal review. Per outside radiology report: Stable postoperative changes of right occipital craniectomy/cranioplasty with underlying right cerebellar gliosis. No evidence of brain metastasis. Volume loss and scattered nonspecific white matter T2 hyperintensities which likely represent chronic small vessel ischemic change. CSF STUDIES (08/05/2022) RBC 10,000 WBC 10 (54% neutrophils, 39% lymphocytes) Protein 102.2 Glucose 93 Gram stain 3+ WBC, no organisms Aerobic bacterial culture no growth Cytology negative for malignancy IgLON5 CBA positive IgLON5 IFA titer positive 1:8 OBJECTIVE PHYSICAL EXAM There were no vitals taken for this visit. For details of the neurologic examination, please see the neurologic examination form dated 01/27/24. In summary the examination demonstrated: Neurology Scorecard Lower limb assessment Gait: requires support to ambulate. Walk on heels: Unable Foot/Ankle deformities: Absent Associated conditions Speech/Language: Normal Tremor: Absent Myoclonus: Left upper and Left lower (occasional small jerks) Limb ataxia: Absent (mild dysmetria R>L hand) Fatigable ptosis: Absent Scapular winging: Absent Joint abnormalities: Absent Facial dysmorphism: Absent Myotonia: Absent Scoring, muscle weakness (* NIS) The Neuropathy Impairment Scoring System (NIS) strength: 0=normal; 1=25% weak (MRC equivalent= 5-);2=50% weak (MRC equivalent 4+); 3=75% weak (MRC equivalent 4-); 3.25%=movement against gravity (MRCequivalent 3); 3.5=movement, gravity eliminated (MRC equivalent 2); 3.75; flicker of movement (MRC equivalent 1) 4=complete paralysis (MRC equivalent 0). Right Left Deficit Deficit Visual Acuity normal Fundus normal 0 Pupil light reflex 0 0 Hearing loss 0 Right Cranial Left Strength Strength 0 * 3rd nerve 0 0 4th nerve 0 0 * 6th nerve 0 0 * Facial weakness 0 0 Temporal-Masseter 0 0 Forehead 0 0 Orbicularis Oculi 0 0 Orbicularis Nieves 0 0 * Palate weakness 0 0 Sternocleidomastoid 0 0 Trapezius 0 0 * Tongue weakness 0 Right Cervical Left Strength Strength 0 * Neck flexion 0 0 Neck extension 0 0 Infraspinatus 0 0 Supraspinatus 0 0 Pectoralis 0 0 * Deltoid 0 0 * Elbow flexion 0 0 * Brachioradialis 0 0 * Elbow extension 0 0 * Wrist extension 0 0 * Wrist flexion 0 0 Supinator 0 0 Pronator 0 0 Finger extension 0 0 * Finger flexion 0 0 * Thumb abduction 0 0 Thumb flexion 0 0 * Finger spread 0 0 Hypothenar 0 0 Abdominal muscles 0 0 * Respiratory 0 Right Lumbosacral Left Strength Strength 0 * Hip flexion 0 0 * Hip extension 0 0 Hip internal rotation 0 0 Hip adduction 0 0 Hip abduction 0 0 * Knee extension 0 0 * Knee flexion 0 0 * Ankle dorsiflexors 0 0 * Ankle plantar flexors 0 0 * Toe extensors 0 0 * Toe flexors 0 0 Extensor hallucis 0 0 Ankle evertors 0 0 Ankle invertors 0 Muscle Size/Fasciculations Other: some fasciculations in TA and gastrocnemius Scoring, reflexes (* NIS) NIS (Normal= 0 or above 0; Reduced= -1 to -3; Absent=-4) Right Reflexes Left 0 * Biceps brachii 0 0 * Brachioradialis 0 0 * Triceps brachii 0 0 Reyes 0 -2 * Quadriceps femoris -2 -3 * Gastroc. soleus -3 0 Clonus 0 0 Plantar response 0 Scoring, sensation (* NIS) NIS (Normal= 0 or above 0; Reduced= -1 to -3; Absent=-4) Right Sensation - Index finger Left 0 * Touch-pressure 0 0 * Pin-prick 0 0 Heat-pain 0 0 Cold-sensation 0 0 * Vibration 0 0 * Joint position 0 Right Sensation - Great Toe Left -1 * Touch-pressure -1 -1 * Pin-prick -1 -1 Heat-pain -1 0 Cold-sensation 0 -3 * Vibration -2 -2 * Joint position 0 SUMMED SCORES (0 is normal) Strength (Range) Reflex (Range) Sensation (Range) Total Score (Range) Total Scores 0 (0-376) 10 (0-64) 13 (0-96) 23 (0-536) He had palpable pre-auricular and submandibular swellings which felt like lymph nodes bilaterally 1-2 cm. 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 male with IgLON5 autoimmune encephalitis manifesting with typical neuropsychiatric symptoms, executive dysfunction, myoclonus, gait instability, and sleepdysfunction including dream enactment behaviors, which developed following initiation of treatment for metastatic renal cell carcinoma that included immune checkpoint inhibitor therapy with pembrolizumab. His last dose of rituximab was in October 2022 following which we held off additional rituximab infusions. Continues to have some neuropsychiatric and sleep dysfunction which is likely a sequelae of prior inflammatory/autoimmune insult. Additionally, lately he has been complaining of gait instability and sensory symptoms involving his feet raising concern for peripheral neuropathy. Plan EMG/NCS to evaluate for peripheral neuropathy Labs: Vitamin B12, Hemoglobin A1c, ceruloplasmin Follow up with Rheumatology regarding cardiac involvement Addendum: Vitamin B12 level was found to be low (184), therefore [facility] I have called and informed patient's family regarding this result. documented in this encounter Plan of Treatment Upcoming Encounters Date Type Department Care Team (Late st Contact Info) Description 04/09/2024 1:30 PM CLINICAL CASE MANAGER Appointment Department of Laboratory Medicine and Pathology, [facility] in [place], [place] [address] [place] [phone] Maryan Merritt APRN, C.N.P., D.N.P. [address] [place] [phone] 04/09/2024 2:00 PM CLINICAL CASE MANAGER Office Visit Division of Rheumatology in [place], [place] [address] [place] [phone] Maryan Merritt APRN, C.N.P., D.N.P. [address] [place] [phone] Scheduled Referrals Name Type Priority Associated Diagnoses Orde r Schedule Neurology office visit (clinic) Outpatient Referral Routine Expected: 01/26/2025, Expires: 04/27/2025 documented as of this encounter Results * EMG (02/15/2024 1:13 PM CDT) 02/15/2024 1:15 PM CDT Narrative [facility] EM[facility] - 02/15/2024 3:04 PM CDT Table formatting from the original result was not included. 15-Feb-2024 ? Electromyography ? Final Report Study Number: 1 EMG Telegraphic Instrument Supervisor: Cherise Rios [phone] or [phone] Referred by: STAR ROCHE ([phone] or [phone]) Referred for: Sarcoidosis, Neuropathy Referral Code: ?200 [...] axonal peripheral neuropathy. Khoa Rios (127 or [phone])/SMB NERVE CONDUCTIONS ??Record Rep ?? Normal ??Normal [...] Electromyography Final Report Study Number: 1 EMG Telegraphic Instrument Supervisor: Cherise Rios [phone] or [phone] Referred by: STAR ROCHE ([phone] or [phone]) Referred for: Sarcoidosis, Neuropathy Referral Code: 200 [...] sensorimotor axonal peripheralneuropathy. Khoa Rios (127 or [phone])/SMB NERVE CONDUCTIONS Record Rep Normal Normal Distal [...] ORDERABLES Ed ited Result - Final EMG * (ABNORMAL) Hemoglobin A1c (01/27/2024 3:18 PM CDT) Hemoglobin A1c, B 7.1(H) 4.0 - 5.6 % 01/27/2024 3:54 PM CDT [facility] Comment: Hemoglobin A1c values greater than or equal to 6.5 percent are diagnostic for diabetes mellitus. ??Diagnosis should be confirmed by repeat testing. ??In diabetic patients, HbA1c goals should be discussed with healthcare provider. Blood (Blood, Venous) 01/27/2024 3:18 PM CDT 01/27/2024 3:40 PM CDT Star Mckeon.B.S. LAB BLOOD ADD-ON Final Result Performing Organization Address [facility]/ZIP Co de Phone Number [facility] [address] [place] [address] * Ceruloplasmin (01/27/2024 3:17 PM CDT) Pathologist [facility] Ceruloplasmin, S 28.1 19.0 - 31.0 mg/dL 01/29/2024 9:41 AM CDT [facility] Blood (Blood, Venous) 01/27/2024 3:17 PM CDT 01/27/2024 4:10 PM CDT Star Fishman.B.B.S. LAB BLOOD ADD-ON Final Result Performing Organization Address City/[facility]/ZIP Co de Phone Number [facility] [address] [place] [address], [place] [address] * (ABNORMAL) Pernicious Anemia Napoleon (01/27/2024 3:17 PM CDT) Pathologist [facility] Vitamin B12 Assay, S 128(L) 180 - 914 ng/L 01/28/2024 8:36 AM CDT [facility] Comment: Low B12; Intrinsic Factor Blocking Antibody test was performed. Blood (Blood, Venous) 01/27/2024 3:17 PM CDT 01/27/2024 4:12 PM CDT Narrative [facility] - 01/28/2024 8:36 AM CDT Specimen Information: Specimen ID: [id number] Specimen Type: Blood Specimen Collection Start Date: 01/27/2024 ??3:17 PM Specimen Received Date: 01/27/2024 ??4:12 PM Specimen ID: [id number] Specimen Type: Blood Specimen Collection Start Date: 01/27/2024 ??3:17 PM Specimen Received Date: 01/28/2024 ??7:38 AM Star Araya LAB BLOOD NON ADD-ON Fi nal Result [facility] [address] [place] [address] [facility] [address] [place] [address] documented in this encounter Visit Diagnoses Diagnosis Diabetes Mellitus Type 2 (HCC)- Primary Sarcoidosis Neuropathy Sarcoidosis Neuropathy Diabetes Mellitus Type 2 (HCC) Sarcoidosis Neuropathy Diabetes Mellitus Type 2 (HCC) documented in this encounter Additional Health Concerns Assessment Noted Time PHQ-9 Depression Total Score: 22 024 7:46 AM CDT documented as of this encounter Care Teams Atomic Physics Teacher Relationship Specialty Start Date End Date Elsewhere, Pcp PCP - General Internal Medicine 09/08/22 documented as of this encounter
--- OUTSIDE RECORDS SUMMARY | 2024-02-22 10:04 | XMS_ITS | Clinical Summary ---
Author Organization [facility] Address [address] [place] [address] Care Team Providers Care Condemnation Engineer Name Role Phone Elsewhere, Pcp Primary Care Provider Unavailabl e Source Comments Patient records contain information from all sites at [facility]. For routine questions regarding patient records, call [phone] during business hours, M-F 8:00 AM - 5:00 PM Central Time. Record requests for emergency care only can be directed to [phone] at any time.[facility] Allergies Active Allergy Reactions Criticality Noted Date [...] Heart Failure 10/02 Preoperative Examination Cardiovascular 10/21/19 23 Myocarditis 10/20/2022 Encephalopathy 07/21/2022 Hypothyroidism Due To Medica ments And Other Exogenous Substances 02/05/2022 Chronic Kidney Disease (CKD), Stage 3 Unspecifie d 09/13/2019 Diabetes Mellitus Type 2 Without Complication Depression Major Recurrent Moderate 01/23/2019 Morbid Obesity 04/19/2018 Hypertension Essential Primary 11/27/2015 Encounters * This document contains information received from the source organization and may not represent a complete record from that organization. Date Type Department Care Team Description 02/15/2024 1:13 PM CDT - 02/15/2024 11:59 PM CDT Hospital Encounter Department of Neurology in [place], [place] [address] [place] [address] Nataliia Roche M.B.B.S. Sarcoidosis; Neuropathy; Diabetes Mellitus Type 2 (HCC) Discharge Disposition: Home or Self Care 02/08/2024 Clinical Communication Division of Rheumatology in [place], [place] [address] [place] [address] Renee Angulo, Greg Lab Monitoring 02/07/2024 3:12 PM CDT - 02/07/2024 11:59 PM CDT Hospital Encounter Department of Laboratory Medicine in [address] [phone] Maryan Merritt APRN, C.N.P., D.N.P. Medication Therapy Thermospray Operator Not Anticoagulant Discharge Disposition: Home or Self Care 01/27/2024 3:06 PM CDT - 01/27/2024 11:59 PM CDT Hospital Encounter Department of Laboratory Medicine and Pathology, [facility] in [place], [place] [address] [place] [address] Nataliia Roche M.B.B.S. Sarcoidosis; Neuropathy; Diabetes Mellitus Type 2 (HCC) Discharge Disposition: Home or Self Care 01/27/2024 2:00 PM CDT Office Visit Department of Neurology in [place], [place] [address] [place] [address] Nataliia Roche M.B.B.S. Diabetes Mellitus Type 2 (HCC) (Primary Dx); Sarcoidosis; Neuropathy 01/11/2024 11:45 AM CDT - 01/11/2024 2:27 PM CDT Emergency [facility] [address] [place] [phone] Hans Platt APRN, C.N.P., D.N.P. Pain Chest Wall (Primary Dx) Discharge Disposition: Home or Self Care 12/09/2023 Clinical Communication Division of Rheumatology in [place], [place] [address] [place] [phone] Hali Huerta R.N. Lab Monitoring (MMF) 12/08/2023 11:00 AM CDT Office Visit Department of Cardiovascular Medicine in [place], [place] [address] [place] [address] Ramsey Kelly M.D. Myocarditis (HCC) (Primary Dx); Atrial Fibrillation Paroxysmal (HCC); Autoimmune Disorder (HCC); Sleep Apnea Hypopnea; Acute Systolic (Congestive) Heart Failure (HCC); Insufficiency Pituitary (HCC); Encephalopathy; Cancer Renal Cell Carcinoma Personal History; Chronic Kidney Disease (CKD), Stage 3 Unspecified (HCC); Failure Heart (HCC) 12/08/2023 9:00 AM CDT - 12/08/2023 11:59 PM CDT Hospital Encounter Department of Laboratory Medicine and Pathology, [facility] in [place], [place] [address] [place] [address] Ramsey Kelly M.D. Sarcoidosis; Atrial Fibrillation Paroxysmal (HCC); Myocarditis (HCC); Sleep Apnea Hypopnea; Autoimmune Disorder (HCC); Acute Systolic (Congestive) Heart Failure (HCC); Sarcoid Myocarditis (HCC) Discharge Disposition: Home or Self Care 12/08/2023 Clinical Communication Department of Oncology in [place], [place] [address] [place] [phone] Provider, Unknown [facility]SM - Outside Materials (New Reg); OSM (ONC) 12/08/2023 Clinical Communication Department of Oncology in [place], [place] [address] [place] [phone] Prescheduling, Provider 12/07/2023 1:51 PM CDT - 12/07/2023 11:59 PM CDT Hospital Encounter Department of Radiology, [facility], in [place], [place] [address] [place] [phone] Ramsey Kelly M.D. Sarcoidosis; Atrial Fibrillation Paroxysmal (HCC); Myocarditis (HCC); Sleep Apnea Hypopnea; Autoimmune Disorder (HCC); Acute Systolic (Congestive) Heart Failure (HCC); Sarcoid Myocarditis (HCC) Discharge Disposition: Home or Self Care 12/07/2023 11:48 AM CDT - 12/07/2023 1:50 PM CDT Hospital Encounter Department of Cardiovascular Diseases in [address] [phone] Ramsey Kelly M.D. Sarcoidosis; Atrial Fibrillation Paroxysmal (HCC); Myocarditis (HCC); Sleep Apnea Hypopnea; Autoimmune Disorder (HCC); Acute Systolic (Congestive) Heart Failure (HCC); Sarcoid Myocarditis (HCC) Discharge Disposition: Home or Self Care 12/07/2023 7:45 AM CDT - 12/07/2023 11:47 AM CDT Hospital Encounter Department of Cardiovascular Diseases in [address] [address] Ramsey Kelly M.D. Sarcoidosis; Atrial Fibrillation Paroxysmal (HCC); Myocarditis (HCC); Sleep Apnea Hypopnea; Autoimmune Disorder (HCC); Acute Systolic (Congestive) Heart Failure (HCC); Sarcoid Myocarditis (HCC) Discharge Disposition: Home or Self Care 12/01/2023 12:00 PM CDT Clinical Communication Virtual Review in [place], [place] [address] [place] [address] Pre-visit Intake 12/01/2023 Clinical Communication Department of Cardiovascular Diseases in [place], [place] [address] [place] [address] [place] [phone] Nirali Payton R.N. from Last 3 Months Immunizations Name Administration Dates Next Due Influenza, Unspecified 01/17/2020 PCV20 02/05/2022 PPSV23 12/11/2020 RZV (SHINGRIX) 12/11/2022,09/05/2022 Tdap 01/05/2019,06/25/2008 YF 05/30/2009 Family History Medical History Relation Name Comments Alcohol abuse Brother 1 Jonathan Suicide Attempts Brother 2 Parish Gu Alcohol abuse Daughter Teodora Lung cancer Father Carlitos Gu Suicide Attempts Father Carlitos Gu Colon cancer Maternal Grandfather Salty Dementia Maternal Grandmother Janina Rodrigez Hypertension Mother Lynda Gu Lung cancer Mother Lynda Gu ADD Son Christchaim Learning disorder Son Thanh Relation Name Status Comments Brother 1 Jonathan Brother 2 Parish Gu Daughter Teodora Father Carlitos Gu Maternal Grandfather Salty Maternal Grandmother Janina Mauricioebeck Mother Lynda Gu Son Christopher Social History Tobacco Use Types Packs/Day Years Used Date Smoking Tobacco: Never Passive Smoke Exposure: Past Smokeless Tobacco: Never Tobacco Cessation:Counseling Given: Not Answered Alcohol Use Standard Drinks/Week Comments Yes 14 (1 standard drink = 0.6 oz pu re alcohol) [facility] Utilities Answer Date Recorded In the past 12 months has [facility] Datadecision, gas, oil, or water [place] [employer] threatened to shut off services in your [...] often do you attend chur ch or zoroastrian services? More than 4 times per year 04/13/2022 Do you belong to any clubs o r organizations such as buddhist groups, unions, fraternal or athletic groups, or [...] Answer Date Recorded PHQ-2 Score 6 10/28/2023 [facility] Answer Date [...] your living situation today? I have a [facility] place to live 04/26/2023 Education Answer Date Recorded What is the highest level of school you have completed or the highest degree you have received? Bachelor's degree (e.g., BA, AB, BS) 11/19/2018 Sex and Gender Information Value Date Recorded Sex Assigned at Male 04/13/2022 12:32 PM WARP YARN SORTER Legal Sex Male 9:12 PM WARP YARN SORTER Gender Identity Male 04/13/2022 12:32 PM WARP YARN SORTER Sexual Orientation Straight 04/13/2022 12 :32 PM WARP YARN SORTER Last Filed Vital Signs Vital Sign Reading [...] st Contact Info) Description 04/09/2024 1:30 PM WARP YARN SORTER Appointment Department of Laboratory Medicine and Pathology, [facility], in [place], [place] [address] [place] [address] Maryan Merritt APRN, C.N.P., D.N.P. [address] [place] [phone] 04/09/2024 2:00 PM WARP YARN SORTER Office Visit Division of Rheumatology in [place], [place] [address] [place] [phone] Maryan Merritt APRN, C.N.P., D.N.P. [address] [place] [address] Health Maintenance Due Date Last Done Comments CT Colonography 1954 Cologuard 1954 Diabetic Office Visit with Foot Exam 1954 Dilated Eye Exam 1954 Tobacco Cessation counseling 1954 Urine Albumin 1954 Hepatitis B Vaccines (1 of 3 - Risk 3-dose series) 2014 RSV vaccine - (32-36 weeks) or 60+ years (1 - Risk 60-74 years 1-dose series) 2014 COVID-19 Vaccine ( season) 2024 04/01/2021, 08/04/2020, 07/06/2020 Influenza Vaccine (#1) 2024 01/17/2020 Depression Monitoring (PHQ-9) 02/27/2024 10/28/2023 Lipid (Cholesterol) Screening 03/17/2024 03/17/2023, 02/05/2022, 12/02/2020, Additional history exists Hemoglobin A1C 07/26/2024 01/27/2024, 08/30, 03/17/2023, Additional history exists Thyroid Stimulating Hormone (TSH) test for thyroid function 09/14/2024 09/15/2023, 04/23/2023, 02/16/2023, Additional history exists Office Visit for Blood Pressure Check / Re-check 12/07/2024 12/08/2023 Creatinine Level (Kidney Function Test) 01/10/2025 01/11/2024, 12/08/2023, 09/15/2023, Additional history exists Potassium Level 01/10/2025 01/11/2024, 080 12/2023, 09/15/2023, Additional history exists Sodium Level 01/10/2025 01/11/2024, 08/0 12/2023, 09/15/2023, Additional history exists Colonoscopy 02/19/2026 02/19/2021 Colorectal Cancer Surveillance 02/19/2026 DTaP,Tdap,and Td Vaccines (3 - Td or Tdap) 01/05/2029 01/05/2019, 06/25/2008 Pneumococcal vaccine (65+ years) Completed 02/05/2022, 12/11/2020 Zoster Vaccines Completed 12/11/2022, 09/05/2022 Fall Risk Screen (Annual) Completed 12/08/2023 Abdominal Aortic Aneurysm (AAA) Screen Discontinued 01/11/2024 HPV Vaccines Aged Out No longer eligi ble based on patient's age to complete this topic Medical Devices Implanted Type Area General Education Instructor Device Identifier Shelf Expiration Date Model / Serial / Lot Lead Free Soil-S Manager Of Case Management Biplr 64 - [id number] - [id number] Implanted:Qt y: 1 on 11/04/2022 by Kriss Rangel M.D. at [facility] Cardiac Lead [employer] 08/30/2024 [id number] / [id number] / Lead Ppm Ingevity+ Biplr 52 - [id number] - [id number] Implanted:Qt y: 1 on 11/04/2022 by Kriss Rangel M.D. at [facility] Cardiac Lead [employer] 10/22/2024 [id number] / [id number] / Envelope Lg Tyrx - [id number] Implanted:Qt y: 1 on 11/04/2022 by Kriss Rangel M.D. at [facility] Hardware e.g. pins/screws/rods Medtronic 07/09/2023 [id number] / / [id number] Icd Jelly Hardwick Dr Df4 - [id number] - [id number] 9 Implanted:Qt y: 1 on 11/04/2022 by Kriss Rangel M.D. at [facility] Implant Cardiac Defibrillator [employer] 04/14/2024 [id number] / [id number] / Knee Implant Knee Implant Left: Knee Procedures Procedure Name Priority Date/Time Associated Diagnosis Comments EMG Routine 02/15/2024 1:13 PM CDT Sarcoidosis Neuropathy Diabetes Mellitus Type 2 (HCC) CBC WITH DIFFERENTIAL, B Routine 02/07/2024 3:20 PM CDT Medication Therapy Prison Not Anticoagulant HEMOGLOBIN A1C, B Routine 01/27/2024 3:1 8 PM CDT Sarcoidosis Neuropathy Diabetes Mellitus Type 2 (HCC) GASTRIN, S Routine 01/27/2024 3:17 PM CDT OK INTRINSIC FACTOR AB Routine 01/27/2024 3:17 PM [...] THYROID-STIMULATING HORMONE-SENSITIVE (S-TSH) STAT 04/23/2023 12:47 PM WARP YARN SORTER LIPID PANEL, S Routine 11/21/2018 8:40 AM CDT Beat Premature Ventricular from Last 3 Months or Most Recently Relevant to Health Maintenance Results * EMG (02/15/2024 1:13 PM CDT) 02/15/2024 1:15 PM CDT Narrative EMG - 02/15/2024 3:04 PM CDT Table formatting from the original result was not included. 15-Feb-2024 ? Electromyography ? Final Report Study Number: 1 EMG Agricultural And Forestry Supervisor: Cherise Rios [phone] or [phone] Referred by: NATALIIA ROCHE (127 or [phone]) Referred for: Sarcoidosis, Neuropathy Referral Code: ?200 [...] axonal peripheral neuropathy. Khoa Rios (127 or [phone])/SMB NERVE CONDUCTIONS ??Record Rep ?? Normal ??Normal [...] Electromyography Final Report Study Number: 1 EMG Agricultural And Forestry Supervisor: Cherise Rios [phone] or [phone] Referred by: NATALIIA ROCHE (127 or [phone]) Referred for: Sarcoidosis, Neuropathy Referral Code: 200 [...] sensorimotor axonal peripheralneuropathy. Khoa Rios (127 or [phone])/SMB NERVE CONDUCTIONS Record Rep Normal Normal Distal [...] ited Result - Final EMG * (ABNORMAL) CBC with Differential, Blood [...] ADD -ON Final Result Performing Organization Address City/State/[facility] Co de Phone Number [facility] [address] [place] [address], [facility] in [address] [address] * (ABNORMAL) Hemoglobin A1c (01/27/2024 3:18 PM CDT) Hemoglobin A1c, B 7.1(H) 4.0 - 5.6 % 01/27/2024 3:54 PM CDT DTL Comment: Hemoglobin A1c values greater than or equal to 6.5 percent are diagnostic for diabetes mellitus. ??Diagnosis should be confirmed by repeat testing. ??In diabetic patients, HbA1c goals should be discussed with healthcare provider. Blood (Blood, Venous) 01/27/2024 3:18 PM CDT 01/27/2024 3:40 PM CDT us Nataliia Araya LAB BLOOD ADD-ON Final Result Performing Organization Address City/[facility]/ZIP Co de Phone Number [facility] [address] [place] [address], [facility] DTL [facility] [address] [place] [address] * Intrinsic Factor Blocking Antibody, Serum (01/27/2024 3:17 PM CDT) Pathologist [facility] Intrinsic Factor Blocking Ab, S Negative Negative 01/28/2024 9:30 AM CDT [facility] Comment:Gastrin test was per formed. Comment SEE COMMENT 01/28/2024 9:30 AM CDT [facility] Comment: Intrinsic Factor Blocking Antibody (IFBA) antibodies are absent in approximately 50% of individuals with pernicious anemia (PA). The absence of elevated IFBA antibodies does not rule out the presence of PA; further studies such as gastrin testing may be indicated. Blood 01/27/2024 3:17 PM CDT 01/28/2024 7:38 AM CDT Nataliia Araya LAB BLOOD NON ADD-ON Fi nal Result Performing Organization Address [facility] Co de Phone Number [facility] [address] [place] [address] [facility] [address] [place] [address] * (ABNORMAL) Pernicious Anemia [place] (01/27/2024 3:17 PM CDT) Pathologist [facility] Vitamin B12 Assay, S 128(L) 180 - 914 ng/L 01/28/2024 8:36 AM CDT [facility] Comment: Low B12; Intrinsic Factor Blocking Antibody test was performed. Blood (Blood, Venous) 01/27/2024 3:17 PM CDT 01/27/2024 4:12 PM CDT Narrative [facility] - 01/28/2024 8:36 AM CDT Specimen Information: Specimen ID: [id number] Specimen Type: Blood Specimen Collection Start Date: 01/27/2024 ??3:17 PM Specimen Received Date: 01/27/2024 ??4:12 PM Specimen ID: [id number] Specimen Type: Blood Specimen Collection Start Date: 01/27/2024 ??3:17 PM Specimen Received Date: 01/28/2024 ??7:38 AM Nataliia Bobby.S. LAB BLOOD NON ADD-ON Fi nal Result Performing Organization Address City/[facility]/ZIP Co de Phone Number [facility] [address] [place], [place] [phone] [place] [address] [place] [address] * Ceruloplasmin (01/27/2024 3:17 PM CDT) [facility] Ceruloplasmin, S 28.1 19.0 - 31.0 mg/dL 01/29/2024 9:41 AM CDT [facility] Blood (Blood, Venous) 01/27/2024 3:17 PM CDT 01/27/2024 4:10 PM CDT Nataliia Bobby.S. LAB BLOOD ADD-ON Final Result Performing Organization Address [facility] Phone Number [facility] [address] [place], [place] [address] [address] [place] [address] * Gastrin (01/27/2024 3:17 PM CDT) Pathologist [facility] Gastrin, S 55 pg/mL 01/28/2024 12:16 PM CDT [facility] Comment: Not consistent with pernicious anemia. ----REFERENCE VALUE---- <100 Reference ranges valid for >= 8 hour fast. Blood 01/27/2024 3:17 PM CDT 01/28/2024 9:40 AM CDT Nataliia NelsonS. LAB BLOOD NON ADD-ON Fi nal Result Performing Organization Address City/[facility]/ZIP Co de Phone Number [place] [address] [place] [address] [facility] [address] [place] [address] * (ABNORMAL) Urinalysis with Microscopic if Indicated (01/11/2024 1:44 PM CDT) Source Urine, Urine, Midstream 01/11/2024 1:49 PM [...] 8.0 01/11/2024 2:00 PM CDT CNFL Specific [place] 1.010 1.001 - 1.035 01/11/2024 2:00 PM CDT CNFL Urobilinogen 0.2 0.2 - 1.0 mg/dL 01/11/2024 2:00 PM CDT CNFL Urine (Urine, Midstream) 01/11/2024 1:44 PM CDT 01/11/2024 1:49 PM CDT us Hans Platt APRN, C.N.P., D.N.P. LAB URINE OR DERABLES Final Result [facility] [address] [place] [address], [place] CNFL [facility] in [address] [address] * (ABNORMAL) Microscopic Manual (01/11/2024 1:44 PM [...] D.N.P. LAB URINE OR DERABLES Final Result [facility] [address] [place] [address], [facility] in [address] [address] * CT Abdomen Pelvis with IV Contrast [...] Healing left fourth through seventh rib fractures. [facility] of the thoracic spine kyphosis. Old T7 [...] Wall: Healing left fourth through seventh ribfractures. [facility] of the thoracic spine kyphosis. Old T7 [...] pelvis. -4 mm nonobstructing left renal calculus. us Hans Platt APRN, C.N.P., D.N.P. IMG CT JESSICA CHRISTIANO Final Result * CT Chest Angiogram and [...] Healing left fourth through seventh rib fractures. [facility] of the thoracic spine kyphosis. Old T7 [...] Wall: Healing left fourth through seventh ribfractures. [facility] of the thoracic spine kyphosis. Old T7 [...] renal calculus. Hans Platt APRN, C.N.P., D.N.P. IM CT [facility] DURES Final Result * (ABNORMAL) CRP (C-Reactive Protein) (01/11/2024 12:13 PM CDT) C-Reactive Protein (CRP), P 6.6(H) <5.0 mg/L 01/11/2024 12:42 PM CDT CNFL Blood (Blood, Venous) 01/11/2024 12:13 PM CDT 01/11/2024 12:15 PM CDT Kari Ash APRN.N.P., D.N.P. LAB BLOOD [place] [address], [place] [address] * Lipase (01/11/2024 12:13 PM CDT) Lipase, P 20 13 - 60 U/L 01/11/2024 12:42 PM CDT CNFL Blood (Blood, Venous) 01/11/2024 12:13 PM CDT 01/11/2024 12:15 PM CDT Kari Ash APRN.N.P., D.N.P. LAB BLOOD AD D-ON Final Result Performing Organization Address City/[facility] Co de Phone Number [address] [address], [place] [address] * (ABNORMAL) Comprehensive Metabolic Panel (01/11/2024 12:13 PM CDT) Only the most recent of2 resultswithin the time period is included. Potassium, P 4.6 3.6 - 5.2 mmol/L [...] D.N.P. LAB BLOOD AD D-ON Final Result [facility] [address] [place] [address], [facility] CNFL [facility] in [address] [address] * NT-Pro B-Type Natriuretic Peptide (BNP) (12/08/2023 [...] ADD-ON Final R esult Performing Organization Address City/[facility] Co de Phone Number [phone] [place] [address] [address] * (ABNORMAL) C-Reactive Protein, High Sensitivity (12/08/2023 [...] ADD-ON Final R esult Performing Organization Address City/[facility]/ZIP Co de Phone Number [facility] [address] [place] [address], [facility] [place] [address] * (ABNORMAL) Troponin T, 5th Generation (12/08/2023 9:49 AM CDT) Troponin T, 5th gen 53(H) <=15 ng/L 12/08/2023 10:44 AM CDT DTL Blood (Blood, Venous) 12/08/2023 9:49 AM CDT 12/08/2023 10:19 AM CDT Ramsey Kelly M.D. LAB BLOOD ADD-ON Final R esult Performing Organization Address City/[facility]/ZIP Co de Phone Number [facility] [address] [place] [address], [facility] DTL [facility] [address] [place] [address] * PET CT Cardiac Sarcoid (12/07/2023 3:58 PM CDT) 12/07/2023 1:51 PM CDT Narrative [facility] CV MERGE - 12/07/2023 4:45 PM CDT See PDF For Result Procedure Note Hans Sabillon M.D. - 12/07/2023 See PDF For Result Ramsey Kelly M.D. IMG NM PROCEDURES Final Result Performing Organization Address [facility] Co de Phone Number [facility] CV MERGE NA * (TTE) 2D ECHO DOPPLER COLOR (12/07/2023 1:37 PM CDT) Pathologist [facility] Ejection Fraction 58 MC CV EIMS Wall [...] was performed but not reported based on global creative chairman's judgment. Normal right ventricular systolic function. Estimated [...] was performed but not reported based on global creative chairman'sjudgment. Normal right ventricular systolic function. Estimated rightventricular [...] CDT) Ventricular Rate ECG/Min 61 BPM MUSE OK Interval 230 ms MUSE QRSD Interval 144 ms MUSE QT Interval 422 ms MUSE QTC Interval 424 ms MUSE P [place] 26 degrees MUSE R [place] 14 degrees MUSE T Wave [place] 34 degrees MUSE 12/07/2023 8:47 AM CDT [...] 8:22 AM CDT) Date Time Interrogation Session [id number] [facility] Implantable Pulse Generator General Education Instructor [employer] [facility] Implantable Pulse Generator Model D152 DYNAGEN [facility] Implantable Pulse Generator Serial Number [id number] [facility] Type Interrogation Session In Clinic [facility] Clinic Name [facility] Implantable Pulse Generator Type Defibrillator [facility] Implantable Pulse Generator Implant Date 20221104 [facility] Implantable Lead General Education Instructor [employer] [facility] Implantable Lead Model 0273 [place] Free Soil 4-Site S [facility] Implantable Lead Serial Number [id number] [facility] Implantable Lead Implant Date 20221104 [facility] Implantable Lead Polarity Type Bipolar Lead [facility] Implantable Lead Location Detail 1 UNKNOWN [facility] Implantable Lead Special Function Lead length: 64 cm [facility] Implantable Lead Location Right Ventricle [facility] Implantable Lead General Education Instructor [employer] [facility] Implantable Lead Model 7841 Ingevity + MRI [facility] Implantable Lead Serial Number [id number] [facility] Implantable Lead Implant Date 20221104 [facility] Implantable Lead Polarity Type Bipolar Lead [facility] Implantable Lead Location Detail 1 UNKNOWN [facility] Implantable Lead Special Function Lead length: 52 cm [facility] Implantable Lead Location Right Atrium [facility] [place] Setting Mode (NBG Code) DDD [facility] [place] Setting Lower Rate Limit 60 {beats}/ min [facility] [place] Setting Maximum Tracking Rate 130 {beats}/ min [facility] [place] Setting Maximum Sensor Rate 130 {beats}/ min [facility] [place] Setting ASUNCION Delay Low 150.0 ms [facility] [place] Setting PAV Delay Low 180.0 ms [facility] [place] Setting PAV Delay High 80.0 ms [facility] [place] Setting ASUNCION Delay High 65.0 ms [facility] Theron Setting AT Mode Switch Rate 170 {beats}/ min [facility] Theron Setting AT Mode Switch Mode DDIR [facility] Lead Channel Setting Sensing Polarity Bipolar [facility] Lead Channel Setting Sensing Sensitivity 0.25 mV [facility] Lead Channel Setting Sensing Adaptation Mode Adaptive [facility] Lead Channel Setting Sensing Polarity Bipolar [facility] Lead Channel Setting Sensing Sensitivity 0.6 mV [facility] Lead Channel Setting Sensing Adaptation Mode Adaptive [facility] Lead Channel Setting Pacing Polarity Bipolar [facility] Lead Channel Setting Pacing Pulse Width 0.4 ms [facility] Lead Channel Setting Pacing Amplitude 3.5 V [facility] Lead Channel Setting Pacing Capture Mode Fixed Pacing [facility] Lead Channel Setting Pacing Polarity Bipolar [facility] Lead Channel Setting Pacing Pulse Width 0.4 ms [facility] Lead Channel Setting Pacing Amplitude 2.0 V [facility] Lead Channel Setting Pacing Capture Mode Fixed Pacing [facility] Zone Setting Type Category VF [facility] Zone Setting Detection Interval 273.0 ms [facility] Zone Setting Type Category VT [facility] Zone Setting Detection Interval 324.0 ms [facility] Zone Setting Type Category VT [facility] Lead Channel Impedance Value 654.0 ohm [facility] Lead Channel Sensing Intrinsic Amplitude 4.9 mV [facility] Lead Channel Pacing Threshold Amplitude 1.6 V [facility] Lead Channel Pacing Threshold Pulse Width 0.4 ms [facility] Lead Channel Impedance Value 425.0 ohm [facility] Lead Channel Sensing Intrinsic Amplitude 13.0 mV [facility] Lead Channel Pacing Threshold Amplitude 0.7 V [facility] Lead Channel Pacing Threshold Pulse Width 0.4 ms [facility] Battery Date Time of Measurements [id number] [facility] Battery Status Beginning of Service [facility] Battery Remaining Longevity 126 mo [facility] Capacitor Charge Type Reformation [facility] Capacitor Last Charge Date Time [facility] Capacitor Charge Time 10 s [facility] Capacitor Charge Type Shock [facility] Theron Statistic Date Time Start [facility] Theron Statistic Date Time End [id number] [facility] Theron Statistic RA Percent Paced 34 % [facility] Theron Statistic RV Percent Paced 12 % [facility] Therapy Statistic Total Shocks Delivered 3 [facility] Therapy Statistic Total Shocks Aborted 1 [facility] Therapy Statistic Total ATP Delivered 4 [facility] Therapy Statistic Total Date Time End [facility] Therapy Statistic Recent Shocks Delivered 0 [facility] Therapy Statistic Recent Shocks Aborted 0 [facility] Therapy Statistic Recent ATP Delivered 0 [facility] Therapy Statistic Recent Date Time [...] SYSTEM Episode Statistic Total Date Time End [id number] [facility] Episode Statistic Total Date Time End [id number] [facility] Episode Statistic Total Date Time End [id number] [facility] Episode Statistic Recent Count [...] SYSTEM Episode Statistic Recent Date Time End [id number] [facility] Episode Statistic Recent Date Time End [id number] [facility] Episode Statistic Recent Date Time End [id number] [facility] Anatomical Region Laterality Modality Echocardiography 12/07/2023 8:17 AM CDT Narrative 12/08/2023 12:54 PM CDT PURPOSE OF VISIT: ??Patient seen for routine device interrogation in conjunction with other appointments. PRESENTING RHYTHM: ??Atrial sensed/ ventricular sensed at 65 bpm. UNDERLYING RHYTHM: ??Sinus Rhythm at 65 bpm. ATRIAL ARRHYTHMIAS: ??Since 10/18/23 none. ? Atrial fibrillation burden: ??0%. VENTRICULAR ARRHYTHMIAS: ??None. ?PVC [place]: Since 05/27/23 device recorded 227.5K BATTERY LONGEVITY: [...] and expressed understanding. FOLLOW UP LOCATION STATUS: [facility] ([facility]) NEXT FOLLOW UP: Next routine follow-up will be via Latitude. DEVICE RN: Alhaji Najera. Provider statement: This patient underwent device interrogation. I agree that the device interrogation was medically indicated to provide appropriate care and continue routine device interrogations as indicated. Ramsey Kelly M.D. CV IMPLANTABLE CARDIAC D EVICE Final Result * S-TSH (Thyroid-Stimulating Hormone - Sensitive) (04/23/2023 12:47 PM WARP YARN SORTER) [facility] TSH, Sensitive 3.0 0.3 - 4.2 mIU/L 04/23/2023 2:21 PM WARP YARN SORTER DTL Blood (Blood, Venous) 04/23/2023 12:47 PM WARP YARN SORTER 04/23/2023 1:48 PM WARP YARN SORTER Pollo Serrato M.D. LAB BLOOD ADD-ON Final Res ult [facility] [address] [place] [address], [facility] [address] [place] [address] * (ABNORMAL) Lipid Panel (11/21/2018 8:40 AM CDT) Pathologist [facility] Cholesterol, Total 187 mg/dL 2018 10:31 AM [...] Ph.D. LAB BLOOD AD D-ON Final Result [address] [id number] from Last 3 Months or Most Recently Relevant to Health Maintenance Insurance MEDICARE [facility] Advance Directives For more information, please contact: [phone] * Full Code (Latest Code Status on File) Date Activated Date Inactivated Comments 11/04/2022 10:33 AM 11/04/2022 2:33 PM Question Answer Comments Full Code: Not Discussed Due to: Patient not available Care Teams Condemnation Engineer Relationship Specialty Start Date End Date Elsewhere, Pcp PCP - General Internal Medicine 09/08/22
--- OUTSIDE RECORDS SUMMARY | 2024-02-22 10:04 | XMS_ITS | Encounter Summary ---
Author Organization [facility] Address [address] [place] [address] Care Team Providers Care Groover And Turner Name Role Phone Elsewhere, Pcp Primary Care Provider Unavailabl e Reason for Visit * Reason Onset Date Comments Lab Monitoring 02/08/2024 Encounter Details Date Type Department Care Team (Latest Contact Info) Description 02/08/2024 Clinical Communication Division of Rheumatology in [place], [place] [address] [place] [address] Renee Angulo, RSammyNSammy Lab Monitoring Social History Tobacco Use Types Packs/Day Years Used Date Smoking Tobacco: Never Passive Smoke Exposure: Past Smokeless Tobacco: Never Alcohol Use Standard Drinks/Week Comments Yes 14 (1 standard drink = 0.6 oz pu re alcohol) [facility] Utilities Answer Date Recorded In the past [address] [facility] [employer], gas, oil, or water [employer] threatened to shut off services in your [...] file 04/13/2022 How often do you attend [facility] or congregational services? More than 4 times per year 04/13/2022 Do you belong to any clubs o r organizations such as sikh groups, unions, fraternal or athletic groups, or [...] Answer Date Recorded PHQ-2 Score 6 10/28/2023 [facility] - Occupational [...] your living situation today? I have a [facility] place to live 04/26/2023 Education Answer Date Recorded What is the highest level of school you have completed or the highest degree you have received? Bachelor's degree (e.g., BA, AB, BS) 11/19/2018 Sex and Gender Information Value Date Recorded Sex Assigned at Male 04/13/2022 12:32 PM INSTRUMENT TECHNICIAN Legal Sex Male 9:12 PM INSTRUMENT TECHNICIAN Gender Identity Male 04/13/2022 12:32 PM INSTRUMENT TECHNICIAN Sexual Orientation Straight 04/13/2022 12 :32 PM INSTRUMENT TECHNICIAN documented as of this encounter Miscellaneous Notes * Telephone Encounter - Renee Angulo R.N. - 02/08/2024 2:43 PM CDT Documentation note only, patient not contacted ASSESSMENT Rheumatology monitoring labs completed on 02/07/2024 for mycophenolate mofetil (Cellcept) monitoringwere reviewed per provider order. Labs reviewed: absolute neutrophil count, hemoglobin, leukocytes, platelets Labs viewable in Labs Tab of Chart Review. PLAN Patient to continue with current plan of care. Patient next due for monitoring labs two months after last monitoring labs; these future lab orders were placed. In 2024, the Division of Rheumatology plans to update the medication lab monitoring review process.With this change, care team review of lab results (like the above note) may not be viewable to the patient via the patient portal. If lab results require an adjustment to your Rheumatology care plan,please be reassured that you will be contacted by a member of our care team. documented in this encounter Plan of Treatment Upcoming Encounters Date Type Department Care Team (Late st Contact Info) Description 04/09/2024 1:30 PM INSTRUMENT TECHNICIAN Appointment Department of Laboratory Medicine and Pathology, [facility], in [place], [place] [address] [place] [address] Maryan Merritt APRN, C.N.P., D.N.P. [address] [place] [phone] 04/09/2024 2:00 PM INSTRUMENT TECHNICIAN Office Visit Division of Rheumatology in [place], [place] [address] [place] [phone] Mrayan Merritt APRN, C.N.P., D.N.P. [address] [place] [phone] Scheduled Orders Name Type Priority Associated Diagnoses Orde r Schedule CBC with Differential, Blood Lab Routine Medication Therapy Halfway Not Anticoagulant Expected: 04/10/2024, Expires: 08/08/2024 documented as of this encounter Visit Diagnoses Diagnosis Medication Therapy Electrotherapist Not Anticoagulant- Primary documented in this encounter Additional Health Concerns Assessment Noted Time PHQ-9 Depression Total Score: 22 024 7:46 AM CDT documented as of this encounter Care Teams Groover And Turner Relationship Specialty Start Date End Date Elsewhere, Pcp PCP - General Internal Medicine 09/08/22 documented as of this encounter
--- OUTSIDE RECORDS SUMMARY | 2024-02-22 10:04 | XMS_ITS | Encounter Summary ---
Author Organization [facility] Address [address] [place] [address] Care Team Providers Care Paint Roller Cover Machine Setter Name Role Phone Elsewhere, Pcp Primary Care Provider Unavailabl e Encounter Details Date Type Department Care Team (Latest Contact Info) Description 01/27/2024 3:06 PM CDT - 01/27/2024 11:59 PM CDT Hospital Encounter Department of Laboratory Medicine and Pathology, [place], [place] [address] [place] [address] Nataliia Lowery M.B.B.S. [address] [place] [address] Sarcoidosis; Neuropathy; Diabetes Mellitus Type 2 (HCC) Discharge Disposition: Home or Self Care Social History Tobacco Use Types Packs/Day Years Used Date Smoking Tobacco: Never Passive Smoke Exposure: Past Smokeless Tobacco: Never Alcohol Use Standard Drinks/Week Comments Yes 14 (1 standard drink = 0.6 oz pu re alcohol) [facility] Utilities Answer Date Recorded In the [...] How often do you attend chur or temple services? More than 4 times per year 04/13/2022 Do you belong to any clubs o r organizations such as cheondoism groups, unions, fraternal or athletic groups, or [...] Answer Date Recorded PHQ-2 Score 6 10/28/2023 [facility] of Occupat ional Health - [...] living situation today? I have a [facility] place to live 04/26/2023 Education Answer Date Recorded What is the highest level of school you have completed or the highest degree you have received? Bachelor's degree (e.g., BA, AB, BS) 11/19/2018 Sex and Gender Information Value Date Recorded Sex Assigned at Male 04/13/2022 12:32 PM DIRECTOR TRANSLATION Legal Sex Male 9:12 PM DIRECTOR TRANSLATION Gender Identity Male 04/13/2022 12:32 PM DIRECTOR TRANSLATION Sexual Orientation Straight 04/13/2022 12 :32 PM DIRECTOR TRANSLATION documented as of this encounter Medications at [...] st Contact Info) Description 04/09/2024 1:30 PM DIRECTOR TRANSLATION Appointment Department of Laboratory Medicine and Pathology, [facility], in [place], [place] [address] [place] [phone] Maryan Merritt APRN, C.N.P., D.N.P. [address] [place] [phone] 04/09/2024 2:00 PM DIRECTOR TRANSLATION Office Visit Division of Rheumatology in [place], [place] [address] [place] [phone] Maryan Merritt APRN, C.N.P., D.N.P. [address] [place] [phone] documented as of this encounter Procedures Procedure Name Priority Date/Time Associated Diagnosis Comments HEMOGLOBIN A1C, B Routine 01/27/2024 3:1 8 PM CDT Sarcoidosis Neuropathy Diabetes Mellitus Type 2 (HCC) LA INTRINSIC FACTOR AB Routine 01/27/2024 3:17 PM CDT PERNICIOUS ANEMIA CASCADE, S Routine 01/27/2024 3:17 PM CDT Sarcoidosis Neuropathy Diabetes Mellitus Type 2 (HCC) CERULOPLASMIN, S Routine 01/27/2024 3:17 PM CDT Sarcoidosis Neuropathy Diabetes Mellitus Type 2 (HCC) GASTRIN, S Routine 01/27/2024 3:17 PM CDT documented in this encounter Results * (ABNORMAL) Hemoglobin A1c (01/27/2024 3:18 PM [...] PM CDT 01/27/2024 3:40 PM CDT Nataliia Bobby.S. LAB BLOOD ADD-ON Final Result Performing Organization Address City/[facility] Co de Phone Number [facility] [address] [place] [address], [facility] DTL [facility] [address] [place] [address] * Gastrin (01/27/2024 3:17 PM CDT) Pathologist [facility] Gastrin, S 55 pg/mL 01/28/2024 12:16 PM CDT [facility] Comment: Not consistent with pernicious anemia. ----REFERENCE VALUE---- <100 Reference ranges valid for >= 8 hour fast. Blood 01/27/2024 3:17 PM CDT 01/28/2024 9:40 AM CDT Nataliia Bobby.S. LAB BLOOD NON ADD-ON Fi nal Result Performing Organization Address [facility] Co de Phone Number [facility] [address] [place] [address] [facility] [address] [place] [address] * Intrinsic Factor Blocking Antibody, Serum (01/27/2024 3:17 PM CDT) Intrinsic Factor Blocking Ab, S Negative Negative 01/28/2024 9:30 AM CDT [facility] Comment:Gastrin test was per formed. Comment SEE COMMENT 01/28/2024 9:30 AM CDT [facility] Comment: Intrinsic Factor Blocking Antibody (IFBA) antibodies are absent in approximately 50% of individuals with pernicious anemia (PA). The absence of elevated IFBA antibodies does not rule out the presence of PA; further studies such as gastrin testing may be indicated. Blood 01/27/2024 3:17 PM CDT 01/28/2024 7:38 AM CDT Nataliia Araya LAB BLOOD NON ADD-ON Fi nal Result Performing Organization Address City/[facility]/ZIP Co de Phone Number [facility] [address] [place] [address] [facility] [address] [place] [place] [address] * Ceruloplasmin (01/27/2024 3:17 PM CDT) Ceruloplasmin, S 28.1 19.0 - 31.0 mg/dL 01/29/2024 9:41 AM CDT DT Blood (Blood, Venous) 01/27/2024 3:17 PM CDT 01/27/2024 4:10 PM CDT Nataliia NelsonS. LAB BLOOD ADD-ON Final Result Performing Organization Address City/[facility]/ZIP Co de Phone Number [facility] [address] [place] [address], [facility] [address] [place] [address] * (ABNORMAL) Pernicious Anemia [place] (01/27/2024 3:17 PM CDT) Vitamin B12 Assay, S 128(L) 180 - 914 ng/L 01/28/2024 8:36 AM CDT [facility] Comment: Low B12; Intrinsic Factor Blocking Antibody test was performed. Blood (Blood, Venous) 01/27/2024 3:17 PM CDT 01/27/2024 4:12 PM CDT Narrative [facility] - 01/28/2024 8:36 AM CDT Specimen Information: Specimen ID: [id number] Specimen Type: Blood Specimen Collection Start Date: 01/27/2024 ??3:17 PM Specimen Received Date: 01/27/2024 ??4:12 PM Specimen ID: [id number] Specimen Type: Blood Specimen Collection Start Date: 01/27/2024 ??3:17 PM Specimen Received Date: 01/28/2024 ??7:38 AM Nataliia Araya LAB BLOOD NON ADD-ON Fi nal Result [facility] [address] [place] [address] [facility] [address] [place] [address] documented in this encounter Visit Diagnoses Diagnosis Sarcoidosis Neuropathy Diabetes Mellitus Type 2 (HCC) documented in this encounter Additional Health Concerns Assessment Noted Time PHQ-9 Depression Total Score: 22 024 7:46 AM CDT documented as of this encounter Care Teams Paint Roller Cover Machine Setter Relationship Specialty Start Date End Date Elsewhere, Pcp PCP - General Internal Medicine 09/08/22 documented as of this encounter
--- OUTSIDE RECORDS SUMMARY | 2024-02-22 10:05 | XMS_ITS | Encounter Summary ---
Author Organization [facility] Address [address] [place] [address] Care Team Providers Care Information Coder Name Role Phone Elsewhere, Pcp Primary Care Provider Unavailabl e Encounter Details Date Type Department Care Team (Late st Contact Info) Description 12/08/2023 Clinical Communication Department of Oncology in [place], [place] [address] [place] [address] Prescheduling, Provider Social History Tobacco Use Types Packs/Day Years Used Date Smoking Tobacco: Never Passive Smoke Exposure: Past Smokeless Tobacco: Never Alcohol Use Standard Drinks/Week Comments Yes 14 (1 standard drink = 0.6 oz pu re alcohol) [facility] Utilities Answer Date Recorded In the past 12 months has e makerist, gas, oil, or water [employer] threatened to shut off services in your [...] often do you attend chur ch or adventist services? More than 4 times per year [...] Answer Date Recorded PHQ-2 Score 6 10/28/2023 [facility] of Occupat ional Health - Occupational [...] your living situation today? I have a [facility] place to live 04/26/2023 Education Answer Date Recorded What is the highest level of school you have completed or the highest degree you have received? Bachelor's degree (e.g., BA, AB, BS) 11/19/2018 Sex and Gender Information Value Date Recorded Sex Assigned at Male 04/13/2022 12:32 PM SOA ENGINEER Legal Sex Male 9:12 PM SOA ENGINEER Gender Identity Male 04/13/2022 12:32 PM SOA ENGINEER Sexual Orientation Straight 04/13/2022 12 :32 PM SOA ENGINEER documented as of this encounter Plan of Treatment Upcoming Encounters Date Type Department Care Team (Late st Contact Info) Description 04/09/2024 1:30 PM SOA ENGINEER Appointment Department of Laboratory Medicine and Pathology, [facility] in [place], [place] [address] [place] [phone] Maryan Merritt APRN, C.N.P., D.N.P. [address] [place] [phone] 04/09/2024 2:00 PM SOA ENGINEER Office Visit Division of Rheumatology in [place], [place] [address] [place] [phone] Maryan Merritt APRN, C.N.P., D.N.P. [address] [place] [phone] documented as of this encounter Visit Diagnoses Not on filedocumented in this encounter Additional Health Concerns Assessment Noted Time PHQ-9 Depression Total Score: 22 024 7:46 AM CDT documented as of this encounter Care Teams Information Coder Relationship Specialty Start Date End Date Elsewhere, Pcp PCP - General Internal Medicine 09/08/22 documented as of this encounter
--- OUTSIDE RECORDS SUMMARY | 2024-02-22 10:05 | XMS_ITS | Encounter Summary ---
Author Organization [facility] Address [address] [place] [address] Care Team Providers Care Wharf Tender Head Name Role Phone Elsewhere, Pcp Primary Care Provider Unavailabl e Encounter Details Date Type Department Care Team (Latest Contact Info) Description 12/01/2023 Clinical Communication Department of Cardiovascular Diseases in [place], [place] [address] [place] [phone] Nirali Payton REmil [address] [place] [address] Social History Tobacco Use Types Packs/Day Years Used Date Smoking Tobacco: Never Passive Smoke Exposure: Past Smokeless Tobacco: Never Alcohol Use Standard Drinks/Week Comments Yes 14 (1 standard drink = 0.6 oz pu re alcohol) [facility] Utilities Answer Date Recorded In the past 12 months has [facility], gas, oil, or water [employer] threatened to shut off services in your [...] often do you attend chur ch or latter day services? More than 4 [...] Answer Date Recorded PHQ-2 Score 6 10/28/2023 [facility] - Occupational Stress Questionnaire Answer Date [...] your living situation today? I have a [facility] place to live 04/26/2023 Education Answer Date Recorded What is the highest level of school you have completed or the highest degree you have received? Bachelor's degree (e.g., BA, AB, BS) 11/19/2018 Sex and Gender Information Value Date Recorded Sex Assigned at Male 04/13/2022 12:32 PM CONCERT PIANIST Legal Sex Male 9:12 PM CONCERT PIANIST Gender Identity Male 04/13/2022 12:32 PM CONCERT PIANIST Sexual Orientation Straight 04/13/2022 12 :32 PM CONCERT PIANIST documented as of this encounter Miscellaneous Notes * Telephone Encounter - Nirali Payton R.N. - 12/01/2023 1:41 PM CDT Information Discussed Patient was given diet instructions for PET cardiac sarcoid scan. PLAN Disposition/Recommendation: Follow diet for 2 days prior to scan and hold Jardiance and Metformin for 3 days prior to PET sarcoid scan. Information/Education: patient/caller able to teach back Caller agreeable to plan of care: yes The following references were used: [place] portal sarcoid instructions. documented in this encounter Plan of Treatment Upcoming Encounters Date Type Department Care Team (Late st Contact Info) Description 04/09/2024 1:30 PM CONCERT PIANIST Appointment Department of Laboratory Medicine and Pathology, [facility], in [place], [place] [address] [place] [address] Marayn Merritt APRN, C.N.P., D.N.P. [address] [place] [phone] 04/09/2024 2:00 PM CONCERT PIANIST Office Visit Division of Rheumatology in [place], [place] [address] [place] [phone] Maryan Merritt APRN, C.N.P., D.N.P. [address] [place] [phone] documented as of this encounter Visit Diagnoses Not on filedocumented in this encounter Additional Health Concerns Assessment Noted Time PHQ-9 Depression Total Score: 22 024 7:46 AM CDT documented as of this encounter Care Teams Wharf Tender Head Relationship Specialty Start Date End Date Elsewhere, Pcp PCP - General Internal Medicine 09/08/22 documented as of this encounter
--- OUTSIDE RECORDS SUMMARY | 2024-02-22 10:05 | XMS_ITS | Encounter Summary ---
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 [address] [place] [phone] Pain Chest Wall (Primary Dx) Discharge Disposition: Home or Self Care Social History Tobacco Use Types Packs/Day Years Used Date Smoking Tobacco: Never Passive Smoke Exposure: Past Smokeless Tobacco: Never Alcohol Use Standard Drinks/Week Comments Yes 14 (1 standard drink = 0.6 oz pu re alcohol) [facility] Utilities Answer Date Recorded In [...] file 04/13/2022 How often do you attend [employer] [facility]? More than 4 times per year [...] Answer Date Recorded PHQ-2 Score 6 10/28/2023 [facility] - [...] your living situation today? I have a [facility] place to live 04/26/2023 Education Answer Date Recorded What is the highest level of school you have completed or the highest degree you have received? 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 - 01/11/2024 2:17 PM CDT Take 2 Tylenol every 6 hours, and schedule this for pain. If you have any breakthrough pain it is okay to take an oxycodone every 4-6 hours. This will cause some drowsiness and can cause some dizziness. Use a walker while you are taking the medication to prevent any falls. Follow-up with primary care in a week if you have consistent ongoing symptoms. Thank you for utilizing [facility] for your care! * Attachments The following attachments cannot be sent through Care Everywhere. * Chest Wall Pain [id number] (Taiwanese) documented in this encounter Medications at Time of Discharge apixaban (ELIQUIS) 5 mg tablet Take 1 tablet (5 mg total) by mouth 2 (two) times a day. 60 tablet 11 07/06/2023 empagliflozin (JARDIANCE) 10 mg tablet Take 1 tablet (10 mg total) by mouth every morning before breakfast. 30 tablet 11 06/22/2023 EPINEPHrine (EPIPEN) 0.3 mg/0.3 mL injection syringe [...] at bedtime as needed for sleep. 08/17/2018 lidocaine (Lidoderm) 5 % adhesive patch,medicated Place 1 patch on the skin daily for 10 days. Apply to left back as needed for pain. On for 12 hours, then take it off for 12 hours.. 7 patch 01/11/2024 4 oxyCODONE (Roxicodone) 5 mg immediate release tabletIndications :Acute Pain Take 1 tablet (5 mg total) by mouth every 6 (six) hours as needed for pain for up to 3 days Indication: Acute Pain. 10 tablet 01/11/2024 4 documented as of this encounter ED Notes * Hans Platt APRN, C.N.P., D.N.P. - 01/11/2024 12:21 PM CDT Images from the original note were not included. 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 Symptoms started this morning. Patient does have a history of frequent falls. He has roughly 6 months ago fell breaking hisback and fracturing ribs. Patient fell nine days ago. He did hit his back against a door but it is having no back pain other than the left thoracic rib pain. Patient has been sweaty today, feels a l ittle bit more short of breath as well as he states he has been wheezing. He has no history of the same. Patient also admits to some bright red blood per rectum yesterday, he states that is clearing today. Denies any abdominal pain. He normally runs somewhat constipated. Denies any anterior chestpain. Has no radiation of his pain. Patient is on Eliquis. History provided by: Patient REVIEW OF SYSTEMS Constitutional: Positive for diaphoresis. Negative for chills, fatigue and fever. HENT: Negative for sinus pressure and sore throat. Respiratory: Positive for shortness of breath and wheezing. Negative for cough and chest tightness. Cardiovascular: Negative for chest pain (Thoracic back pain). Gastrointestinal: Negative for abdominal pain, constipation, diarrhea, nausea and vomiting. Genitourinary: Negative for dysuria, frequency and urgency. Musculoskeletal: Positive for back pain. Negative for arthralgias and myalgias. Skin: Negative for rash. Neurological: Positive for weakness. Negative for dizziness and headaches. Hematological: Negative for adenopathy. Does not bruise/bleed easily. All other systems reviewed and are negative. Allergies Reviewed in medical record Current Medications Reviewed in Medical Record. PAST HISTORY Medical Past Medical History: Diagnosis Date Anxiety Generalized Disorder 95,15 Arthritis Rheumatoid (HCC) 2016 Atrial Fibrillation Unspecified (HCC) BenignProstatic Hyperplasia Localized 2020 Blood Transfusion No Diagnosis 2014 Dementia (HCC) Depressive Disorder 2021 Diabetes Mellitus NOS 2019 Gastroesophageal Reflux Disease NOS 06/2018 Glaucoma 20 years Hyperlipidemia Hypertension NOS 5years ago Hyperthyroidism 2021 Hypothyroidism 2021 Malignant Neoplasm Of Kidney (HCC) 12/2014 Other Injury Of Unspecified Body Region 2022 Polyp Colon 9 ears ago Sleep Apnea 15 years ago Patient Active Problem List Diagnosis Preoperative Examination Cardiovascular Myocarditis (HCC) Autoimmune Disorder (HCC) Chronic Systolic (Congestive) Heart Failure (HCC) Presence Of Automatic (Implantable) Cardiac Defibrillator With Synchronous Cardiac Pacemaker (ICD And AICD) Cancer Renal Cell Carcinoma Personal History Chronic Kidney Disease (CKD), Stage 3 Unspecified (HCC) Depression Major Recurrent Moderate (HCC) Diabetes Mellitus Type 2 Without Complication (HCC) Encephalopathy Hypertension Essential Primary Hypothyroidism Due To Medicaments And Other Exogenous Substances Morbid Obesity (HCC) Hyperlipidemia Hyperglycemia Delirium Surgical Past Surgical History: Procedure Laterality Date CATH ANGIOGRAM Left 11/04/2022 Procedure: Venography - Subclavian; Surgeon: Kriss Rangel M.D.; Location: [facility] CATH ICD N/A 11/04/2022 Procedure: ICD IMPLANT; Surgeon: Kriss Rangel M.D.; Location: [facility] HERNIA REPAIR 1999 JOINT REPLACEMENT may 20 left OTHER SURGICAL HISTORY 1992 rt foot VASECTOMY 1999 Family Reviewed in Medical Record Social History Social History Tobacco Use Smoking status: Never Passive exposure: Past Smokeless tobacco: Never Substance Use Topics Alcohol use: Yes Alcohol/week: 14.0 standard drinks of alcohol Types: 7 Shots of liquor, 7 Standard drinks or equivalent per week Social History Substance and Sexual Activity Drug Use Never OBJECTIVE Initial Vital Signs / Weights Initial Vitals Temperature 01/11/24 1153 36 ??C Pulse Rate 01/11/24 1153 98 Heart Rate -- Resp Rate 01/11/24 1153 18 Blood Pressure 01/11/24 1153 156/87 SpO2 01/11/24 1153 98 % Pain Score 01/11/24 1149 6 Wt Readings from Last 3 Encounters: 01/11/24 135 kg 12/08/23 135 kg 09/07/23 (!) 137 kg PHYSICAL EXAMINATION Constitutional: Nursing note and vitals reviewed. No distress. HENT: Mouth/Throat: Oropharynx is clear and moist. Mucous membranes are moist. No tonsillar exudate. Eyes: Conjunctivae and EOM are normal. Pupils are equal, round, and reactive to light. Neck: Neck supple. Cardiovascular: Normal rate, regular rhythm, S1 normal, S2 normal and normal heart sounds. Pulses are strong and palpable. No murmur heard.Capillary refill: takes less than 3 seconds Pulmonary/Chest: Effort normal and breath sounds normal. There is normal air entry. No respiratory distress. Abdominal: Soft. Bowel sounds are normal. exhibits no distension. There is no abdominal tenderness.There is no rebound and no guarding. Musculoskeletal: General: Normal range of motion. Cervical back: Normal range of motion and neck supple. Lymphadenopathy: He has no cervical adenopathy. Neurological: Alert and oriented to person, place, and time. No cranial nerve deficit. Skin: Skin is warm and intact. He is diaphoretic. Psychiatric: He has a normal mood and affect. DIAGNOSTICS Labs Labs Reviewed URINALYSIS WITH MICROSCOPIC IF INDICATED, U - Abnormal Result Value Source Urine, Urine, Midstream Clarity Clear Color Yellow Blood Trace (*) Nitrite Negative Leukocyte Esterase Negative Protein Negative Glucose 250 (*) Ketones, QI(U) Negative Bilirubin Negative pH 5.5 Specific [place] 1.010 Urobilinogen 0.2 CBC WITH DIFFERENTIAL, B - Abnormal Hemoglobin 13.8 Hematocrit 41.9 Erythrocytes 5.19 MCV 80.7 RBC Distrib Width 15.5 (*) Platelet Count 130 (*) Leukocytes 6.3 Neutrophils 4.70 Lymphocytes 1.03 Monocytes 0.43 Eosinophils 0.07 Basophils <0.04 COMPREHENSIVE METABOLIC PANEL, S/P - Abnormal Potassium, P 4.6 Sodium, P 139 Chloride, P 105 Bicarbonate, P 22 Anion Gap, P 12 BUN (Blood Urea Nitrogen), P 22 Creatinine 1.70 (*) Estimated GFR (eGFR) 43 (*) Calcium, Total, P 9.4 Glucose, P 224 (*) Protein, Total, P 6.7 Albumin, P 4.1 Aspartate Aminotransferase (AST), P 16 Alkaline Phosphatase, P 82 Alanine Aminotransferase (ALT), P 17 Bilirubin, Total, P 0.4 C-REACTIVE PROTEIN (CRP), S/P - Abnormal C-Reactive Protein (CRP), P 6.6 (*) MICROSCOPIC MANUAL - Abnormal White Blood Cells Occ-3 Red Blood Cells Occ-2 Crystals Calcium Oxalate (*) Squamous Cells Occ-3 Bacteria None Seen LIPASE, S/P Lipase, P [address] Abdomen Pelvis with IV Contrast Final Result CHEST: -No acute or chronic pulmonary embolism. -Similar appearance of 1.2 cm medial left upper lobe pulmonary nodule. Neoplasm remains a concern. -Healing left fourth through seventh rib fractures. Abdomen and pelvis: -No acute finding in the abdomen or pelvis. -4 mm nonobstructing left renal calculus. CT Chest Angiogram and Pulmonary Arteries with IV Contrast Final Result CHEST: -No acute or chronic pulmonary embolism. -Similar appearance of 1.2 cm medial left upper lobe pulmonary nodule. Neoplasm remains a concern. -Healing left fourth through seventh rib fractures. Abdomen and pelvis: -No acute finding in the abdomen or pelvis. -4 mm nonobstructing left renal calculus. Procedures none See separate procedure note. ED COURSE ED Course as of 01/11/242010Jan 11, 2024 1151 I performed my initial evaluation of the patient. We discussed Emergency Department course including testing, treatment, and potential disposition based on findings. 1230 Leukocytes: 6.3 1230 Neutrophils: 4.70 1230 The rest of the CBC is unremarkable. 1305 Anion Gap, P: 12 1305 Creatinine(!): 1.70 1306 Estimated GFR (eGFR)(!): 43 Similar to previous at 1.9 creatinine. 1306 Lipase is negative. CRP is 6.6. 1356 IMPRESSION: CHEST: -No acute or chronic pulmonary embolism. -Similar appearance of 1.2 cm medial left upper lobe pulmonary nodule. Neoplasm remains a concern. -Healing left fourth through seventh rib fractures. Abdomen and pelvis: -No acute finding in the abdomen or pelvis. -4 mm nonobstructing left renal calculus. 1419 I discussed the plan for discharge with the patient, and patient/family is agreeable. I discussed with patient the utility, limitations, and findings of the exam/interventions/studies done during this visit as well as the list of differential diagnosis. Patient understands provisional nature of this diagnosis and need for follow up. We discussed the plan of care, including supportive cares. We also discussed symptoms to monitor and symptoms that should prompt them to return for re-evaluation including new or worsening symptoms. All questions and concerns addressed. Patient to be discharged by RN. Final Diagnoses: as of 01/11/242010 Pain Chest Wall INTERVENTIONS Medications fentaNYL injection 50 mcg (Sublimaze) (50 mcg intravenous Given 01/11/24 1226) NaCl 0.9 % bolus 1,000 mL (0 mL intravenous Stopped 01/11/24 1343) iohexoL 350 mg iodine/mL solution 200 mL (Omnipaque) (200 mL intravenous Given 01/11/24 1319) sodium chloride 0.9 % injection 10 mL (10 mL intravenous Given 01/11/24 1319) NaCl 0.9 % bolus 80 mL (80 mL intravenous New Bag 01/11/241318) MEDICAL DECISION MAKING Assessment and Plan Patient presents to the emergency department with complaints of left thoracic back pain. Patient states it started fairly suddenly. It is pleuritic in nature. Patient does have a history of kidney cancer with metastasis to the lung. Patient is also having some left flank pain. Denies any blood in his urine. He has been diaphoretic, but denies any fevers or chills. Does feel slightly more short ofbreath and he states he has been wheezing at home. Differential diagnosis is wide, all critical medical problems were considered including but not limited to PE, pneumonia, rib fractures, pneumothorax, ureteral stone, pyelonephritis, or others. Workup in the emergency department included a CBC, CMP, lipase, CRP. Peripheral IV was placed. Patient was given some fluid, his pain was treated with fentanyl. Will also get a CT pulmonary artery scan of his chest and then get a CT abdomen pelvis with IV contrast to rule out worsening tumor burden, PE, pneumothorax, pneumonia, or others. Disposition pending workup. Workup in the emergency department was pretty noncontributory for his pain. It could be coming fromhis old rib fractures with a recent fall. However there was no acute rib fractures appreciated on CT chest. PE was ruled out by CT chest. His pulmonary nodule is unchanged. Query pleurisy for his symptom versus chest wall pain. In pain definitely increases with palpation of the site of pain. No rash to suggest shingles. Belly labs were unremarkable so doubt pancreatitis the cause of his symptoms.Rest of his abdominal CT was read as no acute findings. Will schedule the patient on Tylenol, he can have oxycodone for breakthrough pain. He was instructed to follow-up with primary care in a week if his symptoms continue, or he should return to the emergency department for any worsening symptoms.I did not discuss the possibility of early shingles with the patient, he was instructed to watch for a rash if this is the case. Patient has been vaccinated against shingles. Patient and/or caregiverwas given red flag signs & symptoms that would require immediate followup or return to the ED. . DIFFERENTIAL DIAGNOSES As above. PROBLEMS ADDRESSED THIS VISIT As above. Care is significantly affected by the following Social Determinants of Health: none. I reviewed the following external records: primary care records, prior outpatient labs, prior outpatient radiology tests and inpatient records. The following tests were considered but ultimately not performed: none. Escalation of care, including admission/observation, considered: none. DIAGNOSIS Final diagnoses: [R07.89] Pain Chest Wall DISPOSITION Home or Self Care DISCHARGE/TRANSFER VITAL SIGNS Vitals: 01/11/24 1414 BP: Pulse: 82 Resp: Temp: SpO2: 97% ED DISCHARGE MEDS ED Prescriptions Medication Sig Dispense Start Date End Date Auth. Provider lidocaine (Lidoderm) 5 % adhesive patch,medicated Place 1 patch on the skin daily for 10 days. Apply to left back as needed for pain. On for 12 hours, then take it off for 12 hours.. 7 patch 01/11/2024 01/21/2024 Hans Platt APRN, C.N.P., D.N.P. oxyCODONE (Roxicodone) 5 mg immediate release tablet Take 1 tablet (5 mg total) by mouth every 6 (six) hours as needed for pain for up to 3 days Indication: Acute Pain. 10 tablet 01/11/2024 01/14/2024 Hans Platt APRN, C.N.P., D.N.P. FOLLOW UP Contact Information for Follow-ups Elsewhere, Pcp Specialty: Internal Medicine, Customer Service Leader, Pediatrics, Women's Health, Family Medicine Office Next Steps: Follow up in 1 week(s) Instructions: As needed Hans Platt DNP, BAYLEE, CHILD WELFARE CASEWORKER-C, AGACNP-BC, ENP-C Emergency Medicine Hans Platt APRN, C.N.P., D.N.P. 01/11/242010 * Joanne Worrell R.N. - 01/11/2024 11:55 AM CDT Pt presents to ED with c/o intermittent left flank pain that started last night. Pt reports pain worsened at 5am this morning. Denies urinary symptoms, nausea, vomiting, fever. Pt took 1mg Ativan and1,000mg Tylenol at 9am. Pt rates pain 6/10 and describes as sharp. Joanne Worrell R.N. 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 [address] [place] [phone] 04/09/2024 2:00 PM [employer]UD SHEEP [employer] Office Visit Division of Rheumatology in [place], [place] [address] [place] [phone] Maryan Merritt APRN, C.N.P., D.N.P. [address] [place] [phone] documented as of this encounter Procedures Procedure Name Priority Date/Time Associated Diagnosis Comments URINALYSIS WITH MICROSCOPIC IF INDICATED, U STAT 01/11/2024 1:44 PM CDT HC URINALYSIS AUTO W MICRO STAT 01/11/2024 1:[address] ABDOMEN PELVIS WITH IV CONTRAST RAD - Semiurgent (Fast; most ED patients; some inpatients) 01/11/2024 1:[address] CHEST ANGIOGRAM AND PULMONARY ARTERIES WITH IV CONTRAST RAD - Semiurgent (Fast; most ED patients; some inpatients) 01/11/2024 1:20 PM CDT CBC WITH DIFFERENTIAL, B STAT 01/11/2024 12:13 PM CDT C-REACTIVE PROTEIN (CRP), S/P STAT 01/11/2024 12:13 PM CDT LIPASE, S/P STAT 01/11/2024 12:13 PM CDT COMPREHENSIVE METABOLIC PANEL, S/P STAT 01/11/2024 12:13 PM CDT documented in this encounter Results * (ABNORMAL) Microscopic Manual (01/11/2024 1:44 PM [...] D.N.P. LAB URINE OR DERABLES Final Result - [facility] [address] [place] [address], [facility] CNFL [facility] in [address] [address] * (ABNORMAL) Urinalysis with Microscopic if Indicated [...] 8.0 01/11/2024 2:00 PM CDT CNFL Specific [place] 1.010 1.001 - 1.035 01/11/2024 2:00 PM CDT [facility] Urobilinogen 0.2 0.2 - 1.0 mg/dL 01/11/2024 2:00 PM CDT [facility] Urine (Urine, Midstream) 01/11/2024 1:44 PM CDT 01/11/2024 1:49 PM CDT us Hans Platt APRN, C.N.P., D.N.P. LAB URINE OR DERABLES Final Result Performing Organization Address City/State/[facility] Co de Phone Number - [facility] [address] [place] [phone], [facility] in [address] [address] * CT Abdomen Pelvis with IV Contrast [...] Healing left fourth through seventh rib fractures. [facility] of the thoracic spine kyphosis. Old [...] Wall: Healing left fourth through seventh ribfractures. [facility] of the thoracic spine kyphosis. Old [...] Platt APRN, C.N.P., D.N.P. IMG CT JESSICA ALVARADO Final Result * CT Chest Angiogram and [...] Healing left fourth through seventh rib fractures. [facility] of the thoracic spine kyphosis. Old [...] Wall: Healing left fourth through seventh ribfractures. [facility] of the thoracic spine kyphosis. Old [...] renal calculus. Hans Platt APRN, C.N.P., D.N.P. [facility] Final Result * (ABNORMAL) CRP (C-Reactive Protein) (01/11/2024 12:13 PM CDT) C-Reactive Protein (CRP), P 6.6(H) <5.0 mg/L 01/11/2024 12:42 PM CDT CNFL Blood (Blood, Venous) 01/11/2024 12:13 PM CDT 01/11/2024 12:15 PM CDT us Kari Ash APRN.N.P., D.N.P. LAB BLOOD AD D-ON Final Result Performing Organization Address [facility]/[place] [address], [facility] [address] [address] * Lipase (01/11/2024 12:13 PM CDT) Lipase, P 20 13 - 60 U/L 01/11/2024 12:42 PM CDT CNFL Blood (Blood, Venous) 01/11/2024 12:13 PM CDT 01/11/2024 12:15 PM CDT us Hans Platt APRN, C.N.P., D.N.P. LAB BLOOD AD D-ON Final Result Performing Organization Address [facility]/ZIP Co de Phone Number [address] [address], [place] [address] * (ABNORMAL) Comprehensive Metabolic Panel (01/11/2024 12:13 PM CDT) Potassium, P 4.6 3.6 - 5.2 mmol/L [...] D.N.P. LAB BLOOD AD D-ON Final Result - [facility] [address] [place] [phone], [facility] [place] [address] * (ABNORMAL) CBC with Differential, Blood (01/11/2024 12:13 PM CDT) [facility] Hemoglobin 13.8 13.2 - 16.6 g/dL 01/11/2024 12:27 PM CDT CNFL Hematocrit 41.9 38.3 - 48.6 % 01/11/2024 12:27 PM CDT CNFL Erythrocytes 5.19 4.35 - 5.65 x10(12)/L 01/11/2024 12:27 PM CDT CNFL MCV 80.7 78.2 - 97.9 fL 01/11/2024 12:27 PM CDT CNFL RBC Distrib Width 15.5(H) 11.8 - 14.5 % 01/11/2024 12:27 PM CDT CNFL Platelet Count 130(L) 135 - 317 x10(9)/L 01/11/2024 12:27 PM CDT CNFL Leukocytes 6.3 3.4 - 9.6 x10(9)/L 01/11/2024 12:27 PM CDT CNFL Neutrophils 4.70 1.56 - 6.45 x10(9)/L 01/11/2024 12:27 PM CDT CNFL Lymphocytes 1.03 0.95 - 3.07 x10(9)/L 01/11/2024 12:27 PM CDT CNFL Monocytes 0.43 0.26 - 0.81 x10(9)/L 01/11/2024 12:27 PM CDT CNFL Eosinophils 0.07 0.03 - 0.48 x10(9)/L 01/11/2024 12:27 PM CDT CNFL Basophils <0.04 0.01 - 0.08 x10(9)/L 01/11/2024 12:27 PM CDT CNFL Blood (Blood, Venous) 01/11/2024 12:13 PM CDT 01/11/2024 12:15 PM CDT us Hans Platt APRN, C.N.P., D.N.P. LAB BLOOD AD D-ON Final Result - [facility] [address] [place] [phone], [facility] in [address] [id number] documented in this encounter Visit Diagnoses Diagnosis Pain Chest Wall- Primary documented in this encounter Administered Medications Inactive Administered Medications - up to 3 most recent administrations Medication Order MAR Action Action Date Dose Rate Site fentaNYL injection 50 mcg (Sublimaze) 50 mcg, intravenous, Once, On Tue01/11/24 at 1206, For 1 dose Given 01/11/2024 12:26 PM CDT 50 mcg iohexoL 350 mg iodine/mL solution 200 mL (Omnipaque) 200 mL, intravenous, Once in imaging, contrast, Starting on Tue01/11/24 at 1243, For 1 dose Given 01/11/2024 1:19 PM CDT 200 mL lidocaine 5 % 1 patch (Lidoderm) 1 patch, transdermal, Administer over 12 Hours, Once, On Tue01/11/24 at 1206, For 1 dose, Remove after 12 hours. Medication Applied 01/11/2024 12:25 PM CDT 1 patch Mid Back NaCl 0.9 % bolus 1,000 mL 1,000 mL, intravenous, at 1,000 mL/hr, Administer over 1 Hours, Once, On Tue01/11/24 at 1206, For 1 dose New Bag 01/11/2024 12:26 PM CDT 1,000 mL 1000 mL/hr NaCl 0.9 % bolus 80 mL 80 mL, intravenous, at 80 mL/hr, Administer over 1 Hours, Once, On Tue01/11/24 at 1245, For 1 dose New Bag 01/11/2024 1:19 PM CDT 80 mL 80 mL/hr sodium chloride 0.9 % injection 10 mL 10 mL, intravenous, Once, On Tue01/11/24 at 1245, For 1 dose Given 01/11/2024 1:19 PM CDT 10 mL documented in this encounter Active and Recently Administered Medications Times are shown in CDT. Scheduled Medication Order 01/09/2024 01/10/2024 01/11/2024 fentaNYL injection 50 mcg (Sublimaze) (COMPLETED) 50 mcg, intravenous, Once, On Tue01/11/24 at 1206, For 1 dose 1226 (Given - Provid er: Joanne A Wersal, R.N.) lidocaine 5 % 1 patch (Lidoderm) 1 patch, transdermal, Administer over 12 Hours, Once, On Tue01/11/24 at 1206, For 1 dose, Remove after 12 hours. 1225 (Medication Nan lied - Provider: Joanne Worrell R.N.)1427 (Due: Medication Removed - Provider: Discharge Provider, Automatic - Comment: Time automatically adjusted from order being discontinued) NaCl 0.9 % bolus 1,000 mL (COMPLETED) 1,000 mL, intravenous, at 1,000 mL/hr, Administer over 1 Hours, Once, On Tue01/11/24 at 1206, For 1 dose 1226 (New Bag - Prov ider: Joanne Worrell R.N.)1343 (Stopped - Provider: Joanne Worrell R.N.) NaCl 0.9 % bolus 80 mL (COMPLETED) 80 mL, intravenous, at 80 mL/hr, Administer over 1 Hours, Once, On Tue01/11/24 at 1245, For 1 dose 1319 (New Bag - Prov ider: Ja Stevens(R)(CT), R.T.(R))1419 (Due: Stopped - Provider: Ja Stevens(Twyla)(CT), R.T.(R)) sodium chloride 0.9 % injection 10 mL (COMPLETED) 10 mL, intravenous, Once, On Tue01/11/24 at 1245, For 1 dose 1319 (Given - Provid er: Ja Stevens(R)(CT), R.T.(R)) PRN Medication Order 01/09/2024 01/10/2024 01/11/2024 iohexoL 350 mg iodine/mL solution 200 mL (Omnipaque) (COMPLETED) 200 mL, intravenous, Once in imaging, contrast, Starting on Tue01/11/24 at 1243, For 1 dose 1319 (Given - Provid er: Ja Stevens(R)(CT), R.T.(R)) documented in this encounter Additional Health Concerns Assessment Noted Time PHQ-9 Depression Total Score: 22 06/28/2 024 7:46 AM CDT documented as of this encounter Care Teams Blocker And Sewer Relationship Specialty Start Date End Date Elsewhere, Pcp PCP - General Internal Medicine 09/08/22 documented as of this encounter
--- OUTSIDE RECORDS SUMMARY | 2024-02-22 10:05 | XMS_ITS | Encounter Summary ---
Author Organization [facility] Address [address] [place] [address] Care Team Providers Care Rn Paralegal Name Role Phone Elsewhere, Pcp Primary Care Provider Unavailabl e Encounter Details Date Type Department Care Team (Latest Contact Info) Description 12/07/2023 7:45 AM CDT - 12/07/2023 11:47 AM CDT Hospital Encounter Department of Cardiovascular Diseases in [place], [place] [address] [place] [address] Ramsey Kelly M.D. [address] [place] [address] Sarcoidosis; Atrial Fibrillation Paroxysmal (HCC); Myocarditis (HCC); Sleep Apnea Hypopnea; Autoimmune Disorder (HCC); Acute Systolic (Congestive) Heart Failure (HCC); Sarcoid Myocarditis (HCC) Discharge Disposition: Home or Self Care Social History Tobacco Use Types Packs/Day Years Used Date Smoking Tobacco: Never Passive Smoke Exposure: Past Smokeless Tobacco: Never Alcohol Use Standard Drinks/Week Comments Yes 14 (1 standard drink = 0.6 oz pu re alcohol) [facility] Utilities Answer Date Recorded In the past 12 months has e [employer], gas, oil, or water [employer] threatened to shut off services in your [...] file 04/13/2022 How often do you attend [facility] or buddhism services? More than 4 times per year 04/13/2022 Do you belong to any clubs o r organizations such as hinduism groups, unions, fraternal or athletic groups, or [...] Answer Date Recorded PHQ-2 Score 6 10/28/2023 [facility] - Occupational [...] your living situation today? I have a [facility] place to live 04/26/2023 Education Answer Date Recorded What is the highest level of school you have completed or the highest degree you have received? Bachelor's degree (e.g., BA, AB, BS) 11/19/2018 Sex and Gender Information Value Date Recorded Sex Assigned at Male 04/13/2022 12:32 PM SERVICE STATION MANAGER Legal Sex Male 9:12 PM SERVICE STATION MANAGER Gender Identity Male 04/13/2022 12:32 PM SERVICE STATION MANAGER Sexual Orientation Straight 04/13/2022 12 :32 PM SERVICE STATION MANAGER documented as of this encounter Medications [...] at bedtime as needed for sleep. 08/17/2018 LORazepam (ATIVAN) 0.5 mg tablet Take 0.5 mg by mouth as needed. 05/08/2021 documented as of this encounter Plan of Treatment Upcoming Encounters Date Type Department Care Team (Late st Contact Info) Description 04/09/2024 1:30 PM SERVICE STATION MANAGER Appointment Department of Laboratory Medicine and Pathology, [facility], in [place], [place] [address] [place] [address] Maryan Merritt APRN, C.N.P., D.N.P. [address] [place] [phone] 04/09/2024 2:00 PM SERVICE STATION MANAGER Office Visit Division of Rheumatology in [place], [place] [address] [place] [phone] Maryan Merritt APRN, C.N.P., D.N.P. [address] [place] [phone] documented as of this encounter Procedures Procedure Name Priority Date/Time Associated Diagnosis Comments ICD DUAL CHAMBER INTERROGATION WITH PROGRAMMING Routine 12/07/2023 8:22 AM CDT Sarcoidosis Atrial Fibrillation Paroxysmal (HCC) Myocarditis (HCC) Sleep Apnea Hypopnea Autoimmune Disorder (HCC) Acute Systolic (Congestive) Heart Failure (HCC) Sarcoid Myocarditis (HCC) documented in this encounter Results * ICD DUAL CHAMBER INTERROGATION WITH PROGRAMMING (12/07/2023 8:22 AM CDT) Date Time Interrogation Session [id number] [facility] Implantable Pulse Generator Software Quality Analyst [employer] [facility] Implantable Pulse Generator Model D152 DYNAGEN [facility] Implantable Pulse Generator Serial Number [id number] [facility] Type Interrogation Session In Clinic [facility] Clinic Name [facility] Implantable Pulse Generator Type Defibrillator [facility] Implantable Pulse Generator Implant Date 20221104 [facility] Implantable Lead Software Quality Analyst [employer] [facility] Implantable Lead Model 0273 [place] [employer] S [facility] Implantable Lead Serial Number [id number] [facility] Implantable Lead Implant Date 20221104 [facility] Implantable Lead Polarity Type Bipolar Lead [facility] Implantable Lead Location Detail 1 UNKNOWN [facility] Implantable Lead Special Function Lead length: 64 cm [facility] Implantable Lead Location Right Ventricle [facility] Implantable Lead Software Quality Analyst [employer] [facility] Implantable Lead Model 7841 Ingevity + MRI [facility] Implantable Lead Serial Number [id number] [facility] Implantable Lead Implant Date 20221104 [facility] Implantable Lead Polarity Type Bipolar Lead [facility] Implantable Lead Location Detail 1 UNKNOWN [facility] Implantable Lead Special Function Lead length: 52 cm [facility] Implantable Lead Location Right Atrium [facility] Theron Setting Mode (NBG Code) DDD [facility] Theron Setting Lower Rate Limit 60 {beats}/ min [facility] Theron Setting Maximum Tracking Rate 130 {beats}/ min [facility] Theron Setting Maximum Sensor Rate 130 {beats}/ min [facility] Theron Setting ASUNCION Delay Low 150.0 ms [facility] Theron Setting PAV Delay Low 180.0 ms [facility] Theron Setting PAV Delay High 80.0 ms [facility] Theron Setting ASUNCION Delay High 65.0 ms [facility] Theron Setting AT Mode Switch Rate 170 {beats}/ min [facility] Theron Setting AT Mode Switch Mode DDIR [facility] Lead Channel Setting Sensing Polarity Bipolar [facility] Lead Channel Setting Sensing Sensitivity 0.25 mV [facility] Lead Channel Setting Sensing Adaptation Mode Adaptive [facility] Lead Channel Setting Sensing Polarity Bipolar [facility] Lead Channel Setting Sensing Sensitivity 0.6 mV [facility] Lead Channel Setting Sensing Adaptation Mode Adaptive [facility] Lead Channel Setting Pacing Polarity Bipolar [facility] Lead Channel Setting Pacing Pulse Width 0.4 ms [facility] Lead Channel Setting Pacing Amplitude 3.5 V [facility] Lead Channel Setting Pacing Capture Mode Fixed Pacing [facility] Lead Channel Setting Pacing Polarity Bipolar [facility] Lead Channel Setting Pacing Pulse Width 0.4 ms [facility] Lead Channel Setting Pacing Amplitude 2.0 V [facility] Lead Channel Setting Pacing Capture Mode Fixed Pacing [facility] Zone Setting Type Category VF [facility] Zone Setting Detection Interval 273.0 ms [facility] Zone Setting Type Category VT [facility] Zone Setting Detection Interval 324.0 ms [facility] Zone Setting Type Category VT [facility] Lead Channel Impedance Value 654.0 ohm [facility] Lead Channel Sensing Intrinsic Amplitude 4.9 mV [facility] Lead Channel Pacing Threshold Amplitude 1.6 V [facility] Lead Channel Pacing Threshold Pulse Width 0.4 ms [facility] Lead Channel Impedance Value 425.0 ohm [facility] Lead Channel Sensing Intrinsic Amplitude 13.0 mV [facility] Lead Channel Pacing Threshold Amplitude 0.7 V [facility] Lead Channel Pacing Threshold Pulse Width 0.4 ms [facility] Battery Date Time of Measurements [facility] Battery Status Beginning of Service [facility] Battery Remaining Longevity 126 mo [facility] Capacitor Charge Type Reformation [facility] [...] SYSTEM Episode Statistic Total Date Time End [id number] [facility] Episode Statistic Total Date Time End [id number] [facility] Episode Statistic Total Date Time End [id number] [facility] Episode Statistic Recent Count [...] SYSTEM Episode Statistic Recent Date Time End [id number] [facility] Episode Statistic Recent Date Time End [id number] [facility] Episode Statistic Recent Date Time End [id number] [facility] Anatomical Region Laterality Modality Echocardiography 12/07/2023 8:17 AM CDT Narrative 12/08/2023 12:54 PM CDT PURPOSE OF VISIT: ??Patient seen for routine device interrogation in conjunction with other appointments. PRESENTING RHYTHM: ??Atrial sensed/ ventricular sensed at 65 bpm. UNDERLYING RHYTHM: ??Sinus Rhythm at 65 bpm. ATRIAL ARRHYTHMIAS: ??Since 10/18/23 none. ? Atrial fibrillation burden: ??0%. VENTRICULAR ARRHYTHMIAS: ??None. ?PVC [place]: Since 05/27/23 device recorded 227.5K BATTERY LONGEVITY: [...] expressed understanding. FOLLOW UP LOCATION STATUS: [facility] (A) NEXT FOLLOW UP: Next routine follow-up will be via [employer]. DEVICE RN: Alhaji Najera. Provider statement: This patient underwent device interrogation. I agree that the device interrogation was medically indicated to provide appropriate care and continue routine device interrogations as indicated. us Ramsey Kelly M.D. CV IMPLANTABLE CARDIAC D EVICE Final Result documented in this encounter Visit Diagnoses Diagnosis Sarcoidosis Atrial Fibrillation Paroxysmal (HCC) Myocarditis (HCC) Sleep Apnea Hypopnea Autoimmune Disorder (HCC) Acute Systolic (Congestive) Heart Failure (HCC) Sarcoid Myocarditis (HCC) documented in this encounter Additional Health Concerns Assessment Noted Time PHQ-9 Depression Total Score: 22 024 7:46 AM CDT documented as of this encounter Care Teams Rn Paralegal Relationship Specialty Start Date End Date Elsewhere, Pcp PCP - General Internal Medicine 09/08/22 documented as of this encounter
--- OUTSIDE RECORDS SUMMARY | 2024-02-22 10:05 | XMS_ITS | Encounter Summary ---
Author Organization [facility] Address [address] [place] [address] Care Team Providers Care Sales And Marketing Professional Name Role Phone Elsewhere, Pcp Primary Care Provider Unavailabl e Reason for Referral * Outpatient (Routine) - Authorized Specialty Diagnoses / Procedures Referred By Contac t Referred To Contact Diagnoses Myocarditis (HCC) Atrial Fibrillation Paroxysmal (HCC) Procedures PET CT Cardiac Sarcoid Ramsey Kelly M.D. [address] [place] [address] Phone: tel: fax: [facility] Referral ID Status Reason Start Date Expiration Date V isits Requested Visits Authorized [id number] Authorized 12/08/2023 12/07/2024 1 1 * Cardiovascular-Diagnostic (Routine) - Authorized Specialty Diagnoses / Procedures Referred By Contac t Referred To Contact Diagnoses Myocarditis (HCC) Atrial Fibrillation Paroxysmal (HCC) Procedures Echo Transthoracic (TTE) Ramsey Kelly M.D. [address] [place] [address] Phone: tel: fax: [facility] Referral ID Status Reason Start Date Expiration Date V isits Requested Visits Authorized [id number] Authorized 12/08/2023 12/07/2024 1 1 * Outpatient (Routine) - Authorized Specialty Diagnoses / Procedures Referred By Yasmin jo Referred To Contact Diagnoses Myocarditis (HCC) Atrial Fibrillation Paroxysmal (HCC) Procedures ECG 12 Lead Ramsey Kelly M.D. [address] [place] [phone] Phone: tel: fax: [facility] Referral ID Status Reason Start Date Expiration Date V isits Requested Visits Authorized [id number] Authorized 12/08/2023 12/07/2024 1 1 * Outpatient (Routine) - Authorized Specialty Diagnoses / Procedures Referred By Yasmin jo Referred To Contact Cardiovascular Disease Ramsey Kelly M.D. [address] [place] [phone] Phone: tel: fax: [facility] Referral ID Status Reason Start Date Expiration Date V isits Requested Visits Authorized [id number] Authorized 12/08/2023 06/08/2025 1 1 Scheduling Instructions S[facility]oid Clinic F/u Reason for Visit * Outpatient (Routine) - Closed Specialty Diagnoses / Procedures Referred By Yasmin jo Referred To Contact Cardiovascular Disease Ramsey Kelly M.D. [address] [place] [phone] Phone: tel: fax: [facility] Referral ID Status Reason Start Date Expiration Date Visits Re quested Visits Authorized [id number] Closed 06/27/2023 12/26/2024 1 1 Encounter Details Date Type Department Care Team (Latest Contact Info) Description 12/08/2023 11:00 AM CDT Office Visit Department of Cardiovascular Medicine in [place], [place] [address] [place] [phone] Ramsey Kelly M.D. [address] [place] [phone] Myocarditis (HCC) (Primary Dx); Atrial Fibrillation Paroxysmal (HCC); Autoimmune Disorder (HCC); Sleep Apnea Hypopnea; Acute Systolic (Congestive) Heart Failure (HCC); Insufficiency Pituitary (HCC); Encephalopathy; Cancer Renal Cell Carcinoma Personal History; Chronic Kidney Disease (CKD), Stage 3 Unspecified (HCC); Failure Heart (HCC) Social History Tobacco Use Types Packs/Day Years Used Date Smoking Tobacco: Never Passive Smoke Exposure: Past Smokeless Tobacco: Never Alcohol Use Standard Drinks/Week Comments Yes 14 (1 standard drink = 0.6 oz pu re alcohol) [facility] Utilities Answer Date Recorded In the past 12 months has e [employer], oil, or water [employer] threatened to shut off services in your [...] often do you attend chur ch or christianity services? More than 4 times per year 04/13/2022 Do you belong to any clubs o r organizations such as religion groups, unions, fraternal or athletic groups, or school groups? No 04/13/2022 Attends Club or Organization Meetings Not on mary ann e 04/13/2022 Marital Status Not on file 04/13/2022 AUDIT-C Answer Date Recorded Q1: How often do you have a drink containing alc ohol? Patient declined 04/13/2022 Average Number of Drinks Not on file 12/13/2 022 Frequency of Binge Drinking Not on file 04/01 Overall Financial Resource Strain (CARDIA) Answe r Date Recorded How hard is it for you to pa y for the very basics like food, housing, medical care, and heating? Not hard at all 09/29/2022 PHQ-2 Answer Date Recorded PHQ-2 Score 6 10/28/2023 [facility] - Occupational Stress Questionnaire Answer Date Recorded [...] your living situation today? I have a [facility] place to live 04/26/2023 Education Answer Date Recorded What is the highest level of school you have completed or the highest degree you have received? Bachelor's degree (e.g., BA, AB, BS) 11/19/2018 Sex and Gender Information Value Date Recorded Sex Assigned at Male 04/13/2022 12:32 PM DRESSMAKER GARMENT FITTER Legal Sex Male 9:12 PM DRESSMAKER GARMENT FITTER Gender Identity Male 04/13/2022 12:32 PM DRESSMAKER GARMENT FITTER Sexual Orientation Straight 04/13/2022 12 :32 PM DRESSMAKER GARMENT FITTER documented as of this encounter Last Filed Vital Signs Vital Sign Reading Time Taken Comments Blood Pressure 100/64 12/08/2023 10:57 AM CDT Pulse 74 12/08/2023 10:57 AM CDT Temperature - - Respiratory Rate - - Oxygen Saturation - - Inhaled Oxygen Concentration - - Weight 135 kg (296 lb 15.4 oz) 12/08/2023 10:57 AM CDT Height 174.9 cm (5' 8.86) 12/08/2023 10:57 AM C DT Body Mass Index 44.03 12/08/2023 10:57 AM CDT documented in this encounter Progress Notes * Ramsey Kelly M.D. - 12/08/2023 11:00 AM CDT CARDIAC SARCOIDOSIS CLINIC SUBSEQUENT VISIT SUBJECTIVE PRIMARY CARE PROVIDER: ELSEWHERE, PCP CHIEF COMPLAINT/REASON FOR VISIT Follow up myocarditis. HISTORY OF PRESENT ILLNESS Hans Gu is a 68 y.o. male who returns for follow-up. Medical history is notable for IgLON5 autoimmunity syndrome, severe obstructive sleep apnea, hypersomnia, lymphocytic thyroiditis, renal cell carcinoma status post resection (2014), history of PVCs, history of mild ischemia on noninvasive stress testing, and borderline reduced LVEF. History is well outlined by my colleague Dr. Bird in previous notes. The patient was first seen here by Dr. Bird in September of 2022. Briefly, the patient has a history dating back to 2018. He had evidence of ischemia based on outside PET stress test. He would a borderline reduced left ventricular ejection fraction on echocardiogram and outside MRI did not show obvious findings for infiltrative cardiomyopathy (RV insertion point delayed enhancement). Initial testing here in 2019 had revealed a 4% PVC burden with a fairly normal transthoracic echocardiogram. However, outside echocardiogram in September2022 disclosed ejection fraction of 45-50%. Dr. Bird notes that there was sudden onset of odd behaviors in May 2022, particularly paranoia. He was diagnosed with the above unusual autoimmune syndrome, IgLON5. Testing here showed a PVC burden of 3%. PET scan obtained on 10/15/2022 demonstrated significant FDG uptake within the basal at the apex inferior and lateral l[place]. There was some corresponding perfusion defect. SUV max was 3.8 with blood pool 2.1. He was unclear if this could be myocarditis secondary to immune checkpoint inhibitor therapy. Rituximab therapy was considered. Neurology felt that the autoimmune diagnosis as above was not consistent with the findings and that is there may be a superimposed process such as sarcoidosis. CT coronary angiogram disclosed only mild atheromatous plaques. He underwent ambulatory ECG monitor for 14 days. This revealed a PVC burden of 1.3% in a PVC burden of 12%. There were many events however he was mostly corresponded to PACs and PVCs. Normal heart rate variability. Transthoracic echocardiogram showed an EF of 40%. He was evidence of elevated left ventricular filling pressures. Mild pulmonary hypertension was identified. Normal RV size with mildly reduced function. Mild to moderate mitral regurgitation. Cardiac Oncology consultation was obtained on 10/26/2022. AntiIgLON5 was discussed in the differential but it was unclear. Further cardiac imaging was recommended. Of note, his pembrolizumab was not restarted since June of 2022. He has been on axitinib. Electrophysiology was consulted for possibleprimary prevention ICD. Given the inflammation reduced EF, this was felt to be indicated. He underwent primary prevention ICD implant on 11/04/2022. Subsequent Holter monitor in November of 2022 was reassuring. Intermittent atrial fibrillation was noted on device interrogations. He was initiated on an ticoagulation. Guideline directed medical therapy uptitration has been initiated. He was presently on Entresto 24/26 mg twice daily metoprolol succinate 75 mg daily. He was started on rituximab therapy in October 2022 as well as a prednisone taper starting in November of 2022. He was seen by Neurology in late November of 2022. He was recommended to continue 6 monthly rituximab therapy, pursue cognitive rehab in neuropsychology, and consider workup of his lymphadenopathy. Subsequently, he was briefly admitted to hospital between 02/16/2023 and 02/19/[address] [facility]. Encephalopathy was of unclear etiology. Lumbar function was repeated in several studies were obtained that were pending. We visited on 03/01/2023. He had not had any issues with rituximab infusions. 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 After discussing with Rheumatology, the patient was initiated on CellCept therapy. He had a fair burden of ventricular tachycardia. He was thought to maximize beta-taqueria therapy. Fluid status was somewhat problematic after he [place] a trip to [place]. He had sustained multiple fractures with a fall from a wheelchair. Given a T7 fracture, there was discussion about holding his anticoagulation case back surgery was needed. Hisweight was up significantly up to a peak of 310 lb from a baseline 282. He does not recall whether he was short of breath. We initiated Lasix 20 mg daily starting in early May. Weight is presently 297 lb. He endorses some mild lower extremity edema. He was that cognitive difficulties to a greater extent partly due to pain medication which he was taking. He was is very diligent about avoiding pain medication necessary providing pain relief. He was unsure if he will be having back surgery ever for this. I saw him back on May 19, 2023. At that time, there was no clear heart failure symptomatology. He had evidence of pre renal azotemia and therefore we backed off on his Lasix. We resumed guidelinedirected medical therapy. Ultimately, his therapy has been uptitrated to Entresto 49/51 mg twice daily, metoprolol succinate 200 mg daily, Jardiance 10 mg daily. Spironolactone has been discontinued due to acute renal dysfunction. Since he was seen last, he notes no significant decrement in his functional capacity. He reports still persistent shortness of breath. He was not had significant volume overload symptoms of any sort.No arrhythmias. He has been not her active and somewhat fatigued throughout the day resulting in sleeping and generally reports a sense of lack of motivation. REVIEW OF SYSTEMS Reviewed encounter review of systems and pertinent responses are noted in the history. The following portions of the patient's history were also reviewed and updated as appropriate: Allergies, current medications, outpatient medications, family history, medical history, social history, surgical history and problem list. CURRENT MEDICATIONS Per EHR ALLERGIES/CONTRAINDICATIONS Allergies Allergen Reactions Bupropion Rash and Shortness of breath with other systemic symptoms especially skin reaction OBJECTIVE VITAL SIGNS BP 100/64 (BP Location: Right arm, Patient Position: Sitting, Cuff Size: Regular) Comment (Cuff Size): Long Pulse 74 Ht 174.9 cm Wt 135 kg BMI 44.03 kg/m?? PHYSICAL EXAMINATION General: Well-appearing, in no acute distress. Skin: No rashes or notable lesions were appreciated. Eyes: No conjunctival injection or jaundice. Oropharynx: Moist mucous membranes. Heart: Jugular venous pressure appeared normal. Heart regular. Normal S1-S2.. Extremities: Pulses in the bilateral extremities were 2+. No peripheral edema was present. Lungs: Nonlabored breathing. No adventitious sounds were appreciated on auscultation. Abdomen: Soft, nontender, nondistended. Positive bowel sounds. Mental: Alert and oriented x 4. Good cognition, appropriate affect. DIAGNOSTICS ECG: ECG 12 Lead Result Date: 12/07/2023 Demand atrial and ventricular pacing; Interpretation is based on intrinsic rhythm Sinus rhythm Premature ventricular complexes Right bundle branch block with secondary ST-T abnormalities Cannot rule out Inferior infarct When compared with ECG of 19-May-2023 12:34, Ventricular pacing is now evident Reviewed by CHARLES Dao DEVICE INTERROGATION (12/07/2023): PURPOSE OF VISIT: Patient seen for routine device interrogation in conjunction with other appointments. PRESENTING RHYTHM: Atrial sensed/ ventricular sensed at 65 bpm. UNDERLYING RHYTHM: Sinus Rhythm at 65 bpm. ATRIAL ARRHYTHMIAS: Since 10/18/23 none. Atrial fibrillation burden: 0%. VENTRICULAR ARRHYTHMIAS: None. PVC [place]: Since 05/27/23 device recorded 227.5K BATTERY LONGEVITY: Expected battery longevity trends reviewed and are stable and consistent with device settings and use. SUMMARY: All device function appears normal. The device incision is well healed. PROGRAMMING CHANGES: Based on today threshold measurement RA lead was programmed to 3.5V SARCOID-PROTOCOL CARDIAC PET SCAN (12/07/2023): . TRANSTHORACIC ECHOCARDIOGRAM (12/07/2023): 1. Normal left ventricular chamber size, calculated [...] strain and left ventricular ejection fraction have significantly improved. Right ventricular systolic function is also normal. Side by side comparison of images performed. . LABS (12/08/2023): Latest Reference Range & Units 12/08/23 09:49 Hemoglobin 13.2 - 16.6 g/dL 13.2 Hematocrit 38.3 - 48.6 % 42.6 Erythrocytes 4.35 - 5.65 x10(12)/L 5.11 MCV 78.2 - 97.9 fL 83.4 RBC Distrib Width 11.8 - 14.5 % 15.7 (H) Platelet Count 135 - 317 x10(9)/L 169 Leukocytes 3.4 - 9.6 x10(9)/L 7.3 Neutrophils 1.56 - 6.45 x10(9)/L 5.63 Lymphocytes 0.95 - 3.07 x10(9)/L 1.01 Monocytes 0.26 - 0.81 x10(9)/L 0.60 Eosinophils 0.03 - 0.48 x10(9)/L 0.07 Basophils 0.01 - 0.08 x10(9)/L 0.03 Sodium, S 135 - 145 mmol/L 137 Potassium, S 3.6 - 5.2 mmol/L 4.7 Chloride, S 98 - 107 mmol/L 101 Bicarbonate, S 22 - 29 mmol/L 22 Anion Gap 7 - 15 14 BUN (Blood Urea Nitrogen), S 8 - 24 mg/dL 33 (H) Creatinine 0.74 - 1.35 mg/dL 1.99 (H) Estimated GFR (eGFR) >=60 mL/min/BSA 36 (L) Calcium, Total, S 8.8 - 10.2 mg/dL 10.2 Glucose, S 70 - 140 mg/dL 172 (H) Bilirubin, Total, S 0.0 - 1.2 mg/dL 0.4 Alanine Aminotransferase (ALT), S 7 - 55 U/L 24 Aspartate Aminotransferase (AST), S 8 - 48 U/L 23 Alkaline Phosphatase, S 40 - 129 U/L 84 Protein, Total, S 6.3 - 7.9 g/dL 6.4 Albumin, S 3.5 - 5.0 g/dL 4.4 Troponin T, 5th gen <=15 ng/L 53 (H) NT-Pro BNP <=540 pg/mL 246 C-Reactive Protein, High Sens, S <2.0 mg/L 8.1 (H) (H): Data is abnormally high (L): Data is abnormally low. ASSESSMENT / PLAN #1 Myocarditis (HCC) #2 Atrial Fibrillation Paroxysmal (HCC) #3 Autoimmune Disorder (HCC) #4 Sleep Apnea Hypopnea #5 Acute Systolic (Congestive) Heart Failure (HCC) #6 Insufficiency Pituitary (HCC) #7 Encephalopathy #8 Cancer Renal Cell Carcinoma Personal History #9 Chronic Kidney Disease (CKD), Stage 3 Unspecified (HCC) DISCUSSION: Mr. Gu presents with heart failure with improved ejection fraction now comfortably within normal limits at 58%. Despite this, he was not noticed a major functional improvement. Suspect this is primarily peripheral limitation residually with significant deconditioning partly because of the patient's chronic activity partly mediated by his unsteadiness and previous falls. Recommended continue his current guideline directed medical therapy. PET scan also reveals the absence of current inflammatory uptake within the myocardium. Regarding his functional status, recommend resistance and/or aerobic to achieve improved functionalstatus. I recommended he initiate a walking regimen. To the extent that he may be sedated from medications, considering transitioning off quetiapine would be ideal and I suggested to him ramelteon could be an option for sleep initiation. RECOMMENDATIONS: Continue current guideline directed medical therapy No indication for augmentation of anti-inflammatory therapy Consider ramelteon for sleep in order to decrease sedating medications Recommend oncology workup of pulmonary nodules and/or empiric treatment given likelihood of metastasis Recommend aerobic and resistance training to improve functional status. Return in roughly 6-9 months time.. Aron Kelly M.D. 12/08/23 PATIENT EDUCATION Ready to learn, no apparent learning barriers were identified; learning preferences include listening. Explained diagnosis and treatment plan; patient expressed understanding of the content. documented in this encounter Plan of Treatment Upcoming Encounters Date Type Department Care Team (Late st Contact Info) Description 04/09/2024 1:30 PM DRESSMAKER GARMENT FITTER Appointment Department of Laboratory Medicine and Pathology, [facility], in [place], [place] [address] [place] [address] Maryan Merritt, BAYLEE, C.N.P., D.N.P. [address] [place] [phone] 04/09/2024 2:00 PM DRESSMAKER GARMENT FITTER Office Visit Division of Rheumatology in [place], [place] [address] [place] [phone] Maryan Merritt APRN, C.N.P., D.N.P. [address] [place] [phone] Scheduled Orders Name Type Priority Associated Diagnoses Order Schedule NT-Pro B-Type Natriuretic Peptide (BNP) Lab Routine Myocarditis (HCC) Atrial Fibrillation Paroxysmal (HCC) Failure Heart (HCC) Expected: 06/18/2024 (Approximate) , Expires: 03/09/2025 Comprehensive Metabolic Panel Lab Routine Myocarditis (HCC) Atrial Fibrillation Paroxysmal (HCC) Expected: 06/18/2024 (Approximate) , Expires: 03/09/2025 CBC with Differential, Blood Lab Routine Myocarditis (HCC) Atrial Fibrillation Paroxysmal (HCC) Expected: 06/18/2024 (Approximate) , Expires: 03/09/2025 Troponin T, 5th Generation Lab Routine Myocarditis (HCC) Atrial Fibrillation Paroxysmal (HCC) Expected: 06/18/2024 (Approximate) , Expires: 03/09/2025 C-Reactive Protein, High Sensitivity Lab Routine Myocarditis (HCC) Atrial Fibrillation Paroxysmal (HCC) Expected: 06/18/2024 (Approximate) , Expires: 03/09/2025 ECG 12 Lead ECG Routine Myocarditis (HCC) Atrial Fibrillation Paroxysmal (HCC) Expected: 06/18/2024 (Approximate) , Expires: 03/09/2025 Echo Transthoracic (TTE) Echocardiography Routine Myocarditis (HCC) Atrial Fibrillation Paroxysmal (HCC) Expected: 06/18/2024 (Approximate) , Expires: 03/09/[address] Cardiac [facility] RAD - Routine (most inpatients and all outpatients) Myocarditis (HCC) Atrial Fibrillation Paroxysmal (HCC) Expected: 06/18/2024 (Approximate) , Expires: 03/09/2025 Cardiac Device Interrogation Implantable Cardiac Device Routine Myocarditis (HCC) Atrial Fibrillation Paroxysmal (HCC) Expected: 06/18/2024 (Approximate) , Expires: 03/09/2025 Scheduled Referrals Name Type Priority Associated Diagnoses Order Schedule Cardiovascular Disease office visit (clinic) Outpatient Referral Routine Expect ed: 06/18/2024 (Approximate), Expires: 03/09/2025 documented as of this encounter Visit Diagnoses Diagnosis Myocarditis (HCC)- Primary Atrial Fibrillation Paroxysmal (HCC) Autoimmune Disorder (HCC) Sleep Apnea Hypopnea Acute Systolic (Congestive) Heart Failure (HCC) Insufficiency Pituitary (HCC) Encephalopathy Cancer Renal Cell Carcinoma Personal History Chronic Kidney Disease (CKD), Stage 3 Unspecified (HCC) Failure Heart (HCC) documented in this encounter Additional Health Concerns Assessment Noted Time PHQ-9 Depression Total Score: 22 10/27/ 024 7:46 AM CDT documented as of this encounter Care Teams Sales And Marketing Professional Relationship Specialty Start Date End Date Elsewhere, Pcp PCP - General Internal Medicine 09/08/22 documented as of this encounter
--- OUTSIDE RECORDS SUMMARY | 2024-02-22 10:05 | XMS_ITS | Encounter Summary ---
Author Organization [facility] Address [address] [place] [address] Care Team Providers Care Car Repairer Pullman Name Role Phone Elsewhere, Pcp Primary Care Provider Unavailabl e Reason for Visit * Reason Onset Date Comments Lab Monitoring 11/10/2023 MMF 1st delay Encounter Details Date Type Department Care Team (Latest Contact Info) Description 11/10/2023 Clinical Communication Division of Rheumatology in [place], [place] [address] [place] [phone] Jenn Roberts REmil Lab Monitoring (MMF 1st delay) Social History Tobacco Use Types Packs/Day Years Used Date Smoking Tobacco: Never Passive Smoke Exposure: Past Smokeless Tobacco: Never Alcohol Use Standard Drinks/Week Comments Yes 14 (1 standard drink = 0.6 oz pu re alcohol) [facility] Utilities Answer Date Recorded In the past 12 months has [facility] [employer], gas, oil, or water [employer] threatened to shut off services in your [...] How often do you attend chur or buddhism services? More than 4 times per year 04/13/2022 Do you belong to any clubs o r organizations such as scientologist groups, unions, fraternal or athletic groups, or [...] Answer Date Recorded PHQ-2 Score 6 10/28/2023 [facility] - Occupational Stress Questionnaire Answer Date [...] your living situation today? I have a [facility] place to live 04/26/2023 Education Answer Date Recorded What is the highest level of school you have completed or the highest degree you have received? Bachelor's degree (e.g., BA, AB, BS) 11/19/2018 Sex and Gender Information Value Date Recorded Sex Assigned at Male 04/13/2022 12:32 PM ATMOSPHERIC SCIENTIST Legal Sex Male 9:12 PM ATMOSPHERIC SCIENTIST Gender Identity Male 04/13/2022 12:32 PM ATMOSPHERIC SCIENTIST Sexual Orientation Straight 04/13/2022 12 :32 PM ATMOSPHERIC SCIENTIST documented as of this encounter Miscellaneous Notes * Telephone Encounter - Jenn Roberts R.N. - 11/10/2023 2:55 PM CDT Patient missed scheduled lab appointment for medication monitoring. Nursing contacted patient via portal message and provided laboratory medication monitoring information. If needed a letter instructing patient of need to complete medication monitoring labs will be sent.Patient will be contacted to reschedule lab appointment. documented in this encounter Plan of Treatment Upcoming Encounters Date Type Department Care Team (Late st Contact Info) Description 04/09/2024 1:30 PM ATMOSPHERIC SCIENTIST Appointment Department of Laboratory Medicine and Pathology, [facility] in [place], [place] [address] [place] [address] Maryan Merritt APRN, C.N.P., D.N.P. [address] [place] [phone] 04/09/2024 2:00 PM ATMOSPHERIC SCIENTIST Office Visit Division of Rheumatology in [place], [place] [address] [place] [phone] Maryan Merritt APRN, C.N.P., D.N.P. [address] [place] [phone] documented as of this encounter Visit Diagnoses Not on filedocumented in this encounter Additional Health Concerns Infection Onset Date Last Indicated Resolved Time Protective Environment 08/19/2022 08/19/202211/21 5:10 AM CDT Assessment Noted Time PHQ-9 Depression Total Score: 22 10/27/ 024 7:46 AM CDT documented as of this encounter Care Teams Car Repairer Pullman Relationship Specialty Start Date End Date Elsewhere, Pcp PCP - General Internal Medicine 09/08/22 documented as of this encounter
--- OUTSIDE RECORDS SUMMARY | 2024-02-22 10:05 | XMS_ITS | Encounter Summary ---
Author Organization [facility] Address [address] [place] [address] Care Team Providers Care Aerodynamic Consultant Name Role Phone Elsewhere, Pcp Primary Care Provider Unavailabl e Reason for Visit * Reason Onset Date Comments OSM - Outside Materials 12/08/2023 New Reg OSM 12/08/2023 ONC Encounter Details Date Type Department Care Team (Latest Contact Info) Description 12/08/2023 Clinical Communication Department of Oncology in [place], [place] [address] [place] [phone] Provider, Unknown OSM - Outside Materials (New Reg); OSM (ONC) Social History Tobacco Use Types Packs/Day Years Used Date Smoking Tobacco: Never Passive Smoke Exposure: Past Smokeless Tobacco: Never Alcohol Use Standard Drinks/Week Comments Yes 14 (1 standard drink = 0.6 oz pu re alcohol) [facility] Utilities Answer Date Recorded In the past 12 months has e [employer], gas, oil, or water [employer] threatened to shut off services in your [...] file 04/13/2022 How often do you attend [facility] or christian services? More than 4 times per year 04/13/2022 Do you belong to any clubs o r organizations such as hindu groups, unions, fraternal or athletic groups, or [...] Answer Date Recorded PHQ-2 Score 6 10/28/2023 [facility] - Occupational [...] your living situation today? I have a [facility] place to live 04/26/2023 Education Answer Date Recorded What is the highest level of school you have completed or the highest degree you have received? Bachelor's degree (e.g., BA, AB, BS) 11/19/2018 Sex and Gender Information Value Date Recorded Sex Assigned at Male 04/13/2022 12:32 PM CHIEF CHEMIST Legal Sex Male 9:12 PM CHIEF CHEMIST Gender Identity Male 04/13/2022 12:32 PM CHIEF CHEMIST Sexual Orientation Straight 04/13/2022 12 :32 PM CHIEF CHEMIST documented as of this encounter Plan of Treatment Upcoming Encounters Date Type Department Care Team (Late st Contact Info) Description 04/09/2024 1:30 PM CHIEF CHEMIST Appointment Department of Laboratory Medicine and Pathology, [facility] in [place], [place] [address] [place] [phone] Maryan Merritt APRN, C.N.P., D.N.P. [address] [place] [phone] 04/09/2024 2:00 PM CHIEF CHEMIST Office Visit Division of Rheumatology in [place], [place] [address] [place] [phone] Maryan Merritt APRN, C.N.P., D.N.P. [address] [place] [phone] documented as of this encounter Visit Diagnoses Not on filedocumented in this encounter Additional Health Concerns Assessment Noted Time PHQ-9 Depression Total Score: 22 10/27/ 024 7:46 AM CDT documented as of this encounter Care Teams Aerodynamic Consultant Relationship Specialty Start Date End Date Elsewhere, Pcp PCP - General Internal Medicine 09/08/22 documented as of this encounter
--- OUTSIDE RECORDS SUMMARY | 2024-02-22 10:05 | XMS_ITS | Encounter Summary ---
Author Organization [facility] Address [address] [place] [address] Care Team Providers Care Blueprint Blocker Name Role Phone Elsewhere, Pcp Primary Care Provider Unavailabl e Reason for Referral * Outpatient (Routine) - Closed Specialty Diagnoses / Procedures Referred By Contac t Referred To Contact Diagnoses Sarcoidosis Atrial Fibrillation Paroxysmal (HCC) Myocarditis (HCC) Sleep Apnea Hypopnea Autoimmune Disorder (HCC) Acute Systolic (Congestive) Heart Failure (HCC) Sarcoid Myocarditis (HCC) Procedures Echo Transthoracic (TTE) Ramsey Kelly M.D. 200 [place] [address] Phone: tel: fax: [facility] Referral ID Status Reason Start Date Expiration Date Visits Re quested Visits Authorized [id number] Closed 03/01/2023 02/29/2024 1 1 Reason for Visit * Outpatient (Routine) - Closed Specialty Diagnoses / Procedures Referred By Contac t Referred To Contact Diagnoses Sarcoidosis Atrial Fibrillation Paroxysmal (HCC) Myocarditis (HCC) Sleep Apnea Hypopnea Autoimmune Disorder (HCC) Acute Systolic (Congestive) Heart Failure (HCC) Sarcoid Myocarditis (HCC) Procedures Echo Transthoracic (TTE) Ramsey Kelly M.D. 200 [place] [address] Phone: tel: fax: [facility] Referral ID Status Reason Start Date Expiration Date Visits Re quested Visits Authorized [id number] Closed 03/01/2023 02/29/2024 1 1 Encounter Details Date Type Department Care Team (Latest Contact Info) Description 12/07/2023 11:48 AM CDT - 12/07/2023 1:50 PM CDT Hospital Encounter Department of Cardiovascular Diseases in [place], [place] [address] [place] [address] Ramsey Kelly M.D. [address] [place] [address] Sarcoidosis; Atrial Fibrillation Paroxysmal (HCC); Myocarditis (HCC); [...] 0.6 oz pu re alcohol) [facility] [employer] Answer Date Recorded In the past 12 months has [place], oil, or water [employer] threatened to shut off services in [...] file 04/13/2022 How often do you attend [facility] or amish services? More than 4 times per year [...] Answer Date Recorded PHQ-2 Score 6 10/28/2023 [facility] Occupat ional Health - Occupational [...] your living situation today? I have a [facility] place to live 04/26/2023 Education Answer Date Recorded What is the highest level of school you have completed or the highest degree you have received? Bachelor's degree (e.g., BA, AB, BS) 11/19/2018 Sex and Gender Information Value Date Recorded Sex Assigned at Male 04/13/2022 12:32 PM SLITTER SERVICE AND SETTER Legal Sex Male 9:12 PM SLITTER SERVICE AND SETTER Gender Identity Male 04/13/2022 12:32 PM SLITTER SERVICE AND SETTER Sexual Orientation Straight 04/13/2022 12 :32 PM SLITTER SERVICE AND SETTER documented as of this encounter Medications at [...] st Contact Info) Description 04/09/2024 1:30 PM SLITTER SERVICE AND SETTER Appointment Department of Laboratory Medicine and Pathology, [facility], in [place], [place] [address] [place] [phone] Maryan Merritt, BAYLEE, C.N.P., D.N.P. [address] [place] [phone] 04/09/2024 2:00 PM SLITTER SERVICE AND SETTER Office Visit Division of Rheumatology in [place], [place] [address] [place] [phone] Maryan Merritt APRN, C.N.P., D.N.P. [address] [place] [phone] documented as of this encounter Procedures Procedure Name Priority Date/Time Associated Diagnosis Comments (TTE) 2D ECHO DOPPLER COLOR Routine 12/07/2023 1:37 PM CDT Sarcoidosis Atrial Fibrillation Paroxysmal (HCC) Myocarditis (HCC) Sleep Apnea Hypopnea Autoimmune Disorder (HCC) Acute Systolic (Congestive) Heart Failure (HCC) Sarcoid Myocarditis (HCC) documented in this encounter Results * (TTE) 2D ECHO DOPPLER COLOR (12/07/2023 [...] was performed but not reported based on electrical journeyman's judgment. Normal right ventricular systolic function. Estimated [...] was performed but not reported based on electrical journeyman'sjudgment. Normal right ventricular systolic function. Estimated rightventricular [...] Kelly M.D. CV ECHO PROCEDURES Final Result documented in this encounter Visit Diagnoses Diagnosis Sarcoidosis Atrial Fibrillation Paroxysmal (HCC) Myocarditis (HCC) Sleep Apnea Hypopnea Autoimmune Disorder (HCC) Acute Systolic (Congestive) Heart Failure (HCC) Sarcoid Myocarditis (HCC) documented in this encounter Additional Health Concerns Assessment Noted Time PHQ-9 Depression Total Score: 22 024 7:46 AM CDT documented as of this encounter Care Teams Blueprint Blocker Relationship Specialty Start Date End Date Elsewhere, Pcp PCP - General Internal Medicine 09/08/22 documented as of this encounter
--- OUTSIDE RECORDS SUMMARY | 2024-02-22 10:05 | XMS_ITS | Encounter Summary ---
Author Organization [facility] Address [address] [place] [address] Care Team Providers Care Christmas Tree Farmer Name Role Phone Elsewhere, Pcp Primary Care Provider Unavailabl e Reason for Referral * Outpatient (Routine) - Closed Specialty Diagnoses / Procedures Referred By Contac t Referred To Contact Diagnoses Sarcoidosis Atrial Fibrillation Paroxysmal (HCC) Myocarditis (HCC) Sleep Apnea Hypopnea Autoimmune Disorder (HCC) Acute Systolic (Congestive) Heart Failure (HCC) Sarcoid Myocarditis (HCC) Procedures PET CT Cardiac Sarcoid Ramsey Kelly M.D. 200 [place] [address] Phone: tel: fax: [facility] Referral ID Status Reason Start Date Expiration Date Visits Re quested Visits Authorized [id number] Closed 03/01/2023 02/29/2024 1 1 Reason for Visit * Outpatient (Routine) - Closed Specialty Diagnoses / Procedures Referred By Contac t Referred To Contact Diagnoses Sarcoidosis Atrial Fibrillation Paroxysmal (HCC) Myocarditis (HCC) Sleep Apnea Hypopnea Autoimmune Disorder (HCC) Acute Systolic (Congestive) Heart Failure (HCC) Sarcoid Myocarditis (HCC) Procedures PET CT Cardiac Sarcoid Ramsey Kelly M.D. 200 [place] [address] Phone: tel: fax: [facility] Referral ID Status Reason Start Date Expiration Date Visits Re quested Visits Authorized [id number] Closed 03/01/2023 02/29/2024 1 1 Encounter Details Date Type Department Care Team (Latest Contact Info) Description 12/07/2023 1:51 PM CDT - 12/07/2023 11:59 PM CDT Hospital Encounter Department of Radiology, [facility], in [place], [place] [address] [place] [address] Ramsey Kelly M.D. [address] [place] [address] Sarcoidosis; Atrial Fibrillation Paroxysmal (HCC); Myocarditis (HCC); [...] 0.6 oz pu re alcohol) [facility] Sales Layerities Answer Date Recorded In the past 12 months has [employer], oil, or water [employer] threatened to shut off services in your [...] often do you attend chur ch or samaritan services? More than 4 times per year 04/13/2022 Do you belong to any clubs o r organizations such as denominational groups, unions, fraternal or athletic groups, or [...] Answer Date Recorded PHQ-2 Score 6 10/28/2023 [facility] Occupat ional [facility] - Occupational Stress Questionnaire Answer [...] your living situation today? I have a [facility] place to live 04/26/2023 Education Answer Date Recorded What is the highest level of school you have completed or the highest degree you have received? Bachelor's degree (e.g., BA, AB, BS) 11/19/2018 Sex and Gender Information Value Date Recorded Sex Assigned at Male 04/13/2022 12:32 PM HOTEL DESK CLERK Legal Sex Male 9:12 PM HOTEL DESK CLERK Gender Identity Male 04/13/2022 12:32 PM HOTEL DESK CLERK Sexual Orientation Straight 04/13/2022 12 :32 PM HOTEL DESK CLERK documented as of this encounter Medications at [...] st Contact Info) Description 04/09/2024 1:30 PM HOTEL DESK CLERK Appointment Department of Laboratory Medicine and Pathology, [facility], in [place], [place] [address] [place] [phone] Maryan Merritt APRN, C.N.P., D.N.P. [address] [place] [phone] 04/09/2024 2:00 PM HOTEL DESK CLERK Office Visit Division of Rheumatology in [place], [place] [address] [place] [phone] Maryan Merritt, BAYLEE, C.N.P., D.N.P. [address] [place] [phone] documented as of this encounter Procedures Procedure Name Priority Date/Time Associated Diagnosis Comments PET CT CARDIAC SARCOID RAD - Routine (most inpatients and all outpatients) 12/07/2023 3:58 PM CDT Sarcoidosis Atrial Fibrillation Paroxysmal (HCC) Myocarditis (HCC) Sleep Apnea Hypopnea Autoimmune Disorder (HCC) Acute Systolic (Congestive) Heart Failure (HCC) Sarcoid Myocarditis (HCC) documented in this encounter Results * PET CT Cardiac Sarcoid (12/07/2023 3:58 PM CDT) 12/07/2023 1:51 PM CDT Narrative LENARD GRANT - 12/07/2023 4:45 PM CDT See PDF For Result Procedure Note Hans Sabillon M.D. - 12/07/2023 See PDF For Result us Ramsey Kelly M.D. [facility] PROCEDURES Final Result [email or web address] NA documented in this encounter Visit Diagnoses Diagnosis Sarcoidosis Atrial Fibrillation Paroxysmal (HCC) Myocarditis (HCC) Sleep Apnea Hypopnea Autoimmune Disorder (HCC) Acute Systolic (Congestive) Heart Failure (HCC) Sarcoid Myocarditis (HCC) documented in this encounter Administered Medications Inactive Administered Medications - up to 3 most recent administrations Medication Order MAR Action Action Date Dose Rate Site ammonia N 13 injection DETENTION (ammonia N-13) 9-16.5 millicurie, intravenous, Once, On Tue12/07/23 at 1445, For 1 dose, Imaging Protocol Orders Given 12/07/2023 2:31 PM CDT 13.19 millicuries fludeoxyglucose F 18 injection DETENTION (FDG F-18) 9-16.5 millicurie, intravenous, Once, On Tue12/07/23 at 1445, For 1 dose, Imaging Protocol Orders Given 12/07/2023 2:43 PM CDT 16.3 millicuries documented in this encounter Additional Health Concerns Assessment Noted Time PHQ-9 Depression Total Score: 22 024 7:46 AM CDT documented as of this encounter Care Teams Christmas Tree Farmer Relationship Specialty Start Date End Date Elsewhere, Pcp PCP - General Internal Medicine 09/08/22 documented as of this encounter
--- OUTSIDE RECORDS SUMMARY | 2024-02-22 10:05 | XMS_ITS | Encounter Summary ---
Author Organization [facility] Address [address] [place] [address] Care Team Providers Care Human Resource Analyst Name Role Phone Elsewhere, Pcp Primary Care Provider Unavailabl e Reason for Visit * Reason Onset Date Comments Pre-visit Intake 12/01/2023 Encounter Details Date Type Department Care Team (Latest Contact Info) Description 12/01/2023 12:00 PM CDT Clinical Communication Virtual Review in [place], [place] [address] [place] [address] Pre-visit Intake Social History Tobacco Use Types Packs/Day Years Used Date Smoking Tobacco: Never Passive Smoke Exposure: Past Smokeless Tobacco: Never Tobacco Cessation:Counseling Given: Not Answered Alcohol Use Standard Drinks/Week Comments Yes 14 (1 standard drink = 0.6 oz pu re alcohol) [facility] Utilities Answer Date Recorded In the past 12 months has [facility] [employer], gas, oil, or water [employer] threatened to shut off services in your [...] How often do you attend chur or lutheran services? More than 4 times per year 04/13/2022 Do you belong to any clubs o r organizations such as congregation groups, unions, fraternal or athletic groups, or [...] Answer Date Recorded PHQ-2 Score 6 10/28/2023 [facility] Questionnaire Answer Date [...] your living situation today? I have a [facility] place to live 04/26/2023 Education Answer Date Recorded What is the highest level of school you have completed or the highest degree you have received? Bachelor's degree (e.g., BA, AB, BS) 11/19/2018 Sex and Gender Information Value Date Recorded Sex Assigned at Male 04/13/2022 12:32 PM DIRECTOR OF MANUFACTURING OPERATIONS Legal Sex Male 9:12 PM DIRECTOR OF MANUFACTURING OPERATIONS Gender Identity Male 04/13/2022 12:32 PM DIRECTOR OF MANUFACTURING OPERATIONS Sexual Orientation Straight 04/13/2022 12 :32 PM DIRECTOR OF MANUFACTURING OPERATIONS documented as of this encounter Plan of Treatment Upcoming Encounters Date Type Department Care Team (Late st Contact Info) Description 04/09/2024 1:30 PM DIRECTOR OF MANUFACTURING OPERATIONS Appointment Department of Laboratory Medicine and Pathology, [facility] in [place], [place] 200 [place] [phone] Maryan Merritt APRN, C.N.P., D.N.P. 200 [place] [phone] 04/09/2024 2:00 PM DIRECTOR OF MANUFACTURING OPERATIONS Office Visit Division of Rheumatology in [place], [place] [address] [place] [phone] Maryan Merritt APRN, C.N.P., D.N.P. 200 [place] [phone] documented as of this encounter Visit Diagnoses Not on filedocumented in this encounter Additional Health Concerns Assessment Noted Time PHQ-9 Depression Total Score: 22 024 7:46 AM CDT documented as of this encounter Care Teams Human Resource Analyst Relationship Specialty Start Date End Date Elsewhere, Pcp PCP - General Internal Medicine 09/08/22 documented as of this encounter
--- OUTSIDE RECORDS SUMMARY | 2024-02-22 10:05 | XMS_ITS | Encounter Summary ---
Author Organization [facility] Address [address] [place] [address] Care Team Providers Care It Lead Name Role Phone Elsewhere, Pcp Primary Care Provider Unavailabl e Reason for Visit * Reason Onset Date Comments Pre-visit Testing Orders 11/09/2023 Encounter Details Date Type Department Care Team (Latest Contact Info) Description 11/09/2023 Clinical Communication Division of Rheumatology in [place], [place] [address] [place] [address] Maryan Merritt, BAYLEE, C.N.P., D.N.P. [address] [place] [phone] Pre-visit Testing Orders Social History Tobacco Use Types Packs/Day Years Used Date Smoking Tobacco: Never Passive Smoke Exposure: Past Smokeless Tobacco: Never Alcohol Use Standard Drinks/Week Comments Yes 14 (1 standard drink = 0.6 oz pu re alcohol) [facility] Utilities Answer Date Recorded In the past 12 months has [facility] [employer], gas, oil, or water [employer] threatened to shut off services in your [...] How often do you attend chur or restorationist services? More than 4 times per year [...] Answer Date Recorded PHQ-2 Score 6 10/28/2023 [facility] - Occupational Stress Questionnaire Answer Date [...] your living situation today? I have a [facility] place to live 04/26/2023 Education Answer Date Recorded What is the highest level of school you have completed or the highest degree you have received? Bachelor's degree (e.g., BA, AB, BS) 11/19/2018 Sex and Gender Information Value Date Recorded Sex Assigned at Male 04/13/2022 12:32 PM MERCHANDISE COLLECTOR Legal Sex Male 9:12 PM MERCHANDISE COLLECTOR Gender Identity Male 04/13/2022 12:32 PM MERCHANDISE COLLECTOR Sexual Orientation Straight 04/13/2022 12 :32 PM MERCHANDISE COLLECTOR documented as of this encounter Plan of Treatment Upcoming Encounters Date Type Department Care Team (Late st Contact Info) Description 04/09/2024 1:30 PM MERCHANDISE COLLECTOR Appointment Department of Laboratory Medicine and Pathology, [facility], in [place], [place] [address] [place] [phone] Maryan Merritt APRN, C.N.P., D.N.P. [address] [place] [phone] 04/09/2024 2:00 PM MERCHANDISE COLLECTOR Office Visit Division of Rheumatology in [place], [place] [address] [place] [phone] Maryan Merritt APRN, C.N.P., D.N.P. [address] [place] [phone] documented as of this encounter Visit Diagnoses Not on filedocumented in this encounter Additional Health Concerns Infection Onset Date Last Indicated Resolved Time Protective Environment 08/19/2022 08/19/202211/21 5:10 AM CDT Assessment Noted Time PHQ-9 Depression Total Score: 22 024 7:46 AM CDT documented as of this encounter Care Teams It Lead Relationship Specialty Start Date End Date Elsewhere, Pcp PCP - General Internal Medicine 09/08/22 documented as of this encounter
--- OUTSIDE RECORDS SUMMARY | 2024-02-22 10:05 | XMS_ITS | Encounter Summary ---
Author Organization [facility] Address [address] [place] [address] Care Team Providers Care Regulatory Affairs Assistant Name Role Phone Elsewhere, Pcp Primary Care Provider Unavailabl e Reason for Visit * Reason Onset Date Comments Lab Monitoring 12/09/2023 [facility] Encounter Details Date Type Department Care Team (Latest Contact Info) Description 12/09/2023 Clinical Communication Division of Rheumatology in [place], [place] [address] [place] [phone] Hali Huerta RSammyNSammy [address] [place] [phone] Lab Monitoring ([facility]) Social History Tobacco Use Types Packs/Day Years Used Date Smoking Tobacco: Never Passive Smoke Exposure: Past Smokeless Tobacco: Never Alcohol Use Standard Drinks/Week Comments Yes 14 (1 standard drink = 0.6 oz pu re alcohol) [facility] Utilities Answer Date Recorded In the past 12 months has [facility], oil, or water [employer] threatened to shut off services in your [...] file 04/13/2022 How often do you attend [facility] or adventism services? More than 4 times per year 04/13/2022 Do you belong to any clubs o r organizations such as catholic groups, unions, fraternal or athletic groups, or [...] Answer Date Recorded PHQ-2 Score 6 10/28/2023 [facility] - Occupational Stress Questionnaire Answer [...] living situation today? I have a [facility] place to live 04/26/2023 Education Answer Date Recorded What is the highest level of school you have completed or the highest degree you have received? Bachelor's degree (e.g., BA, AB, BS) 11/19/2018 Sex and Gender Information Value Date Recorded Sex Assigned at Male 04/13/2022 12:32 PM SPECIAL EDUCATION BUS DRIVER Legal Sex Male 9:12 PM SPECIAL EDUCATION BUS DRIVER Gender Identity Male 04/13/2022 12:32 PM SPECIAL EDUCATION BUS DRIVER Sexual Orientation Straight 04/13/2022 12 :32 PM SPECIAL EDUCATION BUS DRIVER documented as of this encounter Miscellaneous Notes * Telephone Encounter - Hali Huerta RSammyN. - 12/09/2023 11:27 AM CDT Documentation note only, patient not contacted ASSESSMENT Rheumatology monitoring labs completed on 12/08/23 for mycophenolate mofetil (Cellcept) monitoring were reviewed per provider order. Labs reviewed: absolute neutrophil count, hemoglobin, leukocytes, platelets Labs viewable in Labs Tab of Chart Review. PLAN Patient to continue with current plan of care. Patient next due for monitoring labs two months after last monitoring labs; these future lab orders were placed. documented in this encounter Plan of Treatment Upcoming Encounters Date Type Department Care Team (Late st Contact Info) Description 04/09/2024 1:30 PM SPECIAL EDUCATION BUS DRIVER Appointment Department of Laboratory Medicine and Pathology, [facility], in [place], [place] [address] [place] [phone] Maryan Merritt APRN, C.N.P., D.N.P. [address] [place] [phone] 04/09/2024 2:00 PM SPECIAL EDUCATION BUS DRIVER Office Visit Division of Rheumatology in [place], [place] [address] [place] [phone] Maryan Merritt APRN, C.N.P., D.N.P. [address] [place] [phone] documented as of this encounter Results * (ABNORMAL) CBC with Differential, Blood (02/07/2024 3:20 PM CDT) Pathologist [facility] Hemoglobin 14.5 13.2 - 16.6 g/dL 02/07/2024 [...] ADD -ON Final Result Performing Organization Address City/State/[facility] Co de Phone Number [facility] [address] [place] [phone], [facility] CNFL [facility] [place] in [address] [address] documented in this encounter Visit Diagnoses Diagnosis Medication Therapy Long-Term Not Anticoagulant- Primary documented in this encounter Additional Health Concerns Assessment Noted Time PHQ-9 Depression Total Score: 22 024 7:46 AM CDT documented as of this encounter Care Teams Regulatory Affairs Assistant Relationship Specialty Start Date End Date Elsewhere, Pcp PCP - General Internal Medicine 09/08/22 documented as of this encounter
--- OUTSIDE RECORDS SUMMARY | 2024-02-22 10:05 | XMS_ITS | Encounter Summary ---
Author Organization [facility] Address [address] [place] [id number] Care Team Providers Care Industrial Waste Inspector Name Role Phone Elsewhere, Pcp Primary Care Provider Unavailabl e Encounter Details Date Type Department Care Team (Latest Contact Info) Description 12/08/2023 9:00 AM CDT - 12/08/2023 11:59 PM CDT Hospital Encounter Department of Laboratory Medicine and Pathology, [facility] in [place], [place] [address] [place] [address] Ramsey Kelly M.D. [address] [place] [phone] Sarcoidosis; Atrial Fibrillation Paroxysmal (HCC); Myocarditis (HCC); Sleep Apnea Hypopnea; Autoimmune Disorder (HCC); Acute Systolic (Congestive) Heart Failure (HCC); Sarcoid Myocarditis (HCC) Discharge Disposition: Home or Self Care Social History Tobacco Use Types Packs/Day Years Used Date Smoking Tobacco: Never Passive Smoke Exposure: Past Smokeless Tobacco: Never Alcohol Use Standard Drinks/Week Comments Yes 14 (1 standard drink = 0.6 oz pu re alcohol) [facility] Utilities Answer Date Recorded In the past 12 months has [facility] [employer], gas, oil, or water [employer] threatened to shut off services in your [...] file 04/13/2022 How often do you attend [facility] services? More than 4 times per year 04/13/2022 Do you belong to any clubs o r organizations such as mormonism groups, unions, fraternal or athletic groups, or [...] Answer Date Recorded PHQ-2 Score 6 10/28/2023 [facility] of Occupat ional Health - Occupational Stress [...] your living situation today? I have a [facility] place to live 04/26/2023 Education Answer Date Recorded What is the highest level of school you have completed or the highest degree you have received? Bachelor's degree (e.g., BA, AB, BS) 11/19/2018 Sex and Gender Information Value Date Recorded Sex Assigned at Male 04/13/2022 12:32 PM SLOT TECHNICIAN Legal Sex Male 9:12 PM SLOT TECHNICIAN Gender Identity Male 04/13/2022 12:32 PM SLOT TECHNICIAN Sexual Orientation Straight 04/13/2022 12 :32 PM SLOT TECHNICIAN documented as of this encounter Medications at [...] Upcoming Encounters Date Type Department Care Team (Ambrose roy Contact Info) Description 04/09/2024 1:30 PM SLOT TECHNICIAN Appointment Department of Laboratory Medicine and Pathology, [facility], in [place], [place] [address] [place] [address] Maryan Merritt APRN, C.N.P., D.N.P. [address] [place] [address] 04/09/2024 2:00 PM SLOT TECHNICIAN Office Visit Division of Rheumatology in [place], [place] [address] [place] [address] Maryan Merritt APRN, Kari.N.P., D.N.P. [address] [place] [phone] documented as of this encounter Procedures Procedure Name Priority Date/Time Associated Diagnosis Comments NT-PRO B-TYPE NATRIURETIC PEPTIDE (BNP), S Routine [...] (Congestive) Heart Failure (HCC) Sarcoid Myocarditis (HCC) C-REACTIVE PROTEIN, HIGH SENSITIVITY, S/P Routine 12/08/2023 [...] (HCC) documented in this encounter Results * (ABNORMAL) C-Reactive Protein, High Sensitivity (12/08/2023 [...] ADD-ON Final R esult Performing Organization Address [facility] Co de Phone Number [address] [place] [address] * (ABNORMAL) Troponin T, 5th Generation (12/08/2023 9:49 AM CDT) Troponin T, 5th gen 53(H) <=15 ng/L 12/08/2023 10:44 AM CDT DTL Blood (Blood, Venous) 12/08/2023 9:49 AM CDT 12/08/2023 10:19 AM CDT Ramsey Kelly M.D. LAB BLOOD ADD-ON Final R esult Performing Organization Address City/[facility]/ZIP Co de Phone Number [facility] [address] [place] [address] * (ABNORMAL) CBC with Differential, Blood (12/08/2023 9:49 AM CDT) Hemoglobin 13.2 13.2 - 16.6 g/dL 12/08/2023 10:45 AM CDT DTL Hematocrit 42.6 38.3 - 48.6 % 12/08/2023 10:45 AM CDT DTL Erythrocytes 5.11 4.35 - 5.65 x10(12)/L 12/08/2023 10:45 AM CDT DTL MCV 83.4 78.2 - 97.9 fL 12/08/2023 10:45 AM CDT DTL RBC Distrib Width 15.7(H) 11.8 - 14.5 % 12/08/2023 10:45 AM CDT DTL Platelet Count 169 135 - 317 x10(9)/L 12/08/2023 10:45 AM CDT DTL Leukocytes 7.3 3.4 - 9.6 x10(9)/L 12/08/2023 10:45 AM CDT DTL Neutrophils 5.63 1.56 - 6.45 x10(9)/L 12/08/2023 10:45 AM CDT DHPM Lymphocytes 1.01 0.95 - 3.07 x10(9)/L 12/08/2023 10:45 AM CDT DTL Monocytes 0.60 0.26 - 0.81 x10(9)/L 12/08/2023 10:45 AM CDT DTL Eosinophils 0.07 0.03 - 0.48 x10(9)/L 12/08/2023 10:45 AM CDT DTL Basophils 0.03 0.01 - 0.08 x10(9)/L 12/08/2023 10:45 AM CDT DTL Blood (Blood, Venous) 12/08/2023 9:49 AM CDT 12/08/2023 10:10 AM CDT us Ramsey Kelly M.D. LAB BLOOD ADD-ON Final R esult [facility] [employer] [facility] [address] [place] [address], [place] DTL [facility] [address] [place] [address] [facility] [address] [place] [address] * (ABNORMAL) Comprehensive Metabolic Panel (12/08/2023 9:49 AM CDT) [facility] Potassium, S 4.7 3.6 - 5.2 mmol/L 12/08/2023 10:43 AM CDT DTL Sodium, S 137 135 - 145 mmol/L 12/08/2023 10:43 AM CDT DTL Chloride, S 101 98 - 107 mmol/L 12/08/2023 10:43 AM CDT DTL Bicarbonate, S 22 22 - 29 mmol/L 12/08/2023 10:43 AM CDT DTL Anion Gap 14 7 - 15 12/08/2023 10:43 AM CDT DTL BUN (Blood Urea Nitrogen), S 33(H) 8 - 24 mg/dL 12/08/2023 10:43 AM CDT DTL Creatinine 1.99(H) 0.74 - 1.35 mg/dL 12/08/2023 10:43 AM CDT DTL Estimated GFR (eGFR) 36(L) >=60 mL/min/BS A 12/08/2023 10:43 AM CDT DTL Comment: Estimated GFR calculated using the 2020 CKD_EPI creatinine equation. Calcium, Total, S 10.2 8.8 - 10.2 mg/dL 12/08/2023 10:43 AM CDT DTL Glucose, S 172(H) 70 - 140 mg/dL 12/08/2023 10:43 AM CDT DTL Protein, Total, S 6.4 6.3 - 7.9 g/dL 12/08/2023 10:43 AM CDT DTL Albumin, S 4.4 3.5 - 5.0 g/dL 12/08/2023 10:43 AM CDT DTL Aspartate Aminotransferase (AST), S 23 8 - 48 U/L 12/08/2023 10:43 AM CDT DTL Alkaline Phosphatase, S 84 40 - 129 U/L 12/08/2023 10:43 AM CDT DTL Alanine Aminotransferase (ALT), S 24 7 - 55 U/L 12/08/2023 10:43 AM CDT DTL Bilirubin, Total, S 0.4 0.0 - 1.2 mg/dL 12/08/2023 10:43 AM CDT DTL Blood (Blood, Venous) 12/08/2023 9:49 AM CDT 12/08/2023 10:19 AM CDT Ramsey Kelly M.D. LAB BLOOD ADD-ON Final R esult Performing Organization Address City/[facility] Co de Phone Number [facility] 200 [place] [address], [facility] 200 [place] [address] * NT-Pro B-Type Natriuretic Peptide (BNP) (12/08/2023 [...] ADD-ON Final R esult Performing Organization Address [facility] Co de Phone Number [facility] [address] [place] [address], [facility] 200 [place] [address] documented in this encounter Visit Diagnoses Diagnosis Sarcoidosis Atrial Fibrillation Paroxysmal (HCC) Myocarditis (HCC) Sleep Apnea Hypopnea Autoimmune Disorder (HCC) Acute Systolic (Congestive) Heart Failure (HCC) Sarcoid Myocarditis (HCC) documented in this encounter Additional Health Concerns Assessment Noted Time PHQ-9 Depression Total Score: 22 [phone] 7:46 AM CDT documented as of this encounter Care Teams Industrial Waste Inspector Relationship Specialty Start Date End Date Elsewhere, Pcp PCP - General Internal Medicine 09/08/22 documented as of this encounter
--- OUTSIDE RECORDS SUMMARY | 2024-02-22 10:06 | XMS_ITS | Encounter Summary ---
Author Organization [facility] Address [address] [place] [address] Care Team Providers Care Compensation Consultant Name Role Phone Elsewhere, Pcp Primary Care Provider Unavailabl e Encounter Details Date Type Department Care Team (Late st Contact Info) Description 10/31/2023 Clinical Communication Department of Neurology in [place], [place] [address] [place] [phone] Nataliia Lowery M.B.B.S. [address] [place] [address] Social History Tobacco Use Types Packs/Day Years Used Date Smoking Tobacco: Never Passive Smoke Exposure: Past Smokeless Tobacco: Never Alcohol Use Standard Drinks/Week Comments Yes 14 (1 standard drink = 0.6 oz pu re alcohol) [facility] Utilities Answer Date Recorded In the past 12 months has [facility] [employer], gas, oil, or water [employer] threatened to shut off services in your [...] file 04/13/2022 How often do you attend [facility] or jain services? More than 4 times per year [...] Answer Date Recorded PHQ-2 Score 6 10/28/2023 [facility] - [facility]ational Stress Questionnaire Answer Date [...] your living situation today? I have a [facility] place to live 04/26/2023 Education Answer Date Recorded What is the highest level of school you have completed or the highest degree you have received? Bachelor's degree (e.g., BA, AB, BS) 11/19/2018 Sex and Gender Information Value Date Recorded Sex Assigned at Male 04/13/2022 12:32 PM GUIDE ALPINE Legal Sex Male 9:12 PM GUIDE ALPINE Gender Identity Male 04/13/2022 12:32 PM GUIDE ALPINE Sexual Orientation Straight 04/13/2022 12 :32 PM GUIDE ALPINE documented as of this encounter Plan of Treatment Upcoming Encounters Date Type Department Care Team (Late st Contact Info) Description 04/09/2024 1:30 PM GUIDE ALPINE Appointment Department of Laboratory Medicine and Pathology, [facility] in [place], [place] [address] [place] [phone] Maryan Merritt APRN, C.N.P., D.N.P. 200 [place] [phone] 04/09/2024 2:00 PM GUIDE ALPINE Office Visit Division of Rheumatology in [place], [place] [address] [place] [phone] Maryan Merritt APRN, C.N.P., D.N.P. [address] [place] [address] documented as of this encounter Visit Diagnoses Not on filedocumented in this encounter Additional Health Concerns Infection Onset Date Last Indicated Resolved Time Protective Environment 08/19/2022 08/19/202211/21 5:10 AM CDT Assessment Noted Time PHQ-9 Depression Total Score: 22 024 7:46 AM CDT documented as of this encounter Care Teams Compensation Consultant Relationship Specialty Start Date End Date Elsewhere, Pcp PCP - General Internal Medicine 09/08/22 documented as of this encounter
[2024-02-22 11:03] LABS: Appearance Urine Clear (Clear); Bilirubin Urine Negative (Negative); Blood Urine Negative (Negative); Color Urine Yellow (Yellow); Glucose Urine 2+ (Negative); Ketones Urine Negative (Negative); Leukocyte Esterase Urine Negative (Negative); Nitrite Urine Negative (Negative); Protein Urine Negative (Negative); Specific Gravity Urine 1.015 (1.000-1.030); Urobilinogen Urine 0.2 (0.2-1.0)
[2024-02-22 11:06] LABS: Basophils Absolute Auto 0.01 K/uL (0.00-0.30); Basophils Percent Auto 0.2 % (0.0-3.0); Eosinophils Absolute Auto 0.07 K/uL (0.00-0.50); Eosinophils Percent Auto 1.3 % (0.0-7.0); Hematocrit 38.2 % (37.0-53.0); Hemoglobin* 12.2 gm/dL (13.5-17.5); Immature Granulocytes Abs Auto 0.11 K/uL (0.00-0.30); Immature Granulocytes Pct Auto 2.1 %; Lymphocytes Percent Auto 19.3 % (20-44); Mean Corpuscular HGB Conc 32 gm/dL (32-36); Mean Corpuscular Hemoglobin 27 pg (26-34); Mean Corpuscular Volume 83 fL (80-100); Monocytes Percent Auto 10.3 % (0.0-11.0); Neutrophils Percent Auto 66.8 % (42.0-72.0); Platelet Count* 120 K/uL (140-440); RDW Coefficient of Variation % 15.8 % (11.5-15.5); White Blood Count* 5.24 K/uL (4.50-11.00)
[2024-02-22 11:07] LABS: Slide Review Reflex No
[2024-02-22 11:21] LABS: Albumin* 4.3 g/dL (3.3-5.0); Chloride* 101 mmol/L (96-114); Sodium* 135 mmol/L (135-149)
[2024-02-22 11:24] LABS: Alanine Aminotransferase* 20 U/L (4-50); Alkaline Phosphatase* 60 U/L (40-150); Anion Gap 6 mEq/L (7-15); Aspartate Amino Transferase* 21 U/L (12-35); Bilirubin Total* 0.6 mg/dL (0.1-1.5); Blood Urea Nitrogen* 17 mg/dL (7-30); Carbon Dioxide* 28 mmol/L (20-32); Creatinine* 1.6 mg/dL (0.5-1.5); Estimated Glomerular Filt Rate 46 ml/min; Glucose* 144 mg/dL (60-115); Total Protein* 6.7 g/dL (6.0-8.3)
[2024-02-22 11:25] LABS: Calcium* 9.8 mg/dL (8.4-10.6)
== END 2024-02-22 09:55 | disposition home or self-care (01) ==
LOC: RAD 09:57
PROVIDERS: PCP Family Medicine; Visit Provider Chiropractor
DX: I49.9 Cardiac arrhythmia, unspecified (principal); I51.7 Cardiomegaly; I07.1 Rheumatic tricuspid insufficiency
CPT/HCPCS: 36415; 80053; 81003; 85025; 93306